=== PATIENT | male | born 1965 | race Caucasian/White ===

== ENCOUNTER 2018-01-28 10:38 | Outpatient (CLI) | payer MEDICAID, SELFPAY ==
--- NOTE | 2018-01-28 11:20 | DI.REPORT_ITS ---
SYMPTOMS/DIAGNOSIS: F/U FX LEFT ANKLE: Three views. Comparison 01/10/18. There has been no change in alignment of the nondisplaced fracture involving the lateral malleolus. There has developed callous formation about the fracture consistent with some interval healing. Callous formation has also developed about the fracture involving the medial malleolus. No new fractures or dislocations are seen.
== END 2018-01-28 10:39 ==
PROVIDERS: PCP Nurse Practitioner Family; Visit Provider Orthopaedic Surgery
DX: S82.831D Other fracture of upper and lower end of right fibula, subsequent encounter for closed fracture with routine healing (principal)
CPT/HCPCS: 73610

== ENCOUNTER 2018-09-02 09:54 | Emergency (ER) | payer MEDICAID, SELFPAY ==
[2018-09-02] VITALS (36 sets, daily range): BP systolic 117–131; BP diastolic 71–86; PULSE 68–116; RESP 9–26; TEMP 37.2; O2SAT 98–100
[2018-09-02 10:26] LABS: Carboxyhemoglobin 45.7 %; Lactate-non-spesis 4.7 mmol/l (0.6-1.4)
[2018-09-02 10:26] LABS: HCO3 21 mmol/L (22-28); pCO2 34 mmHg (34-47); pH 7.39 (7.35-7.45); pO2 383 mmHg (83-108)
[2018-09-02 10:28] LABS: INR 1.1 (0.9-1.1); PTT Activated 23.1 sec (21.0-31.4); Prothrombin Time 10.9 sec (9.3-11.0)
[2018-09-02 10:29] LABS: FIO2L 15 L; Site Right Radial
[2018-09-02] MEDS: Normal Saline 1,000 ML 1000 ML IV (10:31)
--- NOTE | 2018-09-02 10:34 | NUR.NOTE ---
pt brought in by EMS for CO poisoning. pt sleeps in his friends garage in his car and remembers starting his car because he was cold
--- NOTE | 2018-09-02 10:36 | W.ED.GENAD ---
Discharge Plan Disposition Patient Disposition: AGAINST MEDICAL ADVICE Condition: Poor Discharge Details Chief Complaint: ChemExpose Clinical Impression: Carbon monoxide poisoning Primary Care Provider: Ilene Moore ED Provider: Lorenzo Hoover Home Meds and New Rx's Prescriptions: No Action acetaminophen [Tylenol] 325 MG tablet 650 mg PO Q4H PRN PRNRF: 0 nicotine 21 MG/24 HR patch 24 hour 21 mg Transdermal DAILY RF: 0 thiamine mononitrate (vit B1) [Vitamin B-1 (mononitrate)] 100 MG tablet 100 mg PO DAILY RF: 0 prazosin 5 mg Capsule 5 mg PO QPM RF: 0 Discharge Instructions Instructions: Carbon Monoxide Poisoning (ED) Additional Instructions: If you have any desire to come back for hyperbaric oxygen, or any oxygen even for admission here at the hospital please return immediately. Please follow-up as soon as possible with a primary care provider any medical source. Referrals: Ilene Moore [Primary Care Provider] - Discharge Data Discharge Date/Time-TO BE ENTERED AT DEPARTURE: 09/02/18 13:55 Medical Decision Making This is a 53-year-old male with a past medical history of seizures, chronic alcoholism, who presents today for carbon monoxide overdose. The patient was found unresponsive in a garage with the doors closed in the vehicle line. He was dragged out of the vehicle brought outside and eventually regained consciousness after notable stimulation, he was a bit altered at first but by the time he arrived to the ER his mental status is normal. Patient states that he was tired, went to sleep in his car and turned the heat on and turn the car on to stay warm on the vehicle. He denies any homicidal or suicidal ideations. He has no other significant complaints at this time. Physical exam is relatively benign, neurologic exam demonstrates no focal neurologic deficits. Patient's mental status appears at baseline, no evidence of confusion or significant intoxication at this point. Patient has a history of alcoholism, however he clinically appears sober at this time. Patient denies any other complaints at this time. We will evaluate for his carboxyhemoglobin level, start him on BiPAP at 100%, monitor closely. I am concerned that his carboxyhemoglobin is elevated she will need to be transferred for hyperbaric oxygen. The patient is able to speak clearly. There is no demonstration of any slurring of speech. There is evidence of clear decision making capacity. Patient is able to ambulate well without any difficulty. There are no signs of ataxia or stumbling motions. 1:30 PM The patient's carboxyhemoglobin is notably elevated greater than 40. Laboratory workup demonstrates elevated lactate at 4.7, transaminitis consistent with his chronic alcoholism, negative troponin, benign EKG, normal head CT scan. Patient continues to demonstrate a normal neurologic exam, with no signs of confusion or altered mental status. With the patient's notably elevated carboxyhemoglobin level there is notable indication for hyperbaric oxygen therapy. We did contact [facility], [facility], and [facility]. Only [facility] accepted the patient for transfer under Dr. Velasco, with direct transfer to the ED. unfortunately soon as I discussed this with the patient he made it unequivocally clear that there was no way that he would be transferred to another facility. Although I deal I gave him the option of staying here in our hospital for prolonged BiPAP and high flow oxygen, and he continued to make it absolutely clear that he had no intent of staying, that he felt absolutely fine would like to go home. Myself and multiple other medical staff made multiple attempts to convince the patient to stay, including multiple prolonged discussions regarding the long-term sequelae and potential severe neurologic deficits associated with untreated carboxyhemoglobin exposure, in addition to potential other agents that he may have been exposed to. Patient made it very clear that he did not want any further workup, labs, or management. He stated that he wanted to call for right immediately leave. When asking why he felt this way he made it clear that those things that you tell me will not make my life worse, and I feel fine, and I am sure everything will work out fine. We did delay the patient's exit long as possible to maximize the amount of high flow oxygen that he received via BiPAP. Eventually the patient was discharged with his ride. He ambulated well and showed no clinical signs of intoxication, or mental status abnormality. Multiple attempts were remade immediately prior to discharge to keep him here overnight or transfer, the patient made it exquisitely clear what his wishes were. The patient left AGAINST MEDICAL ADVICE EKG 10: 14 Rate 97, MN 204, QTc 478, QRS 80, sinus rhythm, no significant ST elevations or depressions, no Q waves. CRANIAL CT: A noncontrast enhanced examination was carried out according to the usual protocol. There is no evidence of an intra or extra-axial hemorrhage, mass or fluid collection. The estes/white matter differentiation is maintained. There are some questionable small areas of diminished absorption in the frontoparietal white matter raising the possibility of small vessel disease. The ventricles are normal. The midline is intact. There is no evidence of a skull fracture. The paranasal sinuses are normal. The mastoid air cells are normal. SUMMARY: No acute abnormality is demonstrated. There has been no apparent interval change when compared with the prior study of 11/23/17. [id number]: Total DLP = 0.00 mGy-cm HPI General Date/Time Provider Initiated Documentation: 09/02/18 10:01. 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 Patient's was picked up by EMS after being found unresponsive in a vehicle in a garage with the door is closed, the vehicle on in the garage door closed. When fire initially arrived they open the garage door, got the patient out, 15 minutes after this there was still 90 ppm of carbon monoxide level in the garage. Initially the patient was unresponsive, and by eventual responsiveness but confusion. He was started on 15 L on a nonrebreather. At the time he arrived to the ER mental status had improved towards his baseline, he had no other complaints. He denies having any recent seizures. He denies any tongue biting or bowel or bladder incontinence. He does recall the event stating that he was tired because he was working all last night as stated in the car because he was cold, turning the car awning blasted the heat. He then fell asleep because he was closing and warm. He remembers then being woken up by EMS. Patient denies any significant headache, chest pain, shortness of breath, fever or chills. He denies any recent falls or trauma. He does also admit to recent detailing on his car which she felt had a notable amount of fumes. No other complaints at this time. Related Data Home Medications Medication Instructions Recorded Confirmed acetaminophen [Tylenol] 650 mg PO Q4H PRN PRN tab 01/17/18 09/02/18 nicotine 21 mg TRANSDERMAL DAILY patch 01/17/18 09/02/18 thiamine mononitrate (vit B1) 100 mg PO DAILY tab 01/17/18 09/02/18 [Vitamin B-1 (mononitrate)] prazosin 5 mg PO QPM 09/02/18 09/02/18 Previous Rx's Medication Instructions Recorded acetaminophen [Tylenol] 650 mg PO Q4H PRN PRN tab 01/17/18 nicotine 21 mg TRANSDERMAL DAILY patch 01/17/18 thiamine mononitrate (vit B1) 100 mg PO DAILY tab 01/17/18 [Vitamin B-1 (mononitrate)] Allergies Allergy/AdvReac Type Severity Reaction Status Date / Time No Known Allergies Allergy Unverified 09/02/18 10:43 General Stated Complaint: ChemExpose JINNY: 2 Review of Systems Review of Systems All systems reviewed & are unremarkable except as noted in HPI and below PFSH Social History Smoking/Tobacco Use Status: Current every day Tobacco Type: cigarettes Alcohol Intake: current Alcohol Intake frequency: 3 or more drinks per day Alcohol type: wine and hard liquor Drug use: Daily Substance use type: marijuana Do you feel safe at home: Yes Do you feel safe in your relationship?: Yes Exam Narrative Exam Narrative: 1.Const: Well-nourished, Well-developed, appearing stated age 2.Eyes: PERRL, no conjunctival injection, and symmetrical lids. unable to visualize macula 3.ENT: Atraumatic external nose and ears. Moist MM. Neck: Symmetric, trachea midline, No thyromegaly. 4.CVS: +S1/S2, No murmurs or gallops. Peripheral pulses 2+ and equal in all extremities. Brisk capillary refill in all extremities. 5.RESP: Unlabored respiratory effort. Clear to auscultation bilaterally. No wheezes rales or rhonchi 6.GI: Soft, Nontender/Nondistended, No hepatosplenomegaly. No guarding or rebound. 7.MSK: Normocephalic/Atraumatic, Extremities w/o deformity or ttp No cyanosis or clubbing, Normal movement of all extremities. Mild tremor of the upper extremities bilaterally. Notably red distal extremities, easily blanchable. No evidence of cellulitis. 8.Skin: Warm, Dry. No rashes or lesions. 9.Neuro: operations representative II-XII grossly intact. Sensation grossly intact, no focal neurologic deficits. All 6 cardinal planes of vision are fully intact. No evidence of rotatory or vertical nystagmus. The patient demonstrated a normal utdaxy-ciup-orgtwh, good dexterity. There was no evidence of dysdiadochokinesia. Sensation was intact bilaterally as well as muscle strength bilaterally for all extremities. Patient was able to verbalize butter cup with no slurring, or miss pronunciation. 10.Psych: (AAO) x3. Appropriate mood and affect Course Vital Signs Respiratory Rate 17 09/02/18 09:52 Pulse 95 H 09/02/18 10:10 Pulse 95 H 09/02/18 10:10 Respiratory Rate 20 09/02/18 10:10 Blood Pressure 117/83 09/02/18 10:10 Blood Pressure Mean 88 09/02/18 10:10 Pulse Oximetry 98 09/02/18 10:10 Lab/Test Results Lab/Test Results: Laboratory Tests Range/Units 09/02/18 09/02/18 09/02/18 10:01 10:05 10:05 PT (9.3-11.0) sec INR (0.9-1.1) APTT (21.0-31.4) sec Sample Site Right radial pCO2 (34-47) mmHg 34 pO2 (83-108) mmHg 383 H ABG pH (7.35-7.45) 7.39 ABG HCO3 (22-28) mmol/L 21 L ABG Base Excess (-3-3) mmol/L -4.0 L Carboxyhemoglobin % % 45.7 H* Oxygen Liter Flow L 15 Lactate (0.6-1.4) mmol/l 4.7 H Range/Units 09/02/18 09/02/18 10:05 10:05 PT (9.3-11.0) sec 10.9 INR (0.9-1.1) 1.1 APTT (21.0-31.4) sec 23.1 Sample Site pCO2 (34-47) mmHg pO2 (83-108) mmHg ABG pH (7.35-7.45) ABG HCO3 (22-28) mmol/L ABG Base Excess (-3-3) mmol/L Carboxyhemoglobin % % Cancelled Oxygen Liter Flow L Lactate (0.6-1.4) mmol/l
[2018-09-02 10:38] LABS: HGB 16.7 g/dL (13.5-17.5); Mean Corp. HGB Concentration 37.1 g/dL (32.0-36.0); Mean Corpuscular Hemoglobin 37.8 pg (27.0-33.0); Mean Corpuscular Volume 101.8 fL (80-95); Platelet Count 243 x1000/uL (130-400); RBC 4.42 m/cumm (4.50-6.00); RBC Distribution Width 12.1 % (11.8-14.1); White Blood Cell Count 6.71 k/cumm (4.4-10.8)
[2018-09-02 10:41] LABS: Ammonia 12 umol/L (11-32)
[2018-09-02 10:44] LABS: Creatine Kinase 101 U/L (39-308)
[2018-09-02 10:45] LABS: ALT 100 U/L (12-78); AST 158 U/L (15-37); Albumin 3.8 g/dL (3.4-5.0); Alkaline Phosphatase 129 U/L (46-116); Anion Gap 15.9 mmol/L (3-11); BUN 5 mg/dL (7-18); Bilirubin, Total 0.5 mg/dL (0.2-1.0); CO2 23.1 mmol/L (21.0-32.0); Chloride 100 mmol/L (98-107); ETHANOL BLOOD 115.2 mg/dL (<3); Glucose 99 mg/dL (70-100); Potassium 4.2 mmol/L (3.5-5.1); Sodium 139 mmol/L (136-145)
[2018-09-02 10:46] LABS: Absolute Eosinophil Count 0.07 k/cumm (0.0-0.7); Absolute Lymphocyte Count 1.54 k/cumm (1.2-3.4); Absolute Monocyte Count 0.74 k/cumm (0.11-0.7); Absolute Neutrophil Count 4.36 k/cumm (1.2-6.7); Atypical Lymphocytes % 8; Diff Comment Manual Differential; Macrocytosis 1+; Troponin I < 0.02 ng/mL (0.00-0.06)
[2018-09-02 10:48] LABS: Salicylate 6.6 mg/dL (2.8-20.0)
[2018-09-02 10:50] LABS: Acetaminophen < 2 ug/mL (10-30)
[2018-09-02 11:01] LABS: *AMPHETAMINES SCREEN URINE Negative (Negative); *BARBITURATES SCREEN URINE Negative (Negative); *BENZODIAZEPINES SCREEN URINE Negative (Negative); Cannabinoids THC POSITIVE (Negative); Cocaine Screen,Urine Negative (Negative); METHADONE URINE SCREEN Negative (Negative); OPIATES URINE SCREEN Negative (Negative); Tricyclic Antidepressants Negative (Negative)
--- NOTE | 2018-09-02 11:06 | DI.CT_ITS ---
SYMPTOMS/DIAGNOSIS: ALTERED, HX OF SEIZURES CRANIAL CT: A noncontrast enhanced examination was carried out according to the usual protocol. There is no evidence of an intra or extra-axial hemorrhage, mass or fluid collection. The estes/white matter differentiation is maintained. There are some questionable small areas of diminished absorption in the frontoparietal white matter raising the possibility of small vessel disease. The ventricles are normal. The midline is intact. There is no evidence of a skull fracture. The paranasal sinuses are normal. The mastoid air cells are normal. SUMMARY: No acute abnormality is demonstrated. There has been no apparent interval change when compared with the prior study of 11/23/17.
--- NOTE | 2018-09-02 13:41 | NUR.NOTE ---
pt is leaving against medical advice. risks of leaving have been discussed with pt. myself the MD and 2 other nurses attempted to talk the patient into staying. pt states you are all wrong theres nothing the hell wrong with me im leaving im leaving im leaving im leaving pt states i hear your damn risks you're talking about and i don't think there real and if they are i will role the dice im damn good at rolling dice pt was able to repeat the risks back to RN. although pt is aware of the risks that we have presented PT believes that the hospital staff are crazy as theres nothing the hell wrong with me
--- NOTE | 2018-09-03 10:35 | PDOC.ERCMPRO ---
Care Management Progress Note 09/03-Hector left AMA last evening from the emergency department. ED provider wanted Hector to be transferred for hyperbaric oxygen therapy. Patient has refused. Please see provider and nursing notes. This CM called the number on chart. Left a generic message with this CM's contact information requesting call back.
== END 2018-09-02 13:55 | disposition left against medical advice (07) ==
LOC: ER 11:29
PROVIDERS: Emergency Provider Student in an Organized Health Care Education/Training Program; PCP Nurse Practitioner Family
DX: T58.01XA Toxic effect of carbon monoxide from motor vehicle exhaust, accidental (unintentional), initial encounter (principal); Z53.29 Procedure and treatment not carried out because of patient's decision for other reasons
CPT/HCPCS: 36415; 80053; 80307; 82375; 82550; 82805; 96360; 96361; 99285; 70450; 80320; 80329; 82140; 83605; 84484; 85025; 85610; 85730

== ENCOUNTER 2019-03-14 16:34 | Emergency (ER) | payer SELFPAY ==
[2019-03-14 16:33] VITALS: PULSE 109; RESP 20; TEMP 37.2; O2SAT 92
[2019-03-14 16:43] VITALS: RESP 20
[2019-03-14 17:13] LABS: ETHANOL BLOOD 437.3 mg/dL (<3)
--- NOTE | 2019-03-14 23:02 | W.ED.GENAD ---
Discharge Plan Disposition Patient Disposition: [facility] Discharge Details Chief Complaint: AMS/LOC Clinical Impression: Alcohol intoxication, Encounter for medical clearance for patient hold Primary Care Provider: Ilene Moore ED Provider: Navin Rooney Home Meds and New Rx's Prescriptions: No Action acetaminophen [Tylenol] 325 MG tablet 650 mg PO Q4H PRN PRNRF: 0 nicotine 21 MG/24 HR patch 24 hour 21 mg Transdermal DAILY RF: 0 thiamine mononitrate (vit B1) [Vitamin B-1 (mononitrate)] 100 MG tablet 100 mg PO DAILY RF: 0 prazosin 5 mg Capsule 5 mg PO QPM RF: 0 Discharge Instructions Instructions: Alcohol Intoxication (ED) Additional Instructions: Patient has a chronic right and left knee pain which disrupts his gait at baseline. Discharge Data Discharge Date/Time-TO BE ENTERED AT DEPARTURE: 03/14/19 17:33 Medical Decision Making This is a nontoxic-appearing acutely intoxicated 53-year-old male who presents to the emergency department for medical clearance. He is able to carry full conversation. He is able to self ambulate. He does have chronic bilateral left greater than right knee pain. He has some difficulty with ambulation at baseline. His alcohol is 490 here in the emergency department discussed with case liner who states the holding tank. No outward signs of trauma. Patient is cleared medically at this time for intoxication observation. HPI General Date/Time Provider Initiated Documentation: 03/14/19 16:43. HPI Narrative: Patient found under [facility] unconscious approximate 30 minutes. Difficult to arouse by EMS and police. Patient notably intoxicated and refused to feel breathalyzer. He has no complaints at this time and wants to sleep. He is here for medical clearance. Related Data Home Medications Medication Instructions Recorded Confirmed acetaminophen [Tylenol] 650 mg PO Q4H PRN PRN tab 01/17/18 09/02/18 nicotine 21 mg TRANSDERMAL DAILY patch 01/17/18 09/02/18 thiamine mononitrate (vit B1) 100 mg PO DAILY tab 01/17/18 09/02/18 [Vitamin B-1 (mononitrate)] prazosin 5 mg PO QPM 09/02/18 09/02/18 Previous Rx's Medication Instructions Recorded acetaminophen [Tylenol] 650 mg PO Q4H PRN PRN tab 01/17/18 nicotine 21 mg TRANSDERMAL DAILY patch 01/17/18 thiamine mononitrate (vit B1) 100 mg PO DAILY tab 01/17/18 [Vitamin B-1 (mononitrate)] Allergies Allergy/AdvReac Type Severity Reaction Status Date / Time No Known Allergies Allergy Unverified 09/02/18 10:43 General Stated Complaint: AMS/LOC JINNY: 3 Review of Systems Constitutional Constitutional: Denies fever(s) and Denies headache(s) ENT Ears, Nose, Mouth, and Throat: Denies dizziness and Denies headache(s) Cardiovascular Cardiovascular: Denies chest pain, Denies chest pain at rest and Denies dyspnea Respiratory Respiratory: Denies dyspnea and Denies wheezing Gastrointestinal Gastrointestinal: Denies vomiting and Denies hematemesis Musculoskeletal Musculoskeletal: Reports arthralgias (b/l knees) Neurologic Neurologic: Denies dizziness, Denies headache(s) and Denies paresthesias Allergic/Immunologic Allergic/Immunologic: Denies wheezing [facility] Social History Smoking/Tobacco Use Status: Current every day Tobacco Type: cigarettes Alcohol Intake: current Alcohol Intake frequency: 3 or more drinks per day Alcohol type: beer Drug use: Daily Substance use type: marijuana Details: States he drinks almost a case of beer a day. Do you feel safe at home: Yes Do you feel safe in your relationship?: Yes Exam Const General: cooperative, comfortable, no acute distress, disheveled and intoxicated appearing Orientation: alert, awake and oriented x3 [facility] Head: normal to inspection, no palpable skull fracture, normocephalic and atraumatic General nose exam: external nose normal Face and sinus: normal facial exam Mouth: oral mucosae normal Eyes General: appearance normal, both eyes and all related structures Visual Sheets: normal visual sheets by confrontation Neck Neck: normal visual inspection and full ROM Chest Chest: normal inspection of the chest Resp Effort & Inspection: normal respiratory effort and able to speak in complete sentences Auscultation: clear to auscultation bilaterally Cardio Rate: regular rate Rhythm: regular rhythm Skin General skin exam: no rashes or lesions noted Trauma: no lacerations or abrasions Neuro General: alert, awake and oriented x3 Cranial Nerves: CN's II-XI intact bilaterally Cognition: normal cognition Gait: normal gait Course Vital Signs Vital signs: Vital Signs Temperature 37.2 C 03/14/19 16:33 Pulse 109 H 03/14/19 16:33 Respiratory Rate 20 03/14/19 16:33 Pulse Oximetry 92 L 03/14/19 16:33 Temperature 37.2 C 03/14/19 16:33 Temperature Source Skin 03/14/19 16:33 Pulse 109 H 03/14/19 16:33 Respiratory Rate 20 03/14/19 16:43 Respiratory Effort Non-Labored 03/14/19 16:43 Blood Pressure Position Sitting 03/14/19 16:33 Pulse Oximetry 92 L 03/14/19 16:33 Oxygen Delivery Method Room Air 03/14/19 16:33 Oxygen Flow Rate 0 03/14/19 16:33 Pain Level 0 03/14/19 17:34 Comment 03/14/19 16:33 Lab/Test Results Lab/Test Results: Laboratory Tests Range/Units 03/14/19 16:41 Ethyl Alcohol (<3) mg/dL 437.3
== END 2019-03-14 17:33 | disposition home or self-care (01) ==
PROVIDERS: Emergency Provider Physician Assistant; PCP Nurse Practitioner Family
DX: F10.120 Alcohol abuse with intoxication, uncomplicated (principal); G89.29 Other chronic pain; M25.561 Pain in right knee; M25.562 Pain in left knee
CPT/HCPCS: 36415; 99283; 80320

== ENCOUNTER 2020-07-16 08:00 | Emergency (ER) | payer SELFPAY ==
[2020-07-16] VITALS (45 sets, daily range): BP systolic 114–136; BP diastolic 59–85; PULSE 91–123; RESP 13–30; TEMP 37.8; O2SAT 87–96
--- NOTE | 2020-07-16 08:00 | RT.EKG_ITS ---
APPROVED REPORT Exam: Resting ECG Patient Location: E HR:108 bpm ECG Measurements Heart Rate 108 AXIS UT 178 P 87 QRSd 80 QRS 2 QT 343 T 66 QTc 460 Conclusion Sinus tachycardia...rate> 99 Low voltage, extremity leads...all extremity leads <0.5mV subtle st dep lateral v5-6
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
[2020-07-16] MEDS: Normal Saline Flush 10 ML SYR IVP ×3 (08:31→11:47)
[2020-07-16] MEDS: Lactated Ringers 1,000 ML 1000 ML IV (08:31)
[2020-07-16] MEDS: Acetaminophen 500 MG TAB 1000 MG PO (08:47)
[2020-07-16 08:50] LABS: Source Nasopharynx
[2020-07-16 08:52] LABS: Abs Immature Grans 0.04 10^3/uL (0.0-0.06); Absolute Basophil Count 0.06 10^3/uL (0.0-0.2); Absolute Eosinophil Count 0.04 10^3/uL (0.0-0.7); Absolute Lymphocyte Count 1.03 10^3/uL (1.2-3.4); Absolute Monocyte Count 1.22 10^3/uL (0.1-0.8); Absolute Neutrophil Count 10.54 10^3/uL (1.2-6.7); Basophils % 0.5; Eosinophils % 0.3; HGB 14.4 g/dL (13.5-17.5); Immature Grans % 0.3; MCHC 34.3 % (32.0-36.0); MCV 99.1 fL (80-95); MPV 9.7 fL (8.0-11.0); Monocytes % 9.4; Neutrophils % 81.5; Nucleated RBC 0 %; Platelet Count 283 10^3/uL (130-400); RBC 4.24 10^6/uL (4.36-5.78); RDW 12.9 % (11.8-14.1); RDW-SD 46.7 fL; WBC 12.93 10^3/uL (4.4-10.8)
[2020-07-16 09:31] LABS: COVID-19 PCR Negative (Negative); Influenza A PCR Negative (Negative); Influenza B PCR Negative (Negative); RSV PCR Negative (Negative)
[2020-07-16 09:33] LABS: D-Dimer 1513 ng/mlFEU (<500)
[2020-07-16 10:03] LABS: ALT 28 U/L (16-63); AST 55 U/L (15-37); Albumin 3.6 g/dL (3.4-5.0); Alkaline Phosphatase 119 U/L (46-116); Anion Gap 13.6 mmol/L (3-11); BUN 4 mg/dL (7-18); Bilirubin, Total 1.1 mg/dL (0.2-1.0); CO2 25.4 mmol/L (21.0-32.0); CREATININE 0.6 mg/dL (0.70-1.30); Calcium 8.6 mg/dL (8.5-10.1); Chloride 97 mmol/L (98-107); Glucose 108 mg/dL (74-106); Potassium 3.7 mmol/L (3.5-5.1); Sodium 136 mmol/L (136-145); Total Protein 8.6 g/dL (6.4-8.2)
--- NOTE | 2020-07-16 10:15 | RT.EKG_ITS ---
APPROVED REPORT Exam: Resting ECG Patient Location: E HR:97 bpm ECG Measurements Heart Rate 97 AXIS VA 214 P 35 QRSd 88 QRS 5 QT 399 T 24 QTc 507 Conclusion Sinus rhythm...normal P axis, V-rate 60- 99 Prolonged VA interval...VA >205, V-rate 91-120 Anterior infarct, old...Q >40mS, abnormal ST-T, V2-V5 Prolonged QT interval...QTc >500mS
[2020-07-16] MEDS: Omnipaque 350 MG/ML 100 ML BTL IJ (10:43)
[2020-07-16] MEDS: Normal Saline - Diluent 50 ML VIAL IV (10:45)
[2020-07-16 11:01] LABS: Bilirubin Negative (Negative); Blood Negative (Negative); Clarity Clear (Clear); Glucose Negative (Negative); Ketones Negative (Negative); Leukocyte Esterase Negative (Negative); Nitrite Negative (Negative); Urobilinogen 0.2 EU/dL (Up TO 0.2); pH 6.5 (5-8)
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
[2020-07-16 11:21] LABS: Anion Gap 10.1 mmol/L (3-11); BUN 3 mg/dL (7-18); CO2 26.9 mmol/L (21.0-32.0); CREATININE 0.6 mg/dL (0.70-1.30); Calcium 8.2 mg/dL (8.5-10.1); Chloride 98 mmol/L (98-107); Glucose 98 mg/dL (74-106); Potassium 3.8 mmol/L (3.5-5.1); Sodium 135 mmol/L (136-145)
[2020-07-16] MEDS: Ketorolac 15 MG/ML VIAL IVP (11:32)
--- NOTE | 2020-07-16 11:50 | RESPIRATORY ---
RT called to instruct patient on the used of Incentive Spirometry. Patient very hard of hearing, RT instructed patient by writing all the directions down for him. Patient was able to do 5 rep at 3000ml with a 2sec breathe hold. RT along with nursing instructed patient to split with pillow on the area in which the rib pain was. Patients was trialed on RA by nursing but with his shallow breathing, he was unable to maintain an Spo2 above 89%. Placed back on 2L and device left with patient for admission for observation in hospital.
--- NOTE | 2020-07-17 11:16 | NUR.NOTE ---
Nursing Note:Per access patient arrives at hospital due to unsigned prescription for lidocaine patches ordered for patient on 07/16/2020 at ED visit. Discussed with MD Taveras and patient notified patches are available over the counter. Patient's friend presented prescription to this nurse and was instructed to show pharmacist prescription for help to locate medication. This nurse also instructed that patient should come in and be reevaluated if needed. -
== END 2020-07-16 12:37 | disposition left against medical advice (07) ==
PROVIDERS: Emergency Provider Physician Assistant Medical; PCP Nurse Practitioner Family
DX: S22.41XA Multiple fractures of ribs, right side, initial encounter for closed fracture (principal); Y04.0XXA Assault by unarmed brawl or fight, initial encounter; R09.02 Hypoxemia; F10.20 Alcohol dependence, uncomplicated; R94.31 Abnormal electrocardiogram [ECG] [EKG]; Z20.822 Contact with and (suspected) exposure to COVID-19; Z53.29 Procedure and treatment not carried out because of patient's decision for other reasons; S22.49XA Multiple fractures of ribs, unspecified side, initial encounter for closed fracture
CPT/HCPCS: 71275; 74177; 80048; 80053; 87637; 93005; 96361; 96374; 99285; 81003; 85025; 85379; 93010; 99284; J1885; J3490

== ENCOUNTER 2020-10-07 19:12 | Emergency (ER) | payer SELFPAY ==
[2020-10-07 19:14] VITALS: BP 132/86; PULSE 99; RESP 17; TEMP 36.3
[2020-10-07 19:22] VITALS: RESP 18
[2020-10-07] MEDS: THIAMINE 100 MG in Normal Saline 100 ML 200 MG IVPB (19:47)
[2020-10-07 19:54] LABS: Abs Immature Grans 0.04 10^3/uL (0.0-0.06); Absolute Basophil Count 0.11 10^3/uL (0.0-0.2); Absolute Eosinophil Count 0.07 10^3/uL (0.0-0.7); Absolute Monocyte Count 0.87 10^3/uL (0.1-0.8); Basophils % 1.3; Eosinophils % 0.8; HCT 41.5 % (40.0-50.0); HGB 14.1 g/dL (13.5-17.5); Immature Grans % 0.5; Lymphocytes % 17.8; MCH 36.2 pg (27.0-33.0); MCV 106.7 fL (80-95); MPV 9.1 fL (8.0-11.0); Monocytes % 10.3; Nucleated RBC 0 %; Platelet Count 234 10^3/uL (130-400); RBC 3.89 10^6/uL (4.36-5.78); RDW 13.3 % (11.8-14.1); RDW-SD 52.5 fL; WBC 8.42 10^3/uL (4.4-10.8)
--- NOTE | 2020-10-07 20:01 | W.ED.GENAD ---
Discharge Plan Disposition Patient Disposition: HOME Condition: Stable Discharge Details Clinical Impression: Alcohol intoxication, Substance abuse Primary Care Provider: Ilene Moore ED Provider: Wilian Zeng Home Meds and New Rx's Prescriptions: No Action acetaminophen [Tylenol] 325 MG tablet 650 mg PO Q4H PRN PRNRF: 0 nicotine 21 MG/24 HR patch 24 hour 21 mg Transdermal DAILY RF: 0 thiamine mononitrate (vit B1) [Vitamin B-1 (mononitrate)] 100 MG tablet 100 mg PO DAILY RF: 0 prazosin 5 mg Capsule 5 mg PO QPM RF: 0 Discharge Instructions Instructions: Alcohol Intoxication (ED) Additional Instructions: Please do not use illicit substances or medications that you are not prescribed. Do not take methadone. Please stop abusing alcohol. Please contact your primary care physician to arrange follow-up. Return to the ER for any worsening or new concerning symptoms. Referrals: [facility] [Outside] Ilene Moore [Primary Care Provider] - Discharge Data Discharge Date/Time-TO BE ENTERED AT DEPARTURE: 10/07/20 21:45 Medical Decision Making 1997--55-year-old male with alcohol use disorder, here with altered mental status. Patient had slurred speech and smells of alcohol. Suspect acute alcohol intoxication. Per his friends he also took some methadone today for rib pain related to rib fracture. Patient is hemodynamically stable without complaint. Plan to observe patient for clinical sobriety. I will check labs including EtOH and urine drug screen. Will provide thiamine 100 mg IV and IV fluid. --labs reviewed and EtOH elevated, there is methadoneon uds. Patient is stable, conversant and cooperative. He has no complaints. Mentation has improved. 2137 --Patient has remained stable. Mentation improved, he has no complaints and is requesting discharge. He is able to abmbulate without disfunction. We have contacted a friend to transport patient home and ensure safety at home. Nursing reviewed discharge with patient and he departed with friend. HPI General Mode of arrival: wheelchair. Date/Time Provider Initiated Documentation: 10/07/20 19:13. Limitations to Documentation: altered mental status. Information obtained by: patient. HPI Narrative: 55-year-old male with history of alcohol use disorder, presents with altered mental status. Patient was dropped off by his friends who are concerned that he drank an excessive amount of alcohol and took some methadone. History and review of systems limited secondary to altered mental status. Patient has no complaints and is requesting discharge. Related Data Home Medications Medication Instructions Recorded Confirmed acetaminophen [Tylenol] 650 mg PO Q4H PRN PRN tab 01/17/18 07/16/20 nicotine 21 mg TRANSDERMAL DAILY patch 01/17/18 07/16/20 thiamine mononitrate (vit B1) 100 mg PO DAILY tab 01/17/18 07/16/20 [Vitamin B-1 (mononitrate)] prazosin 5 mg PO QPM 09/02/18 07/16/20 Previous Rx's Medication Instructions Recorded acetaminophen [Tylenol] 650 mg PO Q4H PRN PRN tab 01/17/18 nicotine 21 mg TRANSDERMAL DAILY patch 01/17/18 thiamine mononitrate (vit B1) 100 mg PO DAILY tab 01/17/18 [Vitamin B-1 (mononitrate)] Allergies Allergy/AdvReac Type Severity Reaction Status Date / Time No Known Allergies Allergy Unverified 10/07/20 19:21 General Stated Complaint: AMS/LOC JINNY: 3 Review of Systems Unobtainable due to mental status [facility] Medical History (Updated 10/07/20 @ 21:41 by Wilian Zeng MD) Alcohol use disorder Seizure disorder Social History Smoking/Tobacco Use Status: Current every day Tobacco Type: cigarettes Smoking risk assessment performed?: Yes Alcohol Intake: current Alcohol Intake frequency: 3 or more drinks per day Alcohol type: beer Drug use: Daily Substance use type: marijuana and painkillers Details: States he drinks almost a case of beer a day. Do you feel safe at home: Yes Do you feel safe in your relationship?: Yes Exam Const General: cooperative, comfortable and no acute distress Orientation: alert, awake and confused Limitations: altered mental status HENAL Head: normocephalic and atraumatic Mouth: moist mucous membranes Eyes Sclera: normal sclerae Neck Neck: trachea midline Resp Auscultation: clear to auscultation bilaterally, no rales, no rhonchi and no wheezes Cardio Rate: regular rate and not tachycardic Rhythm: regular rhythm GI Palpation: soft, not firm, no guarding, no masses, not rigid and nontender Skin General skin exam: no rashes or lesions noted Neuro General: patient alert, patient awake, oriented Patient Orientation: Person, Place and Confused and tone normal Cognition: abnormal cognition Speech: other (Slurred speech) Motor: muscle tone normal throughout Extrem General: no edema Psych Appearance: disheveled Mental Status: mental status grossly normal Speech and Movement: slurred speech Attitude: cooperative Course Vital Signs Vital signs: Vital Signs Temperature 36.3 C L 10/07/20 19:14 Pulse 99 H 10/07/20 19:14 Respiratory Rate 17 10/07/20 19:14 Blood Pressure 132/86 10/07/20 19:14 Temperature 36.3 C L 10/07/20 19:14 Temperature Source Temporal Artery Scan 10/07/20 19:14 Pulse 99 H 10/07/20 19:14 Respiratory Rate 18 10/07/20 19:22 Respiratory Effort Non-Labored 10/07/20 19:22 Respiratory Pattern Normal 10/07/20 19:22 Blood Pressure 132/86 10/07/20 19:14 Blood Pressure Position Supine 10/07/20 19:14 Oxygen Delivery Method Room Air 10/07/20 19:14 Oxygen Flow Rate 0 10/07/20 19:14 Pain Level 2 10/07/20 19:14
[2020-10-07 20:02] LABS: ALT 74 U/L (16-63); AST 102 U/L (15-37); Albumin 3.9 g/dL (3.4-5.0); Alkaline Phosphatase 143 U/L (46-116); Anion Gap 8.9 mmol/L (3-11); BUN 4 mg/dL (7-18); Bilirubin, Total 0.3 mg/dL (0.2-1.0); CO2 30.1 mmol/L (21.0-32.0); CREATININE 0.6 mg/dL (0.70-1.30); Calcium 8.5 mg/dL (8.5-10.1); Chloride 107 mmol/L (98-107); Glucose 86 mg/dL (74-106); Potassium 3.9 mmol/L (3.5-5.1); Sodium 146 mmol/L (136-145); Total Protein 8.6 g/dL (6.4-8.2)
[2020-10-07 20:04] LABS: Magnesium 2.1 mg/dL (1.8-2.4)
--- NOTE | 2020-10-07 20:10 | NUR.NOTE ---
referal sent to [facility] for4 help getting patient hearring vasyl 10/07/20Nursing Note:
[2020-10-07] MEDS: Lactated Ringers 1,000 ML 1000 ML IV (20:15)
[2020-10-07 20:16] LABS: Diff Comment Diff Reviewed; Macrocytosis 1+
[2020-10-07 20:18] LABS: Absolute Neutrophil Count 5.84 10^3/uL (1.2-6.7); Neutrophils % 69.3
[2020-10-07 20:19] LABS: *AMPHETAMINES SCREEN URINE Negative (Negative); *BARBITURATES SCREEN URINE Negative (Negative); *BENZODIAZEPINES SCREEN URINE Negative (Negative); Cannabinoids THC Positive (Negative); Cocaine Screen,Urine Negative (Negative); METHADONE URINE SCREEN Positive (Negative); OPIATES URINE SCREEN Negative (Negative)
[2020-10-07 20:20] LABS: Tricyclic Antidepressants Negative (Negative)
[2020-10-07 21:43] VITALS: BP 132/86; PULSE 99; RESP 18; TEMP 36.3; O2SAT 96
== END 2020-10-07 21:45 | disposition home or self-care (01) ==
PROVIDERS: Emergency Provider Student in an Organized Health Care Education/Training Program; PCP Nurse Practitioner Family
DX: F10.120 Alcohol abuse with intoxication, uncomplicated (principal); Y90.8 Blood alcohol level of 240 mg/100 ml or more; F11.10 Opioid abuse, uncomplicated; F12.10 Cannabis abuse, uncomplicated
CPT/HCPCS: 36415; 80053; 80307; 96361; 96365; 99284; 80320; 83735; 85025

== ENCOUNTER 2021-05-09 15:20 | Inpatient (IN) | payer MEDICAID, SELFPAY ==
[2021-05-09] VITALS (15 sets, daily range): BP systolic 102–130; BP diastolic 67–95; PULSE 83–103; RESP 16–22; TEMP 36.5–36.7; O2SAT 94–97
--- NOTE | 2021-05-09 15:45 | DI.RAD_ITS ---
Exam(s) XR FOOT RT COMPLETE EXAM: XR FOOT RT COMPLETE CLINICAL HISTORY: biateral foot pain. TECHNIQUE: 2D digital imaging was performed of the right foot. Three images were obtained. AP, obl ique and lateral views were obtained. COMPARISON: No previous for comparison. FINDINGS: BONES: No acute fracture is present. No bony destructive lesion is seen. JOINTS: No dislocation present. SOFT TISSUE: Normal. IMPRESSION: Unremarkable radiographs of the right foot. DATA REPOSITORY: RADIATION DOSE DELIVERED:
--- NOTE | 2021-05-09 15:45 | DI.RAD_ITS ---
Exam(s) XR FOOT LT COMPLETE EXAM: XR FOOT LT COMPLETE CLINICAL HISTORY: bilateral foot pain. TECHNIQUE: 2D digital imaging was performed of the left foot. Three images were obtained. AP, obli que and lateral views were obtained. COMPARISON: CR LEFT FOOT COMPLETE from 01/10/2018 FINDINGS: BONES: No acute fracture is present. No bony destructive lesion is seen. Sequelae of an old fracture of the proximal phalanx of the left great toe. JOINTS: No dislocation present. SOFT TISSUE: Normal. IMPRESSION: No acute fracture or dislocation. DATA REPOSITORY: RADIATION DOSE DELIVERED:
--- NOTE | 2021-05-09 15:50 | W.ED.GENAD ---
Discharge Plan Disposition Patient Disposition: [facility] INPATIENT Condition: Stable Discharge Details Clinical Impression: Alcohol abuse, Alcoholic peripheral neuropathy Primary Care Provider: Ilene Moore ED Provider: Ethan Taveras Home Meds and New Rx's Prescriptions: No Action acetaminophen [Tylenol] 325 MG tablet 650 mg PO Q4H PRN PRNRF: 0 nicotine 21 MG/24 HR patch 24 hour 21 mg Transdermal DAILY RF: 0 thiamine mononitrate (vit B1) [Vitamin B-1 (mononitrate)] 100 MG tablet 100 mg PO DAILY RF: 0 prazosin 5 mg Capsule 5 mg PO QPM RF: 0 Medical Decision Making This is a 55-year-old male homeless alcoholic who presents with progressive foot pain over months to years time. He states over the past 30 days he has been sleeping outside a friend's paint shop in his van, unable to change his clothes and has not removed his boots in that time. Due to ongoing pain, weakness, and ongoing alcohol use he was brought to the ER by this friend today. The patient arrives with normal vital signs. He appears to have a mild trench foot. Could consider alcoholic neuropathy causing nerve pain, he is also at risk for dehydration and electrolyte abnormalities and therefore IV access was established, patient was given fluids and a banana bag, referred for screening x-rays of his feet and laboratory analysis. Labs: Alcohol level was 299. CBC shows white count 6, hematocrit 38, platelets 171 with MCV of 104. Chemistries note sodium 138, potassium 4.1, chloride 102, bicarb 28, BUN 7, creatinine 0.5. AST 180, ALT 93, alk phos 224, total bili 0.4. XR: No acute fracture present left or right foot. Following fluids, banana bag and observation, the patient is minimally improved. He has ongoing lower extremity and generalized weakness, he is at risk for alcohol withdrawal, and he has no safe outpatient disposition at this time. Case discussed with Dr. Kelly. Will obtain screening head CT and patient to be admitted. HPI General Mode of arrival: wheelchair. Date/Time Provider Initiated Documentation: 05/09/21 15:21. Limitations to Documentation: no limitations. Information obtained by: patient. History of Present Illness 55 year old M presents to the emergency department with the chief complaint of Bilateral foot pain, progressive over years time. Ongoing alcoholism, described as moderate, Quality is described as dull and constant, and is localized to the left, right and lower extremity. Patient started experiencing this week(s) and it has been intermittent. No relieving factors improve symptom(s), No exacerbating factors reported . Patient notes denies fever/chills and rash. Patient did receive the following treatments prior to arrival, none Related Data Home Medications Medication Instructions Recorded Confirmed acetaminophen [Tylenol] 650 mg PO Q4H PRN PRN tab 01/17/18 07/16/20 nicotine 21 mg TRANSDERMAL DAILY patch 01/17/18 07/16/20 thiamine mononitrate (vit B1) 100 mg PO DAILY tab 01/17/18 07/16/20 [Vitamin B-1 (mononitrate)] prazosin 5 mg PO QPM 09/02/18 07/16/20 Previous Rx's Medication Instructions Recorded acetaminophen [Tylenol] 650 mg PO Q4H PRN PRN tab 01/17/18 nicotine 21 mg TRANSDERMAL DAILY patch 01/17/18 thiamine mononitrate (vit B1) 100 mg PO DAILY tab 01/17/18 [Vitamin B-1 (mononitrate)] Allergies Allergy/AdvReac Type Severity Reaction Status Date / Time No Known Allergies Allergy Unverified 10/07/20 19:21 General Stated Complaint: GenMedical JINNY: 3 Review of Systems Narrative: . Denies direct injury to the lower extremity. Reports weakness of the legs and recent falls. No fever. Ongoing daily alcohol use. States he is homeless. Sleeping in his van. 8 systems reviewed and otherwise negative [facility] Active Problem List Alcohol intoxication (Acute) Substance abuse (Acute) Seizure disorder (Acute) Multiple rib fractures (Acute) Rib fracture (Acute) Alcohol withdrawal (Acute) Alcoholic hepatitis (Acute) Alcoholic gastritis (Acute) Alcohol dependence (Acute) Tobacco dependence (Acute) Ankle fracture, left (Acute) Discharge planning issues (Acute) Hypokalemia (Acute) Medical History Alcohol use disorder Social History Smoking/Tobacco Use Status: Current every day Tobacco Type: cigarettes Smoking risk assessment performed?: Yes Alcohol Intake: current Alcohol Intake frequency: 3 or more drinks per day Alcohol type: beer and wine Drug use: Daily Substance use type: marijuana and painkillers Details: States he drinks almost a case of beer a day. Today pt reports he consumed both beer and wine. Do you feel safe at home: Yes Do you feel safe in your relationship?: Yes Additional Social history: Pt reports he has been sleeping in a van for the last month. Exam Narrative Exam Narrative: GEN: awake, alert, interactive. HEAD: Normocephalic, atraumatic ENT: Mucous membranes dry, oropharynx unremarkable, External ear exam unremarkable EYES: PERRL, EOMI NECK: Full ROM, no ALLEGRA, no menigismus CHEST/RESP: Nontender, clear to auscultation bilateral, no wheeze/rhonchi/rales CARDIOVASCULAR: RRR, no murmur, rub merari. 2+ Rad pulse bilateral ABDOMEN: Soft, nontender, no mass. +Bowel sounds EXT: Full ROM, mild edema of toes, no evidence of desquamation, or sensation intact, capillary refill less than 2 seconds. Able to move both legs against gravity but not against resistance. Neuro: Grossly normal neurologic exam, conversant, interactive. Psych: Speech fluent, thoughts congruent, affect normal Course Vital Signs Vital signs: Vital Signs Temperature 36.7 C 05/09/21 15:37 Pulse 87 05/09/21 15:37 Respiratory Rate 18 05/09/21 15:37 Blood Pressure 111/80 05/09/21 15:37 Pulse Oximetry 97 05/09/21 15:37 Temperature 36.7 C 05/09/21 15:37 Pulse 87 05/09/21 15:37 Respiratory Rate 18 05/09/21 15:37 Blood Pressure 111/80 05/09/21 15:37 Blood Pressure Position Sitting 05/09/21 15:37 Pulse Oximetry 97 05/09/21 15:37 Oxygen Delivery Method Room Air 05/09/21 15:37 Oxygen Flow Rate 0 05/09/21 15:37 Pain Level 10 05/09/21 15:37
--- NOTE | 2021-05-09 15:53 | NUR.NOTE ---
Nursing Note: ETIENNE: [phone]
[2021-05-09] MEDS: Ketorolac 15 MG/ML VIAL IVP (16:08)
[2021-05-09] MEDS: Normal Saline Flush 10 ML SYR IVP (16:08)
[2021-05-09] MEDS: Normal Saline 1,000 ML 150 ML IV (16:08)
[2021-05-09 16:10] LABS: Abs Immature Grans 0.02 10^3/uL (0.0-0.06); Absolute Basophil Count 0.09 10^3/uL (0.0-0.2); Absolute Eosinophil Count 0.13 10^3/uL (0.0-0.7); Absolute Lymphocyte Count 1.28 10^3/uL (1.2-3.4); Absolute Neutrophil Count 3.93 10^3/uL (1.2-6.7); Basophils % 1.5; Eosinophils % 2.1; HCT 38.6 % (40.0-50.0); HGB 12.9 g/dL (13.5-17.5); Immature Grans % 0.3; Lymphocytes % 20.8; MCH 35.1 pg (27.0-33.0); MCHC 33.4 % (32.0-36.0); MCV 104.9 fL (80-95); MPV 9.8 fL (8.0-11.0); Monocytes % 11.4; Neutrophils % 63.9; Nucleated RBC 0 %; Platelet Count 171 10^3/uL (130-400); RBC 3.68 10^6/uL (4.36-5.78); RDW-SD 50.8 fL; WBC 6.15 10^3/uL (4.4-10.8)
[2021-05-09 16:17] LABS: ALT 93 U/L (16-63); AST 180 U/L (15-37); Albumin 3.1 g/dL (3.4-5.0); Alkaline Phosphatase 254 U/L (46-116); Anion Gap 7.2 mmol/L (3-11); BUN 7 mg/dL (7-18); Bilirubin, Total 0.4 mg/dL (0.2-1.0); CO2 28.8 mmol/L (21.0-32.0); CREATININE 0.5 mg/dL (0.70-1.30); Calcium 8.5 mg/dL (8.5-10.1); Chloride 102 mmol/L (98-107); ETHANOL BLOOD 299.1 mg/dL (<10); Glucose 94 mg/dL (74-106); Magnesium 2.1 mg/dL (1.8-2.4); Potassium 4.1 mmol/L (3.5-5.1); Sodium 138 mmol/L (136-145); Total Protein 7.8 g/dL (6.4-8.2)
[2021-05-09] MEDS: MAGNESIUM SULFATE 8.12 MEQ, MULTIVITAMIN 10 ML, THIAMINE 100 MG, FOLIC ACID 1 MG in Nor... 168.867 MG IV (16:54)
--- NOTE | 2021-05-09 17:10 | DI.VRAD_ITS ---
PROCEDURE INFORMATION: Exam: XR Left Foot Exam date and time: 05/09/2021 3:50 PM Age: 55 years old Clinical indication: Other: Bilateral foot pain TECHNIQUE: Imaging protocol: XR Left foot. Views: 3 or more views. COMPARISON: CR LEFT FOOT COMPLETE 01/10/2018 7:34 PM FINDINGS: Bones/joints: No acute fracture or dislocation Soft tissues: Unremarkable IMPRESSION: No acute fracture or dislocation Dictated and Authenticated by: Ameya Fields MD. Ordering:LUCIA Long MD
--- NOTE | 2021-05-09 17:11 | DI.VRAD_ITS ---
PROCEDURE INFORMATION: Exam: XR Right Foot Exam date and time: 05/09/2021 3:50 PM Age: 55 years old Clinical indication: Other: Bilateral foot pain TECHNIQUE: Imaging protocol: XR Right foot. Views: 3 or more views. COMPARISON: CR RIGHT ANKLE COMPLETE 01/28/2018 10:49 AM FINDINGS: Bones/joints: No acute fracture or dislocation Soft tissues: Unremarkable IMPRESSION: No acute fracture or dislocation Dictated and Authenticated by: Ameya Fields MD. Ordering:LUCIA Long MD
[2021-05-09 17:29] LABS: Bilirubin Negative (Negative); Blood Negative (Negative); Clarity Clear (Clear); Glucose Negative (Negative); Ketones Negative (Negative); Leukocyte Esterase Negative (Negative); Nitrite Negative (Negative); Specific Gravity 1.015 (1.005-1.025); Urobilinogen 0.2 EU/dL (Up TO 0.2)
[2021-05-09 17:53] LABS: *AMPHETAMINES SCREEN URINE Negative (Negative); *BARBITURATES SCREEN URINE Negative (Negative); *BENZODIAZEPINES SCREEN URINE Negative (Negative); Cannabinoids THC Negative (Negative); Cocaine Screen,Urine Negative (Negative); METHADONE URINE SCREEN Negative (Negative); OPIATES URINE SCREEN Negative (Negative)
[2021-05-09 18:00] LABS: Tricyclic Antidepressants Negative (Negative)
--- NOTE | 2021-05-09 18:15 | DI.CT_ITS ---
Exam(s) CT HEAD WO EXAM: CT HEAD WO CLINICAL HISTORY: falls, etoh. TECHNIQUE: Imaging Protocol: Axial computed tomography images with coronal and sagittal reformatted images were created and reviewed COMPARISON: No exams were available for comparison FINDINGS: Ventricles and Extra axial spaces: Normal in size and morphology for the patient's age. Hemorrhage: None. Cerebral parenchyma: Normal. Midline shift: None. Brainstem/Cerebellum: Normal. Calvarium: There is a mildly depressed left nasal bone fracture. Visualized Paranasal sinuses/Mastoids: There are fluid level seen in the maxillary sinuses bilaterall y. The remaining visualized paranasal sinuses and mastoid air cells are clear. Soft Tissues: Unremarkable. IMPRESSION: 1. No acute intracranial process. 2. Acute mildly displaced left nasal bone fracture. 3. Fluid in the maxillary sinuses bilaterally. While this may be infectious, traumatic etiology jennifer ot be excluded. RADIATION DOSE DELIVERED: 963.6mGy.cm Total DLP DATA REPOSITORY: All CT scans at this facility are submitted to the National Radiology Data Registry (NRDR) Dose Index Registry (DIR) with the [employer] (A[employer]). RADIATION OPTIMIZATION: All CT scans at this facility use at least one of these dose optimization te chniques: automated exposure control; mA and/or kV adjustment per patient size (includes targeted exa ms where dose is matched to clinical indication); or iterative reconstruction.
[2021-05-09 18:56] LABS: Source Nasal/Nares
--- NOTE | 2021-05-09 19:38 | DI.VRAD_ITS ---
PROCEDURE INFORMATION: Exam: CT Head Without Contrast Exam date and time: 05/09/2021 6:16 PM Age: 55 years old Clinical indication: Falls, ETOH TECHNIQUE: Imaging protocol: Computed tomography of the head without contrast. Radiation optimization: All CT scans at this facility use at least one of these dose optimization techniques: automated exposure control; mA and/or kV adjustment per patient size (includes targeted exams where dose is matched to clinical indication); or iterative reconstruction. COMPARISON: CT HEAD WO 09/02/2018 10:58 AM FINDINGS: Brain: There is no acute intracranial hemorrhage, mass effect or midline shift. There is no large acute territorial cerebral infarct. Cerebral ventricles: No ventriculomegaly. Paranasal sinuses: There is fluid in the right greater than left maxillary sinuses. Mastoid air cells: Visualized mastoid air cells are well aerated. Bones/joints: There is a medially displaced fracture of the left nasal bone, which appears acute in nature. Soft tissues: Unremarkable. IMPRESSION: 1. No acute intracranial hemorrhage, mass effect or midline shift. 2. Medially displaced fracture of the left nasal bone, which may be acute in nature. Correlate with clinical presentation. 3. Fluid in the bilateral maxillary sinuses, which may be infectious or related to trauma. Dictated and Authenticated by: Faby Kirk MD. Ordering:LUCIA Long MD
--- NOTE | 2021-05-09 21:25 | HPE_ITS ---
Date of service: 05/09/21 Time of Service: 21:25 Assessment and Plan Assessment and plan (1) Alcohol intoxication: Status: Acute Assessment and plan: He has a history of acute and chronic alcoholism. H is alcohol level now is quite high. I will place him on an alcohol withdrawal scale and start him on phenobarbital as needed to control his symptoms. (2) Weakness: Status: Acute Assessment and plan: Etiology of his weakness is not clear at this time. I did not get him up to walk. Is very difficult to obtain a history from him. I will check further labs on him and it may be worth evaluating him with a neurologic consult. I will have physical therapy see him tomorrow. It may be douglas to have care management seeing him. I have asked the staff to discuss flu and rotavirus vaccines with him. I cannot get him to understand the question about whether he has had a Covid vaccination yet. History of Present Illness History of Present Illness Chief Complaint: pain of fingers and feet, weakness Narrative: This 55-year-old male is here because of paresthesias in his hands and feet and weakness. This gentleman has a long history of alcoholism. He states he does not really want to stop drinking. He wants some nicotine gum to help with tobacco craving. 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 He states his been living in his van for about a month and has not been taking care of himself very well except he has been drinking at least 12 beers per day and wine on a regular basis. I do not know if he has had coronavirus vaccine. He does smoke about a pack and cigarettes per day. He says he was kicked out from where he was living but I do not know why. He says he is going to be moving into another place but he could not tell me 1. He says that places not fixed up yet performed. He was evaluated emergency department and a physician there thought he might have alcoholic peripheral neuropathy. Emergency physician said that the patient had not had his shoes off for over a month. He says his feet feel like there are woodpeckers pounding at his toes. He says he has been to alcohol rehab 3 times in the past and is not really interested in that at this time. Review of Systems Unobtainable due to (severe hearing deficit) [facility] Active Problem List Alcohol intoxication (Acute) Substance abuse (Acute) Seizure disorder (Acute) Multiple rib fractures (Acute) Rib fracture (Acute) Alcohol withdrawal (Acute) Alcoholic hepatitis (Acute) Alcoholic gastritis (Acute) Alcohol dependence (Acute) Tobacco dependence (Acute) Ankle fracture, left (Acute) Discharge planning issues (Acute) Hypokalemia (Acute) Medical History Alcohol use disorder Social History Smoking/Tobacco Use Status: Current every day Tobacco Type: cigarettes Smoking risk assessment performed?: Yes Alcohol Intake: current Alcohol Intake frequency: 3 or more drinks per day Alcohol type: beer and wine Drug use: Daily Substance use type: marijuana and painkillers Details: States he drinks almost a case of beer a day. Today pt reports he consumed both beer and wine. Do you feel safe at home: Yes Do you feel safe in your relationship?: Yes Additional Social history: Pt reports he has been sleeping in a van for the last month. Meds Allergies and Home Medications Allergies Allergy/AdvReac Type Severity Reaction Status Date / Time No Known Allergies Allergy Unverified 10/07/20 19:21 Home Medications Medication Instructions Recorded Confirmed Type acetaminophen [Tylenol] 650 mg PO Q4H PRN PRN tab 01/17/18 07/16/20 Rx nicotine 21 mg TRANSDERMAL DAILY patch 01/17/18 07/16/20 Rx thiamine mononitrate (vit B1) 100 mg PO DAILY tab 01/17/18 07/16/20 Rx [Vitamin B-1 (mononitrate)] prazosin 5 mg PO QPM 09/02/18 07/16/20 History Exam Const General: cooperative, no acute distress, disheveled, intoxicated appearing and not lethargic Orientation: awake HENWI Head: normal to inspection Ears: hearing grossly impaired Mouth: oral mucosae normal Teeth and gingiva: poor dentition Eyes Eyelids: eyelids normal Conjunctivae: conjunctivae normal Neck Neck: normal visual inspection and no lymphadenopathy Thyroid: thyroid normal Resp Effort & Inspection: normal respiratory effort and able to speak in complete sentences Auscultation: clear to auscultation bilaterally Cardio Jugular venous pressure: no JVD Rate: regular rate Rhythm: regular rhythm Heart Sounds: S1 normal, S2 normal, no gallops and no murmurs GI Palpation: soft, no hepatosplenomegaly and nontender Neuro Other: He has normal superintendent car construction strength bilaterally as well as normal quadricep and hamstring strength and ankle dorsiflexion strength. He can lift both legs off the exam table to about 40 degrees. I see no fasciculations. Muscle stretch reflexes are +1 at the quadriceps and 0 at the Achilles. He does have some light touch sensation of his feet. Bit difficult to test accurately because of his hearing deficit. I had to yell quite loudly in his left ear to get him to understand anything. Rapid alternating movements of his hands and fingers is normal. [id number] testing of left and right sides is normal. He has normal superintendent car construction strength and finger interosseous strength bilaterally. Extrem General: normal to inspection, no pedal edema and no calf tenderness Results Labs Result diagrams: 05/09/21 15:57 05/09/21 15:57 Labs: Laboratory Results - last 24 hr 05/09/21 05/09/21 05/09/21 15:57 15:57 17:20 WBC 6.15 RBC 3.68 L Hgb 12.9 L Hct 38.6 L MCV 104.9 H MCH 35.1 H MCHC 33.4 RDW 13.0 Plt Count 171 MPV 9.8 Immature Gran % 0.3 Neutrophils % 63.9 Lymphocytes % 20.8 Monocytes % 11.4 Eosinophils % 2.1 Basophils % 1.5 Nucleated RBC % 0 Absolute Neutrophils 3.93 Absolute Lymphocytes 1.28 Absolute Monocytes 0.70 Absolute Eosinophils 0.13 Absolute Basophils 0.09 Sodium 138 Potassium 4.1 Chloride 102 Carbon Dioxide 28.8 Anion Gap 7.2 BUN 7 Creatinine 0.5 L Estimated GFR/1.73 m2 >= 60.00 Glucose 94 Calcium 8.5 Magnesium 2.1 Total Bilirubin 0.4 AST 180 H ALT 93 H Alkaline Phosphatase 254 H Total Protein 7.8 Albumin 3.1 L Urine Color Urine Clarity Urine pH Ur Specific [place] Urine Protein Urine Ketones Urine Blood Urine Nitrite Urine Bilirubin Urine Urobilinogen Ur Leukocyte Esterase Urine Glucose Urine Opiates Screen Negative Urine Methadone Screen Negative Ur Barbiturates Screen Negative Ur Tricyclics Screen Negative Ur Amphetamines Screen Negative U Benzodiazepines Scrn Negative Urine Cocaine Screen Negative Ur THC Screen Negative Ethyl Alcohol 299.1 H COVID-19 Source 05/09/21 05/09/21 17:20 18:25 WBC RBC Hgb Hct MCV MCH MCHC RDW Plt Count MPV Immature Gran % Neutrophils % Lymphocytes % Monocytes % Eosinophils % Basophils % Nucleated RBC % Absolute Neutrophils Absolute Lymphocytes Absolute Monocytes Absolute Eosinophils Absolute Basophils Sodium Potassium Chloride Carbon Dioxide Anion Gap BUN Creatinine Estimated GFR/1.73 m2 Glucose Calcium Magnesium Total Bilirubin AST ALT Alkaline Phosphatase Total Protein Albumin Urine Color Yellow Urine Clarity Clear Urine pH 6.0 Ur Specific [place] 1.015 Urine Protein Negative Urine Ketones Negative Urine Blood Negative Urine Nitrite Negative Urine Bilirubin Negative Urine Urobilinogen 0.2 Ur Leukocyte Esterase Negative Urine Glucose Negative Urine Opiates Screen Urine Methadone Screen Ur Barbiturates Screen Ur Tricyclics Screen Ur Amphetamines Screen U Benzodiazepines Scrn Urine Cocaine Screen Ur THC Screen Ethyl Alcohol COVID-19 Source Nasal/Nares Last Vital Signs Temp 36.5 C 05/09/21 20:21 Pulse 102 H 05/09/21 20:21 Resp 22 05/09/21 20:21 BP 120/69 05/09/21 20:21 Pulse Ox 94 05/09/21 20:21 PAWSS Have you Been Recently Intoxicated or Drunk Within the Last 30 days?: Yes Have you Ever Experienced Previous Episodes of Alcohol Withdrawal?: Yes Have you ever Experienced Withdrawal Seizures?: Yes Have you ever Experienced Delirium Tremens(DT)s?: Yes Have you ever undergone Alcohol Rehabilitation Treatment (i.e, inpt ot outpatient treatment programs)?: Yes Have you ever Combined Alcohol with any other Substance of Abuse during the last 90 days?: Yes Positive Blood Alcohol level on Presentation? [PCS.BAL]: Yes Evidence of Increased Autonomic Activity (i.e. HR>120, tremor, sweating, agitation, nausea)?: Yes Result: 9
[2021-05-09] MEDS: Acetaminophen 500 MG TAB PO (22:30)
[2021-05-09] MEDS: Nicotine 2 MG GUM CH (22:31)
[2021-05-09 23:42] LABS: COVID-19 PCR Negative (Negative)
[2021-05-10] VITALS (9 sets, daily range): BP systolic 122–151; BP diastolic 74–87; PULSE 73–93; RESP 16–19; TEMP 36.9–37.6; O2SAT 92–96
--- NOTE | 2021-05-10 | DI.RAD_ITS ---
Exam(s) XR PORTABLE CHEST AP EXAM: XR PORTABLE CHEST AP CLINICAL HISTORY: cough TECHNIQUE: 2D digital imaging was performed of the chest. One image was obtained. An AP view was ob tained. COMPARISON: No exams were available for comparison FINDINGS: MEDIASTINUM: Normal. HEART: Normal. PULMONARY VASCULATURE: Normal. LUNGS: Clear. PLEURAL SPACE: No pleural effusion or pneumothorax. BONE:Within normal limits for the patient's age. OTHER FINDINGS:Normal. IMPRESSION: No acute pulmonary findings. DATA REPOSITORY: RADIATION DOSE DELIVERED:
[2021-05-10] MEDS: Nicotine 2 MG GUM CH ×5 (00:05→14:54)
[2021-05-10] MEDS: Normal Saline 1,000 ML 150 ML IV ×4 (00:31→23:16)
[2021-05-10] MEDS: Acetaminophen 500 MG TAB PO (01:07)
--- NOTE | 2021-05-10 01:51 | NUR.NOTE ---
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 State he has not taken his shoes or socks off for the month since he has been living into his van.Patient has a very dirty looking knee brace secured to his left knee. 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 Knee braced was removed and place on patient's other very dirty laundry. This nurse offered to kael his clothing laundered and patient refused stating he just barely had them wash. Patient reported that his feet feels as if a woodpecker is picking them. They were numb and tender also tingly. Both legs are swollen and painful to touch. Prn analgesics administered. Pt will continue to be closely monitored.
[2021-05-10] MEDS: Ibuprofen 600 MG TAB PO (03:07)
[2021-05-10 07:31] LABS: HGB 11.9 g/dL (13.5-17.5); MCH 34.7 pg (27.0-33.0); MPV 10.4 fL (8.0-11.0); Platelet Count 150 10^3/uL (130-400); RBC 3.43 10^6/uL (4.36-5.78); RDW 12.7 % (11.8-14.1); RDW-SD 47.8 fL
[2021-05-10 07:43] LABS: C-Reactive Protein 0.18 mg/dL (0.0-0.3); Magnesium 2.1 mg/dL (1.8-2.4)
[2021-05-10 07:47] LABS: ESR 48 mm/hr (0-20)
[2021-05-10 08:02] LABS: ALT 71 U/L (16-63); AST 126 U/L (15-37); Albumin 2.8 g/dL (3.4-5.0); Alkaline Phosphatase 225 U/L (46-116); Anion Gap 8.1 mmol/L (3-11); BUN 7 mg/dL (7-18); Bilirubin, Direct 0.4 mg/dL (0.0-0.2); CO2 25.9 mmol/L (21.0-32.0); CREATININE 0.5 mg/dL (0.70-1.30); Calcium 8.2 mg/dL (8.5-10.1); Chloride 101 mmol/L (98-107); Glucose 88 mg/dL (74-106); PHOSPHORUS 3.5 mg/dL (2.6-4.7); Sodium 135 mmol/L (136-145); TSH (W/Ref FT4) 2.88 uIU/mL (0.36-3.74)
[2021-05-10] MEDS: Thiamine 100 MG TAB PO (08:02)
[2021-05-10] MEDS: Normal Saline Flush 10 ML SYR IVP (08:03)
[2021-05-10 08:19] LABS: Creatine Kinase 96 U/L (39-308)
[2021-05-10 08:57] LABS: Folate 10.1 ng/mL (8.6-20.0); Vitamin B12 722 pg/mL (193-986)
--- NOTE | 2021-05-10 10:00 | INITIAL_ITS ---
- If Service Date Differs Date of service: 05/10/21 Time of Service: 10:00 Care Management Initial Assess REASON FOR HOSPITALIZATION:: alcohol intoxication and weakness PAST MEDICAL HISTORY/PAST SURGICAL HISTORY:: Active Problem List . Alcohol intoxication (Acute). Substance abuse (Acute). Seizure disorder (Acute). Multiple rib fractures (Acute). Rib fracture (Acute). Alcohol withdrawal (Acute). Alcoholic hepatitis (Acute). Alcoholic gastritis (Acute). Alcohol dependence (Acute). Tobacco dependence (Acute). Ankle fracture, left (Acute). Discharge planning issues (Acute). Hypokalemia (Acute). Medical History . Alcohol use disorder PREVIOUS FUNCTIONAL STATUS/SOCIAL/FAMILY SUPPORTS:: Hector is currently homel ess and is living out of his car in [facility]. He lived in an apartment with a friend until 5 weeks ago. He plans to move into another apartment with a different friend soon. 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 He does not receive any services. CURRENT FUNCTIONAL STATUS:: Haroon was sitting up in a chair when CM met with him. He is very hard of hearing so communication ocuurred both verbally and in writing. Haroon shared that he hopes to be able to get back to work soon. 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 His CIWA scores have ranged from 1-4 during the day today. Overnight they were a bit higher. He is currently on the Phenobarbital protocol. ADVANCE DIRECTIVES:: none on file Has patient been provided with info about the portal/API?: Yes Did the patient sign up for the portal?: No CODE STATUS:: Full Code INSURANCE COVERAGE / FINANCIAL ISSUES:: self pay. referral made to [facility] who is working on getting his Medicaid re-instated. PRIMARY CARE PHYSICIAN:: Ilene Moore POTENTIAL DISCHARGE NEEDS:: Follow up with PCP and plan of care. Housing, insurance PATIENT/FAMILY EDUCATION NEEDS:: review of discharge instructions, limitations, activity, Medications, Ask Me Three TRANSPORTATION:: via private vehicle by self PLAN:: Hector will likley be discharged home with no new services. He will follow up with his community providers and plan of care and drive himeself. CM will continue to support Hector soares assess for additional discharge concerns.
--- NOTE | 2021-05-10 10:21 | PGE_ITS ---
Date of Service Date of service: 05/10/21 Time of Service: : Assessment and Plan Assessment and plan (1) Alcohol intoxication: Status: Acute Assessment and plan: He has a history of acute and chronic alcoholism. His alcohol level now is quite high. phenobarital protocol high dose thiamine (2) Weakness: Status: Acute Assessment and plan: Etiology of his weakness is not clear at this time. today up with PT, could benefit from walker /cane (3) Discharge planning issues: Status: Acute Assessment and plan: case management following homeless. no intention of stopping ETOH discussed with DR Odell Subjective Subjective Patient reports: no new complaints Exam Const General: cooperative, no acute distress, disheveled, intoxicated appearing and not lethargic Orientation: awake HENME Head: normal to inspection Ears: hearing grossly impaired Mouth: oral mucosae normal Teeth and gingiva: poor dentition Eyes Eyelids: eyelids normal Conjunctivae: conjunctivae normal Neck Neck: normal visual inspection and no lymphadenopathy Thyroid: thyroid normal Resp Effort & Inspection: normal respiratory effort and able to speak in complete sentences Auscultation: clear to auscultation bilaterally Cardio Jugular venous pressure: no JVD Rate: regular rate Rhythm: regular rhythm Heart Sounds: S1 normal, S2 normal and no murmurs GI Palpation: soft, no hepatosplenomegaly and nontender Extrem General: normal to inspection, no pedal edema and no calf tenderness Objective Last Vital Signs Temp 37.0 C 05/10/21 07:27 Pulse 73 05/10/21 07:27 Resp 19 05/10/21 07:27 BP 143/84 H 05/10/21 07:27 Pulse Ox 96 05/10/21 07:27 Laboratory Results - last 24 hr 05/09/21 05/09/21 05/09/21 15:57 15:57 17:20 WBC 6.15 RBC 3.68 L Hgb 12.9 L Hct 38.6 L MCV 104.9 H MCH 35.1 H MCHC 33.4 RDW 13.0 Plt Count 171 MPV 9.8 Immature Gran % 0.3 Neutrophils % 63.9 Lymphocytes % 20.8 Monocytes % 11.4 Eosinophils % 2.1 Basophils % 1.5 Nucleated RBC % 0 Absolute Neutrophils 3.93 Absolute Lymphocytes 1.28 Absolute Monocytes 0.70 Absolute Eosinophils 0.13 Absolute Basophils 0.09 ESR Sodium 138 Potassium 4.1 Chloride 102 Carbon Dioxide 28.8 Anion Gap 7.2 BUN 7 Creatinine 0.5 L Estimated GFR/1.73 m2 >= 60.00 Glucose 94 Calcium 8.5 Phosphorus Magnesium 2.1 Total Bilirubin 0.4 Conjugated Bilirubin AST 180 H ALT 93 H Alkaline Phosphatase 254 H Creatine Kinase C-Reactive Protein Total Protein 7.8 Albumin 3.1 L Vitamin B12 Folate TSH Urine Color Urine Clarity Urine pH Ur Specific [place] Urine Protein Urine Ketones Urine Blood Urine Nitrite Urine Bilirubin Urine Urobilinogen Ur Leukocyte Esterase Urine Glucose Urine Opiates Screen Negative Urine Methadone Screen Negative Ur Barbiturates Screen Negative Ur Tricyclics Screen Negative Ur Amphetamines Screen Negative U Benzodiazepines Scrn Negative Urine Cocaine Screen Negative Ur THC Screen Negative Ethyl Alcohol 299.1 H COVID-19 Source SARS-CoV-2 (PCR) 05/09/21 05/09/21 05/10/21 17:20 18:25 07:00 WBC RBC Hgb Hct MCV MCH MCHC RDW Plt Count MPV Immature Gran % Neutrophils % Lymphocytes % Monocytes % Eosinophils % Basophils % Nucleated RBC % Absolute Neutrophils Absolute Lymphocytes Absolute Monocytes Absolute Eosinophils Absolute Basophils ESR Sodium Potassium Chloride Carbon Dioxide Anion Gap BUN Creatinine Estimated GFR/1.73 m2 Glucose Calcium Phosphorus Magnesium Total Bilirubin Conjugated Bilirubin AST ALT Alkaline Phosphatase Creatine Kinase 96 C-Reactive Protein Total Protein Albumin Vitamin B12 722 Folate 10.1 TSH Urine Color Yellow Urine Clarity Clear Urine pH 6.0 Ur Specific [place] 1.015 Urine Protein Negative Urine Ketones Negative Urine Blood Negative Urine Nitrite Negative Urine Bilirubin Negative Urine Urobilinogen 0.2 Ur Leukocyte Esterase Negative Urine Glucose Negative Urine Opiates Screen Urine Methadone Screen Ur Barbiturates Screen Ur Tricyclics Screen Ur Amphetamines Screen U Benzodiazepines Scrn Urine Cocaine Screen Ur THC Screen Ethyl Alcohol COVID-19 Source Nasal/Nares SARS-CoV-2 (PCR) Negative 05/10/21 05/10/21 05/10/21 07:00 07:00 07:00 WBC 7.60 RBC 3.43 L Hgb 11.9 L Hct 35.0 L MCV 102.0 H MCH 34.7 H MCHC 34.0 RDW 12.7 Plt Count 150 MPV 10.4 Immature Gran % Neutrophils % Lymphocytes % Monocytes % Eosinophils % Basophils % Nucleated RBC % Absolute Neutrophils Absolute Lymphocytes Absolute Monocytes Absolute Eosinophils Absolute Basophils ESR 48 H Sodium Potassium Chloride Carbon Dioxide Anion Gap BUN Creatinine Estimated GFR/1.73 m2 Glucose Calcium Phosphorus Magnesium 2.1 Total Bilirubin Conjugated Bilirubin AST ALT Alkaline Phosphatase Creatine Kinase C-Reactive Protein 0.18 Total Protein Albumin Vitamin B12 Folate TSH Urine Color Urine Clarity Urine pH Ur Specific [place] Urine Protein Urine Ketones Urine Blood Urine Nitrite Urine Bilirubin Urine Urobilinogen Ur Leukocyte Esterase Urine Glucose Urine Opiates Screen Urine Methadone Screen Ur Barbiturates Screen Ur Tricyclics Screen Ur Amphetamines Screen U Benzodiazepines Scrn Urine Cocaine Screen Ur THC Screen Ethyl Alcohol COVID-19 Source SARS-CoV-2 (PCR) 05/10/21 07:00 WBC RBC Hgb Hct MCV MCH MCHC RDW Plt Count MPV Immature Gran % Neutrophils % Lymphocytes % Monocytes % Eosinophils % Basophils % Nucleated RBC % Absolute Neutrophils Absolute Lymphocytes Absolute Monocytes Absolute Eosinophils Absolute Basophils ESR Sodium 135 L Potassium 4.0 Chloride 101 Carbon Dioxide 25.9 Anion Gap 8.1 BUN 7 Creatinine 0.5 L Estimated GFR/1.73 m2 >= 60.00 Glucose 88 Calcium 8.2 L Phosphorus 3.5 Magnesium Total Bilirubin 1.0 Conjugated Bilirubin 0.4 H AST 126 H ALT 71 H Alkaline Phosphatase 225 H Creatine Kinase C-Reactive Protein Total Protein 7.0 Albumin 2.8 L Vitamin B12 Folate TSH 2.88 Urine Color Urine Clarity Urine pH Ur Specific [place] Urine Protein Urine Ketones Urine Blood Urine Nitrite Urine Bilirubin Urine Urobilinogen Ur Leukocyte Esterase Urine Glucose Urine Opiates Screen Urine Methadone Screen Ur Barbiturates Screen Ur Tricyclics Screen Ur Amphetamines Screen U Benzodiazepines Scrn Urine Cocaine Screen Ur THC Screen Ethyl Alcohol COVID-19 Source SARS-CoV-2 (PCR) PAWSS Have you Been Recently Intoxicated or Drunk Within the Last 30 days?: Yes Have you Ever Experienced Previous Episodes of Alcohol Withdrawal?: Yes Have you ever Experienced Withdrawal Seizures?: No Have you ever Experienced Delirium Tremens(DT)s?: No Have you ever undergone Alcohol Rehabilitation Treatment (i.e, inpt ot outpatient treatment programs)?: Yes Have you ever Experienced Blackouts?: No Have you ever Combined Alcohol with other Downers within the last 90 days?: No Have you ever Combined Alcohol with any other Substance of Abuse during the last 90 days?: Unable to Obtain Positive Blood Alcohol level on Presentation? [PCS.BAL]: Yes Evidence of Increased Autonomic Activity (i.e. HR>120, tremor, sweating, agitation, nausea)?: No Result: 4
--- NOTE | 2021-05-10 11:18 | PT.INIE ---
Date of service: 05/10/21 Time of Service: 11:18 PT Notes Visit Reasons: Alcohol Abuse,Neuropathy Physical Therapy Inpatient Initial Evaluation Date: 05/10/2021 Referring Doctor: Khalida Modi MD PT Orders: PT CONSULT: Fall safety assessment Precautions: Fall. Standard. WBAT on B LE. [place]'. Seizure/withrawal precautions on. Patient Profile/Admitting Diagnosis: Hector is a 55-year-old male who presented to the ED on 05/09/2021 due to alcohol intoxication, pain and tingling in his bilateral fingers/feet, and generalized weakness. PMHX: Active Problem List Alcohol intoxication (Acute) Substance abuse (Acute) Seizure disorder (Acute) Multiple rib fractures (Acute) Rib fracture (Acute) Alcohol withdrawal (Acute) Alcoholic hepatitis (Acute) Alcoholic gastritis (Acute) Alcohol dependence (Acute) Tobacco dependence (Acute) Ankle fracture, left (Acute) Discharge planning issues (Acute) Hypokalemia (Acute) Medical History Alcohol use disorder Social History/Home Situation: Has been homeless for about 5 weeks preceding this hospitalization. Issues with alcoholism has compounded his situation as well. 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 Equipment Owned/DME: None Subjective: Better able to communicate through writing and lip reading. Complains of tingling in B fingers and B feet. Reports pain in B feet with the R more affected than the L. Agreeable to be mobilized despite pain level. Nurse Chinyere aware of patient complaint. Objective: General Observation: Supine in bed. Foam pads on B head and leg rails. IV in R UE. Atrophic B LE muscles. No skin breakdown seen in B feet. Mental Status: Alert and oriented as to person, place, time, and purpose. Able to pay attention, focus, and respond appropriately. Pain: Moderaet pain in B feet with R>>L ROM: Right Upper Extremity: Shoulder Flexion WFL. Shoulder abduction WFL. Elbow flexion WFL. Wrist flexion WFL. Functional opening and closing of hand WFL. Left Upper Extremity: Shoulder Flexion WFL. Shoulder abduction WFL. Elbow flexion WFL. Wrist flexion WFL. Functional opening and closing of hand WFL. Right Lower Extremity: Hip flexion lacks the last 50% of available ROM. Hip abduction WFL. Knee flexion lacks the last 50% of available ROM. Knee extension -20 degrees. Ankle dorsiflexion to neutral only. Ankle plantarflexion 10 degrees. Left Lower Extremity: Hip flexion lacks the last 50% of available ROM. Hip abduction WFL. Knee flexion lacks the last 50% of available ROM. Knee extension -20 degrees. Ankle dorsiflexion to neutral only. Ankle plantarflexion 10 degrees. Strength: Right Upper Extremity: Shoulder flexors 4-/5. Shoulder abductors 4-/5. Elbow flexors 4-/5. Elbow extensors 4-/5. Lithographic Artist strong. Left Upper Extremity: Shoulder flexors 4-/5. Shoulder abductors 4-/5. Elbow flexors 4-/5. Elbow extensors 4-/5. Lithographic Artist strong. Right Lower Extremity: Hip flexors 3-/5. Hip abductors 4-/5. Knee flexors 3-/5. Knee extensors 3-/5. Ankle dorsiflexors 3-/5. Ankle plantarflexors 3-/5. Left Lower Extremity: Hip flexors 3-/5. Hip abductors 4-/5. Knee flexors 3-/5. Knee extensors 3-/5. Ankle dorsiflexors 3-/5. Ankle plantarflexors 3-/5. Bed Mobility/Transfers: Supine to sit independent with HOB at 30 degrees Sit to supine independent Sit to stand standby assist with FWW Stand to sit standby assist with FWW Bed to reclining chair standby assist with FWW Reclining chair to bed standby assist with FWW Gait: Instructed patient with level surface ambulation of 150 feet +120 feet requiring standby assist. Christi decreased. Step height decreased. Step length decreased. Desaturated to 81% after about 150 feet with desaturation back to 91% with standing rest on room air. Complained of pain in B feet with right hurting more. Patient tolerated short distance ambulation of 5 steps transferring from side of bed to the bedside chair without an assistive device bed full weightbearing requiring contact-guard assist with antalgic gait observed on the right LE and with decreased christi. Balance: Static Sitting: Normal Dynamic Sitting: Normal Static Standing: Good Dynamic Standing: Fair Special Tests: Mobility Limitations Standardized Measure [facility] AM-PAC 6 clicks Basic Mobility Inpatient Short Form: Raw Score: 22 CMS Score: 21% deficit 4-Stage Balance Test: Unable to perform all 4 positions at this time due to pain level and paresthesias. Informed Consent/Education: Patient was instructed in purpose of PT consult and plan of care. Agreeable to proceed with established PT POC to achieve personal goals. Assessment: Paresthesias, muscle atrophy, and pain leading to weakness in B UE and LE. 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 Will coordinate with nurse to premedicate for pain prior to mobility training. Muscle atrophy has caused weakness in B LE requiring use of FWW to reduce fall risk. Will assess if upgrading patient to use of SPC or no AD will be tolerated while on admission. Patient presents with clinical signs and symptoms consistent with current/admitting diagnoses that have resulted to mobility limitations, gait instability, generalized weakness, and overall ADL decline as demonstrated by the following impairment level findings: 1. Decreased strength to B UE/LE major muscle groups 2. Impaired standing balance 3. Impaired activity tolerance 4. Limitation of joint range of motion in B hips and knees 5. Parestesias and pain in B fingers and feet 6. Muscla atrophy to B LE muscles Impairments are contributing to the following functional limitations: 1. Decline in transfer skills 2. Difficulty with ambulation without assistive device and physical assistance 3. Increased completion time for mobility ADL performance 4. Increased risk for falls 5. Difficulty with managing steps alone safely Patient is assessed as a 47074 moderate complexity based on the following: History: 55-year-old male with past medical history as indicated above Examination: Demonstrable impairment in strength, balance, and mobility level with underlying impairments and functional limitations as exhibited above as well as deficit score of 21% utilizing the [facility] Mobility Inpatient Short Form Presentation: Evolving Decision Makin moderate complexity Goals: Goals X1 week 1. Supine-Sit independent 2. Sit-Supine independent 3. Sit-Stand independent 4. Stand-Sit independent with no AD 5. Bed-Chair independent with no AD 6. Chair-Bed independent with no AD 7. Independent gait on level surface with use of no AD for at least 300 feet without report of pain nor dyspnea 8. Independent stair negotiation while holding onto 1 rail for at least 5 steps without report of pain nor dyspnea 9. Independent with home exercise program 10. Good static and dynamic standing balance/tolerance Plan of Care/Treatment Plan: 1-2x/day, 7 days/week x 1 week. Plan of care has been reviewed with the FIELD CHECKER providing the service under Physical Therapy direction. Initiate Physical Therapy intervention for pain management as needed, strengthening, bed mobility, transfers, gait, stairs, balance training, and use of assistive device. DISCHARGE RECOMMENDATIONS: [] Home with no services [] [X] Home with services. Patient will benefit from home health PT services in order to progress mobility level using least restrictive assistive ambulatory device, assess home safety, identify additional equipment needs, and establish a functional maintenance program that will increase ability of patient to remain at home. [] Home with outpatient PT [] [] SNF for continued rehabilitation [] [] Snf Care [] [] SNF versus LTC based on ability to participate and progress [] TREATMENT CODE/TIME: 29924 x 20 minutes, 26137 x 11 minutes beginning at 11:18 AM. Thank you for the opportunity to participate in the care of this patient. Hina Hagan PT, DPT, CLT [facility] [place], [place]
--- NOTE | 2021-05-10 15:56 | PT.INTREAT ---
Date of service: 05/10/21 Time of Service: 15:56 PT Notes Visit Reasons: Alcohol Abuse,Neuropathy Physical Therapy Inpatient Treatment Note Date: 05/10/2021 Precautions: Fall. Standard. WBAT on B LE. [place]. Seizure/withrawal precautions on. Subjective: Agreeable to afternoon session. Continues to report pain in the right foot. Objective: General Observation: Supine in bed. Foam pads on B head and leg rails. IV in R UE. Atrophic B LE muscles. No skin breakdown seen in B feet. Mental Status: Alert and oriented as to person, place, time, and purpose. Able to pay attention, focus, and respond appropriately. Pain: Moderate pain in B feet with R>>L Bed Mobility/Transfers: Supine to sit independent with HOB at 30 degrees Sit to supine independent Sit to stand supervision with FWW Stand to sit supervision with FWW Bed to reclining chair supervision with FWW Gait: Tolerated level surface ambulation of 250 feet with a quick standing rest of less than 1 minute due to a 86% desaturation on room air. Required standby assist using front wheeled walker. Thera Ex: Initiated progressive thinning exercise using dumbbells for the upper extremities and red Thera-Band for lower extremities to facilitate mobility progression. Please refer to exercise sheet for details. Balance: Static Sitting: Normal Dynamic Sitting: Normal Static Standing: Good Dynamic Standing: Fair Assessment: Tolerated both walking and seated exercises this afternoon. Pain in B LE continues to be an issue but not a major limiting factor to mobilization. Will continue to require skilled services to address strength and mobility deficits. DISCHARGE RECOMMENDATIONS: [] Home with no services [] [X] Home with services. Patient will benefit from home health PT services in order to progress mobility level using least restrictive assistive ambulatory device, assess home safety, identify additional equipment needs, and establish a functional maintenance program that will increase ability of patient to remain at home. [] Home with outpatient PT [] [] SNF for continued rehabilitation [] [] Auto Fleet Manager Care [] [] SNF versus LTC based on ability to participate and progress [] TREATMENT CODE/TIME: 76964 x 30 minutes, 39266 x 11 minutes beginning at 15:56 PM.
[2021-05-10] MEDS: THIAMINE 500 MG in Normal Saline 100 ML 210 MG IVPB (18:27)
[2021-05-10] MEDS: Gabapentin 100 MG CAP PO (19:34)
[2021-05-11] VITALS (7 sets, daily range): BP systolic 111–136; BP diastolic 70–87; PULSE 74–102; RESP 16–18; TEMP 36.6–37.4; O2SAT 92–97
[2021-05-11] MEDS: THIAMINE 500 MG in Normal Saline 100 ML 210 MG IVPB ×3 (01:11→17:21)
[2021-05-11] MEDS: Normal Saline 1,000 ML 150 ML IV (06:11)
[2021-05-11] MEDS: Gabapentin 100 MG CAP PO ×2 (07:32→14:02)
[2021-05-11] MEDS: Nicotine 2 MG GUM CH ×4 (07:32→17:20)
[2021-05-11 07:53] LABS: Abs Immature Grans 0.04 10^3/uL (0.0-0.06); Absolute Basophil Count 0.05 10^3/uL (0.0-0.2); Absolute Eosinophil Count 0.09 10^3/uL (0.0-0.7); Absolute Lymphocyte Count 0.87 10^3/uL (1.2-3.4); Absolute Monocyte Count 0.78 10^3/uL (0.1-0.8); Absolute Neutrophil Count 5.48 10^3/uL (1.2-6.7); Basophils % 0.7; Eosinophils % 1.2; HCT 35.6 % (40.0-50.0); HGB 12.2 g/dL (13.5-17.5); Immature Grans % 0.5; Lymphocytes % 11.9; MCH 34.9 pg (27.0-33.0); MCHC 34.3 % (32.0-36.0); MCV 101.7 fL (80-95); Monocytes % 10.7; Nucleated RBC 0 %; RDW 12.2 % (11.8-14.1); RDW-SD 45.3 fL; WBC 7.31 10^3/uL (4.4-10.8)
[2021-05-11 08:27] LABS: ALT 61 U/L (16-63); AST 94 U/L (15-37); Albumin 2.8 g/dL (3.4-5.0); Alkaline Phosphatase 213 U/L (46-116); Anion Gap 9.1 mmol/L (3-11); BUN 6 mg/dL (7-18); Bilirubin, Direct 0.4 mg/dL (0.0-0.2); Bilirubin, Total 1.1 mg/dL (0.2-1.0); CO2 24.9 mmol/L (21.0-32.0); CREATININE 0.5 mg/dL (0.70-1.30); Calcium 8.6 mg/dL (8.5-10.1); Chloride 101 mmol/L (98-107); Glucose 85 mg/dL (74-106); Potassium 3.9 mmol/L (3.5-5.1); Sodium 135 mmol/L (136-145); Total Protein 7.2 g/dL (6.4-8.2)
[2021-05-11 09:00] LABS: Diff Comment Diff Reviewed; RBC Morphology Normal
[2021-05-11] MEDS: Multivitamin TAB 1 TAB PO (10:18)
--- NOTE | 2021-05-11 12:34 | PTTR_ITS ---
Date of service: 05/11/21 Time of Service: 10:53 PT Notes Visit Reasons: Alcohol Abuse,Neuropathy Inpatient Physical Therapy Treatment Note [facility] Date: 05/11/2021 PRECAUTIONS: Fall, [place], activity as tolerated SUBJECTIVE: Hector is pleasant and agreeable to participating in PT. He openly attributes the majority of his recent falls to alcohol intoxication. He does report that he has chronic knee issues and that his R knee gave out recently, causing him to fall at [facility]. OBJECTIVE: PAIN: Patient c/o pain on plantar surface of foot with weight bearing BED MOBILITY/TRANSFERS Sit-stand: I Stand-sit: I Bed-Chair: I Chair-bed: I GAIT Assistive Device: No AD Weight bearing: Full Assist: S Distance: 200' without shoes + 200' with shoes Deviation: Wide CARL, pain in R foot, pain in R knee ASSESSMENT: Patient tolerated session with c/o pain in plantar surface of B feet and in R knee. He demonstrates independence with ambulation without use of assistive device and with transfers at this time. PLAN: Patient to discharge to home later today, per provider. Recommend follow up with PT. TREATMENT CODE/TIME: 27 minutes; 70670 x2 (10:53)
--- NOTE | 2021-05-11 13:56 | DI.RAD_ITS ---
Exam(s) XR KNEE RT 3V AP,LAT,INGE EXAM: XR KNEE RT 3V AP,LAT,INGE CLINICAL HISTORY: knee pain and swelling.. TECHNIQUE: 2D digital imaging was performed. COMPARISON: No exams were available for comparison FINDINGS: Three views of right knee reveal no evidence of fracture or prominent joint effusion. Main finding h ere is significant narrowing of medial compartment marginal osteophytes. Lateral compartment exhibit s normal height. Mild degenerative changes in the patellofemoral compartment. Some calcification is noted in the popliteal artery. IMPRESSION: Degenerative changes in the medial compartment. DATA REPOSITORY: RADIATION DOSE DELIVERED:
--- NOTE | 2021-05-11 16:39 | DSE_ITS ---
Date of service: 05/11/21 Time of Service: 16:39 DS: Diagnosis Discharge Diagnosis (1) Alcohol intoxication: Status: Acute (2) Weakness: Status: Acute Discharge Plan Disposition Patient Disposition: HOME Condition: Improving Discharge Details Reason For Visit: Alcohol Abuse,Neuropathy Admit Date/Time: 05/10/21 09:15 Admit Provider: Rian Guaman Attending Provider: Rian Guaman Primary Care Provider: Ilene Moore Hospital Course Hospital Course: This 55-year-old male is here because of paresthesias in his hands and feet and weakness. He has a long history of alcoholism. He states he does not really want to stop drinking. He wants some nicotine gum to help with tobacco craving. 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 He states his been living in his van for about a month and has not been taking care of himself very well except he has been drinking at least 12 beers per day and wine on a regular basis. He does smoke about a pack and cigarettes per day. His work up in the was unremarkable but he was not safe for discharge d/t ambulatory dysfunction and intoxication. he was admitted to med/surg. he received IV fluids and high dose IV thiamine. He was started on phenobarbital protocol for alcohol withdrawal. again, he states he is not interested in sobriety. He was evaluated by PT the morning following admission and required assertive device for gait stability, he continued to remain stable with no significant alcohol withdrawal symptoms. He was seen again by physical therapy today and was ambulating independently with no devices. He will is requesting discharge to home. we did start him on gabapentin for numbness in tingling in his feet. it is unclear if this has provided some relief. will give a one month supply and defer further recommendations to outpaint provider. discharge with no services discussed with DR Odell [place] Meds and New Rx's Prescriptions: New gabapentin 100 mg Capsule 100 mg PO TID Qty: 90 RF: 0 Continued acetaminophen [Tylenol] 325 MG tablet 650 mg PO Q4H PRN PRNRF: 0 nicotine 21 MG/24 HR patch 24 hour 21 mg Transdermal DAILY RF: 0 thiamine mononitrate (vit B1) [Vitamin B-1 (mononitrate)] 100 MG tablet 100 mg PO DAILY RF: 0 prazosin 5 mg Capsule 5 mg PO HS RF: 0 polyethylene glycol 3350 [Miralax] 17 gram Powder In Packet 17 g PO DAILY PRNRF: 0 Discharge Instructions Instructions: Abuse of Alcohol (DC) Additional Instructions: do not drink alcohol take all your medications as directed Referrals: Ilene Moore [Primary Care Provider] - Activity:: Activity as Tolerated Equipment/Supplies:: No Equipment Needed Diet:: As Tolerated Discharge Orders Discharge Orders: Discharge Order (Routine); Ordered 05/11/21 Ordered By: Belem Brink DS: Summary Time Spent with Patient providing and/or coordinating discharge services: Less than 30 minutes Status at Discharge Functional status at discharge: independent ambulation Overall status at discharge: patient is back to baseline Mental Status: mental status grossly normal Speech and Movement: speech and movement normal Mood: congruent mood Affect: normal affect Exam Const General: cooperative and no acute distress Orientation: awake HENMT Head: normal to inspection Ears: hearing grossly impaired Mouth: oral mucosae normal Teeth and gingiva: poor dentition Eyes Eyelids: eyelids normal Conjunctivae: conjunctivae normal Neck Neck: normal visual inspection and no lymphadenopathy Thyroid: thyroid normal Resp Effort & Inspection: normal respiratory effort and able to speak in complete sentences Auscultation: clear to auscultation bilaterally Cardio Jugular venous pressure: no JVD Rate: regular rate Rhythm: regular rhythm Heart Sounds: S1 normal, S2 normal and no murmurs GI Palpation: soft, no hepatosplenomegaly and nontender Extrem General: normal to inspection, no pedal edema and no calf tenderness Psych Mental Status: mental status grossly normal Speech and Movement: speech and movement normal Mood: congruent mood Affect: normal affect DS: Data Vitals/I&O Vitals and I&O: Vital Signs Temperature 36.8 C 05/11/21 15:34 Temperature Source Tympanic 05/11/21 15:34 Pulse 86 05/11/21 15:34 Pulse Rhythm Regular 05/11/21 08:06 Pulse 100 H 05/09/21 18:10 Respiratory Rate 18 05/11/21 15:34 Respiratory Effort Non-Labored 05/11/21 08:06 Respiratory Depth Normal 05/11/21 08:06 Respiratory Pattern Normal 05/11/21 08:06 Blood Pressure 121/78 05/11/21 15:34 Blood Pressure Mean 81 05/09/21 18:30 Blood Pressure Position Sitting 05/09/21 15:37 Pulse Oximetry 96 05/11/21 15:34 Oxygen Delivery Method Room Air 05/11/21 15:34 Oxygen Flow Rate 0 05/11/21 15:34 Pain Level 7 05/11/21 12:02 Comment 05/11/21 09:04 Intake & Output 05/10/21 05/11/21 05/11/21 23:59 11:59 23:59 Intake Total 4086.8462 / 5566.8462 1475 / 1715 240 / 1715 Output Total 2850 / 5650 3400 / 3825 425 / 3825 Balance 1236.8462 / -83.1538 -1925 / -2110 -185 / -2110 Intake: IV 3156.8462 / 4156.8462 1105 / 1105 Oral 930 / 1410 370 / 610 240 / 610 Output: Urine 2850 / 5650 3400 / 3825 425 / 3825 Other: Urine Color Yellow Yellow Yellow Urine Appearance Clear Clear Clear Urine Odor Normal None Normal Voiding Methods Urinal Urinal Urinal Data Completed and Pending Labs on day of discharge: Labs from last 24 hours 05/11/21 05/11/21 07:40 07:40 WBC 7.31 RBC 3.50 L Hgb 12.2 L Hct 35.6 L MCV 101.7 H MCH 34.9 H MCHC 34.3 RDW 12.2 Plt Count MPV Immature Gran % 0.5 Neutrophils % 75.0 Lymphocytes % 11.9 Monocytes % 10.7 Eosinophils % 1.2 Basophils % 0.7 Nucleated RBC % 0 Absolute Neutrophils 5.48 Absolute Lymphocytes 0.87 L Absolute Monocytes 0.78 Absolute Eosinophils 0.09 Absolute Basophils 0.05 RBC Morphology Normal Sodium 135 L Potassium 3.9 Chloride 101 Carbon Dioxide 24.9 Anion Gap 9.1 BUN 6 L Creatinine 0.5 L Estimated GFR/1.73 m2 >= 60.00 Glucose 85 Calcium 8.6 Magnesium 2.0 Total Bilirubin 1.1 H Conjugated Bilirubin 0.4 H AST 94 H ALT 61 Alkaline Phosphatase 213 H Total Protein 7.2 Albumin 2.8 L PFSH All Active Problems (Updated 05/10/21 @ 17:13 by Belem Brink NP) Discharge planning issues (Acute) Weakness (Acute) Alcohol intoxication (Acute) Substance abuse (Acute) Alcohol abuse (Chronic) Alcoholic peripheral neuropathy (Acute) Seizure disorder (Acute) Multiple rib fractures (Acute) Rib fracture (Acute) Alcohol withdrawal (Acute) Alcoholic hepatitis (Acute) Alcoholic gastritis (Acute) Alcohol dependence (Acute) Tobacco dependence (Acute) Ankle fracture, left (Acute) Discharge planning issues (Acute) Hypokalemia (Acute) Active Problem List Alcohol intoxication (Acute) Substance abuse (Acute) Seizure disorder (Acute) Multiple rib fractures (Acute) Rib fracture (Acute) Alcohol withdrawal (Acute) Alcoholic hepatitis (Acute) Alcoholic gastritis (Acute) Alcohol dependence (Acute) Tobacco dependence (Acute) Ankle fracture, left (Acute) Discharge planning issues (Acute) Hypokalemia (Acute) Medical History Alcohol use disorder Social History Smoking/Tobacco Use Status: Current every day Tobacco Type: cigarettes Smoking risk assessment performed?: Yes Alcohol Intake: current Alcohol Intake frequency: 3 or more drinks per day Alcohol type: beer and wine Drug use: Daily Substance use type: marijuana and painkillers Details: States he drinks almost a case of beer a day. Today pt reports he consumed both beer and wine. Do you feel safe at home: Yes Do you feel safe in your relationship?: Yes Additional Social history: Pt reports he has been sleeping in a van for the last month.
[2021-05-11] MEDS: Normal Saline Flush 10 ML SYR IVP (17:20)
--- NOTE | 2021-05-11 17:29 | PDOC.CMDIS ---
- If Service Date Differs Date of service: 05/11/21 Time of Service: 17:29 LACE Index Scoring Tool - Questions: Length of Stay (in days): 1 Acuity (Admit via E.D.?): Yes Comorbidities: Liver or Renal Disease E.D. Visits: 3 - Answers: Total Score: 12 Risk of Readmission: High Risk Care Management Discharge Reason for Hospitalization: alcohol intoxication and weakness Discharge Plan: Haroon will be discharged with no new services. 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 He will follow up with his community providers and plan of care and drive himeself. Patient/Family Education Needs: review of discharge instructions, limitations, activity, Medications, Ask Me Three
--- NOTE | 2021-05-22 13:15 | PT.INDS ---
Date of service: 05/12/21 PT Notes Visit Reasons: Alcohol Abuse,Neuropathy Physical Therapy Inpatient Discharge Summary Date: 05/22/2021 Date of service: 05/10/2021 through 05/11/2021 This is a clinical summary of care provided for the duration of dates listed above. No charge was made in the completion of this documentation. Referring Doctor: Rian Brandon MD PT Orders: PT CONSULT: Fall safety assessment Precautions: Fall. Standard. WBAT on B LE. [place]. Seizure/withrawal precautions on. Patient Profile/Admitting Diagnosis: Hector is a 55-year-old male who presented to the ED on 05/09/2021 due to alcohol intoxication, pain and tingling in his bilateral fingers/feet, and generalized weakness. PMHX: Active Problem List Alcohol intoxication (Acute) Substance abuse (Acute) Seizure disorder (Acute) Multiple rib fractures (Acute) Rib fracture (Acute) Alcohol withdrawal (Acute) Alcoholic hepatitis (Acute) Alcoholic gastritis (Acute) Alcohol dependence (Acute) Tobacco dependence (Acute) Ankle fracture, left (Acute) Discharge planning issues (Acute) Hypokalemia (Acute) Medical History Alcohol use disorder Social History/Home Situation: Has been homeless for about 5 weeks preceding this hospitalization. Issues with alcoholism has compounded his situation as well. 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 Equipment Owned/DME: None Subjective: NT. See most recent CASINO ENFORCEMENT AGENT notes. Objective: General Observation: NT. See most recent CASINO ENFORCEMENT AGENT notes. Mental Status: NT. See most recent CASINO ENFORCEMENT AGENT notes. Pain: NT. See most recent CASINO ENFORCEMENT AGENT notes. ROM: Right Upper Extremity: Shoulder Flexion WFL. Shoulder abduction WFL. Elbow flexion WFL. Wrist flexion WFL. Functional opening and closing of hand WFL. Left Upper Extremity: Shoulder Flexion WFL. Shoulder abduction WFL. Elbow flexion WFL. Wrist flexion WFL. Functional opening and closing of hand WFL. Right Lower Extremity: Hip flexion lacks the last 50% of available ROM. Hip abduction WFL. Knee flexion lacks the last 50% of available ROM. Knee extension -20 degrees. Ankle dorsiflexion to neutral only. Ankle plantarflexion 10 degrees. Left Lower Extremity: Hip flexion lacks the last 50% of available ROM. Hip abduction WFL. Knee flexion lacks the last 50% of available ROM. Knee extension -20 degrees. Ankle dorsiflexion to neutral only. Ankle plantarflexion 10 degrees. Strength: Right Upper Extremity: Shoulder flexors 4-/5. Shoulder abductors 4-/5. Elbow flexors 4-/5. Elbow extensors 4-/5. Vascular Technologist strong. Left Upper Extremity: Shoulder flexors 4-/5. Shoulder abductors 4-/5. Elbow flexors 4-/5. Elbow extensors 4-/5. Vascular Technologist strong. Right Lower Extremity: Hip flexors 3-/5. Hip abductors 4-/5. Knee flexors 3-/5. Knee extensors 3-/5. Ankle dorsiflexors 3-/5. Ankle plantarflexors 3-/5. Left Lower Extremity: Hip flexors 3-/5. Hip abductors 4-/5. Knee flexors 3-/5. Knee extensors 3-/5. Ankle dorsiflexors 3-/5. Ankle plantarflexors 3-/5. Bed Mobility/Transfers: Supine to sit independent with HOB at 30 degrees Sit to supine independent Sit to stand independent with FWW Stand to sit independent with FWW Bed to reclining chair independent t with FWW Reclining chair to bed independent with FWW Gait: Instructed patient with level surface ambulation of 200 feet + 200 feet requiring standby assist. Christi decreased. Step height decreased. Step length decreased. Balance: Static Sitting: Normal Dynamic Sitting: Normal Static Standing: Good Dynamic Standing: Fair Assessment: Patient demonstrates significant functional mobility improvement during this episode of care requiring no assistive device and supervision only for up to 200 feet with footwear on. patient presents with clinical signs and symptoms consistent with current/admitting diagnoses that have resulted to mobility limitations, gait instability, generalized weakness, and overall ADL decline as demonstrated by the following impairment level findings: 1. Decreased strength to B UE/LE major muscle groups 2. Impaired standing balance 3. Impaired activity tolerance 4. Limitation of joint range of motion in B hips and knees 5. Parestesias and pain in B fingers and feet 6. Muscle atrophy to B LE muscles Impairments are contributing to the following functional limitations: 1. Decline in transfer skills 2. Difficulty with ambulation without assistive device and physical assistance 3. Increased completion time for mobility ADL performance 4. Increased risk for falls 5. Difficulty with managing steps alone safely Goals: Goals X1 week 1. Supine-Sit independent MET 2. Sit-Supine independent MET 3. Sit-Stand independent MET 4. Stand-Sit independent with no AD MET 5. Bed-Chair independent with no AD MET 6. Chair-Bed independent with no AD MET 7. Independent gait on level surface with use of no AD for at least 300 feet without report of pain nor dyspnea NOT MET 8. Independent stair negotiation while holding onto 1 rail for at least 5 steps without report of pain nor dyspnea NOT MET 9. Independent with home exercise program NOT MET 10. Good static and dynamic standing balance/tolerance NOT MET DISCHARGE RECOMMENDATIONS: [] Home with no services [] [X] Home with services. Patient will benefit from home health PT services in order to progress mobility level using least restrictive assistive ambulatory device, assess home safety, identify additional equipment needs, and establish a functional maintenance program that will increase ability of patient to remain at home. [] Home with outpatient PT [] [] SNF for continued rehabilitation [] [] Patient Manager Care [] [] SNF versus LTC based on ability to participate and progress [] TREATMENT CODE/TIME: MS Thank you for the opportunity to participate in the care of this patient. Hina Hagan PT, DPT, CLT [facility] [place], [place]
== END 2021-05-11 18:31 | disposition home or self-care (01) | DRG 897 ==
LOC: ER 20:02 → MS 20:04
PROVIDERS: Internal Medicine; Admitting Provider Family Medicine; Emergency Provider Emergency Medicine; PCP Nurse Practitioner Family; Visit Provider Family Medicine
DX: F10.288 Alcohol dependence with other alcohol-induced disorder (principal); G62.1 Alcoholic polyneuropathy; F10.229 Alcohol dependence with intoxication, unspecified; Y90.8 Blood alcohol level of 240 mg/100 ml or more; Z59.02 Unsheltered homelessness; G40.909 Epilepsy, unspecified, not intractable, without status epilepticus; K29.20 Alcoholic gastritis without bleeding; K70.10 Alcoholic hepatitis without ascites; F17.210 Nicotine dependence, cigarettes, uncomplicated; E87.6 Hypokalemia; Z20.822 Contact with and (suspected) exposure to COVID-19; R53.1 Weakness; H91.8X3 Other specified hearing loss, bilateral
CPT/HCPCS: 36415; 73562; 80048; 80053; 80076; 80307; 82550; 85027; 85652; 87635; 96361; 96365; 96366; 96375; 97110; 97162; 97530; 99285; 70450; 71045; 73630; 80184; 80320; 81003; 82607; 82746; 83519; 83735; 84100; 84443; 85025; 86140; 99219; 99238; G0378; J1885; J2560

== ENCOUNTER 2021-12-25 15:18 | Emergency (ER) | payer MEDICAID, SELFPAY ==
[2021-12-25] VITALS (18 sets, daily range): BP systolic 119–154; BP diastolic 80–101; PULSE 74–114; RESP 13–22; TEMP 36.4–37.1; O2SAT 96–99
--- NOTE | 2021-12-25 16:06 | DI.CT_ITS ---
Exam(s) CT HEAD CERVICAL SPINE WO EXAM: CT HEAD CERVICAL SPINE WO CLINICAL HISTORY: seizure, head lac. TECHNIQUE: Imaging Protocol: Axial computed tomography images with coronal and sagittal reformatted images were created and reviewed COMPARISON: CT CT HEAD WO from 05/09/2021 FINDINGS: CT Head: Ventricles and Extra axial spaces: Normal in size and morphology for the patient's age. Hemorrhage: None. Cerebral parenchyma: There is no acute territorial infarct. Midline shift: None. Brainstem/Cerebellum: Normal. Calvarium: Normal. Visualized Paranasal sinuses/Mastoids: Clear. Soft Tissues: There is a right posterior lateral parietal scalp hematoma. CT Cervical Spine: Bones: No acute fracture or subluxation. Moderate degenerative changes are seen in the cervical spine . There is 2 mm anterolisthesis of C3 on C4. Soft Tissues: Unremarkable. Lung Apices: Clear. IMPRESSION: 1. No acute intracranial process. 2. Scalp hematoma overlying the posterolateral right parietal bone. 3. No acute fracture or subluxation in the cervical spine. RADIATION DOSE DELIVERED: 1,635.27mGy.cm Total DLP DATA REPOSITORY: All CT scans at this facility are submitted to the National Radiology Data Registry (NRDR) Dose Index Registry (DIR) with the [employer] (ACR). RADIATION OPTIMIZATION: All CT scans at this facility use at least one of these dose optimization te chniques: automated exposure control; mA and/or kV adjustment per patient size (includes targeted exa ms where dose is matched to clinical indication); or iterative reconstruction.
--- NOTE | 2021-12-25 16:24 | ED.GENADUL_ITS ---
Discharge Plan Disposition Patient Disposition: HOME Condition: Improving Discharge Details Clinical Impression: Head injury, Laceration of scalp Primary Care Provider: Ilene Moore ED Provider: Luis A Hinson Home Meds and New Rx's Prescriptions: New levetiracetam [Keppra] 500 mg tablet 500 mg PO BID 30 Days Qty: 60 0RF Discharge Instructions Instructions: Head Injury (ED) Additional Instructions: Please return to have your makayla removed in 10 days. Keep wound clean and dry. Please return if you develop worsening bleeding or signs of infection. Please be seen by neurology this week or next week. Medical Decision Making 56-year-old male history of alcohol abuse possible epilepsy versus alcohol withdrawal seizures, last drink 1 day ago presents after blacking out potentially having a seizure hitting his head, sustaining hematoma and laceration to right occipital parietal scalp, venous oozing, currently under pressure dressing, patient is alert and oriented moving all extremities no focal deficits, does not have any tongue fasciculations or tremors to suggest alcohol withdrawal was slightly tachycardic on arrival. Will obtain CT head CT C- spine, will load with Keppra, will obtain basic labs provide light fluids, close reassessment of neurologic status. Disposition pending imaging and results. 20: 08 patient resting comfortably no further seizure activity hemodynamically stable ambulatory without assistance. Multiple simple interrupted scalp sutures observable, 2 surgical makayla and surgical glue, patient had profuse venous oozing on arrival now hemostatic. Home care instructions and return precautions given started on Keppra and will be given neurology follow-up HPI General Date/Time Provider Initiated Documentation: 12/25/21 15:41 . HPI Narrative: 56-year-old male history of alcohol abuse, possible epilepsy versus alcohol withdrawal seizures presents after fall thinks he may have had a seizure and blacked out, sustaining laceration to right occipital scalp, endorses that he was on Lamictal for some time however did not agree with him therefore is not on any antiepileptics, last drink 1 day ago. Related Data Home Medications Medication Instructions Recorded Confirmed levetiracetam 500 mg tablet 500 mg PO BID 30 days #60 tabs 12/25/21 (Keppra) Previous Rx's Medication Instructions Recorded levetiracetam 500 mg tablet 500 mg PO BID 30 days #60 tabs 12/25/21 (Keppra) Allergies Allergy/AdvReac Type Severity Reaction Status Date / Time No Known Allergies Allergy Unverified 12/25/21 15:36 General Stated Complaint: HeadInjury JINNY: 3 Review of Systems Narrative: Review of Systems Constitutional: negative Eyes: negative ENT: negative Cardiovascular: negative Respiratory: negative Gastrointestinal: negative : negative Musculoskeletal: negative Skin: Scalp laceration Neurologic: Possible seizure Psych: negative PFSH All Active Problems (Updated 12/25/21 @ 20:09 by Luis A Hinson MD) Head injury (Acute) Laceration of scalp (Acute) Discharge planning issues (Acute) Weakness (Acute) Alcohol intoxication (Acute) Substance abuse (Acute) Alcohol abuse (Chronic) Alcoholic peripheral neuropathy (Acute) Seizure disorder (Acute) Multiple rib fractures (Acute) Rib fracture (Acute) Alcohol withdrawal (Acute) Alcoholic hepatitis (Acute) Alcoholic gastritis (Acute) Alcohol dependence (Acute) Tobacco dependence (Acute) Ankle fracture, left (Acute) Discharge planning issues (Acute) Hypokalemia (Acute) Active Problem List Alcohol intoxication (Acute) Substance abuse (Acute) Seizure disorder (Acute) Multiple rib fractures (Acute) Rib fracture (Acute) Alcohol withdrawal (Acute) Alcoholic hepatitis (Acute) Alcoholic gastritis (Acute) Alcohol dependence (Acute) Tobacco dependence (Acute) Ankle fracture, left (Acute) Discharge planning issues (Acute) Hypokalemia (Acute) Medical History Alcohol use disorder Social History Smoking/Tobacco Use Status: Current every day Tobacco Type: cigarettes Smoking risk assessment performed?: Yes Alcohol Intake: current Alcohol Intake frequency: 3 or more drinks per day Alcohol type: beer and wine Drug use: Daily Substance use type: marijuana and painkillers Details: States he drinks almost a case of beer a day. Today pt reports he consumed both beer and wine. Do you feel safe at home: Yes Do you feel safe in your relationship?: Yes Additional Social history: Pt reports he has been sleeping in a van for the last month. Exam Narrative Exam Narrative: Physical Examination General: alert, awake, cooperative, resting comfortably, no acute distress HEENT: normocephalic, right occipital parietal hematoma with laceration venous oozing; PERRL, EOM intact, conjunctiva normal; no nasal discharge; moist mucous membranes, oral and pharyngeal mucosa normal, tolerating secretions Neck: supple, trachea midline; full ROM Chest: normal to inspection Respiratory: normal respiratory effort, speaking in full sentences, clear to aus cultation, no wheezing, rales or rhonchi Cardiac: regular rate, regular rhythm, S1S2 intact, no murmurs rubs or gallops GI: abdomen soft, non-tender, non-distended; no palpable mass or hepatosplenom egaly Skin: no lesions, rashes or trauma appreciated Neuro: AAOx3, normal speech, moving all extremities; cranial nerves II through XII intact, 5/5 strength upper and lower extremities, no ataxia, patient extremely hard of hearing this is chronic Extremities: No deformities Psych: Appropriate mood and affect Course Vital Signs Vital signs: Vital Signs Temperature 37.1 C 12/25/21 15:27 Pulse 96 H 12/25/21 15:27 Respiratory Rate 16 12/25/21 15:27 Blood Pressure 129/101 H 12/25/21 15:27 Pulse Oximetry 99 12/25/21 15:27 Temperature 37.1 C 12/25/21 15:27 Temperature Source Temporal Artery Scan 12/25/21 15:27 Pulse 96 H 12/25/21 15:27 Respiratory Rate 16 12/25/21 15:27 Respiratory Effort Non-Labored 12/25/21 15:48 Respiratory Depth Normal 12/25/21 15:48 Respiratory Pattern Normal 12/25/21 15:48 Blood Pressure 129/101 H 12/25/21 15:27 Blood Pressure Position Sitting 12/25/21 15:27 Pulse Oximetry 99 12/25/21 15:27 Oxygen Delivery Method Room Air 12/25/21 15:27 Oxygen Flow Rate 0 12/25/21 15:27 Pain Level 7 12/25/21 15:27 Procedures Laceration Laceration 1: Site: scalp Side (If applicable): right Size (cm): 4 Description: stellate Depth: involves muscle layer Local Anesthetic: Lidocaine 1% Amount of anesthesia used (mL): 3 Pre-repair: wound explored and irrigated extensively Skin layer closed with: vicryl Size (cm): 3-0 Number of sutures: 6 Technique: simple, interrupted Technique: other (2 surgical makayla were also applied and surgical glue for better hemostasis) PAWSS Have you Been Recently Intoxicated or Drunk Within the Last 30 days?: No Have you Ever Experienced Previous Episodes of Alcohol Withdrawal?: No Have you ever Experienced Withdrawal Seizures?: No Have you ever Experienced Delirium Tremens(DT)s?: No Have you ever undergone Alcohol Rehabilitation Treatment (i.e, inpt ot outpatient treatment programs)?: No Have you ever Experienced Blackouts?: No Have you ever Combined Alcohol with other Downers within the last 90 days?: No Have you ever Combined Alcohol with any other Substance of Abuse during the last 90 days?: No Result: 0
[2021-12-25] MEDS: levETIRAcetam 1,000 MG in Normal Saline 100 ML 400 MG IVPB (16:25)
[2021-12-25] MEDS: Normal Saline 1,000 ML 1000 ML IV (16:25)
[2021-12-25 16:38] LABS: Abs Immature Grans 0.05 10^3/uL (0.0-0.06); Absolute Basophil Count 0.05 10^3/uL (0.0-0.2); Absolute Lymphocyte Count 0.55 10^3/uL (1.2-3.4); Absolute Monocyte Count 0.74 10^3/uL (0.1-0.8); Absolute Neutrophil Count 5.81 10^3/uL (1.2-6.7); Basophils % 0.7; HCT 37.5 % (40.0-50.0); HGB 13.4 g/dL (13.5-17.5); Immature Grans % 0.7; Lymphocytes % 7.6; MCH 34.8 pg (27.0-33.0); MCHC 35.7 % (32.0-36.0); MCV 97 fL (80-95); MPV 10.8 fL (8.0-11.0); Monocytes % 10.3; Neutrophils % 80.7; Nucleated RBC 0.3 % (0.0-0.3); RBC 3.85 10^6/uL (4.36-5.78); RDW 14.3 % (11.8-14.1); RDW-SD 50.6 fL
[2021-12-25 16:50] LABS: INR 1.2 (0.9-1.1); Prothrombin Time 11.8 sec (9.3-11.0)
[2021-12-25 16:59] LABS: ALT 99 U/L (16-63); AST 159 U/L (15-37); Albumin 3.9 g/dL (3.4-5.0); Alkaline Phosphatase 192 U/L (46-116); Anion Gap 14.3 mmol/L (3-11); BUN 7 mg/dL (7-18); Bilirubin, Total 1.8 mg/dL (0.2-1.0); CO2 24.7 mmol/L (21.0-32.0); CREATININE 0.6 mg/dL (0.70-1.30); Calcium 9.3 mg/dL (8.5-10.1); Chloride 93 mmol/L (98-107); Glucose 91 mg/dL (74-106); Potassium 3.8 mmol/L (3.5-5.1); Sodium 132 mmol/L (136-145); Total Protein 8.4 g/dL (6.4-8.2)
[2021-12-25 17:03] LABS: ETHANOL BLOOD < 3.0 mg/dL (<10)
[2021-12-25 17:07] LABS: Platelet Count 88 10^3/uL (130-400)
[2021-12-25] MEDS: Lidocaine 1% Pres-Free 5 ML VIAL IJ (17:50)
--- NOTE | 2021-12-25 18:14 | DI.VRAD_ITS ---
PROCEDURE INFORMATION: Exam: CT Head Without Contrast Exam date and time: 12/25/2021 5:33 PM Age: 56 years old Clinical indication: Injury or trauma; Other: Seizure and fall; Laceration; Without residual foreign body; Head, generalized; Not specified TECHNIQUE: Imaging protocol: Computed tomography of the head without contrast. COMPARISON: CT HEAD WO 05/09/2021 6:48 PM FINDINGS: Brain: Prominence of cerebral sulci reflects cerebral atrophy. A few poorly marginated hypodensities seen throughout the deep and periventricular white matter of both cerebral hemispheres are consistent with microvascular ischemic changes of relatively mild degree. Brainstem and cerebellum are stable in appearance and there is no evidence of acute infarct or recent intracranial hemorrhage. Cerebral ventricles: Dilatation of the 3rd and lateral ventricles is commensurate with the degree of cerebral atrophy. Paranasal sinuses: Grossly clear throughout. Mastoid air cells: Grossly clear bilaterally. Bones/joints: Bony calvarium and skull base are intact and no acute fractures are detected. Chronic left nasal bone fracture again evident. Soft tissues: Posterolateral right parietal scalp hematoma identified with no subjacent fracture detected. Soft tissues: Unremarkable. IMPRESSION: 1. Cerebral atrophy and probable microvascular ischemic changes with no evidence of acute infarct, recent hemorrhage or hydrocephalus. No acute intracranial process is detected. 2. Right parietal scalp hematoma with no subjacent skull fracture detected. PROCEDURE INFORMATION: Exam: CT Cervical Spine Without Contrast Exam date and time: 12/25/2021 5:33 PM Age: 56 years old Clinical indication: Injury or trauma; Other: Seizure and fall; Laceration; Without residual foreign body; Head, generalized; Not specified TECHNIQUE: Imaging protocol: Computed tomography of the cervical spine without contrast. COMPARISON: CT HEAD WO 05/09/2021 6:48 PM FINDINGS: Bones/joints: There is arthrosis involving the anterior atlantodental interval with loss of joint space and marginal osteophyte formation and the odontoid process is grossly intact. There are mild anterolistheses of C2 upon C3 and C3 upon C4 and there is gross preservation of vertebral body height throughout cervical levels with no vertebral body fractures or other significant subluxations detected. Changes of facet arthropathy are most advanced at C2-C3 on the right and at C3-C4 on the left with no acute fractures detected involving the posterior elements of the cervical spine. Discs/Spinal canal/Neural foramina: Mild broad-based posterior disc bulging at C4-C5 and loss of disc space height with posterior osteocartilaginous ridging C5-C6 and C6-C7 results in canal narrowing and suspected mass-effect upon the ventral cord which could be better evaluated with MRI. Uncovertebral and facet changes produce bilateral foraminal distortions/narrowings at C5-C6 and C6-C7. Lungs: No pneumothorax or consolidation detected at the lung apices. Soft tissues: Unremarkable. IMPRESSION: Cervical spondylosis with central canal and foraminal narrowing as above. No acute cervical fractures are detected. Dictated and Authenticated by: Louie Mary MD. Ordering:REYNALDO Gunn MD
--- NOTE | 2021-12-25 20:23 | NUR.NOTE ---
Referral faxed to [facility] Neurology in a week for seizure.Nursing Note:
--- NOTE | 2022-01-03 08:57 | CMACTNOTE_ITS ---
- If Service Date Differs Date of service: 01/03/22 Time of Service: 08:57 Care Management Activity Note MANOLO receives a call from Chantal Espitia, home care consultant at [facility]. Chantal advises she has been trying to get in touch with Hector to schedule a follow up appointment for him but none of the phone numbers on file are his. Chantal asks that Hector be asked to call her at [phone], extension [phone], if he comes to [facility] to have his sutures removed on 01/08/22.
--- NOTE | 2022-01-03 08:57 | PDOC.ERCMACT ---
- If Service Date Differs Date of service: 01/03/22 Time of Service: 08:57 Care Management Activity Note MANOLO receives a call from Chantal Espitia, customer care team coach at [facility]. Chantal advises she has been trying to get in touch with Hector to schedule a follow up appointment for him but none of the phone numbers on file are his. Chantal asks that Hector be asked to call her at [phone], extension [phone], if he comes to [facility] to have his sutures removed on 01/08/22.
== END 2021-12-25 20:25 | disposition home or self-care (01) ==
PROVIDERS: Emergency Provider Emergency Medicine; PCP Nurse Practitioner Family
DX: S01.01XA Laceration without foreign body of scalp, initial encounter (principal); R00.0 Tachycardia, unspecified; G40.909 Epilepsy, unspecified, not intractable, without status epilepticus; F17.210 Nicotine dependence, cigarettes, uncomplicated; W19.XXXA Unspecified fall, initial encounter; W22.8XXA Striking against or struck by other objects, initial encounter
CPT/HCPCS: 12002; 36415; 80053; 96361; 96365; 99284; 70450; 72125; 80320; 85025; 85610; 85730; J1953

== ENCOUNTER 2022-07-11 16:53 | Emergency (ER) | payer MEDICAID, SELFPAY ==
--- NOTE | 2022-07-11 16:45 | DI.CT_ITS ---
Exam(s) CT HEAD WO EXAM: CT HEAD WO CLINICAL HISTORY: fall, L frontal injury, pain. TECHNIQUE: Imaging Protocol: Axial computed tomography images with coronal and sagittal reformatted images were created and reviewed COMPARISON: CT CT HEAD CERVICAL SPINE WO from 12/25/2021 FINDINGS: There are no skull fractures. There is prominent mucosal thickening in the right maxillary sinus. Sm all defect the medial wall of the right maxillary sinus may be related to prior surgical procedure at this level. Visualized left maxillary sinus is clear as are the other paranasal sinuses and mastoid air cells. There is no evidence of intracranial hemorrhage, mass effect, or shift of midline structures. There are no extra-axial fluid collections. The ventricles are not enlarged or shifted and there is no blo od within the ventricular system nor within the basal cisterns. IMPRESSION: No acute intracranial findings on this noninfused CT scan of the brain. Mucosal thickening right maxillary sinus now evident. This was not present on CT scan of December 2021. RADIATION DOSE DELIVERED: 905mGy.cm Total DLP DATA REPOSITORY: All CT scans at this facility are submitted to the National Radiology Data Registry (NRDR) Dose Index Registry (DIR) with the [employer] (ACR). RADIATION OPTIMIZATION: All CT scans at this facility use at least one of these dose optimization te chniques: automated exposure control; mA and/or kV adjustment per patient size (includes targeted exa ms where dose is matched to clinical indication); or iterative reconstruction.
[2022-07-11 16:53] VITALS: BP 158/118; PULSE 110; RESP 24; TEMP 37.1; O2SAT 97
[2022-07-11] MEDS: Normal Saline 1,000 ML 150 ML IV (17:05)
--- NOTE | 2022-07-11 17:11 | ED.GENADUL_ITS ---
Discharge Plan Disposition Patient Disposition: Home Condition: Improving Discharge Details Clinical Impression: Fall, Seizure disorder, Head injury Primary Care Provider: Ilene Moore ED Provider: Ethan Taveras Home Meds and New Rx's Prescriptions: New levetiracetam [Keppra] 500 mg tablet 500 mg PO BID 30 Days Qty: 60 0RF Discharge Instructions Instructions: Head Injury (ED), Recurrent Seizures in Adults (ED), Facial Laceration (ED) Additional Instructions: The laceration over your left eye was repaired with dissolvable sutures and skin glue. The tissue adhesive and sutures will slowly wear off over approximately 7 to 10 days time. You had a tetanus booster today. Continue your routine medications. I have represcribed the medication Keppra for you which you have most recently been on for seizures. Home to rest this evening. You may have mild headache or bruising/a black eye. Medical Decision Making 57-year-old male states after work he went to buy beer and then felt weak and sat down. He states he has a seizure disorder and has not been taking his Dilantin for 1 year. He had no tongue biting or incontinence. He was found to be wet from sitting in the snow. He denies a prolonged loss of consciousness and denies head/neck/chest/back pain. On exam he has a left lateral orbital laceration. His last tetanus status is unknown. Patient is pleasant, alert and in no acute distress. His laceration was anesthetized, liberally irrigated, examined in a bloodless field without evidence of foreign body and repaired with 5 interrupted 5-0 Vicryl sutures. Patient had screening laboratories obtained, was undressed and placed in a warming blanket, referred for CT scan of the head: Laboratories noted an AST of 130, ALT 73. Total bili was 2.9. Sodium 133, test 3.4, chloride 91, bicarb 24, BUN 5, creatinine 1.1. CBC showed a white count of 11, hematocrit 37, platelets 77. Magnesium was low at 1.3 and supplemented. Patient counseled to decrease alcohol use. We discussed that he should resume his Keppra. He does not demonstrate evidence of acute alcohol withdrawal/delirium tremens. We discussed that his liver functions have worsened. We will arrange for local follow-up [facility] as the patient does not have reliable transportation. HPI General Mode of arrival: EMS . Date/Time Provider Initiated Documentation: 07/11/22 16:54 . Limitations to Documentation: no limitations . Information obtained by: patient and EMS . History of Present Illness 57 year old M presents to the emergency department with the chief complaint of Fall, question seizure, left head laceration, described as mild, and is localized to the head, face and left. Patient reports no radiation. Patient started experiencing this minute(s) and it has been now resolved. No relieving factors improve symptom(s), No exacerbating factors reported . Patient notes no other symptoms.; denies confusion, chest pain, headaches, shortness of breath, syncope and weakness. Patient did receive the following treatments prior to arrival, none Related Data Home Medications Medication Instructions Recorded Confirmed levetiracetam 500 mg tablet 500 mg PO BID 30 days #60 tabs 07/11/22 (Keppra) Previous Rx's Medication Instructions Recorded levetiracetam 500 mg tablet 500 mg PO BID 30 days #60 tabs 07/11/22 (Keppra) Allergies Allergy/AdvReac Type Severity Reaction Status Date / Time No Known Allergies Allergy Unverified 07/11/22 17:28 General Stated Complaint: HeadInjury JINNY: 3 Review of Systems Narrative: Drinks beer daily, stopped taking his Dilantin approximately 1 year ago, states he does have a history of seizures. No recent illness. No neck pain, no weakness, numbness or tingling to the upper extremity. Positive hardness of hearing [facility] All Active Problems (Updated 07/11/22 @ 18:50 by Ethan Taveras MD) Fall (Acute) Head injury (Acute) Discharge planning issues (Acute) Weakness (Acute) Alcohol intoxication (Acute) Substance abuse (Acute) Alcohol abuse (Chronic) Alcoholic peripheral neuropathy (Acute) Seizure disorder (Acute) Multiple rib fractures (Acute) Rib fracture (Acute) Alcohol withdrawal (Acute) Alcoholic hepatitis (Acute) Alcoholic gastritis (Acute) Alcohol dependence (Acute) Tobacco dependence (Acute) Ankle fracture, left (Acute) Discharge planning issues (Acute) Hypokalemia (Acute) Medical History Alcohol use disorder Social History Smoking/Tobacco Use Status: Current every day Tobacco Type: cigarettes Smoking risk assessment performed?: Yes Alcohol Intake: current Alcohol Intake frequency: 3 or more drinks per day Alcohol type: beer and wine Drug use: Daily Substance use type: marijuana and painkillers Details: States he drinks almost a case of beer a day. Today pt reports he consumed both beer and wine. Do you feel safe at home: Yes Do you feel safe in your relationship?: Yes Additional Social history: Pt reports he has been sleeping in a van for the last month. Exam Narrative Exam Narrative: GEN: awake, alert, oriented 3. Pleasant, well groomed, interactive. HEAD: Normocephalic, left lateral orbital laceration approximately 2 cm, no midface instability, tenderness, anesthesia or bony deformity ENT: Mucous membranes moist, oropharynx unremarkable, External ear exam unremarkable EYES: PERRL, EOMI NECK: Full ROM, no ALLEGRA, no menigismus CHEST/RESP: Nontender, clear to auscultation bilateral, no wheeze/rhonchi/rales CARDIOVASCULAR: RRR, no murmur, rub merari. 2+ Rad pulse bilateral ABDOMEN: Soft, nontender, no mass. +Bowel sounds EXT: Full ROM, no edema, no rash Neuro: Grossly normal neurologic exam, conversant, interactive. Psych: Speech fluent, thoughts congruent, affect normal Course Vital Signs Vital signs: Vital Signs Temperature 37.1 C 07/11/22 16:53 Pulse 110 H 07/11/22 16:53 Respiratory Rate 24 07/11/22 16:53 Blood Pressure 158/118 H 07/11/22 16:53 Pulse Oximetry 97 07/11/22 16:53 Temperature 37.1 C 07/11/22 16:53 Temperature Source Temporal Artery Scan 07/11/22 16:53 Pulse 110 H 07/11/22 16:53 Respiratory Rate 24 07/11/22 16:53 Blood Pressure 158/118 H 07/11/22 16:53 Blood Pressure Position Sitting 07/11/22 16:53 Pulse Oximetry 97 07/11/22 16:53 Oxygen Delivery Method Room Air 07/11/22 16:53 Oxygen Flow Rate 0 07/11/22 16:53 Procedures Laceration Laceration 1: Site: face Side (If applicable): left Size (cm): 2 Description: irregular Depth: simple, single layer Local Anesthetic: Lidocaine 1% Amount of anesthesia used (mL): 3 Pre-repair: wound explored Skin layer closed with: vicryl Size (cm): 5-0 Number of sutures: 5 Technique: simple, interrupted
[2022-07-11] MEDS: LORazepam 2 MG/ML VIAL (17:15)
[2022-07-11 17:19] LABS: Abs Immature Grans 0.04 10^3/uL (0.0-0.06); Absolute Basophil Count 0.04 10^3/uL (0.0-0.2); Absolute Lymphocyte Count 0.65 10^3/uL (1.2-3.4); Absolute Monocyte Count 0.77 10^3/uL (0.1-0.8); Basophils % 0.4; HCT 37.6 % (40.0-50.0); HGB 13.1 g/dL (13.5-17.5); Immature Grans % 0.4; Lymphocytes % 5.9; MCH 34.5 pg (27.0-33.0); MCHC 34.8 % (32.0-36.0); MCV 99 fL (80-95); MPV 11.4 fL (8.0-11.0); Neutrophils % 86.3; Platelet Count 77 10^3/uL (130-400); RDW 14.6 % (11.8-14.1); RDW-SD 53.5 fL; WBC 11.06 10^3/uL (4.4-10.8)
[2022-07-11 17:20] LABS: Absolute Neutrophil Count 9.54 10^3/uL (1.2-6.7)
[2022-07-11] MEDS: Tetanus & Diphtheria Tox,ADULT 0.5 ML VIAL IM (17:20)
--- NOTE | 2022-07-11 17:25 | NUR.NOTE ---
kiran pabon being used pt provided with hot meal Nursing Note:
[2022-07-11 17:40] LABS: Magnesium 1.3 mg/dL (1.8-2.4)
[2022-07-11 17:42] LABS: ALT 73 U/L (16-63); AST 130 U/L (15-37); Alkaline Phosphatase 225 U/L (46-116); Anion Gap 17.9 mmol/L (3-11); BUN 5 mg/dL (7-18); Bilirubin, Total 2.9 mg/dL (0.2-1.0); CO2 24.1 mmol/L (21.0-32.0); CREATININE 1.1 mg/dL (0.70-1.30); Calcium 9.4 mg/dL (8.5-10.1); Chloride 91 mmol/L (98-107); Estimated GFR 79.28 (mL/min/1.73m2); Glucose 98 mg/dL (74-106); Potassium 3.4 mmol/L (3.5-5.1); Sodium 133 mmol/L (136-145); Total Protein 9.1 g/dL (6.4-8.2)
[2022-07-11 17:56] LABS: ETHANOL BLOOD < 3.0 mg/dL (<10)
[2022-07-11] MEDS: levETIRAcetam 500 MG TAB PO (18:25)
--- NOTE | 2022-07-11 18:25 | DI.VRAD_ITS ---
PROCEDURE INFORMATION: Exam: CT Head Without Contrast Exam date and time: 07/11/2022 5:37 PM Age: 57 years old Clinical indication: Other: Fall, frontal L injury pain TECHNIQUE: Imaging protocol: Computed tomography of the head without contrast. COMPARISON: CT HEAD CERVICAL SPINE WO 12/25/2021 5:33 PM FINDINGS: Brain: There is no acute intracranial hemorrhage, mass effect or midline shift. No large acute territorial infarct identified. There are patchy regions of hypodensity in the periventricular and subcortical white matter, likely on the basis of chronic microvascular ischemic disease. Cerebral ventricles: The ventricles and sulci are prominent in size, which is at least in part due to global cerebral volume loss. Paranasal sinuses: There is mucosal thickening in the right maxillary sinus. Mastoid air cells: The mastoid air cells are unremarkable. Bones/joints: No acute fracture. Soft tissues: Subcutaneous edema seen in the left frontal region. IMPRESSION: 1. No acute intracranial hemorrhage, mass effect or midline shift. 2. Subcutaneous edema in the left frontal region without underlying fracture. Dictated and Authenticated by: Faby Kirk MD. Ordering:LUCIA Long MD
[2022-07-11] MEDS: MAGNESIUM SULFATE 1 GM/100 ML BAG IVPB (18:26)
[2022-07-11 18:30] VITALS: TEMP 37.2
--- NOTE | 2022-07-11 18:31 | NUR.NOTE ---
Nursing Note: Referral faxed to PCP; sent to [facility]; [facility]; seizure and alcoholism in 1 to 2 weeks.
--- NOTE | 2022-07-11 20:10 | NUR.NOTE ---
@ 1900 entered room, pt had gotten up to bsc, pulled IV out. gauze and 4x4 applied. Notified Dr. Taveras who ordered not to restart IV to complete Magnesium infusion.
--- NOTE | 2022-07-16 10:24 | NUR.NOTE ---
Nursing Note: Accessed chart for [facility] billing purposes.
== END 2022-07-11 19:42 | disposition home or self-care (01) ==
LOC: ER 18:58
PROVIDERS: Emergency Provider Emergency Medicine; PCP Nurse Practitioner Family
DX: S05.42XA Penetrating wound of orbit with or without foreign body, left eye, initial encounter (principal); G40.909 Epilepsy, unspecified, not intractable, without status epilepticus; E83.42 Hypomagnesemia; Z23 Encounter for immunization; W19.XXXA Unspecified fall, initial encounter
CPT/HCPCS: 12011; 36415; 80053; 90471; 96361; 96365; 96372; 96375; 99284; 70450; 80320; 83735; 85025; J2060; J3475

== ENCOUNTER 2022-07-17 18:38 | Emergency (ER) | payer MEDICAID, SELFPAY ==
--- NOTE | 2022-07-17 18:43 | ED.GENADUL_ITS ---
Discharge Plan Discharge Details Chief Complaint: AMS/LOC Clinical Impression: Alcohol abuse with intoxication with complication, Hypomagnesemia Primary Care Provider: Ilene Moore ED Provider: Rian Strauss Home Meds and New Rx's Prescriptions: No Action levetiracetam [Keppra] 500 mg tablet 500 mg PO BID 30 Days Qty: 60 0RF Medical Decision Making This is a afebrile and not tachycardic 57-year-old alcoholic with inability to walk secondary to intoxication. Will observe the patient in the ED and assess his electrolytes to ensure that he is not markedly hypomagnesemic nor hypokalemic. He has no hemotympanum bilaterally nor septal hematoma nor any signs of any new trauma to his head to suggest benefit from repeat CT scan. He is not complaining of any shortness of breath he has no abnormal lung sounds to suggest pneumonia. Patient is not tremulous nor was was markedly hypertensive prehospital to suggest acute withdrawal. I suspect that his decreased GCS is secondary to his intoxication as he does not have any signs of autonomic instability delirium tremens. No reported tonic-clonic activity to suggest withdrawal seizure. We will monitor the patient in the ED and likely sign patie nt out to the oncoming overnight provider for ongoing observation. Given slightly decreased GCS will obtain ethanol level. The area of his recent suturing on his left face appears to be healing well. No signs of superinfection. 7:15 PM CBC showing mildly worsened microcytic anemia with improved thrombocytopenia. No leukocytosis. 7:35 PM Patient was found to be mildly hypomagnesemic for which I will provide him with oral repletion. He was markedly intoxicated with an ethanol level of 469 mg/dL. We will plan on observing the patient in the ED until he is clinically sober. He had no anion gap to suggest significant ketonemia. Patient also reportedly complained of chest pain so we will obtain a twelve-lead ECG. ECG was nonischemic with persistent first-degree AV block and low voltage. HPI General Date/Time Provider Initiated Documentation: 07/17/22 18:40 . HPI Narrative: This is a 57-year-old alcoholic arriving via EMS as he was unable to ambulate on the side of the road where he was found by bystanders. He reportedly had a normal fingerstick blood glucose. He was seen in the emergency department recently and had laceration that was closed through the left cheek. He had no new trauma this evening. This evening, patient would not get up at the scene, was transported via EMS. Patient denies any complaints at this point time. Related Data Home Medications Medication Instructions Recorded Confirmed levetiracetam 500 mg tablet 500 mg PO BID 30 days #60 tabs 07/11/22 (Keppra) Previous Rx's Medication Instructions Recorded levetiracetam 500 mg tablet 500 mg PO BID 30 days #60 tabs 07/11/22 (Keppra) Allergies Allergy/AdvReac Type Severity Reaction Status Date / Time No Known Allergies Allergy Unverified 07/11/22 17:28 General JINNY: 3 PFSH All Active Problems (Updated 07/17/22 @ 20:05 by Rian Strauss MD) Fall (Acute) Head injury (Acute) Alcohol abuse with intoxication with complication (Acute) Hypomagnesemia (Acute) Discharge planning issues (Acute) Weakness (Acute) Alcohol intoxication (Acute) Substance abuse (Acute) Alcohol abuse (Chronic) Alcoholic peripheral neuropathy (Acute) Seizure disorder (Acute) Multiple rib fractures (Acute) Rib fracture (Acute) Alcohol withdrawal (Acute) Alcoholic hepatitis (Acute) Alcoholic gastritis (Acute) Alcohol dependence (Acute) Tobacco dependence (Acute) Ankle fracture, left (Acute) Discharge planning issues (Acute) Hypokalemia (Acute) Medical History Alcohol use disorder Social History Smoking/Tobacco Use Status: Current every day Tobacco Type: cigarettes Smoking risk assessment performed?: Yes Alcohol Intake: current Alcohol Intake frequency: 3 or more drinks per day Alcohol type: beer and wine Drug use: Daily Substance use type: marijuana and painkillers Details: States he drinks almost a case of beer a day. Today pt reports he consumed both beer and wine. Do you feel safe at home: Yes Do you feel safe in your relationship?: Yes Additional Social history: Pt reports he has been sleeping in a van for the last month. Exam Narrative Exam Narrative: General: Well-appearing in no acute distress speaking in complete sentences. Head: Normocephalic, atraumatic Ear, nose, mouth, throat: On the left side of the patient's face there is marked soft tissue swelling and ecchymosis. No active bleeding. Patient does have left subconjunctival hemorrhage. No hemotympanum bilaterally. No septal hematoma. Neck: Trachea midline. Cardiovascular: Well-perfused distal extremities. Respiratory: Nonlabored respiration. Gastrointestinal: Nondistended abdomen. Musculoskeletal: No edema. Moving all 4 extremities spontaneously. Bilateral feet warm well perfused with no signs of ulcers or blisters. 2+ PT and DP pulses bilaterally. 5 out of 5 strength dorsi and plantarflexion of the feet. Skin: Normal for age and race, grossly normal temperature and turgor. No acute rash. Neurologic: Interactive alert moving all 4 extremities spontaneously. GCS 14: E4, V4, M6 Psychiatric: Mood and manner are appropriate. Grooming and personal hygiene are appropriate.
[2022-07-17 18:54] VITALS: BP 119/82; PULSE 83; RESP 20; TEMP 36.4; O2SAT 92
[2022-07-17 19:03] LABS: HGB 12.3 g/dL (13.5-17.5); MCH 33.9 pg (27.0-33.0); MCHC 34.2 % (32.0-36.0); MCV 99 fL (80-95); MPV 10.7 fL (8.0-11.0); Platelet Count 110 10^3/uL (130-400); RBC 3.63 10^6/uL (4.36-5.78); RDW 15.4 % (11.8-14.1); WBC 4.74 10^3/uL (4.4-10.8)
[2022-07-17 19:16] LABS: BUN 3 mg/dL (7-18); CREATININE 0.6 mg/dL (0.70-1.30); Calcium 8.6 mg/dL (8.5-10.1); Chloride 100 mmol/L (98-107); Glucose 111 mg/dL (74-106); Magnesium 1.7 mg/dL (1.8-2.4); Potassium 3.8 mmol/L (3.5-5.1); Sodium 138 mmol/L (136-145)
[2022-07-17 19:25] LABS: ETHANOL BLOOD 469.1 mg/dL (<10)
--- NOTE | 2022-07-17 19:30 | RT.EKG_ITS ---
APPROVED REPORT Exam: Resting ECG Reason for Exam: Chest Pain / Pressure Patient Location: E HR:86 bpm ECG Measurements Heart Rate 86 AXIS AR 204 P 63 QRSd 90 QRS 24 QT 365 T 58 QTc 436 Conclusion Sinus rhythm...normal P axis, V-rate 60- 99 Borderline prolonged AR interval...AR >202, V-rate 50- 90 Low voltage, extremity leads...all extremity leads <0.5mV Consider anteroseptal infarct...Q >30mS, dimin R, V1-V2 Narrow complex normal sinus rhythm at a rate of 86. Normal axis. First-degree AV block with a AR in terval of 204 ms. QTc within normal limits. T wave flattening in aVL. Slight improved compared to prior. Prior dated 2020. No acute injury pattern. First-degree AV block is persistent. Low voltag e is also persistent. I have reviewed and interpreted ECG and agree with software generated interpretation.
[2022-07-17 22:00] VITALS: RESP 16
[2022-07-17] MEDS: MAGNESIUM SULFATE 8.12 MEQ, MULTIVITAMIN 10 ML, THIAMINE 100 MG, FOLIC ACID 1 MG in Nor... 168.867 MG IV (22:47)
--- NOTE | 2022-07-18 01:15 | DI.RAD_ITS ---
Exam(s) XR CHEST 2V PA LATERAL EXAM: XR CHEST 2V PA LATERAL CLINICAL HISTORY: cough TECHNIQUE: 2D digital imaging was performed. COMPARISON: CR XR PORTABLE CHEST AP from 05/10/2021 FINDINGS: HEART: Normal size. Aorta: Not dilated. PULMONARY VASCULATURE: Normal. LUNGS: Increased densities are noted at the left lung base, better seen on the lateral view which cou ld indicate pneumonia versus atelectasis. The right lung appears clear. PLEURAL SPACE: No pleural effusion or pneumothorax. BONE:Old left rib fractures. IMPRESSION: Findings suspicious for left lower lobe pneumonia. DATA REPOSITORY: RADIATION DOSE DELIVERED:
--- NOTE | 2022-07-18 01:51 | NUR.NOTE ---
@0100- Pt awake sitting up in bed. Re-directed to stay in bed to reduce risk of fall. He is upset because the plan is for him to go home by RCT in am, but is cooperative. Pt has a productive cough and c/o chest pain with coughing. MD Darcy made aware EKG already completed. New ords received for CXR
--- NOTE | 2022-07-18 02:29 | DI.VRAD_ITS ---
PROCEDURE INFORMATION: Exam: XR Chest Exam date and time: 07/18/2022 1:54 AM Age: 57 years old Clinical indication: Cough TECHNIQUE: Imaging protocol: Radiologic exam of the chest. Views: 2 views. COMPARISON: CR XR PORTABLE CHEST AP 05/10/2021 9:23 AM FINDINGS: Lungs: Streaky left basilar opacity which partially obscures the left hemidiaphragm. Left upper lobe and right lung otherwise without focal consolidation. Pleural spaces: No visible pleural effusion. No pneumothorax. Heart/Mediastinum: Cardiomediastinal contours within normal limits. Bones/joints: Displaced fractures of the lateral left 6th and 7th ribs with evidence of healing bony callus. IMPRESSION: 1. Streaky left basilar opacity. Correlate clinically for atelectasis versus infection. 2. Displaced fractures of the lateral left 6th and 7th ribs with evidence of healing bony callus consistent with subacute versus chronic fractures. Correlate with trauma history. Dictated and Authenticated by: Jerome Delcid MD. Ordering:LUCIA Long MD
--- NOTE | 2022-07-18 03:10 | W.EDPROG ---
Date of service: 07/18/22 Time of Service: 03:10 Medical Decision Making 57-year-old male initially seen by Dr. Strauss. Please see his note regarding details of the initial presentation, exam and plan of care. Patient observed through the bulk of the overnight shift. Improved. He is now ambulatory. He appears to have metabolized his alcohol. He did undergo screening chest x-ray which was within normal limits. He is admonished to continue his antiepileptic medication and to decrease his alcohol use. He is stable and improving. Sign Out Sign Out Data: Sign Out Comment: As discussed patient will be observed in the emergency department in setting of ethanol abuse and complication Last updated by Rian Strauss MD at 07/17/22 20:07 Discharge Plan Disposition Patient Disposition: Home Condition: Improving Discharge Details Clinical Impression: Alcohol abuse with intoxication with complication, Hypomagnesemia Primary Care Provider: Ilene Moore ED Provider: Ethan Taveras Home Meds and New Rx's Prescriptions: Continued levetiracetam [Keppra] 500 mg tablet 500 mg PO BID 30 Days Qty: 60 0RF Discharge Instructions Instructions: Hypomagnesemia (ED), Abuse of Alcohol (ED) Additional Instructions: You need to continue taking your Keppra. Decrease alcohol use. See enclosed information.
[2022-07-18] MEDS: Magnesium Oxide 400 MG TAB (06:59)
[2022-07-18 07:00] VITALS: BP 123/83; PULSE 99; RESP 18; TEMP 36.9; O2SAT 94
== END 2022-07-18 07:04 | disposition home or self-care (01) ==
PROVIDERS: Emergency Medicine; Emergency Provider Emergency Medicine; PCP Nurse Practitioner Family
DX: F10.120 Alcohol abuse with intoxication, uncomplicated (principal); E83.42 Hypomagnesemia; Y90.8 Blood alcohol level of 240 mg/100 ml or more
CPT/HCPCS: 36415; 80048; 85027; 93005; 96365; 96366; 99285; 71046; 80320; 83735; 93010; 99284

== ENCOUNTER 2022-08-07 09:51 | Emergency (ER) | payer MEDICAID, SELFPAY ==
[2022-08-07 09:53] VITALS: BP 154/91; PULSE 106; RESP 20; TEMP 37.5; O2SAT 100
--- NOTE | 2022-08-07 10:00 | DI.RAD_ITS ---
Exam(s) XR KNEE LT 3V AP,LAT,INGE EXAM: XR KNEE LT 3V AP,LAT,INGE CLINICAL HISTORY: fall, knee pain. TECHNIQUE: 2D digital imaging was performed. COMPARISON: CR XR KNEE RT 3V AP,LAT,INGE from 05/11/2021 FINDINGS: 3 views No evidence of acute fracture nor prominent joint effusion. Some degenerative change noted in the me dial compartment. Tibial plateau unremarkable. IMPRESSION: No fracture evident. DATA REPOSITORY: RADIATION DOSE DELIVERED:
[2022-08-07] MEDS: chlordiazePOXIDE 25 MG CAP 50 MG PO (10:13)
--- NOTE | 2022-08-07 10:13 | W.ED.GENAD ---
Discharge Plan Disposition Patient Disposition: Home Condition: Improving Discharge Details Chief Complaint: GenMedical Clinical Impression: Contusion of knee Primary Care Provider: Ilene Moore ED Provider: Luis A Hinson Home Meds and New Rx's Prescriptions: No Action levetiracetam [Keppra] 500 mg tablet 500 mg PO BID 30 Days Qty: 60 0RF Discharge Instructions Instructions: Contusion in Adults (ED) Additional Instructions: Please follow-up with your primary care physician. Ice and elevate leg. Use ibuprofen and/or acetaminophen as needed for pain. 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 Likely knee contusion low suspicion for fracture or dislocation. Screening x-ray, analgesia anti-inflammatory, prophylactic Librium to prevent any further withdrawal during examination and evaluation. Disposition pending x-ray results and repeat assessment of symptoms 11: 09 no evidence of fracture or dislocation. Patient resting comfortably no acute distress. No evidence of active withdrawal. Patient be discharged home. HPI General Date/Time Provider Initiated Documentation: 08/07/22 10:00. HPI Narrative: 57-year-old male history of alcoholism, presents after mechanical fall yesterday down an embankment, left knee pain. Has been able to ambulate since then. Intermittent symptoms of alcohol withdrawal started to feel slightly shaky. Related Data Home Medications Medication Instructions Recorded Confirmed levetiracetam 500 mg tablet 500 mg PO BID 30 days #60 tabs 07/11/22 (Keppra) Previous Rx's Medication Instructions Recorded levetiracetam 500 mg tablet 500 mg PO BID 30 days #60 tabs 07/11/22 (Keppra) Allergies Allergy/AdvReac Type Severity Reaction Status Date / Time No Known Allergies Allergy Unverified 07/11/22 17:28 General Stated Complaint: GenMedical JINNY: 4 Review of Systems Narrative: Review of Systems Constitutional: negative Eyes: negative ENT: negative Cardiovascular: negative Respiratory: negative Gastrointestinal: negative : negative Musculoskeletal: Knee pain Skin: negative Neurologic: negative Psych: negative PFSH All Active Problems (Updated 08/07/22 @ 11:10 by Luis A Hinson MD) Fall (Acute) Head injury (Acute) Alcohol abuse with intoxication with complication (Acute) Hypomagnesemia (Acute) Contusion of knee (Acute) Discharge planning issues (Acute) Weakness (Acute) Alcohol intoxication (Acute) Substance abuse (Acute) Alcohol abuse (Chronic) Alcoholic peripheral neuropathy (Acute) Seizure disorder (Acute) Multiple rib fractures (Acute) Rib fracture (Acute) Alcohol withdrawal (Acute) Alcoholic hepatitis (Acute) Alcoholic gastritis (Acute) Alcohol dependence (Acute) Tobacco dependence (Acute) Ankle fracture, left (Acute) Discharge planning issues (Acute) Hypokalemia (Acute) Medical History Alcohol use disorder Social History Smoking/Tobacco Use Status: Current every day Tobacco Type: cigarettes Smoking risk assessment performed?: Yes Alcohol Intake: current Alcohol Intake frequency: 3 or more drinks per day Alcohol type: beer, wine and hard liquor Drug use: Daily Substance use type: marijuana and painkillers Details: States he drinks almost a case of beer a day. Today pt reports he consumed both beer and wine. Do you feel safe at home: Yes Do you feel safe in your relationship?: Yes Additional Social history: Pt reports he has been sleeping in a van for the last month. Exam Narrative Exam Narrative: Physical Examination General: alert, awake, cooperative, resting comfortably, no acute distress HEENT: normocephalic, atraumatic; PERRL, EOM intact, conjunctiva normal; no nasal discharge; moist mucous membranes, oral and pharyngeal mucosa normal, tolerating secretions Neck: supple, trachea midline; full ROM Chest: normal to inspection Respiratory: normal respiratory effort, speaking in full sentences, clear to auscultation, no wheezing, rales or rhonchi Cardiac: regular rate, regular rhythm, S1S2 intact, no murmurs rubs or gallops GI: abdomen soft, non-tender, non-distended; no palpable mass or hepatosplenomegaly Skin: no lesions, rashes or trauma appreciated Neuro: AAOx3, normal speech, moving all extremities; mild tremor to hands Extremities: Left knee in knee immobilizer, able to stand and ambulate Psych: Appropriate mood and affect Course Vital Signs Vital signs: Vital Signs Temperature 37.5 C 08/07/22 09:53 Pulse 106 H 08/07/22 09:53 Respiratory Rate 20 08/07/22 09:53 Blood Pressure 154/91 H 08/07/22 09:53 Pulse Oximetry 100 08/07/22 09:53 Temperature 37.5 C 08/07/22 09:53 Temperature Source Oral 08/07/22 09:53 Pulse 106 H 08/07/22 09:53 Respiratory Rate 20 08/07/22 09:53 Blood Pressure 154/91 H 08/07/22 09:53 Blood Pressure Position Sitting 08/07/22 09:53 Pulse Oximetry 100 08/07/22 09:53 Oxygen Delivery Method Room Air 08/07/22 09:53 Oxygen Flow Rate 0 08/07/22 09:53 Pain Level 10 08/07/22 09:53
[2022-08-07] MEDS: Ketorolac 15 MG/ML VIAL IM (10:14)
== END 2022-08-07 12:08 | disposition home or self-care (01) ==
LOC: ER 12:05
PROVIDERS: Emergency Provider Emergency Medicine; PCP Nurse Practitioner Family
DX: S80.02XA Contusion of left knee, initial encounter (principal); W19.XXXA Unspecified fall, initial encounter; R25.1 Tremor, unspecified
CPT/HCPCS: 73562; 96372; 99283; J1885

== ENCOUNTER 2022-09-11 20:08 | Emergency (ER) | payer MEDICAID, SELFPAY ==
[2022-09-11 20:13] VITALS: BP 121/85; PULSE 94; RESP 20; TEMP 36.9; O2SAT 91
--- NOTE | 2022-09-11 20:15 | DI.CT_ITS ---
Exam(s) CT HEAD CERVICAL SPINE WO EXAM: CT HEAD CERVICAL SPINE WO CLINICAL HISTORY: fall/trauma. TECHNIQUE: Imaging Protocol: Axial computed tomography images with coronal and sagittal reformatted images were created and reviewed COMPARISON: CT CT HEAD WO from 07/11/2022 FINDINGS: BRAIN: There are no skull fractures. There is circumferential mucosal thickening in the right maxillary sin us, not associated with a fluid level. The left maxillary sinus is clear. Sphenoid and frontal sinu ses are clear. Ethmoidal air cells clear. Mastoid air cells clear. There is no evidence of intracranial hemorrhage, mass effect, or shift of midline structures. There are no extra-axial fluid collections. The ventricles are not enlarged or shifted and there is no blo od within the ventricular system nor within the basal cisterns. CERVICAL SPINE: There is no evidence of fracture nor listhesis. No significant prevertebral soft tissue swelling. There is chronic advanced disc space narrowing at C5-6 level. Also at C6-7 level. Mild degenerative anterolisthesis C3 upon C4. Normal disc height at this level. There is multilevel facet arthropathy. There is no significant facet joint malalignment. No significant osseous lesions evident. IMPRESSION: No acute intracranial findings on this noninfused CT scan of the brain. No evidence of cervical spine fracture, malalignment, nor acute compromise of the cervical spinal can al. Multilevel degenerative changes in the cervical spine as described above. RADIATION DOSE DELIVERED: 1,327.72mGy.cm Total DLP DATA REPOSITORY: All CT scans at this facility are submitted to the National Radiology Data Registry (NRDR) Dose Index Registry (DIR) with the [employer] (ACR). RADIATION OPTIMIZATION: All CT scans at this facility use at least one of these dose optimization te chniques: automated exposure control; mA and/or kV adjustment per patient size (includes targeted exa ms where dose is matched to clinical indication); or iterative reconstruction.
--- NOTE | 2022-09-11 20:32 | W.ED.GENAD ---
Discharge Plan Disposition Patient Dis[facility] Discharge Details Clinical Impression: Alcohol intoxication Primary Care Provider: Ilene Moore ED Provider: Naveen Seymour Discharge Instructions Instructions: Alcohol Intoxication (ED) Additional Instructions: At today's visit it was noted that you were significantly intoxicated. This is led to multiple lab abnormalities, there is also contributing to the numbness and tingling of your feet, and your falls. It is recommended that you work with your primary care provider to establish a safe plan to decrease the amount of alcohol you are drinking. Your work-up today is otherwise unremarkable for any new problems and you have been medically clear to sober up with the correctional facility. You are being discharged to their care. Referrals: Ilene Moore [Primary Care Provider] - Medical Decision Making Patient presenting to the emergency department via EMS for chief complaint of intoxication. Patient reports that he had been drinking this evening and had mechanical fall. Due to this law enforcement was called and the ambulance brought him to the emergency department. Patient does state history of seizure disorder but denies any seizure-like activity today and states that this was just a mechanical fall. Patient denies any complaints at this time beyond chronic neuropathy of his feet that is unchanged. He states that is the reason he fell this evening. Physical exam shows a 57-year-old male patient that is intoxicated appearing but cooperative alert and awake with no obvious trauma noted. Patient has no focal neurological deficits but exam and review of systems is slightly difficult secondary to patient's significant hearing loss. This is unchanged for patient and has hearing loss at baseline. We will plan on checking labs along with CT imaging of the head given intoxication and fall. Otherwise will monitor patient. Reviewed patient's labs and he does have anemia but this is unchanged from baseline. Patient does have slight thrombocytopenia with platelet count of 82 but patient's baseline has been at 7788 and low 100s recently so I do not feel this is an emergent change and is secondary to patient's significant alcoholism. CMP reviewed and BUN is 3, AST is 119 alk phos is 310 total protein is 8.9 and albumin of 3.3 all which have been abnormal in the past again with contributing factors of significant alcoholism. Patient's alcohol level was 380.8. Review of head/neck CT imaging showed no acute findings. Will recontact law enforcement to see if there is a safe place that we can discharge patient to until he becomes fully sober. Patient is otherwise medically clear. Was able to contact [facility] and patient discharged to holding facility until he becomes sober enough to be released home. Imaging Data Radiologic Study: Imaging: CT Scan Radiologist's impression: Exam(s) PROCEDURE INFORMATION: Exam: CT Head Without Contrast Exam date and time: 09/11/2022 8:58 PM Age: 57 years old Clinical indication: Injury or trauma; Blunt trauma (contusions or hematomas); Consciousness not specified; Injury date: 09/11/22; Injury details: Fall, trauma TECHNIQUE: Imaging protocol: Computed tomography of the head without contrast. Radiation optimization: All CT scans at this facility use at least one of these dose optimization techniques: automated exposure control; mA and/or kV adjustment per patient size (includes targeted exams where dose is matched to clinical indication); or iterative reconstruction. COMPARISON: CT HEAD WO 07/11/2022 5:37 PM FINDINGS: Brain: There is moderate generalized cerebral atrophy. No intracranial mass, hemorrhage or evidence of acute infarcts. Cerebral ventricles: No ventriculomegaly. Paranasal sinuses: Moderate mucosal thickening noted in the right maxillary sinus. Paranasal sinuses are otherwise clear. Mastoid air cells: Visualized mastoid air cells are well aerated. Bones/joints: Unremarkable. No acute fracture. Soft tissues: Unremarkable. IMPRESSION: No acute intracranial abnormality PROCEDURE INFORMATION: Exam: CT Cervical Spine Without Contrast Exam date and time: 09/11/2022 8:58 PM Age: 57 years old Clinical indication: Injury or trauma; Blunt trauma (contusions or hematomas); Consciousness not specified; Injury date: 09/11/22; Injury details: Fall, trauma TECHNIQUE: Imaging protocol: Computed tomography of the cervical spine without contrast. Radiation optimization: All CT scans at this facility use at least one of these dose optimization techniques: automated exposure control; mA and/or kV adjustment per patient size (includes targeted exams where dose is matched to clinical indication); or iterative reconstruction. COMPARISON: CT HEAD CERVICAL SPINE WO 12/25/2021 5:33 PM FINDINGS: Bones/joints: Moderate degenerative changes noted in the atlantoaxial joint. Severe degenerative disc changes are present at the C5-C6 and C6-C7 disc levels. Disc bulge and uncovertebral spurring produce moderate to severe stenosis of the bilateral C6 and C7 neural exit foramina. There is multilevel bilateral facet arthropathy, most severe at C2-C3. There is grade 1 anterolisthesis of C3. No acute fracture. Lungs: Lung apices are normal. Soft tissues: Unremarkable. IMPRESSION: No acute fracture. Multilevel degenerative changes as described. Dictated and Authenticated by: Ezra Rivera MD. Lab Data Lab results reviewed: Yes I reviewed the patient's lab results. HPI General Mode of arrival: ambulatory. Date/Time Provider Initiated Documentation: 09/11/22 20:19. Limitations to Documentation: no limitations. Information obtained by: patient and RN notes reviewed. History of Present Illness 57 year old M presents to the emergency department with the chief complaint of fall-intoxicated, described as similar to prior episodes, Patient started experiencing this unknown Patient notes no other symptoms.. Patient did receive the following treatments prior to arrival, none Related Data Allergies Allergy/AdvReac Type Severity Reaction Status Date / Time No Known Allergies Allergy Unverified 07/11/22 17:28 General Stated Complaint: GenMedical JINNY: 3 Review of Systems Constitutional Constitutional: Denies headache(s) ENT Ears, Nose, Mouth, and Throat: Denies headache(s) Cardiovascular Cardiovascular: Denies chest pain and Denies dyspnea Respiratory Respiratory: Denies dyspnea Gastrointestinal Gastrointestinal: Denies abdominal pain and Denies vomiting Musculoskeletal Musculoskeletal: Reports other (Chronic leg pain) Integumentary/Breasts Skin/Breast: Denies erythema Neurologic Neurologic: Denies headache(s) PFSH All Active Problems (Updated 09/11/22 @ 21:33 by Naveen Seymour NP) Discharge planning issues (Acute) Weakness (Acute) Alcohol intoxication (Acute) Substance abuse (Acute) Alcohol abuse (Chronic) Alcoholic peripheral neuropathy (Acute) Seizure disorder (Acute) Multiple rib fractures (Acute) Rib fracture (Acute) Alcohol withdrawal (Acute) Alcoholic hepatitis (Acute) Alcoholic gastritis (Acute) Alcohol dependence (Acute) Tobacco dependence (Acute) Ankle fracture, left (Acute) Discharge planning issues (Acute) Hypokalemia (Acute) Medical History Alcohol use disorder Social History Smoking/Tobacco Use Status: Current every day Tobacco Type: cigarettes Smoking risk assessment performed?: Yes Alcohol Intake: current Alcohol Intake frequency: 3 or more drinks per day Alcohol type: beer, wine and hard liquor Drug use: Daily Substance use type: marijuana and painkillers Details: States he drinks almost a case of beer a day. Today pt reports he consumed both beer and wine. Do you feel safe at home: Yes Do you feel safe in your relationship?: Yes Additional Social history: Pt reports he has been sleeping in a van for the last month. Exam Const General: cooperative, no acute distress, not ill appearing and intoxicated appearing Orientation: alert and awake [facility] Head: normal to inspection, normocephalic and atraumatic General nose exam: external nose normal Face and sinus: normal facial exam Mouth: oral mucosae normal and moist mucous membranes Throat: posterior oropharynx normal Eyes General: appearance normal, both eyes and all related structures Neck Neck: full ROM and nontender Resp Effort & Inspection: normal respiratory effort, able to speak in complete sentences and no respiratory distress Auscultation: clear to auscultation bilaterally Cardio Rate: regular rate Rhythm: regular rhythm Heart Sounds: S1 normal and S2 normal Skin General skin exam: no rashes or lesions noted Neuro General: patient alert, patient awake, patient oriented x3, moves all extremities and no focal motor deficits Sensory Exam: no sensory deficits noted Extrem General: normal to inspection, full ROM, capillary refill normal and other (No tenderness or movement abnormalities noted to extremities) Course Vital Signs Vital signs: Vital Signs Temperature 36.9 C 09/11/22 20:13 Pulse 94 H 09/11/22 20:13 Respiratory Rate 09/11/22 20:13 Blood Pressure 121/85 09/11/22 20:13 Pulse Oximetry 91 L 09/11/22 20:13 Temperature 36.9 C 09/11/22 20:13 Temperature Source Tympanic 09/11/22 20:13 Pulse 94 H 09/11/22 20:13 Respiratory Rate 09/11/22 20:13 Blood Pressure 121/85 09/11/22 20:13 Blood Pressure Position Sitting 09/11/22 20:13 Pulse Oximetry 91 L 09/11/22 20:13 Oxygen Delivery Method Room Air 09/11/22 20:13 Oxygen Flow Rate 0 09/11/22 20:13 Pain Level 0 09/11/22 20:13
[2022-09-11 20:50] LABS: Abs Immature Grans 0.02 10^3/uL (0.0-0.06); Absolute Basophil Count 0.09 10^3/uL (0.0-0.2); Absolute Eosinophil Count 0.06 10^3/uL (0.0-0.7); Absolute Lymphocyte Count 1.21 10^3/uL (1.2-3.4); Absolute Monocyte Count 0.53 10^3/uL (0.1-0.8); Absolute Neutrophil Count 2.65 10^3/uL (1.2-6.7); Eosinophils % 1.3; HCT 37.4 % (40.0-50.0); HGB 13.1 g/dL (13.5-17.5); Immature Grans % 0.4; Lymphocytes % 26.5; MCH 34.7 pg (27.0-33.0); MCV 99 fL (80-95); MPV 10.3 fL (8.0-11.0); Monocytes % 11.6; Neutrophils % 58.2; Platelet Count 82 10^3/uL (130-400); RBC 3.78 10^6/uL (4.36-5.78); RDW 12.6 % (11.8-14.1); RDW-SD 45.5 fL; WBC 4.56 10^3/uL (4.4-10.8)
[2022-09-11 21:04] LABS: Ammonia 18 umol/L (11-32)
[2022-09-11 21:07] LABS: ALT 41 U/L (16-63); AST 119 U/L (15-37); Albumin 3.3 g/dL (3.4-5.0); Alkaline Phosphatase 310 U/L (46-116); Anion Gap 9.8 mmol/L (3-11); BUN 3 mg/dL (7-18); Bilirubin, Total 0.5 mg/dL (0.2-1.0); CO2 27.2 mmol/L (21.0-32.0); CREATININE 0.7 mg/dL (0.70-1.30); Calcium 8.5 mg/dL (8.5-10.1); Chloride 99 mmol/L (98-107); Estimated GFR 108.82 (mL/min/1.73m2); Glucose 97 mg/dL (74-106); Magnesium 1.8 mg/dL (1.8-2.4); Potassium 3.5 mmol/L (3.5-5.1); Sodium 136 mmol/L (136-145); Total Protein 8.9 g/dL (6.4-8.2)
[2022-09-11 21:08] VITALS: RESP 20
[2022-09-11 21:09] LABS: ETHANOL BLOOD 380.8 mg/dL (<10)
--- NOTE | 2022-09-11 21:14 | DI.VRAD_ITS ---
PROCEDURE INFORMATION: Exam: CT Head Without Contrast Exam date and time: 09/11/2022 8:58 PM Age: 57 years old Clinical indication: Injury or trauma; Blunt trauma (contusions or hematomas); Consciousness not specified; Injury date: 09/11/22; Injury details: Fall, trauma TECHNIQUE: Imaging protocol: Computed tomography of the head without contrast. Radiation optimization: All CT scans at this facility use at least one of these dose optimization techniques: automated exposure control; mA and/or kV adjustment per patient size (includes targeted exams where dose is matched to clinical indication); or iterative reconstruction. COMPARISON: CT HEAD WO 07/11/2022 5:37 PM FINDINGS: Brain: There is moderate generalized cerebral atrophy. No intracranial mass, hemorrhage or evidence of acute infarcts. Cerebral ventricles: No ventriculomegaly. Paranasal sinuses: Moderate mucosal thickening noted in the right maxillary sinus. Paranasal sinuses are otherwise clear. Mastoid air cells: Visualized mastoid air cells are well aerated. Bones/joints: Unremarkable. No acute fracture. Soft tissues: Unremarkable. IMPRESSION: No acute intracranial abnormality PROCEDURE INFORMATION: Exam: CT Cervical Spine Without Contrast Exam date and time: 09/11/2022 8:58 PM Age: 57 years old Clinical indication: Injury or trauma; Blunt trauma (contusions or hematomas); Consciousness not specified; Injury date: 09/11/22; Injury details: Fall, trauma TECHNIQUE: Imaging protocol: Computed tomography of the cervical spine without contrast. Radiation optimization: All CT scans at this facility use at least one of these dose optimization techniques: automated exposure control; mA and/or kV adjustment per patient size (includes targeted exams where dose is matched to clinical indication); or iterative reconstruction. COMPARISON: CT HEAD CERVICAL SPINE WO 12/25/2021 5:33 PM FINDINGS: Bones/joints: Moderate degenerative changes noted in the atlantoaxial joint. Severe degenerative disc changes are present at the C5-C6 and C6-C7 disc levels. Disc bulge and uncovertebral spurring produce moderate to severe stenosis of the bilateral C6 and C7 neural exit foramina. There is multilevel bilateral facet arthropathy, most severe at C2-C3. There is grade 1 anterolisthesis of C3. No acute fracture. Lungs: Lung apices are normal. Soft tissues: Unremarkable. IMPRESSION: No acute fracture. Multilevel degenerative changes as described. Dictated and Authenticated by: Ezra Rivera MD. Ordering:ANUM Hodge MD
[2022-09-11 22:10] VITALS: BP 100/70; PULSE 92; RESP 18; TEMP 37.1; O2SAT 92
--- NOTE | 2022-09-11 22:27 | NUR.NOTE ---
@[id number] here to transfer pt to [facility] report called to ERIK Castellanos @ correctional facility. Pt signed discharge papers and is aware of plan of care. Matt [employer] Machine Operator pulled out pt's PIV. Pt off unit via wheelchair with PD.
== END 2022-09-11 22:10 ==
PROVIDERS: Emergency Provider Nurse Practitioner Family; PCP Nurse Practitioner Family
DX: F10.129 Alcohol abuse with intoxication, unspecified (principal); D69.6 Thrombocytopenia, unspecified; D64.9 Anemia, unspecified; H91.93 Unspecified hearing loss, bilateral; G40.909 Epilepsy, unspecified, not intractable, without status epilepticus; Y90.8 Blood alcohol level of 240 mg/100 ml or more; W19.XXXA Unspecified fall, initial encounter
CPT/HCPCS: 36415; 80053; 99284; 70450; 72125; 80320; 81003; 82140; 83735; 85025; 99283

== ENCOUNTER 2022-10-27 20:56 | Emergency (ER) | payer MEDICAID, SELFPAY ==
[2022-10-27] VITALS (26 sets, daily range): BP systolic 75–100; BP diastolic 49–74; PULSE 84–102; RESP 16–26; TEMP 37.1; O2SAT 93–98
--- NOTE | 2022-10-27 21:00 | DI.CT_ITS ---
Exam(s) CT HEAD CERVICAL SPINE WO EXAM: CT HEAD CERVICAL SPINE WO CLINICAL HISTORY: fall, etoh. TECHNIQUE: Imaging Protocol: Axial computed tomography images with coronal and sagittal reformatted images were created and reviewed COMPARISON: CT CT HEAD CERVICAL SPINE WO from 09/11/2022 FINDINGS: BRAIN: There are no skull fractures nor fluid in the visualized paranasal sinuses. Mild mucosal thickening but no fluid levels noted in the right maxillary sinus. There is no evidence of intracranial hemorrhage, mass effect, or shift of midline structures. There are no extra-axial fluid collections. The ventricles are not enlarged or shifted and there is no blo od within the ventricular system nor within the basal cisterns. There is an element of symmetrical atrophy. CERVICAL SPINE: There is no evidence of fracture nor listhesis. No significant prevertebral soft tissue swelling. Chronic disc space narrowing C5-6 and C6-7 levels. Small Luschka joint osteophytes noted at these le vels. Some facet arthropathy is noted. There is no significant facet joint malalignment. No significant osseous lesions evident. IMPRESSION: No acute intracranial findings on this noninfused CT scan of the brain.Symmetrical atrophy noted. No evidence of cervical spine fracture, malalignment, nor acute compromise of the cervical spinal can al. Degenerative changes noted in the cervical spine. RADIATION DOSE DELIVERED: 1,662.42mGy.cm Total DLP DATA REPOSITORY: All CT scans at this facility are submitted to the National Radiology Data Registry (NRDR) Dose Index Registry (DIR) with the [employer] (ACR). RADIATION OPTIMIZATION: All CT scans at this facility use at least one of these dose optimization te chniques: automated exposure control; mA and/or kV adjustment per patient size (includes targeted exa ms where dose is matched to clinical indication); or iterative reconstruction.
--- NOTE | 2022-10-27 21:05 | DI.RAD_ITS ---
Exam(s) XR ANKLE LT COMPLETE EXAM: XR ANKLE LT COMPLETE CLINICAL HISTORY: left ankle pain. TECHNIQUE: 2D digital imaging was performed. COMPARISON: No exams were available for comparison FINDINGS: 3 views No evidence of acute fracture or widening of the ankle mortise. There is healed fracture site in the distal fibula. Calcific density subjacent to the medial malleolus are either related to prior injur ies or accessory ossicles. There is no overlying soft tissue swelling. Minimal degenerative changes in the ankle joint. No osseous tarsal coalition. IMPRESSION: As above but no acute fractures evident. DATA REPOSITORY: RADIATION DOSE DELIVERED:
--- NOTE | 2022-10-27 21:05 | DI.RAD_ITS ---
Exam(s) XR KNEE LT 3V AP,LAT,INGE EXAM: XR KNEE LT 3V AP,LAT,INGE CLINICAL HISTORY: fall, etoh, left knee pain. TECHNIQUE: 2D digital imaging was performed. COMPARISON: CR XR KNEE LT 3V AP,LAT,INGE from 08/07/2022 FINDINGS: 3 views No evidence of acute fracture or obvious joint effusion. Mild soft tissue swelling noted anteriorly. No patellar fracture evident. There is moderate-advanced narrowing of the medial compartment. Lateral compartment exhibits normal height. Bone density normal. No osseous lesions. IMPRESSION: Degenerative changes. No fracture evident. DATA REPOSITORY: RADIATION DOSE DELIVERED:
--- NOTE | 2022-10-27 21:15 | DI.CT_ITS ---
Exam(s) CT CHEST/ABD/PEL W EXAM: CT CHEST/ABD/PEL W CLINICAL HISTORY: fall, etoh. TECHNIQUE: Imaging Protocol: Axial computed tomography images with coronal and sagittal reformatted images were created and reviewed CONTRAST MATERIAL: Intravenous: Omnipaque 350 Contrast volume:100 ml Oral: None COMPARISON: CT CT CHEST PE ABD PELVIS W from 07/16/2020 FINDINGS: CHEST: LUNGS: Mild air trapping but no evidence of lung contusion or pleural effusion no pneumothorax. No s ignificant focal findings in trachea and mainstem bronchi.. MEDIASTINUM: No evidence of sternal fracture or mediastinal hematoma. No incidental hilar nor medias tinal adenopathy. Partially visualized thyroid unremarkable. CARDIAC: Heart size is normal. There is no pericardial effusion.Caliber of the thoracic aorta is wit hin normal limits. No evidence of aortic dissection. OSSEOUS: No acute rib fractures identified.Healed adjacent fractures of the left 6 and 7th ribs noted .. ABDOMEN: There is no ascites. LIVER: No laceration. No perihepatic ascites. GALLBLADDER/BILIARY: No calcified gallstones. However, there is some fluid around the gallbladder no sandeep. Common hepatic duct diameter and CBD unremarkable. CBD is not dilated. PANCREAS: No evidence of pancreatic mass nor dilatation of the pancreatic duct. SPLEEN: Spleen is not enlarged. No lacerations. There are no intrasplenic lesions. Splenic and por ramya veins are patent. ADRENALS: There are no significant adrenal masses. KIDNEYS: No renal lacerations nor subcapsular hematomas.. No cysts nor solid masses in the kidney se en. No calculi. No hydronephrosis. No hydroureter. ABDOMINAL AORTA: Calcified but not enlarged. No trauma sequelae. Aortoiliac segments also intact. LYMPH NODES: There is no retroperitoneal nor paraaortic adenopathy. ABDOMINAL WALL: No evidence of significant anterior abdominal wall nor inguinal hernia. GI: No evidence of mesenteric nor bowel wall hematoma. No bowel obstruction. No ascites. PELVIS: LYMPH NODES: There is no intrapelvic nor inguinal adenopathy. GI: No evidence of appendicitis.No evidence of sigmoid diverticulitis. URINARY BLADDER: No calculi nor masses evident. No extravasation. REPRODUCTIVE: Prostate not enlarged. Seminal vesicles unremarkable. OSSEOUS: No significant osseous lesions. No fractures evident. IMPRESSION: 1. No acute significant trauma sequelae in the chest, abdomen, and pelvis. 2. No acute fractures evident. Healed fractures of the left 6th and 7th ribs noted. 3. 4. RADIATION DOSE DELIVERED: 1,166.66mGy.cm Total DLP DATA REPOSITORY: All CT scans at this facility are submitted to the National Radiology Data Registry (NRDR) Dose Index Registry (DIR) with the [employer] (ACR). RADIATION OPTIMIZATION: All CT scans at this facility use at least one of these dose optimization te chniques: automated exposure control; mA and/or kV adjustment per patient size (includes targeted exa ms where dose is matched to clinical indication); or iterative reconstruction.
[2022-10-27 21:16] LABS: Abs Immature Grans 0.03 10^3/uL (0.0-0.06); Absolute Basophil Count 0.08 10^3/uL (0.0-0.2); Absolute Eosinophil Count 0.04 10^3/uL (0.0-0.7); Absolute Lymphocyte Count 1.42 10^3/uL (1.2-3.4); Absolute Monocyte Count 0.72 10^3/uL (0.1-0.8); Absolute Neutrophil Count 3.65 10^3/uL (1.2-6.7); Basophils % 1.3; Eosinophils % 0.7; HGB 11.9 g/dL (13.5-17.5); Immature Grans % 0.5; Lymphocytes % 23.9; MCH 33.5 pg (27.0-33.0); MCV 96 fL (80-95); MPV 10.6 fL (8.0-11.0); Monocytes % 12.1; Neutrophils % 61.5; Platelet Count 120 10^3/uL (130-400); RBC 3.55 10^6/uL (4.36-5.78); RDW 14.9 % (11.8-14.1); RDW-SD 52.8 fL; WBC 5.94 10^3/uL (4.4-10.8)
[2022-10-27] MEDS: Normal Saline 1,000 ML 1000 ML IV (21:16)
[2022-10-27 21:33] LABS: ALT 72 U/L (16-63); AST 227 U/L (15-37); Albumin 2.7 g/dL (3.4-5.0); Alkaline Phosphatase 412 U/L (46-116); Anion Gap 11.5 mmol/L (3-11); BUN 3 mg/dL (7-18); Bilirubin, Total 2.2 mg/dL (0.2-1.0); CO2 25.5 mmol/L (21.0-32.0); CREATININE 0.8 mg/dL (0.70-1.30); Calcium 8.3 mg/dL (8.5-10.1); Chloride 98 mmol/L (98-107); Estimated GFR 104.51 (mL/min/1.73m2); Glucose 100 mg/dL (74-106); Potassium 3.8 mmol/L (3.5-5.1); Sodium 135 mmol/L (136-145); Total Protein 8.1 g/dL (6.4-8.2)
[2022-10-27] MEDS: Normal Saline - Diluent 50 ML VIAL IJ (21:33)
[2022-10-27] MEDS: Omnipaque 350 MG/ML 100 ML BTL IJ (21:33)
[2022-10-27 21:34] LABS: ETHANOL BLOOD 355.7 mg/dL (<10)
[2022-10-27] MEDS: Normal Saline Flush 10 ML SYR IVP (21:34)
--- NOTE | 2022-10-27 22:08 | ED.GENADUL_ITS ---
Discharge Plan Disposition Patient Disposition: Home Condition: Good Discharge Details Chief Complaint: ETOHWithdr Clinical Impression: Alcohol abuse Primary Care Provider: Ilene Moore ED Provider: Lorenzo Hoover Home Meds and New Rx's Prescriptions: No Action No Known Home Meds Discharge Instructions Instructions: Abuse of Alcohol (ED) Additional Instructions: Please diminish your use of alcohol. Please use your outpatient resources. If you notice any worsening of your symptoms, or any new symptoms such as vomiting, diarrhea, fever, chills, shortness of breath, chest pain, numbness, weakness, or fainting , please return immediately to the emergency department for reevaluation. Please follow up with your primary care provider as soon as possible for reassessment and reevaluation. As always, it was a pleasure participating in your medical care today. Referrals: Ilene Moore [Primary Care Provider] - Medical Decision Making 57-year-old male with a past medical history of chronic alcohol abuse presents today via EMS for evaluation of intoxication. Patient was found on a park bench by bystanders, EMS was called and he was brought in for further assessment. Patient complains of pain in his left knee and left ankle. He states that he has been drinking regularly. He denies any falls. He has no other complaints focally at this time and does not add much else to history. He is undomiciled and does not have a home currently. No other complaints at this time. Physical exam demonstrates a notably unkempt disheveled male, personal hygiene for the toes quite alarming. No evidence of severe focal trauma. Minimal tenderness of the left knee and left ankle. Patient's blood pressure is slightly low in the 80s systolic. No fever, doubt infection. Concern for dehydration, but also potential bleed or injury. We will get CT scan of the head neck chest abdomen pelvis, rehydrate with normal saline lactated Ringer's and banana bag, clean the patient's feet, monitor closely and reassess. 1:20 PM I have personally with the nursing staff cleaned the patient's feet notably with chlorhexidine scrubs and washes. I have also cut his toenails to an appropriate size. We will wait on labs and continue rehydrating. 7:30 a.m. Laboratory work-up has returned stable. Electrolytes stable, he does have transaminitis which is chronic for him. Patient was rehydrated with 2 L of normal saline, lactated Ringer's, and a banana bag. He tolerated this well and is urinating. On reassessment patient is clinically sober. The patient is able to speak clearly. There is no demonstration of any slurring of speech. There is evidence of clear decision making capacity. Patient is able to ambulate. Patient is requesting discharge back to his apartment. We will call RCT. I have extensively reviewed the treatment plan and discharge instructions with the patient. I have addressed all patient concerns at this time. The patient was made aware of what symptoms to monitor for that would warrant a return to the emergency department. Discussed the plan with the patient, they demonstrate verbal understanding and agreement with our assessment and plan at this time. The documentation in this chart was dictated using [employer] dictation software. Please excuse any dictation errors. FINDINGS: Brain: Diffuse atrophy slightly greater than expected for patient's age. No intracranial hemorrhage. No mass. No large territory acute CVA. Cerebral ventricles: Ventriculomegaly concordant with atrophy. Paranasal sinuses: No sinus air-fluid levels. Left maxillary sinus with mild mucoperiosteal thickening. Mastoid air cells: Visualized mastoid air cells are well aerated. Bones/joints: No skull fracture. Soft tissues: Unremarkable. IMPRESSION: 1. Cerebral atrophy. 2. No intracranial hemorrhage. 3. No skull fracture. FINDINGS: Bones/joints: Multifocal degenerative cervical spine changes. Degenerative disc and joint disease. No acute fracture. No dislocation. Multifocal dental disease with dental caries and periapical bone resorption of the maxilla. Lungs: Lung apices with emphysematous change. Vasculature: Bilateral carotid artery atherosclerotic calcium. Soft tissues: Unremarkable. IMPRESSION: 1. Degenerative cervical spine. 2. No cervical spine fracture or dislocation. 3. Multifocal dental disease with dental caries, loss of dentition, and periapical bone change. Thank you for allowing us to participate in the care of your patient. Dictated and Authenticated by: Prasanna Burton MD 10/27/2022 10:17 PM Eastern Time ([place] & [place]) FINDINGS: Lungs: Moderate paraseptal and centrilobular emphysematous changes are seen predominantly in upper lobes would although within the lower lobes of the lungs bilaterally. There is heterogeneous attenuation of the pulmonary parenchyma, consistent with air trapping from underlying small airways disease. Bilateral lower lobe atelectatic changes present. Pleural spaces: There is no evidence of pneumothorax. There are no pleural effusions present. Heart: Unremarkable. No cardiomegaly. No pericardial effusion. Coronary arteries: There is moderate atherosclerotic calcification of the coronary arteries. Lymph nodes: Moderate peribronchial adenopathy present bilaterally. Vasculature: There is ectasia of the ascending thoracic aorta. Gas seen within the venous system consistent with iatrogenic introduction during contrast injection. No large central pulmonary emboli identified. Great vessels appear normal. Bones/joints: There are old healed left-sided lateral and posterior rib fractures present. No evidence of acute rib fractures. Soft tissues: Unremarkable. IMPRESSION: There is heterogeneous attenuation of the pulmonary parenchyma, consistent with air trapping from underlying small airways disease FINDINGS: Liver: The liver is enlarged. Low-attenuation lesion present at the dome of the liver measuring approximately 4.3 mm decrease in size compared to prior study. There is a diffuse decrease in hepatic parenchymal density, consistent with mild fatty infiltration. Mild irregularity of the hepatic contour may represent early cirrhosis. There is no evidence of intrahepatic or extrahepatic biliary ductal dilation. Gallbladder and bile ducts: There is small amount of pericholecystic fluid. No definitive cholelithiasis. Pancreas: The pancreas is normal. Spleen: The spleen is normal. Adrenal glands: The adrenal glands are normal. Kidneys and ureters: The kidneys are normal. The ureters are normal caliber and follow a normal caliber and course. Stomach and bowel: There are fluid-filled loops of small bowel with air-fluid levels. No significant bowel wall thickening or inflammatory changes. No evidence of obstruction. Consider early enteritis. Consider developing ileus. Appendix: There is no evidence of appendicitis. Intraperitoneal space: No evidence of free air within the abdomen. Vasculature: The aorta demonstrates moderate atherosclerotic calcification. The arterial peripheral vasculature demonstrates diffuse mild atherosclerotic calcification. Lymph nodes: There is no evidence of lymphadenopathy. Urinary bladder: The bladder is moderately distended. Reproductive: The prostate gland and seminal vesicles are normal. Bones/joints: The thoracolumbar spine demonstrates moderate degenerative changes at multiple levels. Soft tissues: There are nonobstructing bilateral inguinal hernias containing fat and possibly a small amount of mesentery IMPRESSION: 1. There are fluid-filled loops of small bowel with air-fluid levels. No significant bowel wall thickening or inflammatory changes. No evidence of obstruction. Consider early enteritis. Consider developing ileus. 2. No evidence definitive intra-abdominal injury Thank you for allowing us to participate in the care of your patient. Dictated and Authenticated by: Prasanna Stiles MD 10/27/2022 10:14 PM Eastern Time ([place] & [place] FINDINGS: Bones/joints: There is narrowing of the medial and lateral femoral tibial joint compartments. There is narrowing of the patellofemoral compartment. There are marginal osteophytes present. There are small suprapatellar and femorotibial joint effusions present. Evidence of acute fracture dislocation. Soft tissues: There is mild soft tissue swelling present. IMPRESSION: 1. 3 compartmental degenerative changes of the left knee with joint effusion and soft tissue swelling. 2. Evidence of acute fracture dislocation. FINDINGS: Bones/joints: Old healed fractures of the distal left fibula and distal left tibia/ankle. Bone mineralization is age-appropriate. There is no evidence of fracture. No evidence of dislocation. The joint spaces are adequately preserved; no significant degenerative narrowing and no bony erosion seen. Soft tissues: No radiopaque foreign body present. There is soft tissue swelling present. IMPRESSION: 1. No acute osseous abnormality. 2. Soft tissue swelling only. 3. Old healed fractures of the distal left fibula and distal left tibia/ankle. Thank you for allowing us to participate in the care of your patient. Dictated and Authenticated by: Prasanna Stiles MD 10/27/2022 10:15 PM Eastern Time ([place] & [place]) HPI General Date/Time Provider Initiated Documentation: 10/27/22 21:03 . HPI Narrative: 57-year-old male with a past medical history of chronic alcohol abuse presents today via EMS for evaluation of intoxication. Patient was found on a park bench by bystanders, EMS was called and he was brought in for further assessment. Patient complains of pain in his left knee and left ankle. He states that he has been drinking regularly. He denies any falls. He has no other complaints focally at this time and does not add much else to history. He is undomiciled and does not have a home currently. No other complaints at this time. Related Data Home Medications Medication Instructions Recorded Confirmed Unknown [No Known Home Meds] 10/27/22 10/27/22 Allergies Allergy/AdvReac Type Severity Reaction Status Date / Time No Known Allergies Allergy Unverified 10/27/22 22:08 General Stated Complaint: ETOHWithdr JINNY: 2 Review of Systems All systems reviewed & are unremarkable except as noted in HPI and below PFSH All Active Problems Discharge planning issues (Acute) Weakness (Acute) Alcohol intoxication (Acute) Substance abuse (Acute) Alcohol abuse (Chronic) Alcoholic peripheral neuropathy (Acute) Seizure disorder (Acute) Multiple rib fractures (Acute) Rib fracture (Acute) Alcohol withdrawal (Acute) Alcoholic hepatitis (Acute) Alcoholic gastritis (Acute) Alcohol dependence (Acute) Tobacco dependence (Acute) Ankle fracture, left (Acute) Discharge planning issues (Acute) Hypokalemia (Acute) Medical History Alcohol use disorder Social History Smoking/Tobacco Use Status: Current every day Tobacco Type: cigarettes Smoking risk assessment performed?: Yes Alcohol Intake: current Alcohol Intake frequency: 3 or more drinks per day Alcohol type: beer, wine and hard liquor Drug use: Never Substance use type: marijuana and painkillers Details: States he drinks almost a case of beer a day. Today pt reports he consumed both beer and wine. Do you feel safe at home: Yes Do you feel safe in your relationship?: Yes Additional Social history: Pt reports he has been sleeping in a van for the last month. Exam Narrative Exam Narrative: 1.Const: Well-nourished, Well-developed, appearing stated age 2.Eyes: PERRL, no conjunctival injection, and symmetrical lids. 3.ENT: Atraumatic external nose and ears. Moist MM. Neck: Symmetric, trachea midline, No thyromegaly. There is no evidence of raccoon eyes, aden sign, CSF rhinorrhea, mastoid tenderness, cranial crepitus, hemotympanum, exophthalmos, or hyphema. Patient demonstrates intact dentition with no signs of tooth avulsion or fracture, no signs of jaw deformity, no evidence of a LeFort's fracture, with an intact palate, nose and orbital region. There is no evidence of a nasal septal hematoma. No proptosis. Jaw closes symmetrically. Airway is clear. 4.CVS: +S1/S2, No murmurs or gallops. Peripheral pulses 2+ and equal in all extr emities. Brisk capillary refill in all extremities. Regular rate and rhythm, Normal s1 and s2. No murmurs, carotid bruits, rubs, or gallops. Radial pulses 2+ bilaterally and symmetric. Dorsalis pedis pulses 2+ bilaterally and symmetric. 2+ capillary refill. No evidence of distant heart sounds. No extremity edema. No evidence of gross hemorrhage. 5.RESP: Unlabored respiratory effort. Clear to auscultation bilaterally. No wheezes rales or rhonchi airway clear, no obstructions. No abrasions or ecchymosis. Chest movement symmetric with respirations. No chest wall tenderness. Trachea midline. No crepitus. No step offs. No paradoxical movements. Lungs are clear to auscultation bilaterally. No rales, rhonchi, wheezing or stridor. Breath sound symmetric. No Sucking chest wounds. No clinical evidence of significant chest trauma. 6.GI: Soft, Nontender/Nondistended, No hepatosplenomegaly. No guarding or rebound. No evidence of abdominal trauma 7.MSK: No gross deformities or discolorations or lesions. Tolerates full range of motion of extremities without tenderness. All compartments of upper and lower extremities are soft with no tenderness. However he does have mild tenderness over the left knee generally, in the left ankle generally. Vascular exam demonstrates brisk capillary refill and intact pulses in all extremities. Pelvic exam demonstrates a stable pelvis, nontender to lateral compression and palpation of symphysis pubis.. No clinical evidence of significant musculoskeletal trauma. 8.Skin: Warm, Dry. 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 Sensation grossly intact, no focal neurologic deficits. 10.Psych: (AAO) x3. Appropriate mood and affect Course Vital Signs Vital signs: Vital Signs Temperature 37.1 C 10/27/22 20:56 Pulse 100 H 10/27/22 20:56 Respiratory Rate 20 10/27/22 20:56 Blood Pressure 84/59 L 10/27/22 20:56 Pulse Oximetry 93 10/27/22 20:56 Temperature 37.1 C 10/27/22 20:56 Temperature Source Oral 10/27/22 20:56 Pulse 89 10/27/22 21:53 Pulse 91 H 10/27/22 21:53 Respiratory Rate 20 10/27/22 21:53 Respiratory Pattern Normal 10/27/22 21:22 Blood Pressure 82/59 L 10/27/22 21:53 Blood Pressure Mean 64 10/27/22 21:53 Blood Pressure Position Supine 10/27/22 20:56 Pulse Oximetry 97 10/27/22 21:53 Oxygen Delivery Method Room Air 10/27/22 20:56 Oxygen Flow Rate 0 10/27/22 20:56 Lab/Test Results Lab/Test Results: Laboratory Tests Range/Units 10/27/22 10/27/22 21:10 21:10 WBC (4.4-10.8) 10^3/uL 5.94 RBC (4.36-5.78) 10^6/uL 3.55 L Hgb (13.5-17.5) g/dL 11.9 L Hct (40.0-50.0) % 34.0 L MCV (80-95) fL 96 H MCH (27.0-33.0) pg 33.5 H MCHC (32.0-36.0) % 35.0 RDW (11.8-14.1) % 14.9 H Plt Count (130-400) 10^3/uL 120 L MPV (8.0-11.0) fL 10.6 Immature Gran % 0.5 Neutrophils % 61.5 Lymphocytes % 23.9 Monocytes % 12.1 Eosinophils % 0.7 Basophils % 1.3 Nucleated RBC % (0.0-0.3) % 0.0 Absolute Neutrophils (1.2-6.7) 10^3/uL 3.65 Absolute Lymphocytes (1.2-3.4) 10^3/uL 1.42 Absolute Monocytes (0.1-0.8) 10^3/uL 0.72 Absolute Eosinophils (0.0-0.7) 10^3/uL 0.04 Absolute Basophils (0.0-0.2) 10^3/uL 0.08 Sodium (136-145) mmol/L 135 L Potassium (3.5-5.1) mmol/L 3.8 Chloride (98-107) mmol/L 98 Carbon Dioxide (21.0-32.0) mmol/L 25.5 Anion Gap (3-11) mmol/L 11.5 H BUN (7-18) mg/dL 3 L Creatinine (0.70-1.30) mg/dL 0.8 Est GFR (CKD-EPI 2020) (mL/min/1.73m2) 104.51 Glucose (74-106) mg/dL 100 Calcium (8.5-10.1) mg/dL 8.3 L Total Bilirubin (0.2-1.0) mg/dL 2.2 H AST (15-37) U/L 227 H ALT (16-63) U/L 72 H Alkaline Phosphatase (46-116) U/L 412 H Total Protein (6.4-8.2) g/dL 8.1 Albumin (3.4-5.0) g/dL 2.7 L Ethyl Alcohol (<10) mg/dL 355.7 H
--- NOTE | 2022-10-27 22:14 | DI.VRAD_ITS ---
PROCEDURE INFORMATION: Exam: CT Chest With Contrast; Diagnostic Exam date and time: 10/27/2022 9:34 PM Age: 57 years old Clinical indication: Other: Fall, ETOH TECHNIQUE: Imaging protocol: Diagnostic computed tomography of the chest with contrast. Contrast material: 350; Contrast volume: 100 ml; Contrast route: INTRAVENOUS (IV); COMPARISON: CT CHEST PE ABD PELVIS W 07/16/2020 10:21 AM FINDINGS: Lungs: Moderate paraseptal and centrilobular emphysematous changes are seen predominantly in upper lobes would although within the lower lobes of the lungs bilaterally. There is heterogeneous attenuation of the pulmonary parenchyma, consistent with air trapping from underlying small airways disease. Bilateral lower lobe atelectatic changes present. Pleural spaces: There is no evidence of pneumothorax. There are no pleural effusions present. Heart: Unremarkable. No cardiomegaly. No pericardial effusion. Coronary arteries: There is moderate atherosclerotic calcification of the coronary arteries. Lymph nodes: Moderate peribronchial adenopathy present bilaterally. Vasculature: There is ectasia of the ascending thoracic aorta. Gas seen within the venous system consistent with iatrogenic introduction during contrast injection. No large central pulmonary emboli identified. Great vessels appear normal. Bones/joints: There are old healed left-sided lateral and posterior rib fractures present. No evidence of acute rib fractures. Soft tissues: Unremarkable. IMPRESSION: There is heterogeneous attenuation of the pulmonary parenchyma, consistent with air trapping from underlying small airways disease. PROCEDURE INFORMATION: Exam: CT Abdomen And Pelvis With Contrast Exam date and time: 10/27/2022 9:34 PM Age: 57 years old Clinical indication: Other: Fall, ETOH TECHNIQUE: Imaging protocol: Computed tomography of the abdomen and pelvis with contrast. Contrast material: 350; Contrast volume: 100 ml; Contrast route: INTRAVENOUS (IV); COMPARISON: CT CHEST PE ABD PELVIS W 07/16/2020 10:21 AM FINDINGS: Liver: The liver is enlarged. Low-attenuation lesion present at the dome of the liver measuring approximately 4.3 mm decrease in size compared to prior study. There is a diffuse decrease in hepatic parenchymal density, consistent with mild fatty infiltration. Mild irregularity of the hepatic contour may represent early cirrhosis. There is no evidence of intrahepatic or extrahepatic biliary ductal dilation. Gallbladder and bile ducts: There is small amount of pericholecystic fluid. No definitive cholelithiasis. Pancreas: The pancreas is normal. Spleen: The spleen is normal. Adrenal glands: The adrenal glands are normal. Kidneys and ureters: The kidneys are normal. The ureters are normal caliber and follow a normal caliber and course. Stomach and bowel: There are fluid-filled loops of small bowel with air-fluid levels. No significant bowel wall thickening or inflammatory changes. No evidence of obstruction. Consider early enteritis. Consider developing ileus. Appendix: There is no evidence of appendicitis. Intraperitoneal space: No evidence of free air within the abdomen. Vasculature: The aorta demonstrates moderate atherosclerotic calcification. The arterial peripheral vasculature demonstrates diffuse mild atherosclerotic calcification. Lymph nodes: There is no evidence of lymphadenopathy. Urinary bladder: The bladder is moderately distended. Reproductive: The prostate gland and seminal vesicles are normal. Bones/joints: The thoracolumbar spine demonstrates moderate degenerative changes at multiple levels. Soft tissues: There are nonobstructing bilateral inguinal hernias containing fat and possibly a small amount of mesentery. IMPRESSION: 1. There are fluid-filled loops of small bowel with air-fluid levels. No significant bowel wall thickening or inflammatory changes. No evidence of obstruction. Consider early enteritis. Consider developing ileus. 2. No evidence definitive intra-abdominal injury Dictated and Authenticated by: Prasanna Stiles MD. Ordering:DENISE Ventura MD
--- NOTE | 2022-10-27 22:16 | DI.VRAD_ITS ---
PROCEDURE INFORMATION: Exam: XR Left Ankle Exam date and time: 10/27/2022 9:46 PM Age: 57 years old Clinical indication: Other: Left ankle pain TECHNIQUE: Imaging protocol: Radiologic exam of the left ankle. Views: 3 or more views. COMPARISON: CR LEFT ANKLE COMPLETE 01/10/2018 7:34 PM FINDINGS: Bones/joints: Old healed fractures of the distal left fibula and distal left tibia/ankle. Bone mineralization is age-appropriate. There is no evidence of fracture. No evidence of dislocation. The joint spaces are adequately preserved; no significant degenerative narrowing and no bony erosion seen. Soft tissues: No radiopaque foreign body present. There is soft tissue swelling present. IMPRESSION: 1. No acute osseous abnormality. 2. Soft tissue swelling only. 3. Old healed fractures of the distal left fibula and distal left tibia/ankle. Dictated and Authenticated by: Prasanna Stiles MD. Ordering:DENISE Ventura MD
--- NOTE | 2022-10-27 22:17 | DI.VRAD_ITS ---
PROCEDURE INFORMATION: Exam: CT Head Without Contrast Exam date and time: 10/27/2022 9:31 PM Age: 57 years old Clinical indication: Other: Fall , ETOH; Other: Fall, ETOH TECHNIQUE: Imaging protocol: Computed tomography of the head without contrast. Radiation optimization: All CT scans at this facility use at least one of these dose optimization techniques: automated exposure control; mA and/or kV adjustment per patient size (includes targeted exams where dose is matched to clinical indication); or iterative reconstruction. COMPARISON: CT HEAD CERVICAL SPINE WO 09/11/2022 8:58 PM FINDINGS: Brain: Diffuse atrophy slightly greater than expected for patient's age. No intracranial hemorrhage. No mass. No large territory acute CVA. Cerebral ventricles: Ventriculomegaly concordant with atrophy. Paranasal sinuses: No sinus air-fluid levels. Left maxillary sinus with mild mucoperiosteal thickening. Mastoid air cells: Visualized mastoid air cells are well aerated. Bones/joints: No skull fracture. Soft tissues: Unremarkable. IMPRESSION: 1. Cerebral atrophy. 2. No intracranial hemorrhage. 3. No skull fracture. PROCEDURE INFORMATION: Exam: CT Cervical Spine Without Contrast Exam date and time: 10/27/2022 9:31 PM Age: 57 years old Clinical indication: Other: Fall , ETOH; Other: Fall, ETOH TECHNIQUE: Imaging protocol: Computed tomography of the cervical spine without contrast. Radiation optimization: All CT scans at this facility use at least one of these dose optimization techniques: automated exposure control; mA and/or kV adjustment per patient size (includes targeted exams where dose is matched to clinical indication); or iterative reconstruction. COMPARISON: CT HEAD CERVICAL SPINE WO 09/11/2022 8:58 PM FINDINGS: Bones/joints: Multifocal degenerative cervical spine changes. Degenerative disc and joint disease. No acute fracture. No dislocation. Multifocal dental disease with dental caries and periapical bone resorption of the maxilla. Lungs: Lung apices with emphysematous change. Vasculature: Bilateral carotid artery atherosclerotic calcium. Soft tissues: Unremarkable. IMPRESSION: 1. Degenerative cervical spine. 2. No cervical spine fracture or dislocation. 3. Multifocal dental disease with dental caries, loss of dentition, and periapical bone change. Dictated and Authenticated by: Prasanna Burton MD. Ordering:DENISE Ventura MD
--- NOTE | 2022-10-27 22:17 | DI.VRAD_ITS ---
Addendum created by Prasanna Stiles MD on 10/27/2022 10:18:47 PM EDT: The body of the report and the impression should read: NO evidence of acute fracture dislocation. THIS REPORT CONTAINS FINDINGS THAT MAY BE CRITICAL TO PATIENT CARE. The findings were verbally communicated via telephone conference with LEIGH ANN SWARTZ at 10:18 PM EDT on 10/27/2022. The findings were acknowledged and understood. Initial report created on 10/27/2022 10:17:15 PM EDT: PROCEDURE INFORMATION: Exam: XR Left Knee Exam date and time: 10/27/2022 9:41 PM Age: 57 years old Clinical indication: Other: Fall, left knee pain TECHNIQUE: Imaging protocol: Radiologic exam of the left knee. Views: 3 views. COMPARISON: CR XR KNEE LT 3V AP,LAT,INGE 08/07/2022 10:33 AM FINDINGS: Bones/joints: There is narrowing of the medial and lateral femoral tibial joint compartments. There is narrowing of the patellofemoral compartment. There are marginal osteophytes present. There are small suprapatellar and femorotibial joint effusions present. Evidence of acute fracture dislocation. Soft tissues: There is mild soft tissue swelling present. IMPRESSION: 1. 3 compartmental degenerative changes of the left knee with joint effusion and soft tissue swelling. 2. Evidence of acute fracture dislocation. Dictated and Authenticated by: Praasnna Stiles MD. Ordering:DENISE Ventura MD
[2022-10-27] MEDS: Calcium Gluconate 4.65 MEQ/10 ML VIAL 4.65 MG IVP (22:43)
[2022-10-27] MEDS: Lactated Ringers 1,000 ML 1000 ML IV (22:56)
[2022-10-28] VITALS (72 sets, daily range): BP systolic 72–115; BP diastolic 46–78; PULSE 69–111; RESP 13–30; TEMP 36.8; O2SAT 74–100
[2022-10-28] MEDS: MAGNESIUM SULFATE 8.12 MEQ, MULTIVITAMIN 10 ML, THIAMINE 100 MG, FOLIC ACID 1 MG in Nor... 168.867 MG IV (00:32)
[2022-10-28] MEDS: Normal Saline 1,000 ML 1000 ML IV (01:38)
== END 2022-10-28 08:41 | disposition home or self-care (01) ==
PROVIDERS: Emergency Provider Student in an Organized Health Care Education/Training Program; PCP Nurse Practitioner Family
DX: F10.129 Alcohol abuse with intoxication, unspecified (principal); Y90.8 Blood alcohol level of 240 mg/100 ml or more; M25.562 Pain in left knee; M25.572 Pain in left ankle and joints of left foot; F17.210 Nicotine dependence, cigarettes, uncomplicated
CPT/HCPCS: 36415; 73562; 74177; 80053; 96365; 96366; 99285; 70450; 71260; 72125; 73610; 80320; 85025; J0612; J3490

== ENCOUNTER 2022-10-31 20:25 | Emergency (ER) | payer MEDICAID, SELFPAY ==
[2022-10-31 20:28] VITALS: BP 100/63; PULSE 94; RESP 18; TEMP 36.6; O2SAT 89
--- NOTE | 2022-10-31 21:45 | DI.RAD_ITS ---
Exam(s) XR WRIST LT COMPLETE EXAM: XR WRIST LT COMPLETE CLINICAL HISTORY: fall wrist pain. TECHNIQUE: 2D digital imaging was performed. COMPARISON: No exams were available for comparison FINDINGS: 3 views No evidence of fracture or dislocation nor significant ulnar variance. Scaphoid and scaphoid lunate distance normal. Bone density normal. No osseous lesions. IMPRESSION: No significant osseous findings in the wrist. DATA REPOSITORY: RADIATION DOSE DELIVERED:
[2022-10-31 22:12] LABS: Abs Immature Grans 0.02 10^3/uL (0.0-0.06); Absolute Basophil Count 0.08 10^3/uL (0.0-0.2); Absolute Eosinophil Count 0.06 10^3/uL (0.0-0.7); Absolute Lymphocyte Count 1.01 10^3/uL (1.2-3.4); Absolute Monocyte Count 0.51 10^3/uL (0.1-0.8); Basophils % 1.2; Eosinophils % 0.9; HGB 11.6 g/dL (13.5-17.5); Immature Grans % 0.3; Lymphocytes % 15.1; MCH 34.2 pg (27.0-33.0); MCHC 35.2 % (32.0-36.0); MCV 97 fL (80-95); MPV 10.6 fL (8.0-11.0); Monocytes % 7.6; Neutrophils % 74.9; Platelet Count 109 10^3/uL (130-400); RBC 3.39 10^6/uL (4.36-5.78); RDW 15.9 % (11.8-14.1); RDW-SD 55.9 fL; WBC 6.68 10^3/uL (4.4-10.8)
[2022-10-31 22:27] LABS: ALT 63 U/L (16-63); AST 220 U/L (15-37); Albumin 2.4 g/dL (3.4-5.0); Alkaline Phosphatase 402 U/L (46-116); Anion Gap 10.1 mmol/L (3-11); BUN 2 mg/dL (7-18); Bilirubin, Total 2.4 mg/dL (0.2-1.0); CO2 25.9 mmol/L (21.0-32.0); CREATININE 0.7 mg/dL (0.70-1.30); Calcium 7.9 mg/dL (8.5-10.1); Chloride 104 mmol/L (98-107); ETHANOL BLOOD 295.9 mg/dL (<10); Estimated GFR 108.82 (mL/min/1.73m2); Glucose 82 mg/dL (74-106); Potassium 3.4 mmol/L (3.5-5.1); Sodium 140 mmol/L (136-145); Total Protein 7.7 g/dL (6.4-8.2)
--- NOTE | 2022-10-31 22:32 | DI.VRAD_ITS ---
PROCEDURE INFORMATION: Exam: XR Left Wrist Exam date and time: 10/31/2022 10:16 PM Age: 57 years old Clinical indication: Injury or trauma; Sprain or strain; Left; Injury details: Fall, wrist pain TECHNIQUE: Imaging protocol: Radiologic exam of the left wrist. Views: 3 or more views. COMPARISON: No relevant prior studies available. FINDINGS: Bones/joints: Bone mineralization is age-appropriate. There is no evidence of fracture. No evidence of dislocation. The joint spaces are adequately preserved; no significant degenerative narrowing and no bony erosion seen. Soft tissues: No radiopaque foreign body present. There is soft tissue swelling present. IMPRESSION: 1. No acute osseous abnormality. 2. There is soft tissue swelling present. Dictated and Authenticated by: Prasanna Stiles MD. Ordering:ANUM Hodge MD
--- NOTE | 2022-10-31 22:43 | W.ED.GENAD ---
Discharge Plan Disposition Patient Disposition: [facility] Discharge Details Clinical Impression: Alcohol intoxication, Alcoholic peripheral neuropathy, Alcohol dependence Primary Care Provider: Ilene Moore ED Provider: Naveen Seymour Home Meds and New Rx's Prescriptions: No Action No Known Home Meds Discharge Instructions Instructions: Alcohol Intoxication (ED) Additional Instructions: This time we have found no emergent findings for your complaints. Your wrist shows no signs of acute fracture. Your difficulty walking and pain in your feet is secondary to neuropathy which your alcohol use is definitely a contributing factor. Please use the provided cane to help with your walking and stability. It is recommended that you decrease your usage of alcohol but please do this safely and at the direction of your primary care provider. Feel free to return the emergency department for any new or significant worsening of symptoms Referrals: Ilene Moore [Primary Care Provider] - Discharge Data Discharge Date/Time-TO BE ENTERED AT DEPARTURE: 10/31/22 23:58 Medical Decision Making Patient brought in by ambulance due to difficulty walking and reported fall. Patient had significant alcohol intoxication by police on scene and is not cleared to go to holding facility until medically clear. Patient states mild left wrist pain. Patient denies any head injury or trauma, denies syncope, reports full memory of the event. Does state he was drinking. Patient states that per him he always has a hard time walking due to significant neuropathy which is what caused his falls tonight. Patient denies any seizures chest pain shortness of breath difficulty breathing. Physical exam shows mild tenderness to left wrist otherwise no focal findings noted beyond evidence of intoxication. We will check patient's labs and x-ray imaging of left wrist. Review of labs show CBC at baseline, slightly decreased potassium at 3.4, calcium of 7.9 which we will give oral repletion, patient does have elevated bilirubin AST and alk phos which are all at or near patient's baseline. Alcohol level is 295 which is not uncommon. Patient was slightly unstable with gait but given patient's chronic neuropathy I do not feel that he is off of his baseline. Did give patient a cane which did help him ambulate a little bit easier and we also replaced his hinged knee brace due to the gait instability. With both of these interventions patient did ambulate better and stated he felt more stable. Given that patient is still intoxicated will send patient to holding facility until he is appropriately sober as I do not feel that he is safe to be discharged home on his own. Did attempt to send patient home with a sober consenting adult but patient stated that at the time of the evening of discharge that he had nowhere else to go nobody to contact. Due to this dispatch was contacted and patient went to holding facility until he can be safely sent home. After discussion of diagnosis and plan of care patient has no further needs, questions, or concerns and states clear understanding to return to the emergency department for any worsening symptoms. This documentation was generated using blogfosteration system, please disregard any oddities of phrase or misspellings. Lab Data Lab results reviewed: Yes I reviewed the patient's lab results. HPI General Mode of arrival: EMS. Date/Time Provider Initiated Documentation: 10/31/22 20:26. Limitations to Documentation: no limitations. Information obtained by: patient, EMS and RN notes reviewed. History of Present Illness 57 year old M presents to the emergency department with the chief complaint of Fall with difficulty ambulating, alcohol intoxication, described as similar to prior episodes, Patient started experiencing this year(s) Patient notes no other symptoms.. Patient did receive the following treatments prior to arrival, none Related Data Home Medications Medication Instructions Recorded Confirmed Unknown [No Known Home Meds] 10/27/22 10/27/22 Allergies Allergy/AdvReac Type Severity Reaction Status Date / Time No Known Allergies Allergy Unverified 10/27/22 22:08 General Stated Complaint: ETOHWithdr JINNY: 3 Review of Systems Constitutional Constitutional: Reports frequent falls Cardiovascular Cardiovascular: Denies chest pain, Denies syncope and Denies lightheadedness Gastrointestinal Gastrointestinal: Denies abdominal pain Musculoskeletal Musculoskeletal: Reports as per HPI, Reports numbness and Reports tingling Neurologic Neurologic: Denies syncope, Reports frequent falls, Reports numbness and Reports tingling Psychiatric Psychiatric: Reports as per HPI PFSH All Active Problems Discharge planning issues (Acute) Weakness (Acute) Alcohol intoxication (Acute) Substance abuse (Acute) Alcohol abuse (Chronic) Alcoholic peripheral neuropathy (Acute) Seizure disorder (Acute) Multiple rib fractures (Acute) Rib fracture (Acute) Alcohol withdrawal (Acute) Alcoholic hepatitis (Acute) Alcoholic gastritis (Acute) Alcohol dependence (Acute) Tobacco dependence (Acute) Ankle fracture, left (Acute) Discharge planning issues (Acute) Hypokalemia (Acute) Medical History Alcohol use disorder Social History Smoking/Tobacco Use Status: Current every day Tobacco Type: cigarettes Smoking risk assessment performed?: Yes Alcohol Intake: current Alcohol Intake frequency: 3 or more drinks per day Alcohol type: beer, wine and hard liquor Drug use: Never Substance use type: marijuana and painkillers Details: States he drinks almost a case of beer a day. Today pt reports he consumed both beer and wine. Do you feel safe at home: Yes Do you feel safe in your relationship?: Yes Additional Social history: Pt reports he has been sleeping in a van for the last month. Exam Const General: cooperative, no acute distress, not ill appearing and intoxicated appearing Orientation: alert and awake [facility] Head: normal to inspection, normocephalic, atraumatic, no abrasions, no Lucero's sign and no raccoon eyes Ears: external ears normal and hearing grossly impaired General nose exam: external nose normal Face and sinus: normal facial exam Mouth: moist mucous membranes Neck Neck: full ROM and nontender Resp Effort & Inspection: normal respiratory effort, able to speak in complete sentences and no respiratory distress Cardio Rate: regular rate Rhythm: regular rhythm Heart Sounds: S1 normal and S2 normal Skin General skin exam: no rashes or lesions noted Neuro General: patient alert, patient awake, patient oriented x3, moves all extremities and no focal motor deficits Extrem Left upper extremity: wrist Details: tenderness Location: of the dorsal wrist, normal ROM and radial pulse present and hand Details: normal to inspection, normal capillary refill, neuromotor exam normal, neurosensory exam normal, tendon exam normal and normal ROM of fingers; no ecchymosis Psych Appearance: disheveled Mental Status: mental status grossly normal Speech and Movement: speech and movement normal Course Vital Signs Vital signs: Vital Signs Temperature 36.6 C 10/31/22 20:28 Pulse 94 H 10/31/22 20:28 Respiratory Rate 18 10/31/22 20:28 Blood Pressure 100/63 10/31/22 20:28 Pulse Oximetry 89 L 10/31/22 20:28 Temperature 36.6 C 10/31/22 20:28 Temperature Source Oral 10/31/22 20:28 Pulse 94 H 10/31/22 20:28 Respiratory Rate 18 10/31/22 20:28 Respiratory Effort Normal 10/31/22 21:28 Respiratory Pattern Normal 10/31/22 21:28 Blood Pressure 100/63 10/31/22 20:28 Blood Pressure Position Sitting 10/31/22 20:28 Pulse Oximetry 89 L 10/31/22 20:28 Oxygen Delivery Method Room Air 10/31/22 20:28 Oxygen Flow Rate 0 10/31/22 20:28 Lab/Test Results Lab/Test Results: Laboratory Tests Range/Units 10/31/22 10/31/22 22:03 22:03 WBC (4.4-10.8) 10^3/uL 6.68 RBC (4.36-5.78) 10^6/uL 3.39 L Hgb (13.5-17.5) g/dL 11.6 L Hct (40.0-50.0) % 33.0 L MCV (80-95) fL 97 H MCH (27.0-33.0) pg 34.2 H MCHC (32.0-36.0) % 35.2 RDW (11.8-14.1) % 15.9 H Plt Count (130-400) 10^3/uL 109 L MPV (8.0-11.0) fL 10.6 Immature Gran % 0.3 Neutrophils % 74.9 Lymphocytes % 15.1 Monocytes % 7.6 Eosinophils % 0.9 Basophils % 1.2 Nucleated RBC % (0.0-0.3) % 0.0 Absolute Neutrophils (1.2-6.7) 10^3/uL 5.00 Absolute Lymphocytes (1.2-3.4) 10^3/uL 1.01 L Absolute Monocytes (0.1-0.8) 10^3/uL 0.51 Absolute Eosinophils (0.0-0.7) 10^3/uL 0.06 Absolute Basophils (0.0-0.2) 10^3/uL 0.08 Sodium (136-145) mmol/L 140 Potassium (3.5-5.1) mmol/L 3.4 L Chloride (98-107) mmol/L 104 Carbon Dioxide (21.0-32.0) mmol/L 25.9 Anion Gap (3-11) mmol/L 10.1 BUN (7-18) mg/dL 2 L Creatinine (0.70-1.30) mg/dL 0.7 Est GFR (CKD-EPI 2020) (mL/min/1.73m2) 108.82 Glucose (74-106) mg/dL 82 Calcium (8.5-10.1) mg/dL 7.9 L Total Bilirubin (0.2-1.0) mg/dL 2.4 H AST (15-37) U/L 220 H ALT (16-63) U/L 63 Alkaline Phosphatase (46-116) U/L 402 H Total Protein (6.4-8.2) g/dL 7.7 Albumin (3.4-5.0) g/dL 2.4 L Ethyl Alcohol (<10) mg/dL 295.9 H
[2022-10-31] MEDS: Potassium Chloride 10 MEQ TABCR PO (23:02)
[2022-10-31] MEDS: Calcium Carbonate *TUMS* 500 MG CHEW 1000 MG PO (23:02)
== END 2022-10-31 23:58 ==
PROVIDERS: Emergency Provider Nurse Practitioner Family; PCP Nurse Practitioner Family
DX: F10.288 Alcohol dependence with other alcohol-induced disorder (principal); F10.229 Alcohol dependence with intoxication, unspecified; G62.1 Alcoholic polyneuropathy; E83.51 Hypocalcemia; E87.6 Hypokalemia
CPT/HCPCS: 29505; 80053; 99285; 73110; 80320; 85025; 99283

== ENCOUNTER 2022-12-30 19:30 | Emergency (ER) | payer MEDICAID, SELFPAY ==
[2022-12-30 19:32] VITALS: BP 116/79; PULSE 76; RESP 18; TEMP 36.4; O2SAT 95
--- NOTE | 2022-12-30 19:49 | NUR.NOTE ---
Nursing Note: Pt set in lobby via wheelchair per Isatu cardona RN.
--- NOTE | 2022-12-30 20:15 | DI.RAD_ITS ---
Exam(s) XR ELBOW LT COMPLETE EXAM: XR ELBOW LT COMPLETE CLINICAL HISTORY: left elbow pain after fall. TECHNIQUE: 2D digital imaging was performed. COMPARISON: No exams were available for comparison FINDINGS: 3 views No evidence of acute fracture nor elbow joint effusion. There is mild swelling over the olecranon on bursa region. Small calcific densities are seen just dorsal to the olecranon fossa. No air in the soft tissues. IMPRESSION: Dorsal soft tissue findings as above. No obvious fracture. DATA REPOSITORY: RADIATION DOSE DELIVERED:
--- NOTE | 2022-12-30 20:19 | ED.GENADUL_ITS ---
Discharge Plan Disposition Patient Disposition: Home Discharge Details Clinical Impression: Contusion of elbow, left, Alcohol abuse Primary Care Provider: Ilene Moore ED Provider: Lorenzo Hoover Home Meds and New Rx's Prescriptions: No Action No Known Home Meds Discharge Instructions Instructions: Contusion in Adults (ED) Additional Instructions: At this time your x-ray shows no evidence of fracture. Your elbow is bruised. Please take Tylenol and Motrin as needed for pain. Regards to your skin, it is not deep enough to suture. Please change the bandaging every day and keep it clean. Apply triple antibiotic ointment every day. If you notice any worsening of your symptoms, or any new symptoms such as vomiting, diarrhea, fever, chills, shortness of breath, chest pain, numbness, weakness, or fainting , please return immediately to the emergency department for reevaluation. Please follow up with your primary care provider as soon as possible for reassessment and reevaluation. As always, it was a pleasure participating in your medical care today. Referrals: Ilene Moore [Primary Care Provider] - Discharge Data Discharge Date/Time-TO BE ENTERED AT DEPARTURE: 12/31/22 08:24 Medical Decision Making 57-year-old male with a past medical history of notable alcohol abuse, severe hearing loss, presents today for evaluation of intoxication. Patient was found on a bench in the local neighborhood. Is notably intoxicated at the time. He was brought in for further assessment. He admits to mild pain in his left elbow and an abrasion on his right forearm. Tetanus was updated in the spring of this year. He has no complaints otherwise. No other modifying factors. Physical exam demonstrates mild bruising in his left elbow, superficial abrasion/excoriation in his right forearm. No other signs of trauma. We will rehydrate the patient, monitor him while he yessenia up, get an x-ray to rule out trauma. Patient's x-ray is negative for any evidence of fracture. Patient's wound was cleaned and bandaged. No other signs of significant abnormality. Patient will be discharged home once he attains sobriety. 7 AM The patient is able to speak clearly. There is no demonstration of any slurring of speech. There is evidence of clear decision making capacity. Patient is able to ambulate well without any difficulty. There are no signs of ataxia or stumbling motions. I have extensively reviewed the treatment plan and discharge instructions with the patient. I have addressed all patient concerns at this time. The patient was made aware of what symptoms to monitor for that would warrant a return to the emergency department. Discussed the plan with the patient, they demonstrate verbal understanding and agreement with our assessment and plan at this time. The documentation in this chart was dictated using [employer] dictation software. Please excuse any dictation errors. FINDINGS: Bones/joints: No fracture. No dislocation. No joint effusion. Soft tissues: Mild soft tissue swelling overlying the olecranon which may represent an area of contusion. No foreign body. No soft tissue gas. IMPRESSION: 1. Soft tissue swelling consistent with contusion overlying the olecranon. 2. No fracture or dislocation. Thank you for allowing us to participate in the care of your patient. Dictated and Authenticated by: Prasanna Burton MD 12/30/2022 9:23 PM Eastern Time ([place] & [place]) HPI General Date/Time Provider Initiated Documentation: 12/30/22 20:12 . HPI Narrative: 57-year-old male with a past medical history of notable alcohol abuse, severe hearing loss, presents today for evaluation of intoxication. Patient was found on a bench in the local neighborhood. Is notably intoxicated at the time. He was brought in for further assessment. He admits to mild pain in his left elbow and an abrasion on his right forearm. Tetanus was updated in the spring of this year. He has no complaints otherwise. No other modifying factors. Related Data Home Medications Medication Instructions Recorded Confirmed Unknown [No Known Home Meds] 10/27/22 10/27/22 Allergies Allergy/AdvReac Type Severity Reaction Status Date / Time No Known Allergies Allergy Unverified 10/27/22 22:08 General Stated Complaint: AMS/LOC JINNY: 3 Review of Systems All systems reviewed & are unremarkable except as noted in HPI and below PFSH All Active Problems (Updated 12/30/22 @ 22:34 by Lorenzo Hoover DO) Contusion of elbow, left (Acute) Discharge planning issues (Acute) Weakness (Acute) Alcohol intoxication (Acute) Substance abuse (Acute) Alcohol abuse (Chronic) Alcoholic peripheral neuropathy (Acute) Seizure disorder (Acute) Multiple rib fractures (Acute) Rib fracture (Acute) Alcohol withdrawal (Acute) Alcoholic hepatitis (Acute) Alcoholic gastritis (Acute) Alcohol dependence (Acute) Tobacco dependence (Acute) Ankle fracture, left (Acute) Discharge planning issues (Acute) Hypokalemia (Acute) Medical History Alcohol use disorder Social History Smoking/Tobacco Use Status: Current every day Tobacco Type: cigarettes Smoking risk assessment performed?: Yes Alcohol Intake: current Alcohol Intake frequency: 3 or more drinks per day Alcohol type: beer, wine and hard liquor Drug use: Never Substance use type: marijuana and painkillers Details: States he drinks almost a case of beer a day. Today pt reports he consumed both beer and wine. Do you feel safe at home: Yes Do you feel safe in your relationship?: Yes Additional Social history: Pt reports he has been sleeping in a van for the last month. Exam Narrative Exam Narrative: 1.Const: Well-nourished, Well-developed, appearing stated age 2.Eyes: PERRL, no conjunctival injection, and symmetrical lids. 3.ENT: Atraumatic external nose and ears. Moist MM. Neck: Symmetric, trachea midline, No thyromegaly. There is no evidence of raccoon eyes, aden sign, CSF rhinorrhea, mastoid tenderness, cranial crepitus, hemotympanum, exophthalmos, or hyphema. Patient demonstrates intact dentition with no signs of tooth avulsion or fracture, no signs of jaw deformity, no evidence of a LeFort's fracture, with an intact palate, nose and orbital region. There is no evidence of a nasal septal hematoma. No proptosis. Jaw closes symmetrically. Airway is clear. 4.CVS: +S1/S2, No murmurs or gallops. Peripheral pulses 2+ and equal in all extremities. Brisk capillary refill in all extremities. 5.RESP: Unlabored respiratory effort. Clear to auscultation bilaterally. No wheezes rales or rhonchi 6.GI: Soft, Nontender/Nondistended, No hepatosplenomegaly. No guarding or rebound. 7.MSK: Mild bruise over the left elbow, minimal pain with palpation. No pain with movement. Mild superficial skin tear on the right forearm. No deep laceration. No tenderness throughout the extremities otherwise. 8.Skin: Please see musculoskeletal 9.Neuro: dock grader II-XII grossly intact. Sensation grossly intact, no focal neurologic deficits. 10.Psych: (AAO) x3. mildly intoxicated appearing Course Vital Signs Vital signs: Vital Signs Temperature 36.4 C L 12/30/22 19:32 Pulse 76 12/30/22 19:32 Respiratory Rate 18 12/30/22 19:32 Blood Pressure 116/79 12/30/22 19:32 Pulse Oximetry 95 12/30/22 19:32 Temperature 36.4 C L 12/30/22 19:32 Temperature Source Skin 12/30/22 19:32 Pulse 76 12/30/22 19:32 Respiratory Rate 18 12/30/22 19:32 Blood Pressure 116/79 12/30/22 19:32 Blood Pressure Position Sitting 12/30/22 19:32 Pulse Oximetry 95 12/30/22 19:32 Oxygen Delivery Method Room Air 12/30/22 19:32 Oxygen Flow Rate 0 12/30/22 19:32 Pain Level 10 12/30/22 19:32
[2022-12-30 20:35] LABS: Abs Immature Grans 0.01 10^3/uL (0.0-0.06); Absolute Eosinophil Count 0.05 10^3/uL (0.0-0.7); Absolute Monocyte Count 0.64 10^3/uL (0.1-0.8); Absolute Neutrophil Count 4.03 10^3/uL (1.2-6.7); Basophils % 1.4; Eosinophils % 0.7; HCT 40.1 % (40.0-50.0); HGB 13.4 g/dL (13.5-17.5); Immature Grans % 0.1; Lymphocytes % 32.3; MCH 33.1 pg (27.0-33.0); MCHC 33.4 % (32.0-36.0); MCV 99 fL (80-95); MPV 8.5 fL (8.0-11.0); Neutrophils % 56.5; Platelet Count 257 10^3/uL (130-400); RBC 4.05 10^6/uL (4.36-5.78); RDW 12.4 % (11.8-14.1); RDW-SD 45.7 fL; WBC 7.13 10^3/uL (4.4-10.8)
[2022-12-30] MEDS: Normal Saline 1,000 ML 1000 ML IV (20:35)
[2022-12-30 20:50] LABS: ALT 30 U/L (16-63); AST 65 U/L (15-37); Albumin 3.1 g/dL (3.4-5.0); Alkaline Phosphatase 148 U/L (46-116); Anion Gap 12.7 mmol/L (3-11); BUN 6 mg/dL (7-18); Bilirubin, Total 0.5 mg/dL (0.2-1.0); CO2 24.3 mmol/L (21.0-32.0); CREATININE 0.6 mg/dL (0.70-1.30); Chloride 100 mmol/L (98-107); Glucose 94 mg/dL (74-106); Sodium 137 mmol/L (136-145); Total Protein 9.7 g/dL (6.4-8.2)
[2022-12-30 20:53] LABS: ETHANOL BLOOD 352.1 mg/dL (<10)
[2022-12-30 21:01] VITALS: RESP 15
--- NOTE | 2022-12-30 21:24 | DI.VRAD_ITS ---
PROCEDURE INFORMATION: Exam: XR Left Elbow Exam date and time: 12/30/2022 8:56 PM Age: 57 years old Clinical indication: Patient HX: Left elbow pain after fall TECHNIQUE: Imaging protocol: Radiologic exam of the left elbow. Views: 3 or more views. COMPARISON: CR XR WRIST LT COMPLETE 10/31/2022 10:16 PM FINDINGS: Bones/joints: No fracture. No dislocation. No joint effusion. Soft tissues: Mild soft tissue swelling overlying the olecranon which may represent an area of contusion. No foreign body. No soft tissue gas. IMPRESSION: 1. Soft tissue swelling consistent with contusion overlying the olecranon. 2. No fracture or dislocation. Dictated and Authenticated by: Prasanna Burton MD. Ordering:DENISE Ventura MD
== END 2022-12-31 08:24 | disposition home or self-care (01) ==
PROVIDERS: Emergency Provider Student in an Organized Health Care Education/Training Program; PCP Nurse Practitioner Family
DX: S50.02XA Contusion of left elbow, initial encounter (principal); F17.210 Nicotine dependence, cigarettes, uncomplicated; F10.120 Alcohol abuse with intoxication, uncomplicated; Y90.8 Blood alcohol level of 240 mg/100 ml or more
CPT/HCPCS: 36415; 80053; 82962; 99283; 73080; 80320; 85025

== ENCOUNTER 2023-02-13 12:25 | Emergency (ER) | payer MEDICAID, SELFPAY ==
[2023-02-13 12:30] VITALS: BP 129/80; PULSE 100; RESP 20; TEMP 37; O2SAT 99
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
[2023-02-13] MEDS: Cephalexin 500 MG CAP PO (13:47)
== END 2023-02-13 14:09 | disposition home or self-care (01) ==
PROVIDERS: Emergency Provider Student in an Organized Health Care Education/Training Program; PCP Nurse Practitioner Family
DX: S61.512A Laceration without foreign body of left wrist, initial encounter (principal); L98.8 Other specified disorders of the skin and subcutaneous tissue; X99.1XXA Assault by knife, initial encounter; F17.210 Nicotine dependence, cigarettes, uncomplicated
CPT/HCPCS: 99283

== ENCOUNTER 2023-06-26 19:26 | Emergency (ER) | payer MEDICAID, SELFPAY ==
--- NOTE | 2023-06-26 19:28 | W.ED.GENAD ---
HPI General Mode of arrival: EMS. Date/Time Provider Initiated Documentation: 06/26/23 19:28. Information obtained by: patient. HPI Narrative: Patient brought into ED by EMS after a fall. Patient is intoxicated with history of alcohol dependence. Events unclear but patient apparently fell striking his head and has a laceration to the right side of his forehead. He is mostly cooperative. Denies pain anywhere else. Per our records he is up-to-date on tetanus. Related Data Allergies Allergy/AdvReac Type Severity Reaction Status Date / Time No Known Allergies Allergy Unverified 06/26/23 19:30 General JINNY: 4 Review of Systems Unobtainable due to mental status Exam Narrative Exam Narrative: Const: WDWN male in NAD. HEENT: NC. 3cm laceration to right forehead. Neck: Supple. Trachea midline. No midline tenderness. Lungs: Normal respiratory effort. No chest wall tenderness. Cor: RRR. Good radial pulses. GI: Soft. NT/ND. Neuro: A+O x 3. Cranial nerves II - XII grossly intact. No gross motor or sensory deficit. Ext: No deformity or tenderness. Procedures Laceration Laceration 1: Site: face Side (If applicable): right Size (cm): 3 Description: linear and clean Depth: simple, single layer Pre-repair: wound explored, irrigated extensively and deep structures intact Skin layer closed with: other (skin adhesive) Medical Decision Making Patient presenting with forehead laceration status post fall. He is intoxicated. He is nonfocal neurologically. Tetanus is up-to-date according to our records. Wound is irrigated and cleaned. It is closed with skin adhesive with good approximation of edges. Will plan CT head and cervical spine given his level of intoxication. CT head and cervical spine are negative per preliminary radiology read. Patient remains awake and alert with normal speech and mentation at this point. Will attempt to find a place for him to stay tonight as he is reportedly homeless. Medical Records Medical records reviewed: Yes I reviewed the patient's medical records. Quality:[facility] Health Related Social Needs: No Data to Display [facility] All Active Problems (Updated 06/26/23 @ 21:03 by Nick Morrow MD) Fall (Acute) Laceration of forehead (Acute) Discharge planning issues (Acute) Weakness (Acute) Alcohol intoxication (Acute) Substance abuse (Acute) Alcohol abuse (Chronic) Alcoholic peripheral neuropathy (Acute) Seizure disorder (Acute) Multiple rib fractures (Acute) Rib fracture (Acute) Alcohol withdrawal (Acute) Alcoholic hepatitis (Acute) Alcoholic gastritis (Acute) Alcohol dependence (Acute) Tobacco dependence (Acute) Ankle fracture, left (Acute) Discharge planning issues (Acute) Hypokalemia (Acute) Medical History Alcohol use disorder Social History Smoking/Tobacco Use Status: Current every day Tobacco Type: cigarettes Smoking risk assessment performed?: Yes Alcohol Intake: current Alcohol Intake frequency: 3 or more drinks per day Alcohol type: beer, wine and hard liquor Drug use: Never Substance use type: marijuana and painkillers Details: States he drinks almost a case of beer a day. Today pt reports he consumed both beer and wine. Housing: homeless Do you feel safe at home: Yes Do you feel safe in your relationship?: Yes Additional Social history: Pt reports he has been sleeping in a van for the last month. Discharge Plan Disposition Patient Disposition: Home Condition: Good Discharge Details Clinical Impression: Alcohol intoxication, Laceration of forehead, Fall Primary Care Provider: Ilene Moore ED Provider: Nick Morrow Discharge Instructions Instructions: Alcohol Intoxication (ED), Facial Laceration (ED) Additional Instructions: You were seen after a fall with associated forehead laceration. Your laceration was repaired using skin adhesive and should heal without problems. CT scans were negative for any acute traumatic injury. Consider cutting back on the amount of alcohol you drink on a daily basis and consider detox/rehab. Return to ED for any signs of wound infection, neurologic change, worsening headache, persistent vomiting, other concerns.
[2023-06-26 19:30] VITALS: BP 123/94; PULSE 95; RESP 22; TEMP 37; O2SAT 94
--- NOTE | 2023-06-26 19:30 | DI.CT_ITS ---
Exam(s) CT HEAD CERVICAL SPINE WO EXAM: CT HEAD CERVICAL SPINE WO CLINICAL HISTORY: intoxicated, fall, head injury. TECHNIQUE: Imaging Protocol: Axial computed tomography images with coronal and sagittal reformatted images were created and reviewed COMPARISON: CT CT HEAD CERVICAL SPINE WO from 12/25/[address] HEAD CERVICAL SPINE WO from 10/27/2022 FINDINGS: CT Head: Ventricles and Extra axial spaces: Normal in size and morphology for the patient's age. Hemorrhage: None. Cerebral parenchyma: Normal. No mass effect is identified. Midline shift: None. Brainstem/Cerebellum: Normal. Calvarium: Normal. Visualized Paranasal sinuses/Mastoids: Moderate mucosal thickening is seen in the right maxillary sin us. Findings are suggestive of right maxillary sinusitis. The remaining visualized paranasal sinuse s and mastoid air cells are clear. Soft Tissues: Unremarkable. CT Cervical Spine: Bones: No acute fracture or subluxation. There are age-appropriate degenerative changes seen in the c ervical spine. There is mild reversal of the normal cervical lordosis centered at C4-5. Soft Tissues: Unremarkable. Lung Apices: Clear. IMPRESSION: 1. No acute intracranial process. 2. No acute fracture or subluxation in the cervical spine. RADIATION DOSE DELIVERED: 1,637.37mGy.cm Total DLP DATA REPOSITORY: All CT scans at this facility are submitted to the National Radiology Data Registry (NRDR) Dose Index Registry (DIR) with the [employer] (ACR). RADIATION OPTIMIZATION: All CT scans at this facility use at least one of these dose optimization te chniques: automated exposure control; mA and/or kV adjustment per patient size (includes targeted exa ms where dose is matched to clinical indication); or iterative reconstruction.
--- NOTE | 2023-06-26 20:35 | DI.VRAD_ITS ---
PROCEDURE INFORMATION: Exam: CT Head Without Contrast Exam date and time: 06/26/2023 8:03 PM Age: 58 years old Clinical indication: Other: Intoxicated, fall, head injury TECHNIQUE: Imaging protocol: Computed tomography of the head without contrast. COMPARISON: CT HEAD CERVICAL SPINE WO 10/27/2022 9:31 PM FINDINGS: Brain:Moderate volume loss No hemorrhage.Mild white matter disease. No mass effect. Cerebral ventricles: No ventriculomegaly. Paranasal sinuses: Fluid level and mucosal thickening in the right maxillary sinus. Mastoid air cells: Visualized mastoid air cells are well aerated. Bones/joints: Unremarkable. No acute fracture. Soft tissues: Unremarkable. IMPRESSION: No acute intracranial hemorrhage Question right maxillary sinusitis PROCEDURE INFORMATION: Exam: CT Cervical Spine Without Contrast Exam date and time: 06/26/2023 8:03 PM Age: 58 years old Clinical indication: Other: Intoxicated, fall, head injury TECHNIQUE: Imaging protocol: Computed tomography of the cervical spine without contrast. COMPARISON: CT HEAD CERVICAL SPINE WO 10/27/2022 9:31 PM FINDINGS: Bones/joints: No acute fracture. Loss of cervical lordosis is presumably on a degenerative basis. Multilevel central canal and foraminal stenosis most pronounced at C5-C6 Lungs: Emphysema noted. Soft tissues: Unremarkable. IMPRESSION: No acute findings. Degenerative changes as noted Dictated and Authenticated by: Rigoberto Chung MD. Ordering:JOAQUIN Romero MD
[2023-06-27 06:57] VITALS: RESP 18
== END 2023-06-27 06:57 | disposition home or self-care (01) ==
PROVIDERS: Emergency Provider Emergency Medicine; PCP Nurse Practitioner Family
DX: F10.120 Alcohol abuse with intoxication, uncomplicated (principal); S01.81XA Laceration without foreign body of other part of head, initial encounter; F17.210 Nicotine dependence, cigarettes, uncomplicated; Z59.00 Homelessness unspecified; W18.39XA Other fall on same level, initial encounter
CPT/HCPCS: 12013; 99284; 70450; 72125

== ENCOUNTER 2023-08-31 19:16 | Emergency (ER) | payer MEDICAID, SELFPAY ==
[2023-08-31] VITALS (51 sets, daily range): BP systolic 103–124; BP diastolic 67–93; PULSE 78–89; RESP 11–28; TEMP 37.1; O2SAT 90–97
--- NOTE | 2023-08-31 19:15 | RT.EKG_ITS ---
APPROVED REPORT Exam: Resting ECG Reason for Exam: seizure Patient Location: E HR:77 bpm ECG Measurements Heart Rate 77 AXIS WY 216 P 113 QRSd 82 QRS 186 QT 402 T 138 QTc 454 Conclusion sinus 77 no stemi
--- NOTE | 2023-08-31 19:15 | DI.CT_ITS ---
Exam(s) CT HEAD CERV SPINE FACIAL WO EXAM: CT HEAD CERV SPINE FACIAL WO CLINICAL HISTORY: trauma. TECHNIQUE: Imaging Protocol: Axial computed tomography images with coronal and sagittal reformatted images were created and reviewed COMPARISON: CT CT HEAD WO from 07/11/[address] HEAD CERVICAL SPINE WO from 09/11/[address] HEAD CERVICAL SPINE WO from 10/27/[address] HEAD CERVICAL SPINE WO from 06/26/2023 FINDINGS: CT Head: Ventricles and Extra axial spaces: Normal in size and morphology for the patient's age. Hemorrhage: None. Cerebral parenchyma: No mass effect. No findings to suggest an acute territorial infarct. Midline shift: None. Brainstem/Cerebellum: Normal. Calvarium: Normal. Visualized Paranasal sinuses/Mastoids: Near complete opacification of the right maxillary sinus is se en. There is thickening of the wall of the right maxillary sinus. The findings are consistent with chronic sinusitis. Soft Tissues: Soft tissue swelling is seen over the left parietal bone. CT Face: Facial Bones: No definite fracture is noted in facial bones. Sinuses and Mastoids: Findings of chronic sinusitis involving the right maxillary sinus. The remain ing visualized paranasal sinuses and mastoid air cells are clear. Globes, extraocular muscles, optic nerves and retrobulbar fat: Normal. Upper aerodigestive tract: Normal. Mandible and bilateral temporomandibular joints: Normal. Soft tissues: Normal. CT Cervical Spine: Bones: No acute fracture or subluxation. Age-appropriate degenerative changes are seen in the cervica l spine. There is again seen mild reversal of the normal cervical lordosis. Soft Tissues: Unremarkable. Lung Apices: Mild paraseptal emphysematous changes are present. IMPRESSION: 1. Small left parietal scalp hematoma. 2. No acute intracranial process. 3. No acute fracture or subluxation in the cervical spine. 4. No acute facial fracture. RADIATION DOSE DELIVERED: Total DLP DATA REPOSITORY: All CT scans at this facility are submitted to the National Radiology Data Registry (NRDR) Dose Index Registry (DIR) with the [employer] (ACR). RADIATION OPTIMIZATION: All CT scans at this facility use at least one of these dose optimization te chniques: automated exposure control; mA and/or kV adjustment per patient size (includes targeted exa ms where dose is matched to clinical indication); or iterative reconstruction.
[2023-08-31 19:53] LABS: Abs Immature Grans 0.01 10^3/uL (0.0-0.06); Absolute Basophil Count 0.07 10^3/uL (0.0-0.2); Absolute Lymphocyte Count 1.47 10^3/uL (1.2-3.4); Absolute Monocyte Count 0.36 10^3/uL (0.1-0.8); Absolute Neutrophil Count 1.87 10^3/uL (1.2-6.7); Basophils % 1.8; Eosinophils % 2.6; HCT 38.3 % (40.0-50.0); Immature Grans % 0.3; Lymphocytes % 37.9; MCH 31.9 pg (27.0-33.0); MCHC 33.9 % (32.0-36.0); MCV 94 fL (80-95); MPV 9.8 fL (8.0-11.0); Monocytes % 9.3; Neutrophils % 48.1; Platelet Count 197 10^3/uL (130-400); RBC 4.07 10^6/uL (4.36-5.78); RDW 13.7 % (11.8-14.1); RDW-SD 47.4 fL; WBC 3.88 10^3/uL (4.4-10.8)
[2023-08-31 20:08] LABS: ALT 36 U/L (16-63); AST 68 U/L (15-37); Albumin 3.5 g/dL (3.4-5.0); Alkaline Phosphatase 129 U/L (46-116); Anion Gap 10.4 mmol/L (3-11); BUN 3 mg/dL (7-18); Bilirubin, Total 0.5 mg/dL (0.2-1.0); CO2 26.6 mmol/L (21.0-32.0); CREATININE 0.6 mg/dL (0.70-1.30); Calcium 8.7 mg/dL (8.5-10.1); Chloride 98 mmol/L (98-107); Estimated GFR 113.29 (mL/min/1.73m2); Glucose 100 mg/dL (74-106); Lipase 36 U/L (16-77); Potassium 4.2 mmol/L (3.5-5.1); Sodium 135 mmol/L (136-145); Total Protein 9.4 g/dL (6.4-8.2)
[2023-08-31] MEDS: Bacitracin 1 PACKET TP (20:16)
[2023-08-31] MEDS: Normal Saline 1,000 ML 1000 ML IV (20:16)
[2023-08-31] MEDS: MAGNESIUM SULFATE 8.12 MEQ, MULTIVITAMIN 10 ML, THIAMINE 100 MG, FOLIC ACID 1 MG in Nor... 168.867 MG IV (20:17)
[2023-08-31] MEDS: Thiamine 200 MG/2 ML VIAL 100 MG IM (20:17)
[2023-08-31 20:38] LABS: Bilirubin Negative (Negative); Blood Trace-intact (Negative); Clarity Clear (Clear); Glucose Negative (Negative); Ketones Negative (Negative); Leukocyte Esterase Negative (Negative); Nitrite Negative (Negative); Urobilinogen 0.2 mg/dL (Up to 0.2)
[2023-08-31 20:42] LABS: Bacteria Negative HPF (Negative); C & S Indicated? No; Casts Negative LPF (Negative); Crystals Negative HPF (Negative); Epithelial Cells Rare HPF (Negative); Mucus Negative (Negative); RBC 0-2 HPF (0-2); WBC 0-2 HPF (0-5)
[2023-08-31 20:45] LABS: *AMPHETAMINES SCREEN URINE Negative (Negative); *BARBITURATES SCREEN URINE Negative (Negative); *BENZODIAZEPINES SCREEN URINE Negative (Negative); Cannabinoids THC Negative (Negative); Cocaine Screen,Urine Negative (Negative); METHADONE URINE SCREEN Negative (Negative); OPIATES URINE SCREEN Negative (Negative)
[2023-08-31 20:46] LABS: Tricyclic Antidepressants Negative (Negative)
--- NOTE | 2023-08-31 22:24 | DI.VRAD_ITS ---
PROCEDURE INFORMATION: Exam: CT Head Without Contrast Exam date and time: 08/31/2023 9:04 PM Age: 58 years old Clinical indication: Injury or trauma TECHNIQUE: Imaging protocol: Computed tomography of the head without contrast. COMPARISON: CT HEAD CERVICAL SPINE WO 06/26/2023 8:03 PM FINDINGS: Brain: No acute intracranial hemorrhage, mass-effect, midline shift, or extra-axial collection is seen. The estes white matter differentiation appears preserved. There is symmetric parenchymal volume loss. Cerebral ventricles: The ventricular system and basilar cisterns appear prominent but appropriate in size and configuration given the degree of parenchymal volume loss. Paranasal sinuses: CT imaging through the facial bones was obtained concurrently and has been dictated separately below. Mastoid air cells: The mastoid air cells appear well-aerated. Auditory system: The middle ear cavities appear clear. Bones/joints: The bony calvarium appears intact. No depressed skull fracture is seen. Soft tissues: There is a left frontotemporal scalp contusion. There appears to be a small right frontal scalp contusion as well. IMPRESSION: No acute intracranial hemorrhage or depressed skull fracture. PROCEDURE INFORMATION: Exam: CT Maxillofacial Without Contrast Exam date and time: 08/31/2023 9:04 PM Age: 58 years old Clinical indication: Injury or trauma TECHNIQUE: Imaging protocol: Computed tomography of the face without contrast. COMPARISON: CT HEAD CERVICAL SPINE WO 06/26/2023 8:03 PM FINDINGS: Orbital cavities: The globes and intraorbital structures appear grossly intact. Bones/joints: There is gross deformity of the left nasal bone and of the frontal process of the left maxilla with an appearance suggesting old fractures. There is no associated soft tissue swelling. No acute facial fracture is seen. Paranasal sinuses: There is thick mucoperiosteal thickening and fluid in the right maxillary sinus with sclerotic thickening of the right maxillary ramsay suggesting chronic right maxillary sinusitis, likely of dental origin. Soft tissues: No gross asymmetric soft tissue swelling is seen in the face. Dental: The teeth are partially obscured by streak artifact from metallic dental work. There are scattered dental cavities. There are large periapical lucencies in the maxilla bilaterally with an appearance suspicious for chronic apical periodontitis and/or periapical abscesses. IMPRESSION: 1. No acute facial fracture seen. 2. Chronic right maxillary sinusitis, probably of dental origin. 3. Scattered dental cavities. Large periapical lucencies in the maxilla bilaterally with an appearance suggesting chronic apical periodontitis and/or periapical abscesses. Follow-up with a dentist is recommended. PROCEDURE INFORMATION: Exam: CT Cervical Spine Without Contrast Exam date and time: 08/31/2023 9:04 PM Age: 58 years old Clinical indication: Injury or trauma TECHNIQUE: Imaging protocol: Computed tomography of the cervical spine without contrast. COMPARISON: CT HEAD CERVICAL SPINE WO 06/26/2023 8:03 PM FINDINGS: Bones/joints: No acute cervical fracture or gross vertebral offset is seen. C2-C3: Disc height preserved. Moderate facet arthrosis on the right. Mild central canal narrowing. Mild-moderate bilateral foraminal narrowing. C3-C4: Disc height preserved. Mild bilateral uncovertebral hypertrophy. Moderate-severe left-sided facet arthrosis. Mild central canal narrowing. Mild right-sided foraminal narrowing. Moderate-severe left-sided foraminal narrowing. C4-C5: Disc height preserved. Anterior osteophytes. Mild central canal narrowing. Moderate bilateral foraminal narrowing. C5-C6: Loss of disc height with anterior osteophyte formation, posterior osteophytic ridging, and bilateral uncovertebral hypertrophy. Mild central canal narrowing. Moderate-severe bilateral foraminal narrowing. C6-C7: Mild loss of disc height. Anterior osteophytes. Posterior osteophytic ridging with bilateral uncovertebral hypertrophy. No significant cervical stenosis. Moderate-severe bilateral foraminal narrowing. C7-T1: Disc height preserved. No significant cervical stenosis or significant foraminal narrowing. Thyroid: The thyroid gland is normal in size. Lungs: There are minimal emphysematous changes at the lung apices. Vasculature: There is atherosclerotic calcification at the carotid bifurcations bilaterally. Soft tissues: Within the limits of the exam, no gross soft tissue fluid collection is seen in the neck. IMPRESSION: 1. No acute cervical fracture or gross vertebral offset is seen. 2. Cervical degenerative changes, as detailed level by level above. Dictated and Authenticated by: Filipe Muhammad MD. Ordering:DELMY Dickerson MD
--- NOTE | 2023-08-31 22:39 | W.ED.GENAD ---
Discharge Plan Disposition Patient Disposition: Home Condition: Stable Discharge Details Clinical Impression: Alcohol abuse, Alcohol intoxication, Contusion of face, Fall Primary Care Provider: Ilene Moore ED Provider: Yuni Guzman Discharge Instructions Additional Instructions: please don't drink alcohol to excess HPI General Date/Time Provider Initiated Documentation: 08/31/23 19:18. Limitations to Documentation: altered mental status and physical limitation (Very hard of hearing). Information obtained by: patient. HPI Narrative: 58-year-old gentleman with past medical history of chronic alcohol abuse presents for evaluation after a fall. Patient reports that he was attempting to find himself more booze when he fell. He reports that he falls often. He states that he fell off a curb and hit his head. There is unknown loss of consciousness. EMS reports some questionable seizure activity. Patient reports a history of seizures when he does not drink enough. He denies any headache, blurry vision, vomiting or any other concerns right now. Related Data Allergies Allergy/AdvReac Type Severity Reaction Status Date / Time No Known Allergies Allergy Unverified 06/26/23 19:30 General Stated Complaint: HeadInjury JINNY: 3 Exam Narrative Exam Narrative: Review of Systems: All systems reviewed & are unremarkable except as noted in HPI and below Well-developed, no acute distress Abrasion across forehead, no large laceration, no instability Multiple dental caries without evidence of mal acute occlusion or facial instability PERRL, normal conjunctiva RRR Unlabored respiratory effort Nondistended abdomen Extremities w/o deformity, no cyanosis, no edema No rashes or lesions. no focal neurologic deficits Appropriate mood and affect Course Vital Signs Vital signs: Vital Signs Temperature 37.1 C 08/31/23 19:22 Pulse 89 08/31/23 19:22 Respiratory Rate 20 08/31/23 19:22 Blood Pressure 124/93 H 08/31/23 19:22 Pulse Oximetry 95 08/31/23 19:22 Temperature 37.1 C 08/31/23 19:22 Temperature Source Tympanic 08/31/23 19:22 Pulse 78 08/31/23 20:46 Respiratory Rate 17 08/31/23 20:57 Respiratory Effort Normal 08/31/23 20:18 Respiratory Depth Normal 08/31/23 20:18 Respiratory Pattern Normal 08/31/23 20:24 Blood Pressure 103/67 08/31/23 20:46 Blood Pressure Position Sitting 08/31/23 19:22 Pulse Oximetry 96 08/31/23 20:57 Oxygen Delivery Method Room Air 08/31/23 19:22 Oxygen Flow Rate 0 08/31/23 19:22 Pain Level 0 08/31/23 19:22 Lab/Test Results Lab/Test Results: Laboratory Tests Range/Units 08/31/23 08/31/23 19:49 20:25 WBC (4.4-10.8) 10^3/uL 3.88 L RBC (4.36-5.78) 10^6/uL 4.07 L Hgb (13.5-17.5) g/dL 13.0 L Hct (40.0-50.0) % 38.3 L MCV (80-95) fL 94 MCH (27.0-33.0) pg 31.9 MCHC (32.0-36.0) % 33.9 RDW (11.8-14.1) % 13.7 Plt Count (130-400) 10^3/uL 197 MPV (8.0-11.0) fL 9.8 Immature Gran % 0.3 Neutrophils % 48.1 Lymphocytes % 37.9 Monocytes % 9.3 Eosinophils % 2.6 Basophils % 1.8 Nucleated RBC % (0.0-0.3) % 0.0 Absolute Neutrophils (1.2-6.7) 10^3/uL 1.87 Absolute Lymphocytes (1.2-3.4) 10^3/uL 1.47 Absolute Monocytes (0.1-0.8) 10^3/uL 0.36 Absolute Eosinophils (0.0-0.7) 10^3/uL 0.10 Absolute Basophils (0.0-0.2) 10^3/uL 0.07 Sodium (136-145) mmol/L 135 L Potassium (3.5-5.1) mmol/L 4.2 Chloride (98-107) mmol/L 98 Carbon Dioxide (21.0-32.0) mmol/L 26.6 Anion Gap (3-11) mmol/L 10.4 BUN (7-18) mg/dL 3 L Creatinine (0.70-1.30) mg/dL 0.6 L Est GFR (CKD-EPI 2020) (mL/min/1.73m2) 113.29 Glucose (74-106) mg/dL 100 Calcium (8.5-10.1) mg/dL 8.7 Total Bilirubin (0.2-1.0) mg/dL 0.5 AST (15-37) U/L 68 H ALT (16-63) U/L 36 Alkaline Phosphatase (46-116) U/L 129 H Total Protein (6.4-8.2) g/dL 9.4 H Albumin (3.4-5.0) g/dL 3.5 Lipase (16-77) U/L 36 Urine Color (Yellow) Yellow Urine Clarity (Clear) Clear Urine pH (5-8) 6.0 Ur Specific [place] (1.005-1.025) 1.010 Urine Protein (Neg-Trace) mg/dL Negative Urine Ketones (Negative) mg/dL Negative Urine Blood (Negative) Trace-intact H Urine Nitrite (Negative) Negative Urine Bilirubin (Negative) Negative Urine Urobilinogen (Up to 0.2) mg/dL 0.2 Ur Leukocyte Esterase (Negative) Negative Urine RBC (0-2) HPF 0-2 Urine WBC (0-5) HPF 0-2 Ur Epithelial Cells (Negative) HPF Rare Urine Crystals (Negative) HPF Negative Urine Bacteria (Negative) HPF Negative Urine Casts (Negative) LPF Negative Urine Mucus (Negative) Negative Ur Culture Indicated? No Urine Glucose (Negative) mg/dL Negative Urine Opiates Screen (Negative) Negative Urine Methadone Screen (Negative) Negative Ur Barbiturates Screen (Negative) Negative Ur Tricyclics Screen (Negative) Negative Ur Amphetamines Screen (Negative) Negative U Benzodiazepines Scrn (Negative) Negative Urine Cocaine Screen (Negative) Negative Ur THC Screen (Negative) Negative Ethyl Alcohol (<10) mg/dL 329.0 H Medical Decision Making Emergent evaluation of alcohol intoxication complication. Patient had a unwitnessed fall off the curb, striking his head. Bystanders called 911. Patient was ambulatory on scene, refusing c-collar. He reports that he does see sometimes if he has not had enough to drink. He has no signs of postictal state or concerns of ongoing seizure activity. He has no evidence of severe alcohol withdrawal at this time. His speech is slightly difficult to understand which could be intoxication but also could be his teeth issues. He is also very hard of hearing so communicating with him is very difficult. Lab work reviewed. Leukopenia noted. Mild anemia noted. No significant electrolyte derangement. Urinalysis without signs of infection. Toxicology negative. Alcohol significantly elevated at 329. Imaging of head face and C-spine were ordered given his evidence of trauma. These were unremarkable for any acute process. Patient was alert oriented and interactive during his hospital stay. He was given food to eat and ambulated around the emergency department without any difficulty. At this time there is no indication for further emergent care. I doubt severe alcohol withdrawal or other seizure complication. From a traumatic standpoint he is discharged in good condition. Medical Records Medical records reviewed: Yes I reviewed the patient's medical records. Lab Data Lab results reviewed: Yes I reviewed the patient's lab results. Quality:SDOH Health Related Social Needs: No Data to Display [facility] All Active Problems Fall (Acute) Contusion of face (Acute) Discharge planning issues (Acute) Weakness (Acute) Alcohol intoxication (Acute) Substance abuse (Acute) Alcohol abuse (Chronic) Alcoholic peripheral neuropathy (Acute) Seizure disorder (Acute) Multiple rib fractures (Acute) Rib fracture (Acute) Alcohol withdrawal (Acute) Alcoholic hepatitis (Acute) Alcoholic gastritis (Acute) Alcohol dependence (Acute) Tobacco dependence (Acute) Ankle fracture, left (Acute) Discharge planning issues (Acute) Hypokalemia (Acute) Medical History Alcohol use disorder Social History Smoking/Tobacco Use Status: Current every day Tobacco Type: cigarettes Smoking risk assessment performed?: Yes Alcohol Intake: current Alcohol Intake frequency: 3 or more drinks per day Alcohol type: beer, wine and hard liquor Drug use: Occasionally Substance use type: marijuana and painkillers Details: States he drinks almost a case of beer a day. Today pt reports he consumed both beer and wine. Housing: homeless Do you feel safe at home: Yes Do you feel safe in your relationship?: Yes Additional Social history: Pt reports he has been sleeping in a van for the last month. PAWSS Have you Been Recently Intoxicated or Drunk Within the Last 30 days?: Yes Have you Ever Experienced Previous Episodes of Alcohol Withdrawal?: Yes Have you ever Experienced Withdrawal Seizures?: Yes Have you ever Experienced Delirium Tremens(DT)s?: Yes Have you ever undergone Alcohol Rehabilitation Treatment (i.e, inpt ot outpatient treatment programs)?: Yes Have you ever Experienced Blackouts?: Yes Have you ever Combined Alcohol with other Downers within the last 90 days?: No Have you ever Combined Alcohol with any other Substance of Abuse during the last 90 days?: No Positive Blood Alcohol level on Presentation? [PCS.BAL]: Yes Result: 7
== END 2023-08-31 22:42 | disposition home or self-care (01) ==
PROVIDERS: Emergency Provider Emergency Medicine; PCP Nurse Practitioner Family
DX: S00.83XA Contusion of other part of head, initial encounter (principal); F10.929 Alcohol use, unspecified with intoxication, unspecified; F10.10 Alcohol abuse, uncomplicated; Z91.81 History of falling; W19.XXXA Unspecified fall, initial encounter
CPT/HCPCS: 80053; 80307; 83690; 93005; 96361; 96365; 96375; 99284; 70450; 70486; 72125; 80320; 81003; 81015; 85025; 93010; 99283; J3411; J3475

== ENCOUNTER 2023-10-25 19:55 | Emergency (ER) | payer MEDICAID, SELFPAY ==
[2023-10-25] VITALS (27 sets, daily range): BP systolic 84–137; BP diastolic 54–110; PULSE 66–97; RESP 18–22; TEMP 36.6; O2SAT 96–98
--- NOTE | 2023-10-25 20:00 | DI.CT_ITS ---
Exam(s) CT HEAD CERVICAL SPINE WO EXAM: CT HEAD CERVICAL SPINE WO CLINICAL HISTORY: intoxicated, found on ground. TECHNIQUE: Imaging Protocol: Axial computed tomography images with coronal and sagittal reformatted images were created and reviewed COMPARISON: CT CT HEAD CERV SPINE FACIAL WO from 08/31/2023 FINDINGS: Head CT Exam mildly limited by motion. Ventricles and Extra axial spaces: Normal in size and morphology for the patient's age. Hemorrhage: None. Cerebral parenchyma: No evidence of mass or acute infarct. Mild atrophy. Midline shift: None. Brainstem/Cerebellum: Normal. Calvarium: Normal. Visualized Paranasal sinuses/Mastoids: Near complete opacification of the right maxillary sinus, jamaal lar to prior. Old nasal fractures. No acute facial fractures identified. Probable old right zygoma tic arch fracture. Soft tissues: Unremarkable. Cervical Spine CT BONES: Vertebral body heights are maintained. Stable appearance of reversal of the normal CS cervical lordosis, likely on a degenerative basis. There is no evidence of acute fracture. Degenerative disc changes and facet degenerative changes are seen, greatest at C5-6.. SOFT TISSUES: No paraspinal hematoma. The airway appears intact. No pneumothorax is seen at the lung apices. Emphysematous changes. IMPRESSION: Head CT: No acute abnormality. C-spine CT: Degenerative changes, no acute abnormality. RADIATION DOSE DELIVERED: Total DLP DATA REPOSITORY: All CT scans at this facility are submitted to the National Radiology Data Registry (NRDR) Dose Index Registry (DIR) with the [employer] (ACR). RADIATION OPTIMIZATION: All CT scans at this facility use at least one of these dose optimization te chniques: automated exposure control; mA and/or kV adjustment per patient size (includes targeted exa ms where dose is matched to clinical indication); or iterative reconstruction.
--- NOTE | 2023-10-25 20:04 | ED.GENADUL_ITS ---
Discharge Plan Discharge Details Chief Complaint: Fall/Non TraumaCriteria Primary Care Provider: Ilene Moore ED Provider: Supriya Jacobo Home Meds and New Rx's Prescriptions: No Action No Known Home Meds HPI <Belem Brink NP - Last Filed: 10/25/23 22:33> General Mode of arrival: EMS . Date/Time Provider Initiated Documentation: 10/25/23 20:00 . Limitations to Documentation: other (Appears intoxicated and not cooperating with history and review of systems) . Information obtained by: patient, EMS and old records reviewed . HPI Narrative: This is a 58-year-old with alcohol use disorder who presents to the emergency de partment by EMS after friends found him down on the ground unable to get up. EMS arrived patient complaining of right rib pain. He was unable to be safely ambulated unable to bear weight. He did not want to come to the emergency department but secondary to apparent intoxication was not able to sign himself off. He was transported by ground EMS for ED evaluation. Hemodynamically he is stable and he is awake and alert. Related Data Home Medications Medication Instructions Recorded Confirmed Unknown [No Known Home Meds] 10/25/23 10/25/23 Allergies Allergy/AdvReac Type Severity Reaction Status Date / Time No Known Allergies Allergy Unverified 10/25/23 20:03 General Stated Complaint: Fall/Non TraumaCriteria JINNY: 3 Review of Systems <REX Pereira Last Filed: 10/25/23 22:33> All systems reviewed & are unremarkable except as noted in HPI and below and Unobtainable due to mental status (Intoxicated and uncooperative) Exam <REX Pereira Last Filed: 10/25/23 22:33> Narrative Exam Narrative: Chronically ill-appearing disheveled much older than stated age unkempt presents on stretcher. Head is atraumatic eyes injected EOMs intact. Skin is weathered and dry. Neck with full range of motion no JVD his respirations are even and unlabored he is oxygenating in the high 90s on room air cardiovascular regular rate and rhythm pulse in the 90s abdomen is flat moves all extremities. Neurologic he is awake alert oriented to person place psychiatric blunted affect Course <REX Pereira Last Filed: 10/25/23 22:33> Vital Signs Vital signs: Vital Signs Temperature 36.6 C 10/25/23 19:56 Pulse 95 H 10/25/23 19:56 Respiratory Rate 18 10/25/23 19:56 Blood Pressure 127/103 H 10/25/23 19:56 Pulse Oximetry 96 10/25/23 19:56 Temperature 36.6 C 10/25/23 19:56 Temperature Source Skin 10/25/23 19:56 Pulse 95 H 10/25/23 19:56 Respiratory Rate 18 10/25/23 19:56 Respiratory Effort Normal 10/25/23 20:02 Blood Pressure 127/103 H 10/25/23 19:56 Blood Pressure Position Sitting 10/25/23 19:56 Pulse Oximetry 96 10/25/23 19:56 Oxygen Delivery Method Room Air 10/25/23 19:56 Oxygen Flow Rate 0 10/25/23 19:56 Medical Decision Making <Belem Brink NP - Last Filed: 10/25/23 22:33> This is a 58-year-old male history of alcoholism seizure disorder who presents by EMS after friends called they were unable to get him up. He does not want to come in he is complaining of chronic pain right ribs and bilateral lower extremities. We are unable to get any meaningful history from him so we will CT scan head and neck. Hemodynamically he is stable and physical exam is reassuring I think it is reasonable to start with plain films of the chest and ribs to evaluate and x-ray of the pelvis. Will check routine lab including CBC CMP CPK and magnesium alcohol and drug screen, will give him 1 L of normal saline. Evaluation is pending at time of shift change report and care of patient is handed over to Quality:[facility] Health Related Social Needs: No Data to Display PFS <Belem Brink NP - Last Filed: 10/25/23 22:33> All Active Problems (Updated 10/01/23 @ 00:08 by LUPILLO MAZARIEGOS) Discharge planning issues (Acute) Weakness (Acute) Alcohol intoxication (Acute) Substance abuse (Acute) Alcohol abuse (Chronic) Alcoholic peripheral neuropathy (Acute) Seizure disorder (Acute) Multiple rib fractures (Acute) Rib fracture (Acute) Alcohol withdrawal (Acute) Alcoholic hepatitis (Acute) Alcoholic gastritis (Acute) Alcohol dependence (Acute) Tobacco dependence (Acute) Ankle fracture, left (Acute) Discharge planning issues (Acute) Hypokalemia (Acute) Medical History Alcohol use disorder Social History Smoking/Tobacco Use Status: Current every day Tobacco Type: cigarettes Smoking risk assessment performed?: Yes Alcohol Intake: current Alcohol Intake frequency: 3 or more drinks per day Alcohol type: beer, wine and hard liquor Drug use: Occasionally Substance use type: marijuana and painkillers Details: States he drinks almost a case of beer a day. Today pt reports he consumed both beer and wine. Housing: homeless Do you feel safe at home: Yes Do you feel safe in your relationship?: Yes Additional Social history: Pt reports he has been sleeping in a van for the last month. Sign Out <Belem Brink NP - Last Filed: 10/25/23 22:33> Sign Out Data: Sign Out Comment: Patient presented by EMS intoxicated and unable to safely ambulate, he was intoxicated with alcohol level of 460. Other labs unremarkable. Imaging still pending at time of signout is complaining of right rib pain Last updated by Belem Brink NP at 10/25/23 22:24 PAWSS <Belem Brink NP - Last Filed: 10/25/23 22:33> Have you Been Recently Intoxicated or Drunk Within the Last 30 days?: Yes Have you Ever Experienced Previous Episodes of Alcohol Withdrawal?: Yes Have you ever Experienced Withdrawal Seizures?: Yes Have you ever Experienced Delirium Tremens(DT)s?: Unable to Obtain Have you ever undergone Alcohol Rehabilitation Treatment (i.e, inpt ot outpatient treatment programs)?: Unable to Obtain Have you ever Experienced Blackouts?: Unable to Obtain Have you ever Combined Alcohol with other Downers within the last 90 days?: Unable to Obtain Have you ever Combined Alcohol with any other Substance of Abuse during the last 90 days?: Unable to Obtain Positive Blood Alcohol level on Presentation? [PCS.BAL]: Unable to Obtain Evidence of Increased Autonomic Activity (i.e. HR>120, tremor, sweating, agitation, nausea)?: Unable to Obtain Result: 3 <Supriya Jacobo MD - Last Filed: 10/25/23 22:26> Result: 3
[2023-10-25] MEDS: Normal Saline 1,000 ML 1000 ML IV (20:17)
[2023-10-25 20:21] LABS: Abs Immature Grans 0.01 10^3/uL (0.0-0.06); Absolute Basophil Count 0.08 10^3/uL (0.0-0.2); Absolute Eosinophil Count 0.06 10^3/uL (0.0-0.7); Absolute Lymphocyte Count 2.08 10^3/uL (1.2-3.4); Absolute Monocyte Count 0.65 10^3/uL (0.1-0.8); Absolute Neutrophil Count 4.33 10^3/uL (1.2-6.7); Basophils % 1.1 %; Eosinophils % 0.8 %; HCT 39.7 % (40.0-50.0); HGB 13.6 g/dL (13.5-17.5); Immature Grans % 0.1 %; Lymphocytes % 28.8 %; MCHC 34.3 % (32.0-36.0); MCV 93 fL (80-95); MPV 10.3 fL (8.0-11.0); Neutrophils % 60.2 %; Platelet Count 102 10^3/uL (130-400); RBC 4.25 10^6/uL (4.36-5.78); RDW 16.6 % (11.8-14.1); RDW-SD 57.1 fL; WBC 7.21 10^3/uL (4.4-10.8)
[2023-10-25 20:23] LABS: Bilirubin Negative (Negative); Blood Negative (Negative); Clarity Clear (Clear); Glucose Negative (Negative); Ketones Negative (Negative); Leukocyte Esterase Negative (Negative); Nitrite Negative (Negative); Specific Gravity <= 1.005 (1.005-1.025); Urobilinogen 0.2 mg/dL (Up to 0.2)
--- NOTE | 2023-10-25 20:30 | DI.CT_ITS ---
Exam(s) CT CHEST WO EXAM: CT CHEST WO CLINICAL HISTORY: trauam TECHNIQUE: Imaging Protocol: Axial computed tomography images with coronal and sagittal reformatted images were created and reviewed CONTRAST MATERIAL: Noncontrast COMPARISON: CT CT CHEST/ABD/PEL W from 10/27/[address] PELVIC WO from 10/25/2023 FINDINGS: Exam limited by patient arm positioning at is sides question causes streak artifact from, particular ly at the level of the upper abdomen. Also limited by respiratory motion and poor pulmonary inflatio n.. Pulmonary parenchyma: Mild emphysematous changes, greater at the apices. Dependent changes posterior ly, left greater than right. Pneumonitis not entirely excluded. Clinical correlation recommended. No consolidation. No dominant measurable mass. Tracheobronchial tree: No bronchiectasis or mucous plugging. Mediastinum and Faye: No dominant adenopathy or fluid collection. Pleura: No effusion. No pneumothorax. Heart: The heart is mildly dilated. Mild to moderate coronary artery calcifications are seen. Aorta: Thoracic aorta non-dilated. Mild atherosclerotic changes. Upper abdomen: Enlarged, cirrhotic appearing liver. Spleen not enlarged. Bones: Degenerative changes in the spine. Old left rib fractures. No acute fracture identified. Soft tissues: Asymmetric gynecomastia, left greater than right. IMPRESSION: Limited evaluation of the lungs due to motion and expiratory changes. Question of mild left lower lo be infiltrate. RADIATION DOSE DELIVERED: Total DLP DATA REPOSITORY: All CT scans at this facility are submitted to the National Radiology Data Registry (NRDR) Dose Index Registry (DIR) with the [employer] (ACR). RADIATION OPTIMIZATION: All CT scans at this facility use at least one of these dose optimization te chniques: automated exposure control; mA and/or kV adjustment per patient size (includes targeted exa ms where dose is matched to clinical indication); or iterative reconstruction.
--- NOTE | 2023-10-25 20:30 | DI.CT_ITS ---
Exam(s) CT PELVIC WO EXAM: CT PELVIC WO CLINICAL HISTORY: trauma. TECHNIQUE: Imaging Protocol: Axial computed tomography images with coronal and sagittal reformatted images were created and reviewed. CONTRAST MATERIAL: None COMPARISON: CT CT CHEST/ABD/PEL W from 10/27/[address] CHEST WO from 10/25/2023 FINDINGS: Bladder: [place] distended. No gross wall thickening. No stone or mass visible. Bowel: No obstruction or bowel wall thickening. Appendix normal. Peritoneal cavity: No ascites, collection or mesenteric inflammatory response. Reproductive: Unremarkable. Vasculature: Aorta and prox iliac arteries calcified. Bones: No fracture. Soft tissues: Small bilateral fat containing inguinal hernias. IMPRESSION: No acute abnormality. RADIATION DOSE DELIVERED: Total DLP DATA REPOSITORY: All CT scans at this facility are submitted to the National Radiology Data Registry (NRDR) Dose Index Registry (DIR) with the [employer] (ACR). RADIATION OPTIMIZATION: All CT scans at this facility use at least one of these dose optimization te chniques: automated exposure control; mA and/or kV adjustment per patient size (includes targeted exa ms where dose is matched to clinical indication); or iterative reconstruction.
[2023-10-25 20:41] LABS: ALT 42 U/L (16-63); AST 89 U/L (15-37); Albumin 3.5 g/dL (3.4-5.0); Alkaline Phosphatase 174 U/L (46-116); Anion Gap 14.7 mmol/L (3-11); BUN 2 mg/dL (7-18); CO2 25.3 mmol/L (21.0-32.0); CREATININE 0.8 mg/dL (0.70-1.30); Calcium 8.5 mg/dL (8.5-10.1); Chloride 94 mmol/L (98-107); Estimated GFR 103.87 (mL/min/1.73m2); Glucose 97 mg/dL (74-106); Magnesium 1.8 mg/dL (1.8-2.4); Potassium 3.8 mmol/L (3.5-5.1); Sodium 134 mmol/L (136-145); Total Protein 9.4 g/dL (6.4-8.2)
[2023-10-25 20:42] LABS: *AMPHETAMINES SCREEN URINE Negative (Negative); *BARBITURATES SCREEN URINE Negative (Negative); *BENZODIAZEPINES SCREEN URINE Negative (Negative); Cannabinoids THC Negative (Negative); Cocaine Screen,Urine Negative (Negative); METHADONE URINE SCREEN Negative (Negative); OPIATES URINE SCREEN Negative (Negative)
[2023-10-25 20:43] LABS: Creatine Kinase 53 U/L (39-308)
[2023-10-25 20:45] LABS: Tricyclic Antidepressants Negative (Negative)
[2023-10-25 20:52] LABS: ETHANOL BLOOD 461.4 mg/dL (<10)
--- NOTE | 2023-10-25 21:24 | NUR.NOTE ---
Nursing Note: pt slurred speech, strong smell of alcohol, pt states that he has broken ribs to his right side and injured right leg, the pt had a Velcro splint. pt stated i think I had a seizure the pt is non-compliant and is extremely FALSE PASS and attempted to get OOB to use the urinal, the pt is unable to ambulate, needing assistance with the urinal and staff assisted the pt back to laying on the bed. IV X1 liter NS infused, awaiting CT results
--- NOTE | 2023-10-25 21:56 | DI.VRAD_ITS ---
PROCEDURE INFORMATION: Exam: CT Head Without Contrast Exam date and time: 10/25/2023 8:48 PM Age: 58 years old Clinical indication: Other: Intoxicated, found on ground TECHNIQUE: Imaging protocol: Computed tomography of the head without contrast. COMPARISON: CT HEAD CERV SPINE FACIAL WO 08/31/2023 9:04 PM FINDINGS: Brain: There is moderate diffuse heterogeneity of the white matter attenuation, consistent with chronic white matter microangiopathic ischemic changes. There is moderate diffuse cerebral atrophy present. There is no evidence of intracranial hemorrhage. There is no evidence of acute intracranial injury or other pathologic process. There is no evidence of an acute ischemic event. Cerebral ventricles: The ventricular system demonstrates mild to moderate diffuse compensatory enlargement. Paranasal sinuses: Mucoperiosteal thickening consistent with chronic sinusitis. No air-fluid levels to suggest evidence of acute sinusitis. Mastoid air cells: The mastoid aircells are normal. Orbital cavities: The orbits are normal without evidence of fracture. There is no evidence of retro-bulbar hemorrhage. There is no evidence of globe or lens injury. Bones: Old remote fractures of the facial bones and nasal bones. The bony cranium shows no evidence of injury or other acute pathologic processes. Soft tissues: The extracranial soft tissues show probable mild soft tissue swelling at the right frontal region. Vasculature: Vascular calcifications seen consistent with chronic atherosclerotic cerebrovascular disease. Other findings: Motion artifact does moderately limit the sensitivity of this examination. IMPRESSION: 1. No evidence of an acute intracranial abnormality. 2. There is moderate age-related atrophy and chronic white matter ischemic changes, with compensatory ventricular dilation. 3. The extracranial soft tissues show probable mild soft tissue swelling at the right frontal region. PROCEDURE INFORMATION: Exam: CT Cervical Spine Without Contrast Exam date and time: 10/25/2023 8:48 PM Age: 58 years old Clinical indication: Other: Intoxicated, found on ground TECHNIQUE: Imaging protocol: Computed tomography of the cervical spine without contrast. COMPARISON: CT HEAD CERV SPINE FACIAL WO 08/31/2023 9:04 PM FINDINGS: Bones: There is no evidence of acute vertebral body element or posterior vertebral element fracture. There is a nonspecific reversal of the normal cervical lordosis. This may represent paravertebral muscle spasm versus positioning. Clinical correlation recommended. The anterior posterior borders of the vertebral bodies are in good alignment. No evidence of acute subluxation. No evidence of acute compression fractures. There are moderate to severe degenerative disc changes of the cervical spine at C5-C6 and C6-C7. There are associated sclerotic changes and anterior osteophytes with small posterior osteophytes. [id number] neurforaminal narrowing secondary to degenerative changes present. Mild narrowing of the central spinal canal secondary to degenerative changes. There is no evidence of acute disc injury. The spinal canal and cord are otherwise normal. The visualized portions of the skull base and brain are unremarkable. Lungs: Moderate centrilobular emphysematous changes are present. There is an accessory azygous fissure present. There are moderate paraseptal emphysematous changes at the apices of the lungs bilaterally. Lymph nodes: There is no evidence of lymphadenopathy. Soft tissues: The prevertebal, paravertebral, pharyngeal, hypopharyngeal, and laryngeal soft tissue structures are unremarkable. IMPRESSION: 1. There is no evidence of acute vertebral body element or posterior vertebral element fracture. 2. There is a nonspecific reversal of the normal cervical lordosis. This may represent paravertebral muscle spasm versus positioning. Clinical correlation recommended. 3. The anterior posterior borders of the vertebral bodies are in good alignment. No evidence of acute subluxation. 4. There are moderate to severe degenerative disc changes of the cervical spine at C5-C6 and C6-C7. There are associated sclerotic changes and anterior osteophytes with small posterior osteophytes. 5. There is no evidence of acute disc injury. Dictated and Authenticated by: Prasanna Stiles MD. Ordering:MEL Patricia MD
--- NOTE | 2023-10-25 22:13 | DI.VRAD_ITS ---
PROCEDURE INFORMATION: Exam: CT Pelvis Without Contrast; Skeletal Exam date and time: 10/25/2023 9:03 PM Age: 58 years old Clinical indication: Injury or trauma; Fall; Other: Intoxicated, found on ground TECHNIQUE: Imaging protocol: Computed tomography of the pelvis without contrast. Exam focused on the skeleton. COMPARISON: CT CHEST/ABD/PEL W 10/27/2022 9:34 PM FINDINGS: Intestine: There is no evidence of intestinal obstruction. There is no evidence of diverticulosis. There is mild increased colonic fecal content. The colon is nondilated. These findings suggest a mild degree of constipation. Clinical correlation recommended. Appendix: A normal appendix is identified. There is no evidence of distention or periappendiceal inflammation to suggest appendicitis. Intraperitoneal space: There is no free intraperitoneal air. There is no evidence of free intraperitoneal or pelvic fluid. There are no soft tissue masses or fluid collections. Vasculature: Mild moderate atherosclerosis of the abdominal aorta. Moderate atherosclerosis of the peripheral vasculature in the iliac arteries. The portal venous system visualized is unremarkable. The venous system visualized is unremarkable. Reproductive: The prostate is unremarkable. Urinary bladder: The bladder is normal. Bones/joints: The skeletal structures and soft tissues show no evidence of fracture or other acute processes. Nlgj-ah-auahnigf degenerative changes of the lumbar spine. Moderate to severe degenerative changes of the sacroiliac joints with ankylosis of the superior anterior aspects of the sacroiliac joints bilaterally. No evidence of fracture or dislocation. The proximal femora appear intact. There are mild degenerative changes of the hips bilaterally. There is mild to moderate degenerative changes of the lumbosacral spine. Soft tissues: Probable sebaceous cyst of the left buttock. Probable sebaceous cyst within the left inguinal region. There are nonobstructing bilateral inguinal hernias containing fat and possibly a small amount of mesentery. Lymph nodes: There is no evidence of lymphadenopathy. IMPRESSION: 1. There is mild increased colonic fecal content. The colon is nondilated. These findings suggest a mild degree of constipation. Clinical correlation recommended. 2. Degenerative changes of the pelvis no evidence of acute pelvic injury. Dictated and Authenticated by: Prasanna Stiles MD. Ordering:MEL Patricia MD
--- NOTE | 2023-10-25 22:25 | DI.VRAD_ITS ---
PROCEDURE INFORMATION: Exam: CT Chest Without Contrast; Diagnostic Exam date and time: 10/25/2023 9:03 PM Age: 58 years old Clinical indication: Other: Intoxicated, found on ground TECHNIQUE: Imaging protocol: Diagnostic computed tomography of the chest without contrast. COMPARISON: CT CHEST/ABD/PEL W 10/27/2022 9:34 PM FINDINGS: Lungs: Atelectatic changes present in the lung bases bilaterally. Scattered patchy ground-glass opacities within the lower lungs, right middle lobe and left upper lobe of the lungs. These findings are nonspecific and may represent hypoventilatory change,edema, hemorrhage, or an infectious/inflammatory process. Consider pulmonary contusion. There is heterogeneous attenuation of the pulmonary parenchyma, consistent with air trapping from underlying small airways disease. Pleural spaces: There is no evidence of pneumothorax. There are no pleural effusions present. Heart: Unremarkable. No cardiomegaly. No pericardial effusion. Coronary arteries: There is moderate atherosclerotic calcification of the coronary arteries. Lymph nodes: Unremarkable. No enlarged lymph nodes. Vasculature: Prominent portal vein 15 mm consistent with early portal hypertension. Liver: There is a finely nodular contour to the liver and hypertrophy of the caudate lobe, consistent with end-stage cirrhosis. Bones/joints: The thoracic spine demonstrates mild degenerative changes at multiple levels. The skeletal structures and soft tissues show no evidence of fracture or other acute processes. There are probable healed rib fractures of the 6th lateral and 7th lateral ribs. No definitive acute rib fractures are identified. Soft tissues: There is nonspecific gynecomastia. The soft tissues of the extrathoracic region are unremarkable. The upper abdominal viscera unremarkable. IMPRESSION: 1. Scattered patchy ground-glass opacities within the lower lungs, right middle lobe and left upper lobe of the lungs. These findings are nonspecific and may represent hypoventilatory change,edema, hemorrhage, or an infectious/inflammatory process. Consider pulmonary contusion. 2. Atelectatic changes present in the lung bases bilaterally. 3. There is heterogeneous attenuation of the pulmonary parenchyma, consistent with air trapping from underlying small airways disease. Probable cirrhosis and early portal hypertension. Dictated and Authenticated by: Prasanna Stiles MD. Ordering:MEL Patricia MD
--- NOTE | 2023-10-25 22:27 | W.EDPROG ---
Date of service: 10/25/23 Time of Service: 22:27 Medical Decision Making This patient was signed out to me. Please see previous notes for H&P and initial eval. In brief, 58yo M presenting clinically intoxicated. Medical screening labs overally reassuring. Pending CT reads; if negative likely discharge when clinically sober. CT reads as below, no significant acute or traumatic findings. Overnight appeared to be sleeping comfortably, vital signs reassuring. Awoke patient at 0530 for assessment; he reports right rib pain (given ibuprofen), otherwise denies complaints. Ambulates somewhat unsteadily- he reports this is normal for him (admits that he does fall frequently). No slurred speech. Did ambulate to the bathroom and back independently. Declines physical therapy; requests discharge home. He does appear to be clinically sober at this time and I have no indication to hold him against his will. Will arrange for RCT. Discharged home; discharge instructions and return precautions were reviewed with patient who verbalized understanding. All questions were answered and he is in full agreement with the plan. Imaging Data Radiologic Study: Imaging: CT Scan Radiologist's impression: IMPRESSION: 1. No evidence of an acute intracranial abnormality. 2. There is moderate age-related atrophy and chronic white matter ischemic changes, with compensatory ventricular dilation. 3. The extracranial soft tissues show probable mild soft tissue swelling at the right frontal region. IMPRESSION: 1. There is no evidence of acute vertebral body element or posterior vertebral element fracture. 2. There is a nonspecific reversal of the normal cervical lordosis. This may represent paravertebral muscle spasm versus positioning. Clinical correlation recommended. 3. The anterior posterior borders of the vertebral bodies are in good alignment. No evidence of acute subluxation. 4. There are moderate to severe degenerative disc changes of the cervical spine at C5-C6 and C6- C7. There are associated sclerotic changes and anterior osteophytes with small posterior osteophytes. 5. There is no evidence of acute disc injury. IMPRESSION: 1. Scattered patchy ground-glass opacities within the lower lungs, right middle lobe and left upper lobe of the lungs. These findings are nonspecific and may represent hypoventilatory change,edema, hemorrhage, or an infectious/inflammatory process. Consider pulmonary contusion. 2. Atelectatic changes present in the lung bases bilaterally. 3. There is heterogeneous attenuation of the pulmonary parenchyma, consistent with air trapping from underlying small airways disease. Probable cirrhosis and early portal hypertension. IMPRESSION: 1. There is mild increased colonic fecal content. The colon is nondilated. These findings suggest a mild degree of constipation. Clinical correlation recommended. 2. Degenerative changes of the pelvis no evidence of acute pelvic injury. Quality:SDOH Health Related Social Needs: No Data to Display Sign Out Sign Out Data: Sign Out Comment: Patient presented by EMS intoxicated and unable to safely ambulate, he was intoxicated with alcohol level of 460. Other labs unremarkable. Imaging still pending at time of signout is complaining of right rib pain Last updated by Belem Brink NP at 10/25/23 22:24 Discharge Plan Disposition Patient Disposition: Home Condition: Good Discharge Details Clinical Impression: Alcohol intoxication Primary Care Provider: Ilene Moore ED Provider: Supriya Jacobo Home Meds and New Rx's Prescriptions: No Action No Known Home Meds Discharge Instructions Instructions: Alcohol Intoxication (ED) Additional Instructions: Call your primary care doctor today to schedule an appointment within one week to followup on your visit here. Return to the emergency department for new or worsening symptoms. Referrals: Ilene Moore [Primary Care Provider] -
[2023-10-26] VITALS (61 sets, daily range): BP systolic 83–106; BP diastolic 51–72; PULSE 60–90; RESP 11–25; O2SAT 91–99
[2023-10-26] MEDS: Ibuprofen 800 MG TAB PO (06:03)
== END 2023-10-26 09:19 | disposition home or self-care (01) ==
PROVIDERS: Nurse Practitioner Acute Care; Emergency Provider Student in an Organized Health Care Education/Training Program; PCP Nurse Practitioner Family
DX: F10.220 Alcohol dependence with intoxication, uncomplicated (principal); G40.909 Epilepsy, unspecified, not intractable, without status epilepticus; F17.210 Nicotine dependence, cigarettes, uncomplicated; Z59.00 Homelessness unspecified; Y90.8 Blood alcohol level of 240 mg/100 ml or more
CPT/HCPCS: 00123; 71250; 80053; 80307; 82550; 96360; 99284; 70450; 72125; 72192; 80320; 81003; 83735; 85025

== ENCOUNTER 2023-11-02 19:15 | Emergency (ER) | payer MEDICAID, SELFPAY ==
[2023-11-02 19:08] VITALS: BP 91/66; PULSE 94; RESP 20; TEMP 37; O2SAT 94
[2023-11-02 19:12] VITALS: BP 91/66; PULSE 94; RESP 15; RESP 20; TEMP 37; O2SAT 94
--- NOTE | 2023-11-02 19:16 | ED.GENADUL_ITS ---
Discharge Plan Disposition Patient Disposition: Eloped Condition: Fair Discharge Details Chief Complaint: GenMedical Clinical Impression: Alcohol abuse Primary Care Provider: Ilene Moore ED Provider: Supriya Jacobo Home Meds and New Rx's Prescriptions: No Action No Known Home Meds HPI General Date/Time Provider Initiated Documentation: 11/02/23 19:16 . Limitations to Documentation: no limitations . Information obtained by: patient and police . HPI Narrative: 58yo M with hx of ETOH abuse, peripheral neuropathy, presenting via PD for alcohol intoxication. Patient denies complaints on arrival and states he wants to leave. Related Data Home Medications Medication Instructions Recorded Confirmed Unknown [No Known Home Meds] 10/25/23 11/02/23 Allergies Allergy/AdvReac Type Severity Reaction Status Date / Time No Known Allergies Allergy Unverified 10/25/23 20:03 General Stated Complaint: GenMedical JINNY: 4 Review of Systems Narrative: see HPI Exam Narrative Exam Narrative: General: Alert, in no acute distress. Hard of hearing. Head: Normocephalic, atraumatic Neck: Trachea midline, ?Neck supple. Cardiac: ?No cyanosis. Resp: No respiratory distress. Speaking in full sentences. . Abd: ?Non-distended Extremities: ?No deformities.? No peripheral edema. Neurologic: GCS 15. ? Moves all extremities freely against gravity. A&O. Able to ambulate independently. Course Vital Signs Vital signs: Vital Signs Temperature 37.0 C 11/02/23 19:08 Pulse 94 H 11/02/23 19:08 Respiratory Rate 20 11/02/23 19:08 Blood Pressure 91/66 L 11/02/23 19:08 Pulse Oximetry 94 11/02/23 19:08 Temperature 37.0 C 11/02/23 19:12 Temperature Source Oral 11/02/23 19:12 Pulse 94 H 11/02/23 19:12 Respiratory Rate 15 11/02/23 19:12 Respiratory Effort Normal 11/02/23 19:12 Respiratory Depth Normal 11/02/23 19:12 Respiratory Pattern Normal 11/02/23 19:12 Blood Pressure 91/66 L 11/02/23 19:12 Blood Pressure Position Sitting 11/02/23 19:12 Pulse Oximetry 94 11/02/23 19:12 Oxygen Delivery Method Room Air 11/02/23 19:12 Oxygen Flow Rate 0 11/02/23 19:08 Medical Decision Making 58yo M with hx of ETOH abuse, peripheral neuropathy, presenting via PD for alcohol intoxication. Patient denies complaints on arrival and states he wants to leave. Vital signs and physical exam reassuring on arrival. He denies any complaints and states he wants to leave. Poor ambulation at baseline 2/t nikkie ropathy. His ambulation does appear to be at his baseline level of steadiness and is no different than when I last saw him on 10/24 after he had been observed in the ED overnight. I offered to observe him again in the ED; he again state that he wanted to leave but was willing to stay long enough for find a ride. Refused blood draw. I have no indication to hold him against his well as he demonstrates capacity and is able to ambulate independently at his baseline. Subsequently eloped from the department. Quality:SDOH Health Related Social Needs: No Data to Display PFSH All Active Problems (Updated 10/26/23 @ 03:07 by Supriya Jacobo MD) Alcohol abuse (Chronic) Discharge planning issues (Acute) Weakness (Acute) Alcohol intoxication (Acute) Substance abuse (Acute) Alcohol abuse (Chronic) Alcoholic peripheral neuropathy (Acute) Seizure disorder (Acute) Multiple rib fractures (Acute) Rib fracture (Acute) Alcohol withdrawal (Acute) Alcoholic hepatitis (Acute) Alcoholic gastritis (Acute) Alcohol dependence (Acute) Tobacco dependence (Acute) Ankle fracture, left (Acute) Discharge planning issues (Acute) Hypokalemia (Acute) Medical History Alcohol use disorder Social History Smoking/Tobacco Use Status: Current every day Tobacco Type: cigarettes Smoking risk assessment performed?: Yes Alcohol Intake: current Alcohol Intake frequency: 3 or more drinks per day Alcohol type: beer, wine and hard liquor Drug use: Occasionally Substance use type: marijuana and painkillers Details: States he drinks almost a case of beer a day. Today pt reports he consumed both beer and wine. Housing: homeless Do you feel safe at home: Yes Do you feel safe in your relationship?: Yes Additional Social history: Pt reports he has been sleeping in a van for the last month. PAWSS Have you Been Recently Intoxicated or Drunk Within the Last 30 days?: Yes Have you Ever Experienced Previous Episodes of Alcohol Withdrawal?: Yes Have you ever Experienced Withdrawal Seizures?: No Have you ever Experienced Delirium Tremens(DT)s?: Yes Have you ever undergone Alcohol Rehabilitation Treatment (i.e, inpt ot outpatient treatment programs)?: Yes Have you ever Experienced Blackouts?: Yes Have you ever Combined Alcohol with other Downers within the last 90 days?: No Have you ever Combined Alcohol with any other Substance of Abuse during the last 90 days?: No Result: 5
[2023-11-02 20:31] VITALS: BP 91/66; PULSE 94; RESP 15; TEMP 37; O2SAT 94
--- NOTE | 2023-11-02 20:38 | NUR.NOTE ---
Patient was medically cleared by provider. Patient eloped because he did not want to be here.
== END 2023-11-02 20:32 | disposition left against medical advice (07) ==
PROVIDERS: Emergency Provider Student in an Organized Health Care Education/Training Program; PCP Nurse Practitioner Family
DX: F10.120 Alcohol abuse with intoxication, uncomplicated (principal); Z53.29 Procedure and treatment not carried out because of patient's decision for other reasons
CPT/HCPCS: 99282

== ENCOUNTER 2024-02-17 21:35 | Emergency (ER) | payer MEDICAID, SELFPAY ==
[2024-02-17] VITALS (11 sets, daily range): BP systolic 81–96; BP diastolic 46–59; PULSE 66–79; RESP 13–19; TEMP 35.4; O2SAT 94–96
[2024-02-17] MEDS: diazePAM 5 MG TAB PO (21:55)
[2024-02-17 22:08] LABS: Bilirubin Negative (Negative); Blood Negative (Negative); Clarity Clear (Clear); Glucose Negative (Negative); Ketones Negative (Negative); Leukocyte Esterase Negative (Negative); Nitrite Negative (Negative); Specific Gravity <= 1.005 (1.005-1.025); Urobilinogen 0.2 mg/dL (Up to 0.2); pH 5.5 (5-8)
[2024-02-17 22:13] LABS: Abs Immature Grans 0.02 10^3/uL (0.0-0.06); Absolute Eosinophil Count 0.08 10^3/uL (0.0-0.7); Absolute Lymphocyte Count 1.54 10^3/uL (1.2-3.4); Absolute Monocyte Count 0.46 10^3/uL (0.1-0.8); Absolute Neutrophil Count 2.34 10^3/uL (1.2-6.7); Basophils % 2.2 %; Eosinophils % 1.8 %; HCT 36.6 % (40.0-50.0); HGB 12.3 g/dL (13.5-17.5); Immature Grans % 0.4 %; Lymphocytes % 33.9 %; MCHC 33.6 % (32.0-36.0); MCV 104 fL (80-95); MPV 9.1 fL (8.0-11.0); Monocytes % 10.1 %; Neutrophils % 51.6 %; Platelet Count 183 10^3/uL (130-400); RBC 3.51 10^6/uL (4.36-5.78); RDW 13.8 % (11.8-14.1); RDW-SD 53.2 fL; WBC 4.54 10^3/uL (4.4-10.8)
[2024-02-17] MEDS: ACETAMINOPHEN 1,000 MG/100 ML BTL 400 MG IVPB (22:14)
[2024-02-17] MEDS: Normal Saline 1,000 ML 1000 ML IV (22:16)
--- NOTE | 2024-02-17 22:21 | W.ED.GENAD ---
Discharge Plan Discharge Details Chief Complaint: Seizure Primary Care Provider: Ilene Nolan ED Provider: Yuni Guzman Home Meds and New Rx's Prescriptions: No Action No Known Home Meds HPI General Date/Time Provider Initiated Documentation: 02/17/24 21:41. Limitations to Documentation: altered mental status and physical limitation. Information obtained by: EMS. HPI Narrative: 58-year-old gentleman with history including seizure disorder, chronic alcohol abuse, unhoused presents for evaluation after being found unresponsive by bystander. On police arrival, the patient was alert and ambulatory. There were signs of trauma, so EMS was contacted. EMS brought the patient to the hospital for further evaluation. Patient reports that he fell down because his legs stopped working which happens to him because of his neuropathy. He does have a seizure disorder and is well-known to ED and his seizures have been observed multiple times previously. Unknown if he had a seizure today. He is unable to provide any additional information. Related Data Home Medications ?Medication ?Instructions ?Recorded ?Confirmed Unknown [No Known Home Meds] 10/25/23 11/02/23 Allergies Allergy/AdvReac Type Severity Reaction Status Date / Time No Known Allergies Allergy Unverified 10/25/23 20:03 General Stated Complaint: Seizure JINNY: 3 Exam Narrative Exam Narrative: Review of Systems: All systems reviewed & are unremarkable except as noted in HPI and below Cachectic, chronically ill-appearing, disheveled and dirty Abrasion at the crown of the scalp, 1cm laceration well approximated no active bleeding. RRR Unlabored respiratory effort Nondistended abdomen Right upper extremity with some scabbed abrasions over the forearm no focal neurologic deficits, moving all extremities equally, alert and oriented Course Vital Signs Vital signs: Vital Signs Temperature 35.4 C L 02/17/24 21:33 Pulse 77 02/17/24 21:33 Respiratory Rate 16 02/17/24 21:33 Blood Pressure 96/59 L 02/17/24 21:33 Pulse Oximetry 95 02/17/24 21:33 Temperature 35.4 C L 02/17/24 21:33 Temperature Source Oral 02/17/24 21:33 Pulse 77 02/17/24 21:33 Respiratory Rate 16 02/17/24 21:33 Respiratory Effort Normal 02/17/24 21:56 Respiratory Depth Normal 02/17/24 21:56 Respiratory Pattern Normal 02/17/24 21:56 Blood Pressure 96/59 L 02/17/24 21:33 Blood Pressure Position Supine 02/17/24 21:33 Pulse Oximetry 95 02/17/24 21:33 Oxygen Delivery Method Room Air 02/17/24 21:33 Oxygen Flow Rate 0 02/17/24 21:33 Lab/Test Results Lab/Test Results: Laboratory Tests Range/Units 02/17/24 02/17/24 21:38 22:07 WBC (4.4-10.8) 10^3/uL 4.54 RBC (4.36-5.78) 10^6/uL 3.51 L Hgb (13.5-17.5) g/dL 12.3 L Hct (40.0-50.0) % 36.6 L MCV (80-95) fL 104 H MCH (27.0-33.0) pg 35.0 H MCHC (32.0-36.0) % 33.6 RDW (11.8-14.1) % 13.8 Plt Count (130-400) 10^3/uL 183 MPV (8.0-11.0) fL 9.1 Immature Gran % % 0.4 Neutrophils % % 51.6 Lymphocytes % % 33.9 Monocytes % % 10.1 Eosinophils % % 1.8 Basophils % % 2.2 Nucleated RBC % (0.0-0.3) % 0.0 Absolute Neutrophils (1.2-6.7) 10^3/uL 2.34 Absolute Lymphocytes (1.2-3.4) 10^3/uL 1.54 Absolute Monocytes (0.1-0.8) 10^3/uL 0.46 Absolute Eosinophils (0.0-0.7) 10^3/uL 0.08 Absolute Basophils (0.0-0.2) 10^3/uL 0.10 Urine Color (Yellow) Yellow Urine Clarity (Clear) Clear Urine pH (5-8) 5.5 Ur Specific Landing (1.005-1.025) <= 1.005 Urine Protein (Neg-Trace) mg/dL Negative Urine Ketones (Negative) mg/dL Negative Urine Blood (Negative) Negative Urine Nitrite (Negative) Negative Urine Bilirubin (Negative) Negative Urine Urobilinogen (Up to 0.2) mg/dL 0.2 Ur Leukocyte Esterase (Negative) Negative Urine Glucose (Negative) mg/dL Negative Medical Decision Making Emergent evaluation of altered mental status. Initial differential includes alcohol intoxication, substance abuse, would also consider seizure or other trauma given his wound on his head. Plan for close monitoring, CT imaging and lab work to evaluate. 2230 Notified by nurse, that the patient had one of his seizures which was generalized tonic clonic and last for about 10 seconds. He did get oral valium, will load with keppra. 2310 Lab work reviewed. No leukocytosis or significant anemia. No electrolyte derangement. Glucose is only 93, so we will start D5 NS maintenance fluids for this patient. Urinalysis is unremarkable for any signs of infection or blood. Alcohol level is 347. Given this alcohol level, seizures are unlikely to be from withdrawal, but will monitor closely. Drug screen was sent to evaluate for coingestions. I did review the head CT, and I do not appreciate any acute traumatic abnormality final read pending. 2330 Alcohol level significantly elevated. Drug screen clear. Final disposition pending clinical sobriety and a safe discharge plan. Turned over to oncoming provider. Quality:SDOH Health Related Social Needs: No Data to Display [facility] All Active Problems Discharge planning issues (Acute) Weakness (Acute) Alcohol intoxication (Acute) Substance abuse (Acute) Alcohol abuse (Chronic) Alcoholic peripheral neuropathy (Acute) Seizure disorder (Acute) Multiple rib fractures (Acute) Rib fracture (Acute) Alcohol withdrawal (Acute) Alcoholic hepatitis (Acute) Alcoholic gastritis (Acute) Alcohol dependence (Acute) Tobacco dependence (Acute) Ankle fracture, left (Acute) Discharge planning issues (Acute) Hypokalemia (Acute) Medical History Alcohol use disorder Family History Mother Cancer Social History Smoking/Tobacco Use Status: Current every day Tobacco Type: cigarettes Years smoked: 38 Tobacco: How many years used: 38 Quit status: not considering quitting Smoking risk assessment performed?: Yes Alcohol Intake: current Alcohol Intake frequency: a few times a week Alcohol type: beer, wine and hard liquor Substance use type: does not use Details: States he drinks almost a case of beer a day. Today pt reports he consumed both beer and wine. Adopted: No Caregiver/Support person: No Foster care: No Household members: friend(s) and other Details: Whoever wants to stay there Housing: homeless Number of Children: 0 number of grandchildren: 0 Communication Needs: Hard of Hearing Education Level: high school Do you need help understanding health information?: Always Pets and animals: No Sexually active: No Do you think of yourself as: straight/heterosexual Current gender identity: male What is your relationship status?: never How often do you talk on the phone with friends or family?: never How often do you get together with friends or relatives?: three or more times per week Do you belong to any clubs or organized social groups?: no Panel score (0-1 are the most socially isolated patients): 1 What type of physical activity do you participate in: none Laura/Adventism: None Special laura needs: No Seatbelt use: always Drive intox or ride w/intox haul driver: No Do you feel safe at home: Yes Do you feel safe in your relationship?: Yes Additional Social history: Pt reports he has been sleeping in a van for the last month. Sign Out Sign Out Data: Sign Out Comment: BIBA Found down, AMS +Alcohol intoxication minor head trauma ?questionable seizure activity in ED. Does have history of seizures. loaded with keppra Plan for: monitoring for sobriety and DC when clinically sober and safe. Last updated by Yuni Guzman MD at 02/17/24 23:18 PAWSS Have you Been Recently Intoxicated or Drunk Within the Last 30 days?: Yes Have you Ever Experienced Previous Episodes of Alcohol Withdrawal?: Yes Have you ever Experienced Withdrawal Seizures?: Yes Have you ever Experienced Delirium Tremens(DT)s?: Yes Have you ever undergone Alcohol Rehabilitation Treatment (i.e, inpt ot outpatient treatment programs)?: Unable to Obtain Have you ever Experienced Blackouts?: Yes Have you ever Combined Alcohol with other Downers within the last 90 days?: No Have you ever Combined Alcohol with any other Substance of Abuse during the last 90 days?: No Positive Blood Alcohol level on Presentation? [PCS.BAL]: Yes Evidence of Increased Autonomic Activity (i.e. HR>120, tremor, sweating, agitation, nausea)?: Yes Result: 7
[2024-02-17 22:27] LABS: ALT 44 U/L (16-63); AST 110 U/L (15-37); Alkaline Phosphatase 186 U/L (46-116); Anion Gap 12.3 mmol/L (3-11); BUN 4 mg/dL (7-18); Bilirubin, Total 0.64 mg/dL (0.2-1.0); CO2 24.7 mmol/L (21.0-32.0); CREATININE 0.6 mg/dL (0.70-1.30); Calcium 8.7 mg/dL (8.5-10.1); Chloride 102 mmol/L (98-107); Estimated GFR 113.29 (mL/min/1.73m2); Glucose 93 mg/dL (74-106); Sodium 139 mmol/L (136-145); Total Protein 9.2 g/dL (6.4-8.2)
--- NOTE | 2024-02-17 22:41 | DI.CT_ITS ---
Exam(s) CT HEAD CERVICAL SPINE WO EXAM: CT HEAD CERVICAL SPINE WO CLINICAL HISTORY: fall head injury. TECHNIQUE: Imaging Protocol: Axial computed tomography images with coronal and sagittal reformatted images were created and reviewed COMPARISON: CT CT HEAD CERVICAL SPINE WO from 10/25/2023 FINDINGS: BRAIN: There are no skull fractures. Fluid in both maxillary sinuses consistent with sinusitis. No sinus w all fractures nor nasal bone fracture evident. Other paranasal sinuses and mastoid air cells are rubi ar. There is no evidence of intracranial hemorrhage, mass effect, or shift of midline structures. There are no extra-axial fluid collections. The ventricles are not enlarged or shifted and there is no blo od within the ventricular system nor within the basal cisterns. Amount of atrophy is similar to prior study of October 2023. CERVICAL SPINE: There is no evidence of fracture nor listhesis. No significant prevertebral soft tissue swelling. Multilevel chronic degenerative disc disease at C5-6 and C6-7 levels with disc space narrowing at the se levels. No listhesis. There is facet arthropathy which is most evident at C2-3 and C3-4 levels. There is no significant facet joint malalignment. No significant osseous lesions evident. IMPRESSION: No acute intracranial findings on this noninfused CT scan of the brain. No evidence of acute cervical spine fracture, malalignment, nor acute compromise of the cervical spin al canal. Multilevel degenerative disc disease and facet arthropathy. Multilevel canal stenosis RADIATION DOSE DELIVERED: 1,304.89mGy.cm Total DLP DATA REPOSITORY: All CT scans at this facility are submitted to the National Radiology Data Registry (NRDR) Dose Index Registry (DIR) with the [employer] (ACR). RADIATION OPTIMIZATION: All CT scans at this facility use at least one of these dose optimization te chniques: automated exposure control; mA and/or kV adjustment per patient size (includes targeted exa ms where dose is matched to clinical indication); or iterative reconstruction.
[2024-02-17 23:03] LABS: ETHANOL BLOOD 347.7 mg/dL (<10)
[2024-02-17] MEDS: DEXTROSE 5%-0.9% SALINE 1,000 ML 100 ML IV (23:06)
[2024-02-17 23:12] LABS: *AMPHETAMINES SCREEN URINE Negative (Negative); *BARBITURATES SCREEN URINE Negative (Negative); *BENZODIAZEPINES SCREEN URINE Negative (Negative); Cannabinoids THC Negative (Negative); Cocaine Screen,Urine Negative (Negative); METHADONE URINE SCREEN Negative (Negative); OPIATES URINE SCREEN Negative (Negative)
[2024-02-17 23:13] LABS: Tricyclic Antidepressants Negative (Negative)
--- NOTE | 2024-02-17 23:34 | DI.VRAD_ITS ---
PROCEDURE INFORMATION: Exam: CT Head Without Contrast Exam date and time: 02/17/2024 10:34 PM Age: 58 years old Clinical indication: Injury or trauma; Blunt trauma (contusions or hematomas); Consciousness not specified; Injury date: 02/17/24; Patient HX: Fall, head injury TECHNIQUE: Imaging protocol: Computed tomography of the head without contrast. Radiation optimization: All CT scans at this facility use at least one of these dose optimization techniques: automated exposure control; mA and/or kV adjustment per patient size (includes targeted exams where dose is matched to clinical indication); or iterative reconstruction. COMPARISON: CT HEAD CERVICAL SPINE WO 10/25/2023 8:48 PM FINDINGS: Brain: Normal. No hemorrhage. Unremarkable white matter. No mass effect. Cerebral ventricles: No ventriculomegaly. Paranasal sinuses: Mucosal thickening fluid in the maxillary sinuses. Mastoid air cells: Visualized mastoid air cells are well aerated. Bones: Unremarkable. No acute fracture. Soft tissues: Unremarkable. IMPRESSION: No acute intracranial finding. PROCEDURE INFORMATION: Exam: CT Cervical Spine Without Contrast Exam date and time: 02/17/2024 10:34 PM Age: 58 years old Clinical indication: Injury or trauma; Blunt trauma (contusions or hematomas); Consciousness not specified; Injury date: 02/17/24; Patient HX: Fall, head injury TECHNIQUE: Imaging protocol: Computed tomography of the cervical spine without contrast. Radiation optimization: All CT scans at this facility use at least one of these dose optimization techniques: automated exposure control; mA and/or kV adjustment per patient size (includes targeted exams where dose is matched to clinical indication); or iterative reconstruction. COMPARISON: CT HEAD CERVICAL SPINE WO 10/25/2023 8:48 PM FINDINGS: Bones/joints: No acute fracture. Normal alignment. Multilevel degenerative disk disease and facet arthropathy with neuroforaminal and canal stenosis.. Lungs: Lung apices are normal. Soft tissues: Unremarkable. IMPRESSION: No acute findings. Dictated and Authenticated by: Blayne Nixon MD. Ordering:[facility] Megan Dickerson MD
[2024-02-18] VITALS (27 sets, daily range): BP systolic 70–94; BP diastolic 45–63; PULSE 69–88; RESP 12–24; O2SAT 74–100
--- NOTE | 2024-02-18 06:53 | W.EDPROG ---
Date of service: 02/18/24 Time of Service: 06:53 Medical Decision Making Patient was signed out to me pending observation. Patient slept well throughout the night. No interventions needed. He woke up this morning well, with no signs of neurologic deficit acutely or other abnormality. CT scan negative for acute process. Patient was offered antiepileptic prescriptions, for Dilantin or for Keppra, but he has declined stating that he does not like how any of the antiepileptics make him feel. Workup demonstrated an elevated alcohol initially, which she has metabolized well. Drug screen was otherwise negative. I did remind the patient about alcohol is negative components and enhancement for likelihood for seizures. He understands this. Patient otherwise demonstrates no acute neurologic deficit, or other abnormality. He does not want any additional medications for home. Patient is stable for discharge. Discussed red flags for which to return. I have extensively reviewed the treatment plan and discharge instructions with the patient. I have addressed all patient concerns at this time. The patient was made aware of what symptoms to monitor for that would warrant a return to the emergency department. Discussed the plan with the patient, they demonstrate verbal understanding and agreement with our assessment and plan at this time. The documentation in this chart was dictated using [employer] dictation software. Please excuse any dictation errors. FINDINGS: Brain: Normal. No hemorrhage. Unremarkable white matter. No mass effect. Cerebral ventricles: No ventriculomegaly. Paranasal sinuses: Mucosal thickening fluid in the maxillary sinuses. Mastoid air cells: Visualized mastoid air cells are well aerated. Bones: Unremarkable. No acute fracture. Soft tissues: Unremarkable. IMPRESSION: No acute intracranial finding. FINDINGS: Bones/joints: No acute fracture. Normal alignment. Multilevel degenerative disk disease and facet arthropathy with neuroforaminal and canal stenosis.. Lungs: Lung apices are normal. Soft tissues: Unremarkable. IMPRESSION: No acute findings. Thank you for allowing us to participate in the care of your patient. Dictated and Authenticated by: Blayne Nixon MD 02/17/2024 11:34 PM Eastern Time ([place] & [place]) Quality:SDOH Health Related Social Needs: No Data to Display Sign Out Sign Out Data: Sign Out Comment: BIBA Found down, AMS +Alcohol intoxication minor head trauma ?questionable seizure activity in ED. Does have history of seizures. loaded with kebenjaminra Plan for: monitoring for sobriety and DC when clinically sober and safe. Last updated by Yuni Guzman MD at 02/17/24 23:18 Discharge Plan Discharge Details Chief Complaint: Seizure Primary Care Provider: Ilene Nolan ED Provider: Lorenzo Hoover Home Meds and New Rx's Prescriptions: No Action No Known Home Meds
== END 2024-02-18 07:26 | disposition home or self-care (01) ==
LOC: ER 02-18 07:16
PROVIDERS: Emergency Medicine; Emergency Provider Student in an Organized Health Care Education/Training Program; PCP Nurse Practitioner Family
DX: S40.811A Abrasion of right upper arm, initial encounter (principal); S00.91XA Abrasion of unspecified part of head, initial encounter; G40.909 Epilepsy, unspecified, not intractable, without status epilepticus; F10.120 Alcohol abuse with intoxication, uncomplicated; Z79.899 Other long term (current) drug therapy; Y90.8 Blood alcohol level of 240 mg/100 ml or more; W18.30XA Fall on same level, unspecified, initial encounter
CPT/HCPCS: 00123; 80053; 80307; 82962; 96365; 96367; 99284; 70450; 72125; 80320; 81003; 85025; J0131; J1953; J7042

== ENCOUNTER 2024-11-02 21:07 | Emergency (ER) | payer MEDICAID, SELFPAY ==
[2024-11-02 21:14] VITALS: BP 111/73; PULSE 80; RESP 18; TEMP 36.9; O2SAT 94
[2024-11-02 21:20] VITALS: BP 111/73; PULSE 80; RESP 18; TEMP 36.9; O2SAT 94
--- NOTE | 2024-11-02 21:42 | W.ED.GENAD ---
Discharge Plan Disposition Patient Disposition: [facility] Condition: Stable Discharge Details Clinical Impression: Alcohol abuse Primary Care Provider: Unknown,Unknown ED Provider: Blayne Yates Home Meds and New Rx's Prescriptions: No Action No Known Home Meds Discharge Instructions Additional Instructions: Follow-up with your primary care provider within 1 to 2 weeks. Try to limit your alcohol to 1-2 beverages a day. If you feel you are suffering from emergent medical process return to the emergency department for reevaluation HPI General Mode of arrival: EMS. Date/Time Provider Initiated Documentation: 11/02/24 21:13. Information obtained by: patient. History of Present Illness 59 year old M presents to the emergency department with the chief complaint of alcohol intoxication, described as moderate, Patient started experiencing this day(s) (1) and it has been constant. No relieving factors improve symptom(s), No exacerbating factors reported . Patient did receive the following treatments prior to arrival, none Related Data Home Medications ?Medication ?Instructions ?Recorded ?Confirmed Unknown [No Known Home Meds] 10/25/23 02/18/24 Allergies Allergy/AdvReac Type Severity Reaction Status Date / Time No Known Allergies Allergy Unverified 10/25/23 20:03 General Stated Complaint: GenMedical JINNY: 3 Review of Systems All systems reviewed & are unremarkable except as noted in HPI and below Constitutional Constitutional: Denies chills and Denies fever(s) Cardiovascular Cardiovascular: Denies chest pain and Denies dyspnea Respiratory Respiratory: Denies cough and Denies dyspnea Gastrointestinal Gastrointestinal: Denies abdominal pain, Denies nausea and Denies vomiting Psychiatric Psychiatric: Denies depression Exam Const General: no acute distress Orientation: alert [facility] Head: normal to inspection Ears: external ears normal General nose exam: external nose normal Mouth: moist mucous membranes Eyes General: appearance normal, both eyes and all related structures Neck Neck: normal visual inspection Resp Effort & Inspection: normal respiratory effort and able to speak in complete sentences Cardio Rate: regular rate GI Palpation: soft and nontender Neuro General: patient alert and patient oriented x3 Extrem General: normal to inspection Psych Mental Status: mental status grossly normal Course Vital Signs Vital signs: Vital Signs Temperature 36.9 C 11/02/24 21:14 Pulse 80 11/02/24 21:14 Respiratory Rate 18 11/02/24 21:14 Blood Pressure 111/73 11/02/24 21:14 Pulse Oximetry 94 11/02/24 21:14 Temperature 36.9 C 11/02/24 21:20 Temperature Source Tympanic 11/02/24 21:20 Pulse 80 11/02/24 21:20 Respiratory Rate 18 11/02/24 21:20 Respiratory Effort Normal 11/02/24 21:19 Blood Pressure 111/73 11/02/24 21:20 Blood Pressure Position Supine 11/02/24 21:20 Pulse Oximetry 94 11/02/24 21:20 Oxygen Delivery Method Room Air 11/02/24 21:20 Oxygen Flow Rate 0 11/02/24 21:20 Pain Level 0 11/02/24 21:20 Medical Decision Making 59-year-old male with a history of alcohol abuse and peripheral neuropathy from chronic alcohol use comes in with EMS with alcohol intoxication. He is currently homeless and tried to sleep on a porch and was found intoxicated so was brought here. The patient has no new acute complaints. He says he has chronic issues with weakness in his legs and neuropathy but this is unchanged. He denies any drug use. He is alert and oriented and answering questions appropriately though does have a strong smell of alcohol on his breath. He is moving all his extremities well. He has no new acute complaints. Stable vital signs. Do not feel any lab testing is indicated. He does not have anyone that can pick him up or anywhere to go so we will plan for him to go to holding still until he is sober. He is medically cleared to go to the correctional facility Quality:SDOH Health Related Social Needs: No Data to Display [facility] All Active Problems (Updated 03/20/24 @ 00:04 by LUPILLO MAZARIEGOS) Discharge planning issues (Acute) Weakness (Acute) Alcohol intoxication (Acute) Substance abuse (Acute) Alcohol abuse (Chronic) Alcoholic peripheral neuropathy (Acute) Seizure disorder (Acute) Multiple rib fractures (Acute) Rib fracture (Acute) Alcohol withdrawal (Acute) Alcoholic hepatitis (Acute) Alcoholic gastritis (Acute) Alcohol dependence (Acute) Tobacco dependence (Acute) Ankle fracture, left (Acute) Discharge planning issues (Acute) Hypokalemia (Acute) Medical History Alcohol use disorder Family History Mother Cancer Social History Smoking/Tobacco Use Status: Current every day Tobacco Type: cigarettes Years smoked: 38 Tobacco: How many years used: 38 Quit status: not considering quitting Smoking risk assessment performed?: Yes Alcohol Intake: current Alcohol Intake frequency: a few times a week Alcohol type: beer, wine and hard liquor Substance use type: does not use Details: States he drinks almost a case of beer a day. Today pt reports he consumed both beer and wine. Adopted: No Caregiver/Support person: No Foster care: No Household members: friend(s) and other Details: Whoever wants to stay there Housing: homeless Number of Children: 0 number of grandchildren: 0 Communication Needs: Hard of Hearing Education Level: high school Do you need help understanding health information?: Always Pets and animals: No Sexually active: No Do you think of yourself as: straight/heterosexual Current gender identity: male What is your relationship status?: never How often do you talk on the phone with friends or family?: never How often do you get together with friends or relatives?: three or more times per week Do you belong to any clubs or organized social groups?: no Panel score (0-1 are the most socially isolated patients): 1 What type of physical activity do you participate in: none Laura/Pentecostalism: None Special laura needs: No Seatbelt use: always Drive intox or ride w/intox front end loader driver: No Do you feel safe at home: Yes Do you feel safe in your relationship?: Yes Additional Social history: Pt reports he has been sleeping in a van for the last month. PAWSS Have you Been Recently Intoxicated or Drunk Within the Last 30 days?: Yes Have you Ever Experienced Previous Episodes of Alcohol Withdrawal?: No Have you ever Experienced Withdrawal Seizures?: No Have you ever Experienced Delirium Tremens(DT)s?: No Have you ever undergone Alcohol Rehabilitation Treatment (i.e, inpt ot outpatient treatment programs)?: No Have you ever Experienced Blackouts?: Yes Have you ever Combined Alcohol with other Downers within the last 90 days?: Yes Have you ever Combined Alcohol with any other Substance of Abuse during the last 90 days?: No Positive Blood Alcohol level on Presentation? [PCS.BAL]: Yes Evidence of Increased Autonomic Activity (i.e. HR>120, tremor, sweating, agitation, nausea)?: No Result: 3
== END 2024-11-02 22:38 ==
PROVIDERS: Emergency Provider Emergency Medicine
DX: F10.929 Alcohol use, unspecified with intoxication, unspecified (principal)
CPT/HCPCS: 99283; 99285

== ENCOUNTER 2024-12-11 12:08 | Inpatient (IN) | payer MEDICAID, SELFPAY ==
[2024-12-11] VITALS (50 sets, daily range): BP systolic 85–112; BP diastolic 43–75; PULSE 69–105; RESP 12–25; TEMP 36.6–37; O2SAT 90–98
--- NOTE | 2024-12-11 13:44 | W.ED.GENAD ---
Discharge Plan Discharge Details Chief Complaint: Cellulitis Clinical Impression: Ulcer of right heel, Bilateral cellulitis of lower leg, Decubitus ulcer of sacral area, Normocytic anemia, Acute hypokalemia Primary Care Provider: Unknown,Unknown ED Provider: Rian Strauss Home Meds and New Rx's Prescriptions: No Action No Known Home Meds HPI General Date/Time Provider Initiated Documentation: 12/11/24 13:33. HPI Narrative: MDM This is an acute on chronic right lower extremity infection with heel ulcer concerns possibility of osteomyelitis in this 59-year-old normothermic and not tachycardic alcoholic with concern for sepsis for which patient will undergo MRI blood cultures and broad-spectrum empiric antibiotics. I covered empirically with MRSA coverage using vancomycin for his bilateral lower extremity cellulitis. No pain out of proportion to suggest necrotizing soft tissue infection. Will send wound culture. I am also concerned about the possibility of right calf abscess and chronic osteomyelitis. Given the patient's alcohol abuse history we will monitor on CIWA score. Patient had anemia but no thrombocytopenia. No leukocytosis. He had no AYANNA. He had mild elevation of his ESR. He is hypoalbuminemic. He is intoxicated. He has a soft nontender abdomen so not suspicious for intra-abdominal infection. No chest pain to suggest ACS I did not obtain ECG. No bullae to suggest Mead-Anjel syndrome. No vesicles to suggest zoster. Feet are warm well-perfused am not concerned for critical limb ischemia so I do not feel that patient requires a CT angiogram with runoffs. There are no satellite lesions to suggest tinea. Furthermore he has no sign of id reaction. He has no documented history of eczema to suggest severe refractory atopic dermatitis. No black or bloody stools to suggest GI bleed. No dysuria or frequency to suggest UTI. Anticipate the patient will require hospitalization. If leg has signs of osteomyelitis in the right heel we will attempt transfer given complexity of care and possibility that patient may require consideration of amputation. Furthermore I do not have orthopedics on the moment. 5 PM Patient had no signs of withdrawal thus far in the emergency department. He did have a lactic acidosis. He had worsened normocytic anemia. He had no AYANNA. He had mild hypokalemia for which he received IV & oral repletion. He had elevated ethanol level. I signed patient out to Dr. Hoover. If his MRI does not show osteomyelitis we will likely benefit from a CT scan with contrast of his right lower extremity below the knee to assess for abscess. HPI The patient presents for evaluation of worsening right heel and lower extremity pain. He sustained a frostbite approximately 4.5 years ago, which has resulted in severe pain and limited mobility. The most intense pain is localized to his right heel, making it difficult for him to walk or stand. He also reports significant discomfort in his calf. He was previously informed that there is no cure for his condition. The severity of his symptoms has led to job loss and housing instability. He does not consume alcohol daily. He uses a cane for support due to the pain. Exam General: Chronically ill-appearing in no acute distress speaking in complete sentences. Quite hard of hearing. Head: Normocephalic, atraumatic. Eye: Extraocular eye movements intact. No conjunctival injection. No scleral icterus. Ear, nose, mouth, throat: Grossly normal inspection. Normal voice, handling secretions normally. Neck: Trachea midline. Cardiovascular: Well-perfused distal extremities. Regular rate and rhythm Respiratory: Nonlabored respiration. Clear lungs bilaterally Gastrointestinal: Nondistended abdomen. Soft nontender. Back: Stage I sacral decubitus ulcer with 1 small area stage II ulcer. Musculoskeletal: Bilateral lower extremities beefy red firm right greater than left. There is 1+ nonpitting edema. On the right leg there is a circumferential well-demarcated line at the proximal and of the right calf with erythema. On the right heel there is an open ulcerated approximately 2 x 2 cm area. Patient has intact PT and DP pulses. Cap refill less than 2 seconds in bilateral feet which are warm well-perfused. He has a sensation in his feet. He has limitations in his range of motion as a result of pain. Skin: Normal for age and race, grossly normal temperature and turgor. No acute rash. Neurologic: Alert and appropriate, no apparent acute deficits. Related Data Home Medications ?Medication ?Instructions ?Recorded ?Confirmed Unknown [No Known Home Meds] 10/25/23 02/18/24 Allergies Allergy/AdvReac Type Severity Reaction Status Date / Time No Known Allergies Allergy Unverified 12/11/24 12:32 General Stated Complaint: Cellulitis JINNY: 2 Course Vital Signs Vital signs: Vital Signs Temperature 36.6 C 12/11/24 12:10 Pulse 88 12/11/24 12:10 Respiratory Rate 20 12/11/24 12:10 Blood Pressure 112/70 12/11/24 12:10 Pulse Oximetry 90 L 12/11/24 12:10 Temperature 36.6 C 12/11/24 12:10 Temperature Source Oral 12/11/24 12:10 Pulse 88 12/11/24 12:10 Respiratory Rate 20 12/11/24 12:10 Blood Pressure 112/70 12/11/24 12:10 Pulse Oximetry 90 L 12/11/24 12:10 Oxygen Delivery Method Nasal Cannula 12/11/24 12:10 Oxygen Flow Rate 2 12/11/24 12:10 Pain Level 10 12/11/24 12:10 Lab/Test Results Lab/Test Results: 12/11/24 13:33 Blood Blood Culture - Pending 12/11/24 13:33 Blood Blood Culture - Pending Medical Decision Making Quality:SDOH Health Related Social Needs: Health related social needs inadequate housing risk of homeless food insecurity transpo insecurity material hardship house/econ circumstance lonely/isolated education Health related social needs details Pt is homeless. PFSH All Active Problems (Updated 12/11/24 @ 17:06 by Rian Strauss MD) Acute hypokalemia (Acute) Normocytic anemia (Acute) Decubitus ulcer of sacral area (Acute) Bilateral cellulitis of lower leg (Acute) Ulcer of right heel (Acute) Discharge planning issues (Acute) Weakness (Acute) Alcohol intoxication (Acute) Substance abuse (Acute) Alcohol abuse (Chronic) Alcoholic peripheral neuropathy (Acute) Seizure disorder (Acute) Multiple rib fractures (Acute) Rib fracture (Acute) Alcohol withdrawal (Acute) Alcoholic hepatitis (Acute) Alcoholic gastritis (Acute) Alcohol dependence (Acute) Tobacco dependence (Acute) Ankle fracture, left (Acute) Discharge planning issues (Acute) Hypokalemia (Acute) Medical History Alcohol use disorder Family History Mother Cancer Social History Smoking/Tobacco Use Status: Current every day Tobacco Type: cigarettes Years smoked: 38 Tobacco: How many years used: 38 Quit status: not considering quitting Smoking risk assessment performed?: Yes Alcohol Intake: current Alcohol Intake frequency: a few times a week Alcohol type: beer, wine and hard liquor Drug use: Occasionally Substance use type: does not use Details: States he drinks almost a case of beer a day. Today pt reports he consumed both beer and wine. Adopted: No Caregiver/Support person: No Foster care: No Household members: friend(s) and other Details: Whoever wants to stay there Housing: homeless Number of Children: 0 number of grandchildren: 0 Communication Needs: Hard of Hearing Education Level: high school Do you need help understanding health information?: Always Pets and animals: No Sexually active: No Do you think of yourself as: straight/heterosexual Current gender identity: male What is your relationship status?: never How often do you talk on the phone with friends or family?: never How often do you get together with friends or relatives?: three or more times per week Do you belong to any clubs or organized social groups?: no Panel score (0-1 are the most socially isolated patients): 1 What type of physical activity do you participate in: none Laura/Episcopalian: None Special laura needs: No Seatbelt use: always Drive intox or ride w/intox miniature train driver: No Do you feel safe at home: Yes Do you feel safe in your relationship?: Yes Additional Social history: Pt reports he has been sleeping in a van for the last month.
--- NOTE | 2024-12-11 14:03 | DI.MRI_ITS ---
Exam(s) MR LOWER JOINT RT WO/W EXAM: MR LOWER JOINT RT WO/W CLINICAL HISTORY: right heel ulcer. TECHNIQUE: Multiplanar multisequence MRI Examination was performed. CONTRAST MATERIAL: IV Contrast: 19 mL of Dotarem contrast administered. COMPARISON: None. Exam is interpreted without benefit of comparison plain films. FINDINGS: The exam is somewhat limited by motion. BONES/JOINTS: No evidence of fracture. No evidence of bone erosions. No joint effusion identified. MUSCULOTENDINOUS STRUCTURES: No tendon abnormalities are identified. Visualized portion of the planar fascia is unremarkable. SOFT TISSUES: There is a small defect at the skin of the plantar aspect of the heel. There is no focal drainable collection or abscess. There is diffuse edema in the subcutaneous fat, consistent with cellulitis. IMPRESSION: No evidence of osteomyelitis. No drainable abscess or fluid collection. Cellulitis is present. DATA REPOSITORY:
[2024-12-11] MEDS: PIPERACILLIN/TAZO 3.375 GM in Normal Saline 50 ML IVPB ×2 (14:24→23:51)
[2024-12-11] MEDS: VANCOMYCIN/WATER (PEG) 1.75 GM/350 ML BAG IVPB (14:25)
[2024-12-11 14:26] LABS: Abs Immature Grans 0.02 10^3/uL (0.0-0.06); HCT 30.8 % (40.0-50.0); HGB 10.4 g/dL (13.5-17.5); Immature Grans % 0.3 %; MCH 29.7 pg (27.0-33.0); MCHC 33.8 % (32.0-36.0); MCV 88 fL (80-95); MPV 9.2 fL (8.0-11.0); Platelet Count 153 10^3/uL (130-400); RBC 3.50 10^6/uL (4.36-5.78); RDW 19.5 % (11.8-14.1); RDW-SD 62.3 fL; WBC 6.18 10^3/uL (4.4-10.8)
[2024-12-11] MEDS: Normal Saline 500 ML IV (14:26)
[2024-12-11 14:31] LABS: ALT 25 U/L (16-63); AST 56 U/L (15-37); Albumin 2.9 g/dL (3.4-5.0); Alkaline Phosphatase 138 U/L (46-116); Anion Gap 11.5 mmol/L (3-11); BUN 5 mg/dL (7-18); Bilirubin, Total 0.8 mg/dL (0.2-1.0); CO2 26.5 mmol/L (21.0-32.0); Calcium 8.7 mg/dL (8.5-10.1); Chloride 101 mmol/L (98-107); Estimated GFR 118.97 (mL/min/1.73m2); Glucose 76 mg/dL (74-106); Magnesium 2.1 mg/dL (1.8-2.4); Potassium 3.0 mmol/L (3.5-5.1); Sodium 139 mmol/L (136-145); Total Protein 8.9 g/dL (6.4-8.2)
[2024-12-11 14:32] LABS: C-Reactive Protein < 0.50 mg/dL (<or=0.5)
[2024-12-11 14:33] LABS: ESR 65 mm/hr (0-20)
[2024-12-11] MEDS: Gadoterate meglumine 20 ML SYRINGE IVP (17:01)
[2024-12-11] MEDS: Potassium Chloride 20 MEQ TABCR 40 MEQ PO (17:49)
[2024-12-11] MEDS: POTASSIUM CHLORIDE 10 MEQ/100 ML BAG 100 MEQ IV_INF (17:50)
--- NOTE | 2024-12-11 19:05 | W.EDPROG ---
Date of service: 12/11/24 Time of Service: 19:05 Medical Decision Making Patient was signed out to me pending MRI results. MRI results returned showing no evidence of osteomyelitis, no drainable abscess or fluid collection, cellulitis is present. Patient remains hemodynamically stable. No evidence of tachycardia or fever at this time, suspect cellulitis, broad-spectrum antibiotics have already been administered, concern for potential DTs and withdrawal. Because of the patient's risk factors, homelessness, and clinical disposition, I do feel that admission is indicated at this time. We did contact the hospitalist Dr. Parra, he agrees with the assessment and plan. Patient will be admitted for further management. I have extensively reviewed the treatment plan with the patient. I have addressed all patient concerns at this time. I have also discussed the plan with the admitting physician and they agree with the current assessment and plan and have agreed to assume responsibility for the patient. All parties demonstrate verbal understanding and agreement with our assessment and plan at this time. The documentation in this chart was dictated using [employer] dictation software. Please excuse any dictation errors. FINDINGS: The exam is somewhat limited by motion. BONES/JOINTS: No evidence of fracture. No evidence of bone erosions. No joint effusion identified. MUSCULOTENDINOUS STRUCTURES: No tendon abnormalities are identified. Visualized portion of the planar fascia is unremarkable. SOFT TISSUES: There is a small defect at the skin of the plantar aspect of the heel. There is no focal drainable collection or abscess. There is diffuse edema in the subcutaneous fat, consistent with cellulitis. IMPRESSION: No evidence of osteomyelitis. No drainable abscess or fluid collection. Cellulitis is present. Quality:SDOH Health Related Social Needs: Health related social needs inadequate housing risk of homeless food insecurity transpo insecurity material hardship house/econ circumstance lonely/isolated education Health related social needs details Pt is homeless. Discharge Plan Disposition Patient Disposition: Admit to [facility] Condition: Improving Discharge Details Clinical Impression: Ulcer of right heel, Bilateral cellulitis of lower leg, Decubitus ulcer of sacral area, Normocytic anemia, Acute hypokalemia, Sepsis Primary Care Provider: Unknown,Unknown ED Provider: Lorenzo Hoover Home Meds and New Rx's Prescriptions: No Action No Known Home Meds
--- NOTE | 2024-12-11 19:17 | HPE_ITS ---
Date of service: 12/11/24 Time of Service: 19:17 Assessment and Plan Assessment and plan (1) Ulcer of right heel: Start date: 12/11/24 Status: Acute Assessment and plan: This is a 59-year-old gentleman who is an alcoholic who lives on the street recently having absolutely no housing. He does have chronic housing instability and food instability with increasing pain in his lower extremities having to use a cane for ambulation. This all occurred after an episode of frostbite more than 4 years ago while sleeping in his car during the winter. At that time he was employed but has lost employment since that incident. He was told that his frostbite is incurable. He does have a chronic ulcer over his heel but this is worsened recently and his pain is worsened prompting ED evaluation. He has to walk everywhere, depending on the bus system which he does not navigate well with his slow walking with a cane and he is food challenged with a recent place that he received food having minimal offerings. He also had to walk extensively to reach his food assistance just prior to admission. He is shoeless at this time but did have rubber boots which were rubbing causing a chronic ulcer on his right heel which has worsened along with his leg pain which as stated, prompted the ED evaluation. MRI did not reveal any osteomyelitis or abscess and wound culture and blood cultures were obtained. Patient was initiated on Zosyn with vancomycin which will be continued until culture pathology is available. Patient will need wound care and care management assistance with his housing and food challenges. He is a full code. (2) Acute hypokalemia: Start date: 12/11/24 Status: Acute Assessment and plan: IV repletion and follow-up lab. This most likely is nutritional. (3) Alcohol intoxication: Start date: 12/11/24 Status: Acute Assessment and plan: Patient does have alcohol level over 300 upon admission and is on CIWA protocol but no withdrawal protocol initiated at this time. He does not appear inebriated upon admission. (4) Bilateral cellulitis of lower leg: Status: Chronic Assessment and plan: This is a chronic problem with poor circulation after his frostbite which was bilateral. He has chronic edema and skin breakdown. He may do well with health it specialist in the near future and for now leg elevation and wound care with compression stockings. He does have chronic inflammation but cellulitis appears more evident over the right foot with ulcer. Long-term he may do well with venous compression stockings and proper fitting shoes. Once he is stable and more strong OT and PT may be helpful. He has minimal resources for self-care as an outpatient. (5) Decubitus ulcer of sacral area: Status: Chronic Assessment and plan: This was reported by the nurses and should be inspected by nursing on MedSurg with wound care as needed. He is weak and has less ambulation recently using a cane for walking which is becoming difficult. (6) Substance use disorder: Status: Chronic Assessment and plan: Urine drug screen was negative with patient having no recent illicit drug use by history. VPMS was negative for any prescribed controlled substances. Expanded urine drug screen was sent out as a precaution to aid in outpatient therapy. The patient is at risk for misuse with homelessness, chronic pain and chronic alcohol use. (7) Alcoholic hepatitis: Status: Chronic Assessment and plan: This is chronic and appears stable with normal bilirubin. PT/INR will be checked.. (8) Tobacco dependence: Status: Chronic Assessment and plan: NicoDerm topically as needed. History of Present Illness History of Present Illness Chief Complaint: Swollen feet with ulcer on right heel Narrative: This is a 59-year-old male patient who is homeless living on the street for the last several weeks having lost his housing with chronic alcohol use when he can afford it history of substance use disorder with no reported recent use and negative drug screen in the ED and presently has an alcohol level of 315 presenting with swelling of his feet and ulcer of his his right heel. He states that he had a walk more recently trying to go [facility] the [facility] [facility] and has been wearing malfitting boots but now is barefoot. He does have a history of frostbite years ago and his feet have never healed correctly and he has chronic swelling and venous stasis changes over his legs. He often has dark scabbed sores and ulcers. He also has ulcers over his sacrum reported by the ED nurses and is poorly kempt. He has no fever or increased white count and CRP is negative though sed rate was elevated. He was cultured with blood cultures and urine culture and initiated on Zosyn with vancomycin for infection. The patient is very hard of hearing and states that he was working prior to his frostbite incident and this occurred when he was sleeping in his car during the winter. He appears to have had homelessness for a long time. He is food deprived at this time and appears very thin. He will be admitted for treatment of this infection until pathogen is apparent and for wound care as well as potassium repletion which should probably nutritional deficit with patient on no medications. As stated, he is chronically homeless and care management needs to possibly assist him in obtaining housing and better diet. He is a full code. Review of Systems Narrative: 13 point review of systems otherwise unrevealing or stable. Patient is very hard of hearing and communication is poor. [facility] All Active Problems (Updated 12/12/24 @ 07:03 by Kwame Delcid) Substance use disorder (Chronic) Sepsis (Acute) Acute hypokalemia (Acute) Normocytic anemia (Acute) Decubitus ulcer of sacral area (Chronic) Bilateral cellulitis of lower leg (Chronic) Ulcer of right heel (Acute) Discharge planning issues (Acute) Weakness (Acute) Alcohol intoxication (Acute) Substance abuse (Acute) Alcohol abuse (Chronic) Alcoholic peripheral neuropathy (Acute) Seizure disorder (Acute) Multiple rib fractures (Acute) Rib fracture (Acute) Alcohol withdrawal (Acute) Alcoholic hepatitis (Chronic) Alcoholic gastritis (Acute) Alcohol dependence (Acute) Tobacco dependence (Chronic) Ankle fracture, left (Acute) Discharge planning issues (Acute) Hypokalemia (Acute) Medical History Alcohol use disorder Family History Mother Cancer Social History Smoking/Tobacco Use Status: Current every day Tobacco Type: cigarettes Years smoked: 38 Tobacco: How many years used: 38 Quit status: not considering quitting Smoking risk assessment performed?: Yes Alcohol Intake: current Alcohol Intake frequency: a few times a week Alcohol type: beer, wine and hard liquor Drug use: Occasionally Substance use type: does not use Details: States he drinks almost a case of beer a day. Today pt reports he consumed both beer and wine. Adopted: No Caregiver/Support person: No Foster care: No Household members: friend(s) and other Details: Whoever wants to stay there Housing: homeless Number of Children: 0 number of grandchildren: 0 Communication Needs: Hard of Hearing Education Level: high school Do you need help understanding health information?: Always Pets and animals: No Sexually active: No Do you think of yourself as: straight/heterosexual Current gender identity: male What is your relationship status?: never How often do you talk on the phone with friends or family?: never How often do you get together with friends or relatives?: three or more times per week Do you belong to any clubs or organized social groups?: no Panel score (0-1 are the most socially isolated patients): 1 What type of physical activity do you participate in: none Laura/Rastafarian: None Special laura needs: No Seatbelt use: always Drive intox or ride w/intox emergency detail driver: No Do you feel safe at home: Yes Do you feel safe in your relationship?: Yes Additional Social history: Pt reports he has been sleeping in a van for the last month. Meds Allergies and Home Medications Allergies Allergy/AdvReac Type Severity Reaction Status Date / Time No Known Allergies Allergy Unverified 12/11/24 12:32 Home Medications ?Medication ?Instructions ?Recorded ?Confirmed ?Type Unknown [No Known Home Meds] 10/25/23 0 02/18/24 History Exam Narrative Exam Narrative: General: Patient appears much older than stated age, cachectic muscle wasting and patient darkly tanned over his body from sleeping in the open. He does have an odor and has been changed being found with bedbugs upon presentation. He is very hard of hearing which limits communication. When he can read lips or here he appears to be alert and oriented to person and place at least. HEENT: Normocephalic, eyes with pupils equal and react to light symmetrically, extraocular movement intact and sclera anicteric. Oropharynx with dry mucosa and very poor dentition with missing teeth and carious teeth. Neck: Supple without JVD. Back: Kyphotic without CVA tenderness. Lungs: Bronchovesicular breath sounds diffusely with fair aeration and no focalizing rales or rhonchi. No increased expiratory phase or expiratory wheeze. Heart: Regular rate and rhythm with no murmurs or gallops appreciated. Abdomen: Scaphoid contour, soft and nontender to palpation with no palpable hepatosplenomegaly. Bowel sounds positive in all quadrants. Genitalia/rectal: Exam deferred. Extremities: Without clubbing, cyanosis or pitting edema. Muscle wasting diffusely. 3 cm dry ulcer over right heel and reported sacral ulcer which was not examined with patient too weak to turn over or set up without assistance. Chronic venous stasis changes over legs with 2+ moderate edema and hyperpigmentation. Black scabs over the tips of his toes without drainage. Skin: Darkly tanned diffusely with rough texture and decreased turgor. Warm to touch and dry. Skin changes over legs with description of ulcers under extremities. Neuro: Cranial nerves II through XII intact as upper hearing acuity which is markedly reduced, no focalized motor deficits the patient is generally weak and has to walk with a cane. No tremor. Psych: Anxious with pressured speech, flattened affect with depressed mood. No abnormal thought processes. Remote and recent memory appear to be grossly intact with poor communication secondary to severe hearing deficit. Results Imaging Imaging Studies: EXAM: MR LOWER JOINT RT WO/W Date of exam: 12/11/2024 CLINICAL HISTORY: right heel ulcer. TECHNIQUE: Multiplanar multisequence MRI Examination was performed. CONTRAST MATERIAL: IV Contrast: 19 mL of Dotarem contrast administered. COMPARISON: None. Exam is interpreted without benefit of comparison plain films. FINDINGS: The exam is somewhat limited by motion. BONES/JOINTS: No evidence of fracture. No evidence of bone erosions. No joint effusion identified. MUSCULOTENDINOUS STRUCTURES: No tendon abnormalities are identified. Visualized portion of the planar fascia is unremarkable. SOFT TISSUES: There is a small defect at the skin of the plantar aspect of the heel. There is no focal drainable collection or abscess. There is diffuse edema in the subcutaneous fat, consistent with cellulitis. IMPRESSION: No evidence of osteomyelitis. No drainable abscess or fluid collection. Cellulitis is present. Labs 12/11/24 14:19 12/11/24 13:54 Labs: Laboratory Results - last 24 hr 12/11/24 12/11/24 13:54 14:19 WBC 6.18 RBC 3.50 L Hgb 10.4 L Hct 30.8 L MCV 88 MCH 29.7 MCHC 33.8 RDW 19.5 H Plt Count 153 MPV 9.2 Immature Gran % 0.3 Neutrophils % 61.5 Lymphocytes % 24.1 Monocytes % 11.0 Eosinophils % 1.5 Basophils % 1.6 Nucleated RBC % 0.0 Absolute Neutrophils 3.80 Absolute Lymphocytes 1.49 Absolute Monocytes 0.68 Absolute Eosinophils 0.09 Absolute Basophils 0.10 ESR 65 H VBG Lactate 2.9 H* Sodium 139 Potassium 3.0 L Chloride 101 Carbon Dioxide 26.5 Anion Gap 11.5 H BUN 5 L Creatinine 0.5 L Est GFR (CKD-EPI 2020) 118.97 Glucose 76 Calcium 8.7 Magnesium 2.1 Total Bilirubin 0.8 AST 56 H ALT 25 Alkaline Phosphatase 138 H C-Reactive Protein < 0.50 Total Protein 8.9 H Albumin 2.9 L Ethyl Alcohol 315.4 H Last Vital Signs Temp 36.6 C 12/11/24 12:10 Pulse 75 12/11/24 18:31 Resp 13 12/11/24 18:40 BP 97/64 L 12/11/24 18:31 Pulse Ox 94 12/11/24 16:01 PAWSS Have you Been Recently Intoxicated or Drunk Within the Last 30 days?: Yes Have you Ever Experienced Previous Episodes of Alcohol Withdrawal?: Yes Have you ever Experienced Withdrawal Seizures?: Yes Have you ever Experienced Delirium Tremens(DT)s?: Yes Have you ever undergone Alcohol Rehabilitation Treatment (i.e, inpt ot outpatient treatment programs)?: Yes Have you ever Experienced Blackouts?: Yes Have you ever Combined Alcohol with other Downers within the last 90 days?: Yes Have you ever Combined Alcohol with any other Substance of Abuse during the last 90 days?: Yes Positive Blood Alcohol level on Presentation? [PCS.BAL]: Yes Evidence of Increased Autonomic Activity (i.e. HR>120, tremor, sweating, agitation, nausea)?: Yes Result: 10 Time Spent Time spent with Patient: >75 minutes Time was spent: preparing to see the patient(eg.review tests), obtaining and/or reviewing separately otained hiistory, ordering medications,tests, procedures, indepentently interpreting results, counseling the patient and care coordination
[2024-12-11 20:18] LABS: Cannabinoids THC Negative (Negative); METHADONE URINE SCREEN Negative (Negative)
[2024-12-11 20:23] LABS: COVID-19 PCR Negative (Negative); RSV PCR Negative (Negative)
--- NOTE | 2024-12-11 21:14 | W.PC.ACHO ---
Registration Status: REG ER Primary Language: Preferred Language: Turkish ED Information & Data Chief Complaint Cellulitis 12/11/24 15:45 Triage Note Pt arrives via EMS d/t bilat 12/11/24 12:10 LE swelling + pain. Necrotic wound noted to RT foot. Pt also under the influence of ETOH. Placed on 2L of O2 via NC in triage. Medical / Surgical History (Last Reviewed 12/11/24 @ 19:20 by Kwame Delcid) Alcohol use disorder Most Recent Vital Signs Temperature 36.6 C 12/11/24 12:10 Temperature Source Oral 12/11/24 12:10 Pulse 77 12/11/24 20:45 Pulse 83 12/11/24 20:50 Respiratory Rate 16 12/11/24 20:50 Respiratory Pattern Normal 12/11/24 19:16 Blood Pressure 85/43 L 12/11/24 20:45 Blood Pressure Mean 56 12/11/24 20:45 Pulse Oximetry 96 12/11/24 20:31 Oxygen Delivery Method Nasal Cannula 12/11/24 12:10 Oxygen Flow Rate 2 12/11/24 12:10 Pain Level 8 12/11/24 14:44 Allergies No Known Allergies Allergy (Unverified 12/11/24 12:32) Active Medications Generic Name Dose Route Start Last Admin Trade Name Freq PRN Reason Stop Dose Admin Gadoterate Meglumine 20 ml 12/11/24 17:15 12/11/24 17:01 Gadoterate Meglumine 20 Ml Syringe IVP 01/10/25 23:59 19 ml DIRECTED AKHIL Administration IV IV Catheter Type [Right Peripheral IV Forearm] IV Catheter Type [Right 18 Antecubital] IV Catheter Gauge [Right 18 Forearm] Diagnostics 12/11/24 12/11/24 12/11/24 Range/Units Unknown 19:43 19:41 WBC (4.4-10.8) 10^3/uL RBC (4.36-5.78) 10^6/uL Hgb (13.5-17.5) g/dL Hct (40.0-50.0) % MCV (80-95) fL MCH (27.0-33.0) pg MCHC (32.0-36.0) % RDW (11.8-14.1) % Plt Count (130-400) 10^3/uL MPV (8.0-11.0) fL Immature Gran % % Neutrophils % % Lymphocytes % % Monocytes % % Eosinophils % % Basophils % % Nucleated RBC % (0.0-0.3) % Absolute Neutrophils (1.2-6.7) 10^3/uL Absolute Lymphocytes (1.2-3.4) 10^3/uL Absolute Monocytes (0.1-0.8) 10^3/uL Absolute Eosinophils (0.0-0.7) 10^3/uL Absolute Basophils (0.0-0.2) 10^3/uL ESR (0-20) mm/hr VBG Lactate (<or=2.0) mmol/L Sodium (136-145) mmol/L Potassium (3.5-5.1) mmol/L Chloride (98-107) mmol/L Carbon Dioxide (21.0-32.0) mmol/L Anion Gap (3-11) mmol/L BUN (7-18) mg/dL Creatinine (0.70-1.30) mg/dL Est GFR (CKD-EPI 2020) (mL/min/1.73m2) Glucose (74-106) mg/dL Calcium (8.5-10.1) mg/dL Magnesium (1.8-2.4) mg/dL Total Bilirubin (0.2-1.0) mg/dL AST (15-37) U/L ALT (16-63) U/L Alkaline Phosphatase (46-116) U/L C-Reactive Protein (<or=0.5) mg/dL Total Protein (6.4-8.2) g/dL Albumin (3.4-5.0) g/dL Urine Opiates Screen Negative (Negative) Ur Buprenorphine Ur Norbuprenorphine Urine Methadone Screen Negative (Negative) Urine Fentanyl Screen Pending Ur Barbiturates Screen Negative (Negative) Ur Tricyclics Screen Negative (Negative) Ur Amphetamines Screen Negative (Negative) U Benzodiazepines Scrn Negative (Negative) Urine Cocaine Screen Negative (Negative) Ur THC Screen Negative (Negative) Ethyl Alcohol (<10) mg/dL Urine Xylazine Pending COVID-19 Source Nasopharynx SARS-CoV-2 (PCR) Negative (Negative) Influenza Type A (PCR) Negative (Negative) Influenza Type B (PCR) Negative (Negative) RSV (PCR) Negative (Negative) 12/11/24 12/11/24 12/11/24 Range/Units 19:37 14:19 13:54 WBC 6.18 (4.4-10.8) 10^3/uL RBC 3.50 L (4.36-5.78) 10^6/uL Hgb 10.4 L (13.5-17.5) g/dL Hct 30.8 L (40.0-50.0) % MCV 88 (80-95) fL MCH 29.7 (27.0-33.0) pg MCHC 33.8 (32.0-36.0) % RDW 19.5 H (11.8-14.1) % Plt Count 153 (130-400) 10^3/uL MPV 9.2 (8.0-11.0) fL Immature Gran % 0.3 % Neutrophils % 61.5 % Lymphocytes % 24.1 % Monocytes % 11.0 % Eosinophils % 1.5 % Basophils % 1.6 % Nucleated RBC % 0.0 (0.0-0.3) % Absolute Neutrophils 3.80 (1.2-6.7) 10^3/uL Absolute Lymphocytes 1.49 (1.2-3.4) 10^3/uL Absolute Monocytes 0.68 (0.1-0.8) 10^3/uL Absolute Eosinophils 0.09 (0.0-0.7) 10^3/uL Absolute Basophils 0.10 (0.0-0.2) 10^3/uL ESR 65 H (0-20) mm/hr VBG Lactate 2.9 H* (<or=2.0) mmol/L Sodium 139 (136-145) mmol/L Potassium 3.0 L (3.5-5.1) mmol/L Chloride 101 (98-107) mmol/L Carbon Dioxide 26.5 (21.0-32.0) mmol/L Anion Gap 11.5 H (3-11) mmol/L BUN 5 L (7-18) mg/dL Creatinine 0.5 L (0.70-1.30) mg/dL Est GFR (CKD-EPI 2020) 118.97 (mL/min/1.73m2) Glucose 76 (74-106) mg/dL Calcium 8.7 (8.5-10.1) mg/dL Magnesium 2.1 (1.8-2.4) mg/dL Total Bilirubin 0.8 (0.2-1.0) mg/dL AST 56 H (15-37) U/L ALT 25 (16-63) U/L Alkaline Phosphatase 138 H (46-116) U/L C-Reactive Protein < 0.50 (<or=0.5) mg/dL Total Protein 8.9 H (6.4-8.2) g/dL Albumin 2.9 L (3.4-5.0) g/dL Urine Opiates Screen (Negative) Ur Buprenorphine Pending Ur Norbuprenorphine Pending Urine Methadone Screen (Negative) Urine Fentanyl Screen Ur Barbiturates Screen (Negative) Ur Tricyclics Screen (Negative) Ur Amphetamines Screen (Negative) U Benzodiazepines Scrn (Negative) Urine Cocaine Screen (Negative) Ur THC Screen (Negative) Ethyl Alcohol 315.4 H (<10) mg/dL Urine Xylazine COVID-19 Source SARS-CoV-2 (PCR) (Negative) Influenza Type A (PCR) (Negative) Influenza Type B (PCR) (Negative) RSV (PCR) (Negative) 12/11/24 15:33 Wound Culture - Pending Foot - Right Gram Stain - Final 12/11/24 13:54 Blood Culture - Pending Blood 12/11/24 13:50 Blood Culture - Pending Blood Intake and Output - 24 Hour Total 12/11/24 12:02 thru 12/11/24 19:51 Intake Total 1000 Output Total 1000 Balance 0 Weight 90.718 kg Intake: IV 1000 Output: Urine 1000 Falls Risk Assessment History of Falls Previous History 12/11/24 14:45 Contributing Factors Unstable,Impairments, 12/11/24 14:45 Incontinence,Medications Ambulatory Aids Uses ambulatory device + 12/11/24 14:45 Tubes/Lines With any additional score 12/11/24 14:45 Gait Evaluation W/any additional score 12/11/24 14:45 Cognition No cognitive impairment 12/11/24 14:45 Fall Total Score 97 12/11/24 14:45 Level of Risk Maximum Risk 12/11/24 14:45 Problems (Last Reviewed 12/11/24 @ 19:20 by Kwame Delcid) Substance use disorder (Acute) Acute hypokalemia (Acute) Normocytic anemia (Acute) Decubitus ulcer of sacral area (Chronic) Bilateral cellulitis of lower leg (Chronic) Ulcer of right heel (Acute) Alcohol intoxication (Acute) Alcoholic hepatitis (Acute) Tobacco dependence (Chronic) v v v v v v v v v Sending and/or Receiving Nurses: Please use comment section below to note any information pertinent to the patient hand-off not included above. Information / Comments: No futher question Report received from:ofelia VALENCIA
[2024-12-11] MEDS: Lactated Ringers 1,000 ML 150 ML IV (22:00)
[2024-12-11 22:48] LABS: TSH (W/Ref FT4) 3.79 uIU/mL (0.36-3.74)
[2024-12-11] MEDS: Acetaminophen 325 MG TAB 650 MG PO (23:47)
[2024-12-11] MEDS: Normal Saline Flush 10 ML SYR IVP (23:50)
[2024-12-11] MEDS: POTASSIUM CHLORIDE 20 MEQ/100 ML BAG 50 MEQ IV_INF (23:52)
[2024-12-12] MEDS: VANCOMYCIN 1,250 MG in Normal Saline 250 ML 167 MG IVPB (03:09)
[2024-12-12] MEDS: Water,Injection,Sterile 10 ML VIAL (03:13)
[2024-12-12 03:14] VITALS: BP 104/70; PULSE 83; RESP 15; TEMP 37.7; O2SAT 94
[2024-12-12] MEDS: PIPERACILLIN/TAZO 3.375 GM in Normal Saline 50 ML IVPB ×4 (05:02→22:07)
[2024-12-12] MEDS: Lactated Ringers 1,000 ML 150 ML IV ×3 (06:29→22:08)
[2024-12-12 06:50] LABS: HCT 36.0 % (40.0-50.0); HGB 11.8 g/dL (13.5-17.5); MCH 29.8 pg (27.0-33.0); MCHC 32.8 % (32.0-36.0); MCV 91 fL (80-95); MPV 9.2 fL (8.0-11.0); Platelet Count 150 10^3/uL (130-400); RBC 3.96 10^6/uL (4.36-5.78); RDW 19.8 % (11.8-14.1); RDW-SD 65.3 fL; WBC 4.75 10^3/uL (4.4-10.8)
[2024-12-12 07:39] VITALS: BP 127/80; PULSE 84; RESP 18; TEMP 36.7; O2SAT 96
[2024-12-12] MEDS: Enoxaparin 40 MG/0.4 ML SYR SC (07:55)
[2024-12-12] MEDS: Acetaminophen 325 MG TAB 650 MG PO (07:55)
[2024-12-12 08:00] LABS: Glucose Negative (Negative)
[2024-12-12 08:23] LABS: ALT 24 U/L (16-63); AST 76 U/L (15-37); Albumin 2.5 g/dL (3.4-5.0); Alkaline Phosphatase 132 U/L (46-116); Anion Gap 10.3 mmol/L (3-11); BUN 4 mg/dL (7-18); Bilirubin, Total 1.0 mg/dL (0.2-1.0); CO2 24.7 mmol/L (21.0-32.0); Calcium 8.5 mg/dL (8.5-10.1); Chloride 102 mmol/L (98-107); Estimated GFR 112.59 (mL/min/1.73m2); Glucose 119 mg/dL (74-106); Magnesium 1.6 mg/dL (1.8-2.4); Potassium 3.6 mmol/L (3.5-5.1); Sodium 137 mmol/L (136-145); Total Protein 8.1 g/dL (6.4-8.2)
--- NOTE | 2024-12-12 09:20 | INITIAL_ITS ---
Date of service: 12/12/24 Time of Service: 09:20 Care Management Initial Assmt Initial Assessment Reason for Hospitalization: ulcer of right heel Functional Status/Living Situation Patient Presentation: Haroon presented to the ED yesterday afternoon with c/o increasing pain in his lower extremities. Hector is homeless. He has a chronic ulcer on his right heel, but it has become worse lately. He also has chronic bilateral cellulitis of the lower legs. He has not had a doctor in several years. Haroon was sitting up in bed when CM met with him today. He is quite disheveled, but was pleasant and polite. He is very hard of hearing, and CM had to write down all questions. Haroon has a good friend, JULIA, who helps him out a lot. He has 10 1/2 siblings, and 1 full sibling, but he is not in touch with any of them. 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 He has been homeless on and off for many years. Haroon is fully aware of the community resources that are available. However, it is difficult for him to get anywhere as his feet are always in terrible pain. He is working with [employer] for housing, and utilizes the food shelf and local free lunches. Haroon is happy to know that he will be referred to a PCP on discharge. Luckily for Haroon, t-doc was Matt Doherty at [facility]. This is local to him and available by [facility]. He would like to start the process to collect disability. Town of Residence: Homeless in [facility] Significant Other/Family: Local (Good friend, JULIA) Natural Supports: JULIA Employment Status: Unemployed Instrumental Activities of Daily Living (ADLs): Independent Advance Directives Advance Directives: Do you have an Advance Directive: N , 19:49 AD On File at [facility]: N 09/09/16, 19:11 Date Asked 12/11/24 12/11/24, 21:08 AD Date Reviewed COLST On File at [facility] No 05/09/21, 20:02 COLST Date Scanned Code Status Resuscitation Status Full Code Insurance Coverage/Financial Issues Insurance: Medicaid of [place] Care Team Visit Care Team Role Provider Type Colton Aleman MD MD [facility] STAFF PHYSICIAN Unknown Unknown Primary Care Provider STAFF PHYSICIAN Lorenzo Hoover, DO Emergency Provider [facility] STAFF PHYSICIAN Kwame Delcid Admit Provider NON-[place] STAFF PHYSICIAN Attending Provider Discharge Potential Discharge Needs: Consult (podiatry?) and PCP F/U Appt (needs T- doc appt with Matt [facility]herty at [facility]) Anticipated Barriers to Discharge: None Identified Patient/Family Education Needs: Review discharge instructions, discuss Ask Me Three Transportation: Private vehicle ([facility] will pick him up) Plan: Haroon will discharge to the community once medically cleared. He will f/u with his T-doc appointment and continue per his plan of care. CM will continue to follow. Social Determinants of Health Screening Social Determinants of health last assessed in clinic: 12/12/24 Will the Patient Participate in the Screening?: Yes Do you worry about having a steady place to live?: yes What is your living situation today?: I do not have steady housing Problems where you live: pests such as bugs, ants or mice In the past 12 months, have you had to go without electric, gas, oil or water in your home?: choose not to answer 1. Within the past 12 months, we worried whether our food would run out before we got money to buy more.: Often true 2. Within the past 12 months, the food we bought just didn't last and we didn't have money to get more.: Often true Has lack of transportation kept you from medical appointments or from doing things needed for daily living?: yes Has anyone in your life made you feel unsafe or unsupported?: yes How often does anyone, including family and friends, physically hurt you?: Never How often does anyone, including family and friends, insult or talk down to you?: Never How often does anyone, including family and friends, threaten you with harm?: Never How often does anyone, including family and friends, scream or curse at you?: Never HRSN Safety total score: 4 How hard is it for you to pay for the very basics like food, housing, medical care, and heating? Would you say it is:: Very hard Do you want help finding or keeping work or a job?: Yes, help keeping work If for any reason you need help with day-to-day activities such as bathing, preparing meals, shopping, managing finances, etc., do you get the help you need?: I could use a little more help How often do you feel lonely or isolated from those around you?: Always Do you speak a language other than Cymraes at home?: Yes Does the patient want assistance with any of the above?: Yes Health Related Social Needs Health related social needs: inadequate housing (Z59.1), housing instability, housed, with risk of homelessness (Z59.811), food insecurity (Z59.41), transportation insecurity (Z59.82), material hardship(utilities) (Z59.12), problems related to housing/economic circumstances (Z59.89), problems finding work (Z56.9), problems with daily activities (Z73.9), feeling lonely/isolated (Z60.8) and education (Z55.6) Health related social needs details: pt needs housing PFSH All Active Problems (Updated 12/12/24 @ 07:03 by Kwame Delcid) Substance use disorder (Chronic) Sepsis (Acute) Acute hypokalemia (Acute) Normocytic anemia (Acute) Decubitus ulcer of sacral area (Chronic) Bilateral cellulitis of lower leg (Chronic) Ulcer of right heel (Acute) Discharge planning issues (Acute) Weakness (Acute) Alcohol intoxication (Acute) Substance abuse (Acute) Alcohol abuse (Chronic) Alcoholic peripheral neuropathy (Acute) Seizure disorder (Acute) Multiple rib fractures (Acute) Rib fracture (Acute) Alcohol withdrawal (Acute) Alcoholic hepatitis (Chronic) Alcoholic gastritis (Acute) Alcohol dependence (Acute) Tobacco dependence (Chronic) Ankle fracture, left (Acute) Discharge planning issues (Acute) Hypokalemia (Acute) Medical History Alcohol use disorder Family History Mother Cancer Social History Smoking/Tobacco Use Status: Current every day Tobacco Type: cigarettes Years smoked: 38 Tobacco: How many years used: 38 Quit status: not considering quitting Smoking risk assessment performed?: Yes Alcohol Intake: current Alcohol Intake frequency: a few times a week Alcohol type: beer, wine and hard liquor Drug use: Occasionally Substance use type: does not use Details: States he drinks almost a case of beer a day. Today pt reports he consumed both beer and wine. Adopted: No Caregiver/Support person: No Foster care: No Household members: friend(s) and other Details: Whoever wants to stay there Housing: homeless Number of Children: 0 number of grandchildren: 0 Communication Needs: Hard of Hearing Education Level: high school Do you need help understanding health information?: Always Pets and animals: No Sexually active: No Do you think of yourself as: straight/heterosexual Current gender identity: male What is your relationship status?: never How often do you talk on the phone with friends or family?: never How often do you get together with friends or relatives?: three or more times per week Do you belong to any clubs or organized social groups?: no Panel score (0-1 are the most socially isolated patients): 1 What type of physical activity do you participate in: none Laura/Congregation: None Special laura needs: No Seatbelt use: always Drive intox or ride w/intox commercial driver: No Do you feel safe at home: Yes Do you feel safe in your relationship?: Yes Additional Social history: Pt reports he has been sleeping in a van for the last month.
[2024-12-12] MEDS: Normal Saline Flush 10 ML SYR IVP ×2 (11:07→20:00)
[2024-12-12] MEDS: oxyCODONE 5 MG TAB PO ×2 (11:35→16:46)
--- NOTE | 2024-12-12 14:19 | W.PM.PROGNOT ---
Date of Service Date of service: 12/12/24 Time of Service: 08:00 Assessment and Plan Assessment and plan (1) Ulcer of right heel: Start date: 12/11/24 Status: Acute Assessment and plan: Patient has no transportation, relies on walking. Intermittently has shoes. Unable to walk with this ulcer. Imaging negative for abscess, osteomyelitis Will treat as SSTI with vanc and zosyn pending blood cultures Wound care (2) Acute hypokalemia: Start date: 12/11/24 Status: Resolved Assessment and plan: Resolved with repletion (3) Alcohol intoxication: Start date: 12/11/24 Status: Acute Assessment and plan: BAL 315.4 on arrival On [facility], no evidence of withdrawal at this time (4) Bilateral cellulitis of lower leg: Status: Chronic Assessment and plan: History of BLE frostbite with now chronic edema and venous stasis Wound care PT/OT (5) Decubitus ulcer of sacral area: Status: Chronic Assessment and plan: Evaluation by wound care pending, not yet staged (6) Substance use disorder: Status: Chronic Assessment and plan: UDS negative with additional tests pending. Very delicate social situation with housing, isolation, financial distress, addiction (7) Alcoholic hepatitis: Status: Chronic Assessment and plan: Chronic. Labs pending for classification of liver disease. (8) Tobacco dependence: Status: Chronic Assessment and plan: NicoDerm topically as needed. Subjective Subjective Interval history since last seen: Patient is resting comfortably, reporting pain in his legs. Hungry Exam Narrative Exam Narrative: General: This is a cachectic man, unkempt, chronically ill-appearing HEENT: Normocephalic, atraumatic, poor dentition CV: RRR Resp: CTAB Abd: NTND, +NBS MSK: voluntary motion x4, muscle wasting Skin: Stigmata of venous stasis on BLE, hyperpigmented, with right heel ulcer. Sacral ulcer. Eschar on distal toes from prior frostbite. Objective Last Vital Signs Temp 36.7 C 12/12/24 07:39 Pulse 84 12/12/24 07:39 Resp 18 12/12/24 07:39 BP 127/80 12/12/24 07:39 Pulse Ox 96 12/12/24 07:39 Laboratory Results - last 24 hr 12/11/24 12/11/2412/11/25 13:54 14:19 19:41 WBC 6.18 RBC 3.50 L Hgb 10.4 L Hct 30.8 L MCV 88 MCH 29.7 MCHC 33.8 RDW 19.5 H Plt Count 153 MPV 9.2 Immature Gran % 0.3 Neutrophils % 61.5 Lymphocytes % 24.1 Monocytes % 11.0 Eosinophils % 1.5 Basophils % 1.6 Nucleated RBC % 0.0 Absolute Neutrophils 3.80 Absolute Lymphocytes 1.49 Absolute Monocytes 0.68 Absolute Eosinophils 0.09 Absolute Basophils 0.10 ESR 65 H Sodium 139 Potassium 3.0 L Chloride 101 Carbon Dioxide 26.5 Anion Gap 11.5 H BUN 5 L Creatinine 0.5 L Est GFR (CKD-EPI 2020) 118.97 Glucose 76 Calcium 8.7 Magnesium 2.1 Total Bilirubin 0.8 AST 56 H ALT 25 Alkaline Phosphatase 138 H C-Reactive Protein < 0.50 Total Protein 8.9 H Albumin 2.9 L TSH 3.79 H Free T4 0.84 Urine Color Urine Clarity Urine pH Ur Specific [place] Urine Protein Urine Ketones Urine Blood Urine Nitrite Urine Bilirubin Urine Urobilinogen Ur Leukocyte Esterase Urine Glucose Urine Opiates Screen Negative Urine Methadone Screen Negative Ur Barbiturates Screen Negative Ur Tricyclics Screen Negative Ur Amphetamines Screen Negative U Benzodiazepines Scrn Negative Urine Cocaine Screen Negative Ur THC Screen Negative Ethyl Alcohol 315.4 H COVID-19 Source Nasopharynx SARS-CoV-2 (PCR) Negative Influenza Type A (PCR) Negative Influenza Type B (PCR) Negative RSV (PCR) Negative 12/12/24 12/12/24 05:00 06:30 WBC 4.75 RBC 3.96 L Hgb 11.8 L Hct 36.0 L MCV 91 MCH 29.8 MCHC 32.8 RDW 19.8 H Plt Count 150 MPV 9.2 Immature Gran % Neutrophils % Lymphocytes % Monocytes % Eosinophils % Basophils % Nucleated RBC % Absolute Neutrophils Absolute Lymphocytes Absolute Monocytes Absolute Eosinophils Absolute Basophils ESR Sodium 137 Potassium 3.6 Chloride 102 Carbon Dioxide 24.7 Anion Gap 10.3 BUN 4 L Creatinine 0.6 L Est GFR (CKD-EPI 2020) 112.59 Glucose 119 H Calcium 8.5 Magnesium 1.6 L Total Bilirubin 1.0 AST 76 H ALT 24 Alkaline Phosphatase 132 H C-Reactive Protein Total Protein 8.1 Albumin 2.5 L TSH Free T4 Urine Color Yellow Urine Clarity Clear Urine pH 7.0 Ur Specific [place] 1.015 Urine Protein Negative Urine Ketones Negative Urine Blood Negative Urine Nitrite Negative Urine Bilirubin Negative Urine Urobilinogen 2.0 H Ur Leukocyte Esterase Negative Urine Glucose Negative Urine Opiates Screen Urine Methadone Screen Ur Barbiturates Screen Ur Tricyclics Screen Ur Amphetamines Screen U Benzodiazepines Scrn Urine Cocaine Screen Ur THC Screen Ethyl Alcohol COVID-19 Source SARS-CoV-2 (PCR) Influenza Type A (PCR) Influenza Type B (PCR) RSV (PCR) PAWSS Have you Been Recently Intoxicated or Drunk Within the Last 30 days?: Yes Have you Ever Experienced Previous Episodes of Alcohol Withdrawal?: No Have you ever Experienced Withdrawal Seizures?: No Have you ever Experienced Delirium Tremens(DT)s?: Yes Have you ever undergone Alcohol Rehabilitation Treatment (i.e, inpt ot outpatient treatment programs)?: No Have you ever Experienced Blackouts?: No Have you ever Combined Alcohol with other Downers within the last 90 days?: Unable to Obtain Have you ever Combined Alcohol with any other Substance of Abuse during the last 90 days?: Unable to Obtain Positive Blood Alcohol level on Presentation? [PCS.BAL]: Yes Evidence of Increased Autonomic Activity (i.e. HR>120, tremor, sweating, agitation, nausea)?: No Result: 3 Time Spent with Patient Time Spent with Patient: 25-34 minutes Time was spent: preparing to see the patient(eg.review tests), obtaining and/or reviewing separately otained hiistory, ordering medications,tests, procedures, referring, communicating with other health care manager, indepentently interpreting results, counseling the patient and care coordination
[2024-12-12] MEDS: VANCOMYCIN/WATER (PEG) 1.25 GM/250 ML BAG IV (14:28)
[2024-12-12] MEDS: MAGNESIUM SULFATE 1 GM/100 ML BAG IV_INF (15:41)
[2024-12-12 22:18] VITALS: BP 114/74; PULSE 82; TEMP 36.5; O2SAT 97
[2024-12-13] MEDS: VANCOMYCIN/WATER (PEG) 1.25 GM/250 ML BAG IV ×2 (01:56→14:34)
[2024-12-13 01:58] VITALS: BP 105/63; TEMP 36.1; O2SAT 93
[2024-12-13] MEDS: PIPERACILLIN/TAZO 3.375 GM in Normal Saline 50 ML IVPB ×4 (04:24→22:26)
[2024-12-13] MEDS: Lactated Ringers 1,000 ML 150 ML IV ×3 (06:34→23:45)
[2024-12-13 06:37] VITALS: BP 112/75; PULSE 87; RESP 18
[2024-12-13] MEDS: Enoxaparin 40 MG/0.4 ML SYR SC (08:58)
[2024-12-13] MEDS: Normal Saline Flush 10 ML SYR IVP ×2 (09:00→20:03)
[2024-12-13 10:25] LABS: HCT 35.0 % (40.0-50.0); HGB 11.6 g/dL (13.5-17.5); MCH 29.3 pg (27.0-33.0); MCHC 33.1 % (32.0-36.0); MCV 88 fL (80-95); MPV 11.3 fL (8.0-11.0); Platelet Count 168 10^3/uL (130-400); RBC 3.96 10^6/uL (4.36-5.78); RDW 19.2 % (11.8-14.1); RDW-SD 62.2 fL; WBC 6.51 10^3/uL (4.4-10.8)
[2024-12-13 10:29] LABS: INR 1.5 (0.9-1.1); Prothrombin Time 15.0 sec (9.1-11.1)
[2024-12-13 10:44] LABS: Vancomycin, Trough 14.0 ug/mL (10.0-20.0)
[2024-12-13 10:45] LABS: ALT 32 U/L (16-63); AST 56 U/L (15-37); Albumin 2.6 g/dL (3.4-5.0); Alkaline Phosphatase 134 U/L (46-116); Anion Gap 9.4 mmol/L (3-11); BUN 4 mg/dL (7-18); Bilirubin, Total 1.3 mg/dL (0.2-1.0); CO2 27.6 mmol/L (21.0-32.0); Calcium 8.9 mg/dL (8.5-10.1); Chloride 98 mmol/L (98-107); Estimated GFR 112.59 (mL/min/1.73m2); Glucose 133 mg/dL (74-106); Magnesium 1.6 mg/dL (1.8-2.4); Potassium 3.4 mmol/L (3.5-5.1); Sodium 135 mmol/L (136-145); Total Protein 8.2 g/dL (6.4-8.2)
[2024-12-13] MEDS: oxyCODONE 5 MG TAB PO (14:45)
--- NOTE | 2024-12-13 15:54 | W.PM.PROGNOT ---
Date of Service Date of service: 12/13/24 Time of Service: 09:00 Assessment and Plan Assessment and plan (1) Ulcer of right heel: Start date: 12/11/24 Status: Acute Assessment and plan: Patient has no transportation, relies on walking. Intermittently has shoes. Unable to walk with this ulcer. Imaging negative for abscess, osteomyelitis Will treat as SSTI with vanc and zosyn pending blood cultures, currently growing only normal yayo Does not appear to need operative debridement Wound care Discussed with nursing staff need for shower assistance due to heel pain. (2) Acute hypokalemia: Start date: 12/11/24 Status: Acute Assessment and plan: Repleting orally (3) Hypomagnesemia: Status: Acute Assessment and plan: Repleting orally (4) Alcohol intoxication: Start date: 12/11/24 Status: Acute Assessment and plan: BAL 315.4 on arrival On [facility], no evidence of withdrawal at this time (5) Bilateral cellulitis of lower leg: Status: Chronic Assessment and plan: History of BLE frostbite with now chronic edema and venous stasis Wound care PT/OT (6) Decubitus ulcer of sacral area: Status: Chronic Assessment and plan: Evaluation by wound care pending, not yet staged (7) Substance use disorder: Status: Chronic Assessment and plan: UDS negative with additional tests pending. Very delicate social situation with housing, isolation, financial distress, addiction (8) Alcoholic hepatitis: Status: Chronic Assessment and plan: Chronic. Labs pending for classification of liver disease. (9) Tobacco dependence: Status: Chronic Assessment and plan: NicoDerm topically as needed. Subjective Subjective Interval history since last seen: Patient is resting comfortably, reporting pain in his legs. Hungry. He was not wiling to participate in exam of sacral area, he reports no pain there. Exam Narrative Exam Narrative: General: This is a cachectic man, unkempt, chronically ill-appearing HEENT: Normocephalic, atraumatic, poor dentition CV: Declined exam, extremities are well perfused Resp: Declined exam, speaking in full sentences Abd: Declined exam MSK: voluntary motion x4, muscle wasting Skin: Stigmata of venous stasis on BLE, hyperpigmented, with right heel ulcer. Eschar on distal toes from prior frostbite. Declined exam of sacrum. Objective Last Vital Signs Temp 36.1 C L 12/13/24 01:58 Pulse 87 12/13/24 06:37 Resp 18 12/13/24 06:37 BP 112/75 12/13/24 06:37 Pulse Ox 93 12/13/24 01:58 Laboratory Results - last 24 hr 12/13/24 10:03 WBC 6.51 RBC 3.96 L Hgb 11.6 L Hct 35.0 L MCV 88 MCH 29.3 MCHC 33.1 RDW 19.2 H Plt Count 168 MPV 11.3 H PT 15.0 H INR 1.5 H VBG Lactate 1.4 Sodium 135 L Potassium 3.4 L Chloride 98 Carbon Dioxide 27.6 Anion Gap 9.4 BUN 4 L Creatinine 0.6 L Est GFR (CKD-EPI 2020) 112.59 Glucose 133 H Calcium 8.9 Magnesium 1.6 L Total Bilirubin 1.3 H AST 56 H ALT 32 Alkaline Phosphatase 134 H Total Protein 8.2 Albumin 2.6 L Vancomycin Trough 14.0 PAWSS Have you Been Recently Intoxicated or Drunk Within the Last 30 days?: Yes Have you Ever Experienced Previous Episodes of Alcohol Withdrawal?: No Have you ever Experienced Withdrawal Seizures?: No Have you ever Experienced Delirium Tremens(DT)s?: Yes Have you ever undergone Alcohol Rehabilitation Treatment (i.e, inpt ot outpatient treatment programs)?: No Have you ever Experienced Blackouts?: No Have you ever Combined Alcohol with other Downers within the last 90 days?: Unable to Obtain Have you ever Combined Alcohol with any other Substance of Abuse during the last 90 days?: Unable to Obtain Positive Blood Alcohol level on Presentation? [PCS.BAL]: Yes Evidence of Increased Autonomic Activity (i.e. HR>120, tremor, sweating, agitation, nausea)?: No Result: 3 Time Spent with Patient Time Spent with Patient: 25-34 minutes Time was spent: preparing to see the patient(eg.review tests), obtaining and/or reviewing separately otained hiistory, ordering medications,tests, procedures, referring, communicating with other health children's zoo caretaker, indepentently interpreting results, counseling the patient and care coordination
[2024-12-13] MEDS: Acetaminophen 325 MG TAB 650 MG PO (17:13)
[2024-12-13 19:23] VITALS: BP 114/74; PULSE 84; RESP 20; TEMP 36.7; O2SAT 95
[2024-12-13] MEDS: Potassium Chloride 20 MEQ TABCR PO (20:02)
[2024-12-13] MEDS: Magnesium Oxide 400 MG TAB PO (20:02)
[2024-12-14 00:27] VITALS: BP 112/71; PULSE 71; RESP 20; TEMP 36.3; O2SAT 95
[2024-12-14] MEDS: VANCOMYCIN/WATER (PEG) 1.25 GM/250 ML BAG IV (02:04)
[2024-12-14] MEDS: PIPERACILLIN/TAZO 3.375 GM in Normal Saline 50 ML IVPB ×2 (04:20→09:57)
[2024-12-14 06:26] LABS: HCT 30.8 % (40.0-50.0); HGB 10.5 g/dL (13.5-17.5); MCH 30.2 pg (27.0-33.0); MCHC 34.1 % (32.0-36.0); MCV 89 fL (80-95); MPV 10.2 fL (8.0-11.0); Platelet Count 160 10^3/uL (130-400); RBC 3.48 10^6/uL (4.36-5.78); RDW 19.0 % (11.8-14.1); RDW-SD 60.6 fL; WBC 5.77 10^3/uL (4.4-10.8)
[2024-12-14 06:47] LABS: ALT 31 U/L (16-63); AST 50 U/L (15-37); Albumin 2.3 g/dL (3.4-5.0); Alkaline Phosphatase 121 U/L (46-116); Anion Gap 7.7 mmol/L (3-11); BUN 6 mg/dL (7-18); Bilirubin, Total 0.9 mg/dL (0.2-1.0); CO2 26.3 mmol/L (21.0-32.0); Calcium 8.8 mg/dL (8.5-10.1); Chloride 101 mmol/L (98-107); Estimated GFR 118.97 (mL/min/1.73m2); Glucose 95 mg/dL (74-106); Magnesium 1.5 mg/dL (1.8-2.4); Potassium 3.6 mmol/L (3.5-5.1); Sodium 135 mmol/L (136-145); Total Protein 7.4 g/dL (6.4-8.2)
[2024-12-14 07:17] VITALS: BP 111/77; PULSE 77; RESP 16; TEMP 36.4; O2SAT 94
--- NOTE | 2024-12-14 09:16 | PDOC.CMIN ---
Date of service: 12/14/24 Time of Service: 09:16 Care Management Initial Assmt Functional Status/Living Situation Instrumental Activities of Daily Living (ADLs): Independent Medications Medication Management: No Issues/Barriers identified Advance Directives Advance Directives: Do you have an Advance Directive: N 09/09/16, 19:49 AD On File at [facility]: N 09/09/16, 19:11 Date Asked 12/11/24 12/11/24, 21:08 AD Date Reviewed COLST On File at [facility] No 05/09/21, 20:02 COLST Date Scanned Code Status Resuscitation Status Full Code Insurance Coverage/Financial Issues Insurance: Medicaid of [place] - [id number] Care Team Visit Care Team Role Provider Type Nick Mccarthy MD MD [facility] STAFF PHYSICIAN Unknown Unknown Primary Care Provider STAFF PHYSICIAN Lorenzo Hoover DO Emergency Provider [facility] STAFF PHYSICIAN Kwame Delicd Admit Provider NON-[facility] STAFF PHYSICIAN Attending Provider Discharge Potential Discharge Needs: PCP F/U Appt (needs T- doc appt with Matt Doherty at [facility]) and Other (Podiatry) Anticipated Barriers to Discharge: None Identified Patient/Family Education Needs: Review discharge instructions, discuss Ask Me Three Transportation: Private vehicle ([facility] will pick him up) Plan: Bill will discharge to the community once medically cleared. He will f/u with his T-doc appointment and continue per his plan of care. CM will continue to follow. Social Determinants of Health Screening Social Determinants of health last assessed in clinic: 12/12/24 Will the Patient Participate in the Screening?: Yes Do you worry about having a steady place to live?: yes What is your living situation today?: I do not have steady housing Problems where you live: pests such as bugs, ants or mice In the past 12 months, have you had to go without electric, gas, oil or water in your home?: choose not to answer Has lack of transportation kept you from medical appointments or from doing things needed for daily living?: yes Has anyone in your life made you feel unsafe or unsupported?: yes How often does anyone, including family and friends, physically hurt you?: Never How often does anyone, including family and friends, insult or talk down to you?: Never How often does anyone, including family and friends, threaten you with harm?: Never How often does anyone, including family and friends, scream or curse at you?: Never HRSN Safety total score: 4 How hard is it for you to pay for the very basics like food, housing, medical care, and heating? Would you say it is:: Very hard Do you want help finding or keeping work or a job?: Yes, help keeping work If for any reason you need help with day-to-day activities such as bathing, preparing meals, shopping, managing finances, etc., do you get the help you need?: I could use a little more help How often do you feel lonely or isolated from those around you?: Always Do you speak a language other than Jamaican at home?: Yes Does the patient want assistance with any of the above?: Yes Health Related Social Needs Health related social needs: inadequate housing (Z59.1), housing instability, housed, with risk of homelessness (Z59.811), transportation insecurity (Z59.82), material hardship(utilities) (Z59.12), problems related to housing/economic circumstances (Z59.89), problems finding work (Z56.9), problems with daily activities (Z73.9), feeling lonely/isolated (Z60.8) and education (Z55.6) Health related social needs details: pt needs housing PFSH All Active Problems (Updated 12/13/24 @ 17:16 by Colton Aleman MD) Hypomagnesemia (Acute) Substance use disorder (Chronic) Sepsis (Acute) Acute hypokalemia (Acute) Normocytic anemia (Acute) Decubitus ulcer of sacral area (Chronic) Bilateral cellulitis of lower leg (Chronic) Ulcer of right heel (Acute) Discharge planning issues (Acute) Weakness (Acute) Alcohol intoxication (Acute) Substance abuse (Acute) Alcohol abuse (Chronic) Alcoholic peripheral neuropathy (Acute) Seizure disorder (Acute) Multiple rib fractures (Acute) Rib fracture (Acute) Alcohol withdrawal (Acute) Alcoholic hepatitis (Chronic) Alcoholic gastritis (Acute) Alcohol dependence (Acute) Tobacco dependence (Chronic) Ankle fracture, left (Acute) Discharge planning issues (Acute) Hypokalemia (Acute) Medical History Alcohol use disorder Family History Mother Cancer Social History Smoking/Tobacco Use Status: Current every day Tobacco Type: cigarettes Years smoked: 38 Tobacco: How many years used: 38 Quit status: not considering quitting Smoking risk assessment performed?: Yes Alcohol Intake: current Alcohol Intake frequency: a few times a week Alcohol type: beer, wine and hard liquor Drug use: Occasionally Substance use type: does not use Details: States he drinks almost a case of beer a day. Today pt reports he consumed both beer and wine. Adopted: No Caregiver/Support person: No Foster care: No Household members: friend(s) and other Details: Whoever wants to stay there Housing: homeless Number of Children: 0 number of grandchildren: 0 Communication Needs: Hard of Hearing Education Level: high school Do you need help understanding health information?: Always Pets and animals: No Sexually active: No Do you think of yourself as: straight/heterosexual Current gender identity: male What is your relationship status?: never How often do you talk on the phone with friends or family?: never How often do you get together with friends or relatives?: three or more times per week Do you belong to any clubs or organized social groups?: no Panel score (0-1 are the most socially isolated patients): 1 What type of physical activity do you participate in: none Laura/Restorationism: None Special laura needs: No Seatbelt use: always Drive intox or ride w/intox driver wheelchair: No Do you feel safe at home: Yes Do you feel safe in your relationship?: Yes Additional Social history: Pt reports he has been sleeping in a van for the last month.
--- NOTE | 2024-12-14 09:18 | CMPROGNOTE_ITS ---
Date of service: 12/14/24 Time of Service: 09:18 Care Management Progress Note Progress Note Text Progress Note Text: Haroon was awake and lying in bed when CM met with him. He is hard of hearing and able to communicate via pen and paper (CM updated the white board in his room to reflect his communication style.) Haroon is pleasant and forth coming with information and shares that he's been homeless for 1.5 months and reports that he 'squats' any place he hasn't been kicked out of. He does not own a tent and states that he could get in, but not out of it even if he did. He also does not have access to a phone or transportation (his ability to use a phone would be limited due to his hearing.) He does not have money for food and states that his benefits ended because he didn't fill out the paperwork in time. His goal is to get on state assistance or disability; although he hasn't seen a PCP in several years ( T-doc follow up will be offered.) In addition, his hearing aids are non- working but he thinks they could be fixed if the tubing was replaced. Haroon was agreeable to a [facility] referral and a CHW was able to come to the hospital to meet with Haroon this afternoon. Haroon also has a history of ETOH use and is connected with [facility] but hasn't been able to make it there lately due to lack of transportation. CM called the recovery center and a value stream coach was able to meet with Haroon this afternoon. JULIA Smart is one of Haroons good friends and tries to help him whenever he can. JULIA shared his concerns surrounding Haroon's living situation and financial needs and is certain that Haroon will bounce back to the hospital if he is discharged tomorrow without any place to go. JULIA also mentioned that he's been trying to get Haroon into the [facility] and is planning to stop by this evening so they can call the hotel together. He thinks a hotel room can be secured for 3 days, but he asks for a letter to support an extension for 30 days because he is medically complex. CM will review need with the hospitalist, PT consult is pending. PT consult is pending, CM will follow. Discharge Potential Discharge Needs: Consult (? Podiatry) and PCP F/U Appt (needs T- doc appt with Matt Doherty at [facility]) Anticipated Barriers to Discharge: None Identified Patient/Family Education Needs: Review discharge instructions, discuss Ask Me Three Transportation: Private vehicle ([facility] will pick him up) Plan: Haroon will discharge to the community once medically cleared. PT consult is p ending. He will f/u with his T-doc appointment and continue per his plan of care. CM will continue to follow. Social Determinants of Health Screening Social Determinants of health last assessed in clinic: 12/14/24 Will the Patient Participate in the Screening?: Yes Do you worry about having a steady place to live?: yes What is your living situation today?: I do not have steady housing Problems where you live: pests such as bugs, ants or mice In the past 12 months, have you had to go without electric, gas, oil or water in your home?: choose not to answer 1. Within the past 12 months, we worried whether our food would run out before we got money to buy more.: Never true 2. Within the past 12 months, the food we bought just didn't last and we didn't have money to get more.: Never true Has lack of transportation kept you from medical appointments or from doing things needed for daily living?: yes Has anyone in your life made you feel unsafe or unsupported?: yes How often does anyone, including family and friends, physically hurt you?: Never How often does anyone, including family and friends, insult or talk down to you?: Never How often does anyone, including family and friends, threaten you with harm?: Never How often does anyone, including family and friends, scream or curse at you?: Never HRSN Safety total score: 4 How hard is it for you to pay for the very basics like food, housing, medical care, and heating? Would you say it is:: Very hard Do you want help finding or keeping work or a job?: Yes, help keeping work If for any reason you need help with day-to-day activities such as bathing, preparing meals, shopping, managing finances, etc., do you get the help you need?: I could use a little more help How often do you feel lonely or isolated from those around you?: Always Do you speak a language other than Mongolian at home?: Yes Does the patient want assistance with any of the above?: Yes Health Related Social Needs Health related social needs: inadequate housing (Z59.1), housing instability, housed, with risk of homelessness (Z59.811), transportation insecurity (Z59.82), material hardship(utilities) (Z59.12), problems related to housing/economic circumstances (Z59.89), problems finding work (Z56.9), problems with daily activities (Z73.9), feeling lonely/isolated (Z60.8) and education (Z55.6) Health related social needs details: pt needs housing
[2024-12-14] MEDS: oxyCODONE 5 MG TAB PO ×3 (09:57→20:02)
[2024-12-14] MEDS: Normal Saline Flush 10 ML SYR IVP ×2 (09:57→20:03)
[2024-12-14] MEDS: Potassium Chloride 20 MEQ TABCR PO ×2 (09:57→20:02)
[2024-12-14] MEDS: Enoxaparin 40 MG/0.4 ML SYR SC (09:58)
[2024-12-14] MEDS: Magnesium Oxide 400 MG TAB PO ×2 (10:07→20:03)
[2024-12-14 12:01] VITALS: BP 116/83; PULSE 78; RESP 16; TEMP 36.6; O2SAT 92
[2024-12-14 15:25] VITALS: BP 110/70; PULSE 79; RESP 16; TEMP 36.4; O2SAT 95
--- NOTE | 2024-12-14 16:23 | W.PM.PROGNOT ---
Date of Service Date of service: 12/14/24 Time of Service: 16:23 Assessment and Plan Assessment and plan (1) Ulcer of right heel: Start date: 12/11/24 Status: Acute Assessment and plan: Patient has no transportation, relies on walking. Intermittently has shoes. Unable to walk with this ulcer. Imaging negative for abscess, osteomyelitis Will treat as SSTI with vanc and zosyn pending blood cultures, currently growing only normal yayo Does not appear to need operative debridement Wound care Discussed with nursing staff need for shower assistance due to heel pain. 12/14/24 Consult placed to podiatry. No interventions reccommended at this time (2) Acute hypokalemia: Start date: 12/11/24 Status: Acute Assessment and plan: Repleting orally. (3) Hypomagnesemia: Status: Acute Assessment and plan: Repleting orally (4) Alcohol intoxication: Start date: 12/11/24 Status: Acute Assessment and plan: BAL 315.4 on arrival [facility], no evidence of withdrawal at this time (5) Bilateral cellulitis of lower leg: Status: Chronic Assessment and plan: History of BLE frostbite with now chronic edema and venous stasis Wound care PT/OT (6) Decubitus ulcer of sacral area: Status: Chronic Assessment and plan: Evaluation by wound care pending, not yet staged (7) Substance use disorder: Status: Chronic Assessment and plan: UDS negative with additional tests pending. Very delicate social situation with housing, isolation, financial distress, addiction (8) Alcoholic hepatitis: Status: Chronic Assessment and plan: Chronic. Labs pending for classification of liver disease. (9) Tobacco dependence: Status: Chronic Assessment and plan: NicoDerm topically as needed. 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 Very low suspicion. Subjective Subjective Interval history since last seen: no new complaints, still with pain in the foot. Exam Narrative Exam Narrative: General: This is a cachectic man, unkempt, chronically ill-appearing HEENT: Normocephalic, atraumatic, poor dentition CV: Declined exam, extremities are well perfused Resp: Declined exam, speaking in full sentences Abd: Declined exam MSK: voluntary motion x4, muscle wasting Skin: right heel in heel guard. bronzed skin Objective Last Vital Signs Temp 36.4 C L 12/14/24 15:25 Pulse 79 12/14/24 15:25 Resp 16 12/14/24 15:25 BP 110/70 12/14/24 15:25 Pulse Ox 95 12/14/24 15:25 Laboratory Results - last 24 hr 12/14/24 06:05 WBC 5.77 RBC 3.48 L Hgb 10.5 L Hct 30.8 L MCV 89 MCH 30.2 MCHC 34.1 RDW 19.0 H Plt Count 160 MPV 10.2 Sodium 135 L Potassium 3.6 Chloride 101 Carbon Dioxide 26.3 Anion Gap 7.7 BUN 6 L Creatinine 0.5 L Est GFR (CKD-EPI 2020) 118.97 Glucose 95 Calcium 8.8 Magnesium 1.5 L Total Bilirubin 0.9 AST 50 H ALT 31 Alkaline Phosphatase 121 H Total Protein 7.4 Albumin 2.3 L PAWSS Have you Been Recently Intoxicated or Drunk Within the Last 30 days?: Yes Have you Ever Experienced Previous Episodes of Alcohol Withdrawal?: No Have you ever Experienced Withdrawal Seizures?: No Have you ever Experienced Delirium Tremens(DT)s?: Yes Have you ever undergone Alcohol Rehabilitation Treatment (i.e, inpt ot outpatient treatment programs)?: No Have you ever Experienced Blackouts?: No Have you ever Combined Alcohol with other Downers within the last 90 days?: Unable to Obtain Have you ever Combined Alcohol with any other Substance of Abuse during the last 90 days?: Unable to Obtain Positive Blood Alcohol level on Presentation? [PCS.BAL]: Yes Evidence of Increased Autonomic Activity (i.e. HR>120, tremor, sweating, agitation, nausea)?: No Result: 3 Time Spent with Patient Time Spent with Patient: <25 minutes Time was spent: preparing to see the patient(eg.review tests), obtaining and/or reviewing separately otained hiistory, ordering medications,tests, procedures, referring, communicating with other health dialysis patient care technician, indepentently interpreting results, counseling the patient and care coordination
[2024-12-14] MEDS: Sulfameth/Trimeth DS TAB 1 TAB PO (20:02)
[2024-12-14] MEDS: Acetaminophen 325 MG TAB 650 MG PO (20:02)
[2024-12-14 23:22] VITALS: BP 111/77; PULSE 82; RESP 20; TEMP 36.2; O2SAT 96
[2024-12-15 06:41] LABS: Abs Immature Grans 0.03 10^3/uL (0.0-0.06); HCT 30.3 % (40.0-50.0); HGB 10.4 g/dL (13.5-17.5); Immature Grans % 0.5 %; MCH 30.4 pg (27.0-33.0); MCHC 34.3 % (32.0-36.0); MCV 89 fL (80-95); MPV 9.7 fL (8.0-11.0); Platelet Count 189 10^3/uL (130-400); RBC 3.42 10^6/uL (4.36-5.78); RDW 19.8 % (11.8-14.1); RDW-SD 63.7 fL; WBC 6.02 10^3/uL (4.4-10.8)
[2024-12-15 06:58] LABS: Iron 19 ug/dL (65-175); Total Iron Binding Capacity 329 ug/dL (250-450); Transferrin Sat 6 % (20-55)
[2024-12-15 07:03] LABS: ALT 28 U/L (16-63); AST 47 U/L (15-37); Albumin 2.4 g/dL (3.4-5.0); Alkaline Phosphatase 129 U/L (46-116); Anion Gap 7.4 mmol/L (3-11); BUN 8 mg/dL (7-18); Bilirubin, Total 0.5 mg/dL (0.2-1.0); CO2 25.6 mmol/L (21.0-32.0); Calcium 9.0 mg/dL (8.5-10.1); Chloride 102 mmol/L (98-107); Estimated GFR 118.97 (mL/min/1.73m2); Glucose 93 mg/dL (74-106); Potassium 4.4 mmol/L (3.5-5.1); Sodium 135 mmol/L (136-145); Total Protein 7.8 g/dL (6.4-8.2)
--- NOTE | 2024-12-15 08:04 | POCOE_ITS ---
Date of service: 12/14/24 Time of Service: 10:15 Assessment and Plan Assessment and plan (1) Ulcer of right heel: Status: Acute (2) Bilateral cellulitis of lower leg: Status: Chronic (3) Alcohol dependence: Status: Acute (4) Tobacco dependence: Status: Chronic Assessment and plan: Patient seen bedside. There is a large full-thickness ulcer to the right heel. The base is necrotic. I recommend enzymatic debridement with Santyl. Nursing to change dressings as follows: Cleanse the wound with wound cleanse. Pat dry. Moisten the wound bed with sterile saline. Apply Santyl, foam border dressing. Patient is to remain nonweightbearing to the right foot wound May use cam boot with the peg assist insert. He is to use a Prevalon boot for offloading while at rest. He remains very high risk for ulceration due to history of frostbite as well as social factors which are listed in his chart. MRI findings were reviewed. I recommend calcaneal x-rays to establish baseline. No evidence for osteomyelitis at this time. No surgical interventions are planned or indicated at this time. Patient is okay to be discharged from a podiatric standpoint. I do recommend home health to do dressing changes and daily as discussed above. History of Present Illness Narrative: Patient consulted for right heel ulcer. States ulcer has been present for several months. Does report history of frostbite. States that the ulcer has worsened recently. Date he is currently unhoused. Does have history of heavy alcohol consumption. Reports difficulty with ambulation. Review of Systems Cardiovascular Comments: Pulses are palpable bilaterally Integumentary/Breasts Comments: Ulcer right heel Neurologic Comments: Neuropathic pain bilateral lower extremity PFSH All Active Problems Bronze diabetes (Acute) Substance use disorder (Chronic) Sepsis (Acute) Acute hypokalemia (Acute) Normocytic anemia (Acute) Decubitus ulcer of sacral area (Chronic) Bilateral cellulitis of lower leg (Chronic) Ulcer of right heel (Acute) Hypomagnesemia (Acute) Discharge planning issues (Acute) Weakness (Acute) Alcoholic peripheral neuropathy (Acute) Alcohol abuse (Chronic) Substance abuse (Acute) Alcohol intoxication (Acute) Multiple rib fractures (Acute) Rib fracture (Acute) Hypokalemia (Acute) Discharge planning issues (Acute) Ankle fracture, left (Acute) Tobacco dependence (Chronic) Alcohol dependence (Acute) Alcoholic gastritis (Acute) Alcoholic hepatitis (Chronic) Seizure disorder (Acute) Alcohol withdrawal (Acute) Medical History Alcohol use disorder Family History Mother Cancer Social History Smoking/Tobacco Use Status: Current every day Tobacco Type: cigarettes Years smoked: 38 Tobacco: How many years used: 38 Quit status: not considering quitting Smoking risk assessment performed?: Yes Alcohol Intake: current Alcohol Intake frequency: a few times a week Alcohol type: beer, wine and hard liquor Drug use: Occasionally Substance use type: does not use Details: States he drinks almost a case of beer a day. Today pt reports he consumed both beer and wine. Adopted: No Caregiver/Support person: No Foster care: No Household members: friend(s) and other Details: Whoever wants to stay there Housing: homeless Number of Children: 0 number of grandchildren: 0 Communication Needs: Hard of Hearing Education Level: high school Do you need help understanding health information?: Always Pets and animals: No Sexually active: No Do you think of yourself as: straight/heterosexual Current gender identity: male What is your relationship status?: never How often do you talk on the phone with friends or family?: never How often do you get together with friends or relatives?: three or more times per week Do you belong to any clubs or organized social groups?: no Panel score (0-1 are the most socially isolated patients): 1 What type of physical activity do you participate in: none Laura/Pentecostal: None Special laura needs: No Seatbelt use: always Drive intox or ride w/intox truck driver instructor: No Do you feel safe at home: Yes Do you feel safe in your relationship?: Yes Additional Social history: Pt reports he has been sleeping in a van for the last month. Exam Extrem Other: Bilateral lower extremity physical exam: Derm: Full-thickness ulceration measuring approximately 3 cm x 3 cm x 0.3 cm with 100% fibrotic/necrotic base, the borders are very well-defined without any undermining or tunneling, there is no periwound erythema, no edema, no drainage or malodor no probe to bone or capsule noted there is tenderness to palpation to the wound. Otherwise, skin is warm, dry and taut. Hair growth is absent. Vascular: DP, PT pulses are palpable however diminished. Hair growth is absent. Skin is thin, dry and intact. MSK: Flexion contractures noted bilaterally which are reducible. Severe tenderness to palpation noted to the right heel. Neuro: Neuropathic pain reported Results Last Vital Signs Temp 97.2 F L 12/14/24 23:22 Pulse 82 12/14/24 23:22 Resp 20 12/14/24 23:22 BP 111/77 12/14/24 23:22 Pulse Ox 96 12/14/24 23:22 Labs 12/15/24 06:16 12/15/24 06:16 Labs: Laboratory Results - last 24 hr 12/15/24 06:16 WBC 6.02 RBC 3.42 L Hgb 10.4 L Hct 30.3 L MCV 89 MCH 30.4 MCHC 34.3 RDW 19.8 H Plt Count 189 MPV 9.7 Immature Gran % 0.5 Neutrophils % 60.3 Lymphocytes % 22.8 Monocytes % 12.6 Eosinophils % 3.0 Basophils % 0.8 Nucleated RBC % 0.0 Absolute Neutrophils 3.63 Absolute Lymphocytes 1.37 Absolute Monocytes 0.76 Absolute Eosinophils 0.18 Absolute Basophils 0.05 Sodium 135 L Potassium 4.4 Chloride 102 Carbon Dioxide 25.6 Anion Gap 7.4 BUN 8 Creatinine 0.5 L Est GFR (CKD-EPI 2020) 118.97 Glucose 93 Calcium 9.0 Iron 19 L TIBC 329 Transferrin % Sat 6 L Total Bilirubin 0.5 AST 47 H ALT 28 Alkaline Phosphatase 129 H Total Protein 7.8 Albumin 2.4 L
[2024-12-15] MEDS: Potassium Chloride 20 MEQ TABCR PO (08:08)
[2024-12-15] MEDS: Sulfameth/Trimeth DS TAB 1 TAB PO (08:09)
[2024-12-15] MEDS: Enoxaparin 40 MG/0.4 ML SYR SC (08:09)
[2024-12-15] MEDS: Magnesium Oxide 400 MG TAB PO (08:09)
[2024-12-15] MEDS: Normal Saline Flush 10 ML SYR IVP (08:10)
--- NOTE | 2024-12-15 08:41 | TELEFU_ITS ---
Date of service: 12/15/24 Time of Service: 08:41 Nutrition Note NOTE: 59yo male being treated for R foot ulcer, acute hypokalemia (K+4.4 today - ordered for 20meq BID po), Hypomagnesemia (mag 1.5 yesterday - ordered for 400mg po BID), etoh intoxication, bilat cellulitis of lower legs, sacral ulcer. Has hx of etoh hepatitis, tobacco dependence. BMI of 19.4 consistent with underweight. Unstable housing, reportedly living in van. Inconsistent eating pattern and ability/resources to prepare healthy foods. Estimated energy needs 2357kcals ([id number]), 142g protein (2.2g/kg for wound healing), and 2357mL fluid (1 mL per required kcal) Pt cannot hear - we communicated via writing paper to conduct short interview. Nutrition dx: inadequate intake related to poor living situation, etoh abuse as evidenced by current BMI of 19.4 and ~6kg weight loss over the last year per record. Intervention: Would suggest B-complex supplementation. Would recommend for woulnd healinmg vitamin C BID, 4,000IU vitamin D3 (cholecalciferol), and 220mg Zinc Sulfate. Will support patient with high protein ONS at meals and Ck drink mix for wound healing. Monitoring: will monitor weight, po intake, ONS toleration/acceptance, nutrition-related labs. Time Spent in Nutritional Counseling and Treatment: 10 min
--- NOTE | 2024-12-15 08:50 | PDOC.CMDIS ---
Date of service: 12/15/24 Time of Service: 08:50 LACE Index Scoring Tool Questions: Length of Stay (in days): 4 - 6 Was the patient admitted via the E.D.?: Yes E.D. Visits: 2 Answers: Total Score: 9 Risk of Readmission: Low Risk Care Management Discharge Plan Reason for Hospitalization: Right heal ulcer Discharge Plan: Hector became eager to leave and was discharged to the community. CM provided him with fresh clothing and encouraged him to follow up with community resources, -[facility] hospital follow-up as previously discussed. CHW from [facility] and a ice skating coach met with Hector before discharge. Pt did not accept a walker or additional assistance with discharge planning. Patient/Family Education Needs: Review discharge instructions, medications, and plan to follow up after discharge. Discuss ask me three and plan to follow up with community resources. SDOH Health Related Social Needs: Health related social needs inadequate housing risk of homeless transpo insecurity material hardship house/econ circumstance finding work daily activities lonely/isolated education Health related social needs details pt needs housing Health related social needs details: pt needs housing Care Management Referrals: [facility]
[2024-12-15 10:10] LABS: Xylazine, Confirmation Urine Negative ng/mL (<50)
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
--- NOTE | 2024-12-15 12:28 | IN_ITS ---
PT Notes Visit Reasons: Right heel ulcer, Bilateral lower extremitiey cell Physical Therapy Inpatient Initial Evaluation Date: 12/15/2024 Referring Doctor: Dr Mccarthy PT Orders: PT CONSULT: PT Evaluation and treatment Precautions: WB as tolerated per Dr Mccarthy Patient Profile/Admitting Diagnosis: Patient is a 59-year-old male presented to the ED on 12/11/2024 with swelling bilateral lower extremities and wound noted to plantar aspect of right heel near midfoot. Alcohol level noted to be greater than 300. Patient treated with antibiotics and admitted to MedSurg unit for further medical management. PT consult placed in anticipation of discharge PMHX: Substance use disorder (Chronic) Sepsis (Acute) Acute hypokalemia (Acute) Normocytic anemia (Acute) Decubitus ulcer of sacral area (Chronic) Bilateral cellulitis of lower leg (Chronic) Ulcer of right heel (Acute) Discharge planning issues (Acute) Weakness (Acute) Alcohol intoxication (Acute) Substance abuse (Acute) Alcohol abuse (Chronic) Alcoholic peripheral neuropathy (Acute) Seizure disorder (Acute) Multiple rib fractures (Acute) Rib fracture (Acute) Alcohol withdrawal (Acute) Alcoholic hepatitis (Chronic) Alcoholic gastritis (Acute) Alcohol dependence (Acute) Tobacco dependence (Chronic) Ankle fracture, left (Acute) Discharge planning issues (Acute) Hypokalemia (Acute) Medical History Alcohol use disorder Social History/Home Situation: Homeless. Equipment Owned/DME: None/patient fitted for single-point cane despite recommendation for FWW which he declined Subjective: Patient reports he walked with a broom stick and noted frequent falls forward. Objective: [] General Observation: Disheveled male supine in bed with heel float boot to right lower extremity Mental Status: Alert [employer] requires all communication through writing, able to follow instructions agreeable to participate in evaluation Pain: 12/10 right foot with standing/ WB on RLE. Nurse notified and pain meds provided PT reapproached after pain meds patient continues to report pain 10 out of 10 ROM: [] BUE: WFL Right Lower Extremity: WFL with dorsiflexion to neutral Left Lower Extremity: WFL Strength: [] BUE: 5/5 BLE: Grossly hips 3/5, knee 3/5 and left ankle 3/5 right ankle greater than equal to 2/5 no resistance due to ulcer; impaired motor coordination ataxic pattern during functional tasks Sensation: Impaired B feet Bed Mobility/Transfers: [] Supine to sit independent Sit to stand independent Stand to sit independent Bed to chair SBA with FWW with cues for safe hand placement Gait: amb with FWW SBA 50 feet including turns with postop shoe on right slight ataxic pattern advancing right lower extremity. Balance: [] Static Sitting: Normal Dynamic Sitting: Normal Static Standing: Fair without upper extremity support Dynamic Standing: Fair minus Special Tests: [] Mobility Limitations Standardized Measure [] [facility] AM-PAC 6 clicks Basic Mobility Inpatient Short Form: [] Raw Score: 20 CMS Score: 35.83% Informed Consent/Education: Patient instructed in purpose of PT consult. Treatment: [id number] Education provided on safety use of walker versus cane comparison of functional ability with each device. Functional transfers with single-point cane with mod assist 2/5 trials. Able to progress to min assist of 1 3/5 trials Ambulated 20 feet x 2 with single-point cane with mod assist for stability significant ataxic pattern bilateral lower extremities with increased pain noted in right heel as he was unable to unweight right lower extremity with use of single-point cane. Ambulated with FWW 50 feet x 2 with standby assist with reduced pain noted in right heel and ability to unweight with step to pattern. Assessment: Hector presents with poor insight into functional deficits including ataxic gait pattern with use of single-point cane. Patient adamantly refusing use of FWW reviewed this with MD who agreed to discharge him home with single-point cane which was fitted and provided to patient. Patient at high risk for falls with use of single-point cane. Patient presents with clinical signs and symptoms consistent with current/admitting diagnoses that have resulted to mobility limitations, gait instability, generalized weakness, and impairment of motor control as demonstrated by the following impairment level findings: 1. Decreased strength/motor control to BLE major muscle groups 2. Impaired standing balance 3. Limitation of joint range of motion in right ankle 4. Impaired skin integrity right foot 5. Pain right foot 6. Impaired functional activity tolerance 7. Impaired safety awareness/judgment Impairments are contributing to the following functional limitations: 1. Inability to safely ambulate without assistive device 2. Increase completion time for mobility ADL performance 3. Increased fall risk 4. Decline in transfer skills with single-point cane Patient is assessed as a low complexity based on the following: History: 59-year-old male with impairment level findings, functional li mitations, and past medical history as indicated above Examination: Demonstrable impairment in strength, balance, and mobility level with underlying impairments and functional limitations as documented above Presentation:stable /evolving Decision Making:low Goals: N/A. PT evaluation and 1-2 treatment sessions only for functional mobility training using recommended AD and for HEP instruction. Plan of Care/Treatment Plan: N/A. PT evaluation and 1-2 treatment session only for functional mobility training using recommended AD and for HEP instruction. DISCHARGE RECOMMENDATIONS:Pt would benefit from limiting WB to Right heel to promote wound healing with use of FWW however patient adamantly refusing FWW. Per discussion with single-point cane was provided in anticipation of discharge to the community. TREATMENT CODE/TIME: 47194,07696 x 33 minutes for 2 units/1145?1215, 1300?1333 Thank you for the opportunity to participate in the care of this patient. Ronel Jamil PT [facility]
[2024-12-15] MEDS: oxyCODONE 5 MG TAB PO (12:43)
--- NOTE | 2024-12-15 14:05 | DSE_ITS ---
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 This is a chronic problem while he was here he was seen by podiatry as well as wound care. His MRI did not indicate any osteomyelitis and just had cellulitis. At the time of discharge I will send him home with Bactrim 1 pill p.o. twice daily for 5 days. Also while he was here he was noted to have significant anemia with an iron level of 19 and he will be sent home with iron supplementation as well. He was noted to have hypokalemia on admission but this resolved prior to discharge. Patient has refused further intervention by physical therapy as well as Occupational Therapy. The recommendation to use a front wheeled walker was rejected by the patient prior to discharge. History of Present Illness Chief Complaint: Swollen feet with ulcer on right heel Narrative: This is a 59-year-old male patient who is homeless living on the street for the last several weeks having lost his housing with chronic alcohol use when he can afford it history of substance use disorder with no reported recent use and negative drug screen in the ED and presently has an alcohol level of 315 presenting with swelling of his feet and ulcer of his his right heel. He states that he had a walk more recently trying to go to the [employer] [facility] in [facility] and has been wearing malfitting boots but now is barefoot. He does have a history of frostbite years ago and his feet have never healed correctly and he has chronic swelling and venous stasis changes over his legs. He often has dark scabbed sores and ulcers. He also has ulcers over his sacrum reported by the ED nurses and is poorly kempt. He has no fever or increased white count and CRP is negative though sed rate was elevated. He was cultured with blood cultures and urine culture and initiated on Zosyn with vancomycin for infection. The patient is very hard of hearing and states that he was working prior to his frostbite incident and this occurred when he was sleeping in his car during the winter. He appears to have had homelessness for a long time. He is food deprived at this time and appears very thin. He will be admitted for treatment of this infection until pathogen is apparent and for wound care as well as potassium repletion which should probably nutritional deficit with patient on no medications. As stated, he is chronically homeless and care management needs to possibly assist him in obtaining housing and better diet. He is a full code. Assessment and plan (1) Ulcer of right heel: Start date: 12/11/24 Status: Acute Assessment and plan: This is a 59-year-old gentleman who is an alcoholic who lives on the street recently having absolutely no housing. He does have chronic housing instability and food instability with increasing pain in his lower extremities having to use a cane for ambulation. This all occurred after an episode of frostbite more than 4 years ago while sleeping in his car during the winter. At that time he was employed but has lost employment since that incident. He was told that his frostbite is incurable. He does have a chronic ulcer over his heel but this is worsened recently and his pain is worsened prompting ED evaluation. He has to walk everywhere, depending on the bus system which he does not navigate well with his slow walking with a cane and he is food challenged with a recent place that he received food having minimal offerings. He also had to walk extensively to reach his food assistance just prior to admission. He is shoeless at this t melvin but did have rubber boots which were rubbing causing a chronic ulcer on his right heel which has worsened along with his leg pain which as stated, prompted the ED evaluation. MRI did not reveal any osteomyelitis or abscess and wound culture and blood cultures were obtained. Patient was initiated on Zosyn with vancomycin which will be continued until culture pathology is available. Patient will need wound care and care management assistance with his housing and food challenges. He is a full code. (2) Acute hypokalemia: Start date: 12/11/24 Status: Acute Assessment and plan: IV repletion and follow-up lab. This most likely is nutritional. (3) Alcohol intoxication: Start date: 12/11/24 Status: Acute Assessment and plan: Patient does have alcohol level over 300 upon admission and is on CIWA protocol but no withdrawal protocol initiated at this time. He does not appear inebriated upon admission. (4) Bilateral cellulitis of lower leg: Status: Chronic Assessment and plan: This is a chronic problem with poor circulation after his frostbite which was bilateral. He has chronic edema and skin breakdown. 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 He does have chronic inflammation but cellulitis appears more evident over the right foot with ulcer. Long-term he may do well with venous compression stockings and proper fitting shoes. Once he is stable and more strong OT and PT may be helpful. He has minimal resources for self-care as an outpatient. (5) Decubitus ulcer of sacral area: Status: Chronic Assessment and plan: This was reported by the nurses and should be inspected by nursing on MedSurg with wound care as needed. He is weak and has less ambulation recently using a cane for walking which is becoming difficult. (6) Substance use disorder: Status: Chronic Assessment and plan: Urine drug screen was negative with patient having no recent illicit drug use by history. VPMS was negative for any prescribed controlled substances. Expanded urine drug screen was sent out as a precaution to aid in outpatient therapy. The patient is at risk for misuse with homelessness, chronic pain and chronic alcohol use. (7) Alcoholic hepatitis: Status: Chronic Assessment and plan: This is chronic and appears stable with normal bilirubin. PT/INR will be alex cked.. (8) Tobacco dependence: Status: Chronic Assessment and plan: NicoDerm topically as needed. Exam(s) MR LOWER JOINT RT WO/W EXAM: MR LOWER JOINT RT WO/W CLINICAL HISTORY: right heel ulcer. TECHNIQUE: Multiplanar multisequence MRI Examination was performed. CONTRAST MATERIAL: IV Contrast: 19 mL of Dotarem contrast administered. COMPARISON: None. Exam is interpreted without benefit of comparison plain films. FINDINGS: The exam is somewhat limited by motion. BONES/JOINTS: No evidence of fracture. No evidence of bone erosions. No joint effusion identified. MUSCULOTENDINOUS STRUCTURES: No tendon abnormalities are identified. Visualized portion of the planar fascia is unremarkable. SOFT TISSUES: There is a small defect at the skin of the plantar aspect of the heel. There is no focal drainable collection or abscess. There is diffuse edema in the subcutaneous fat, consistent with cellulitis. IMPRESSION: No evidence of osteomyelitis. No drainable abscess or fluid collection. Cellulitis is present Home Meds and New Rx's Prescriptions: New oxycodone 5 mg Tablet 5 mg PO Q4H PRN PRNQty: 7 0RF sulfamethoxazole-trimethoprim 800-160 mg Tablet 1 tab PO BID 7 Days Qty: 14 0RF magnesium oxide 400 mg (241.3 mg magnesium) Tablet 400 mg PO BID 30 Days Qty: 60 0RF Discharge Instructions Referrals: Unknown,Unknown [Primary Care Provider, Unknown] Referral Note: please provide pt with a list of PCP prior to dc and make him an appt for follow up ifeanyi Activity:: Activity as Tolerated Equipment/Supplies:: Walker Diet:: As Tolerated Discharge Orders Discharge Orders: Discharge Order (Routine); Ordered 12/15/24 Ordered By: Nick Mccarthy DS: Summary Time Spent with Patient providing and/or coordinating discharge services: Less than 30 minutes Status at Discharge Functional status at discharge: uses cane/walker Overall status at discharge: patient is progressing back to baseline Mental Status: mental status grossly normal Speech and Movement: speech and movement normal Mood: congruent mood Affect: normal affect Quality:SDOH Health Related Social Needs: Health related social needs inadequate housing risk of homeless transpo insecurity material hardship house/econ circumstance finding work daily activities lonely/isolated education Health related social needs details pt needs housing Health related social needs details: pt needs housing Exam Narrative Exam Narrative: General: This is a cachectic man, unkempt, chronically ill-appearing HEENT: Normocephalic, atraumatic, poor dentition CV: Declined exam, extremities are well perfused Resp: , speaking in full sentences MSK: voluntary motion x4, muscle wasting Skin: Stigmata of venous stasis on BLE, hyperpigmented, with right heel ulcer. Eschar on distal toes from prior frostbite. Declined exam of sacrum. Psych Mental Status: mental status grossly normal Speech and Movement: speech and movement normal Mood: congruent mood Affect: normal affect DS: Data Vitals/I&O Vitals and I&O: Vital Signs Temperature 36.2 C L 12/14/24 23:22 Temperature Source Tympanic 12/14/24 23:22 Pulse 82 12/14/24 23:22 Pulse Rhythm Regular 12/11/24 22:25 Pulse 83 12/11/24 20:50 Respiratory Rate 20 12/14/24 23:22 Respiratory Effort Normal 12/11/24 22:25 Respiratory Depth Normal 12/11/24 22:25 Respiratory Pattern Normal 12/11/24 19:16 Blood Pressure 111/77 12/14/24 23:22 Blood Pressure Mean 88 12/14/24 23:22 Pulse Oximetry 96 12/14/24 23:22 Oxygen Delivery Method Room Air 12/14/24 23:22 Oxygen Flow Rate 0 12/14/24 23:22 Pain Level 7 12/14/24 15:25 Comment entered incorrectly 12/14/24 17:58 Intake & Output 12/14/24 12/15/24 12/15/24 23:59 11:59 23:59 Intake Total 750 / 2100 Output Total 1000 / 1900 2200 / 2500 300 / 2500 Balance -250 / 200 -2200 / -2500 -300 / -2500 Weight 64.8 kg Intake: Oral 750 / 750 Output: Urine 1000 / 1900 2200 / 2500 300 / 2500 Other: Urine Color Light Isela Pale Yellow Urine Appearance Clear Clear Urine Odor Normal Data Completed and Pending Labs on day of discharge: Labs from last 24 hours 12/15/24 06:16 WBC 6.02 RBC 3.42 L Hgb 10.4 L Hct 30.3 L MCV 89 MCH 30.4 MCHC 34.3 RDW 19.8 H Plt Count 189 MPV 9.7 Immature Gran % 0.5 Neutrophils % 60.3 Lymphocytes % 22.8 Monocytes % 12.6 Eosinophils % 3.0 Basophils % 0.8 Nucleated RBC % 0.0 Absolute Neutrophils 3.63 Absolute Lymphocytes 1.37 Absolute Monocytes 0.76 Absolute Eosinophils 0.18 Absolute Basophils 0.05 Sodium 135 L Potassium 4.4 Chloride 102 Carbon Dioxide 25.6 Anion Gap 7.4 BUN 8 Creatinine 0.5 L Est GFR (CKD-EPI 2020) 118.97 Glucose 93 Calcium 9.0 Iron 19 L TIBC 329 Transferrin % Sat 6 L Total Bilirubin 0.5 AST 47 H ALT 28 Alkaline Phosphatase 129 H Total Protein 7.8 Albumin 2.4 L Preliminary micro results at discharge 12/11/24 13:50 Blood Blood Culture - Preliminary NO GROWTH 72 HOURS 12/11/24 13:54 Blood Blood Culture - Preliminary NO GROWTH 72 HOURS PFSH All Active Problems (Updated 12/14/24 @ 16:28 by Nick Mccarthy MD) Bronze diabetes (Acute) Hypomagnesemia (Acute) Substance use disorder (Chronic) Sepsis (Acute) Acute hypokalemia (Acute) Normocytic anemia (Acute) Decubitus ulcer of sacral area (Chronic) Bilateral cellulitis of lower leg (Chronic) Ulcer of right heel (Acute) Discharge planning issues (Acute) Weakness (Acute) Alcohol intoxication (Acute) Substance abuse (Acute) Alcohol abuse (Chronic) Alcoholic peripheral neuropathy (Acute) Seizure disorder (Acute) Multiple rib fractures (Acute) Rib fracture (Acute) Alcohol withdrawal (Acute) Alcoholic hepatitis (Chronic) Alcoholic gastritis (Acute) Alcohol dependence (Acute) Tobacco dependence (Chronic) Ankle fracture, left (Acute) Discharge planning issues (Acute) Hypokalemia (Acute) Medical History Alcohol use disorder Family History Mother Cancer Social History Smoking/Tobacco Use Status: Current every day Tobacco Type: cigarettes Years smoked: 38 Tobacco: How many years used: 38 Quit status: not considering quitting Smoking risk assessment performed?: Yes Alcohol Intake: current Alcohol Intake frequency: a few times a week Alcohol type: beer, wine and hard liquor Drug use: Occasionally Substance use type: does not use Details: States he drinks almost a case of beer a day. Today pt reports he consumed both beer and wine. Adopted: No Caregiver/Support person: No Foster care: No Household members: friend(s) and other Details: Whoever wants to stay there Housing: homeless Number of Children: 0 number of grandchildren: 0 Communication Needs: Hard of Hearing Education Level: high school Do you need help understanding health information?: Always Pets and animals: No Sexually active: No Do you think of yourself as: straight/heterosexual Current gender identity: male What is your relationship status?: never How often do you talk on the phone with friends or family?: never How often do you get together with friends or relatives?: three or more times per week Do you belong to any clubs or organized social groups?: no Panel score (0-1 are the most socially isolated patients): 1 What type of physical activity do you participate in: none Laura/Samaritan: None Special laura needs: No Seatbelt use: always Drive intox or ride w/intox minibus driver: No Do you feel safe at home: Yes Do you feel safe in your relationship?: Yes Additional Social history: Pt reports he has been sleeping in a van for the last month. Time Spent with Patient Time Spent with Patient: <45 minutes Time was spent: preparing to see the patient(eg.review tests), obtaining and/or reviewing separately otained hiistory, ordering medications,tests, procedures, referring, communicating with other health vocational childcare teacher, indepentently interpreting results, counseling the patient and care coordination
--- NOTE | 2024-12-15 14:38 | CHAPLAIN ---
Hector was resting bed, watching tv with the sound off when I visited. He pointed to the message on the white board that said something like, Im very hard of hearing, please write down what you want to say to me. I wrote a message explaining my role and why I was visiting. He waved me off. I wrote a second note asking if he needed anything right then, and he said new legs, and waved me off again.
[2024-12-16 10:51] LABS: Fentanyl Scr w/Rfx Confirm Negative ng/mL (<1)
== END 2024-12-15 15:16 | disposition home or self-care (01) | DRG 603 ==
LOC: ER 21:08 → MS 21:27
PROVIDERS: Emergency Medicine; Nurse Practitioner Family; Admitting Provider Family Medicine; Emergency Provider Student in an Organized Health Care Education/Training Program; Responsible Provider Hospitalist; Visit Provider Family Medicine
DX: L03.115 Cellulitis of right lower limb (principal); L97.419 Non-pressure chronic ulcer of right heel and midfoot with unspecified severity; Z59.02 Unsheltered homelessness; Z59.12 Inadequate housing utilities; L03.116 Cellulitis of left lower limb; K70.10 Alcoholic hepatitis without ascites; F10.229 Alcohol dependence with intoxication, unspecified; D64.9 Anemia, unspecified; E87.6 Hypokalemia; L89.159 Pressure ulcer of sacral region, unspecified stage; F19.90 Other psychoactive substance use, unspecified, uncomplicated; F17.210 Nicotine dependence, cigarettes, uncomplicated; E83.42 Hypomagnesemia; E83.110 Hereditary hemochromatosis; Z59.41 Food insecurity; Z59.82 Transportation insecurity; Z60.8 Other problems related to social environment; Z55.6 Problems related to health literacy; Y90.8 Blood alcohol level of 240 mg/100 ml or more; G89.29 Other chronic pain; G62.1 Alcoholic polyneuropathy; K29.20 Alcoholic gastritis without bleeding; G40.909 Epilepsy, unspecified, not intractable, without status epilepticus; T14.8XXA Other injury of unspecified body region, initial encounter; W57.XXXA Bitten or stung by nonvenomous insect and other nonvenomous arthropods, initial encounter; R26.2 Difficulty in walking, not elsewhere classified; Z56.9 Unspecified problems related to employment; Z73.9 Problem related to life management difficulty, unspecified; I87.2 Venous insufficiency (chronic) (peripheral); I99.8 Other disorder of circulatory system; T33 Superficial frostbite; T33.822S Superficial frostbite of left foot, sequela; X31.XXXS Exposure to excessive natural cold, sequela; T33.821S Superficial frostbite of right foot, sequela
CPT/HCPCS: 00123; 36415; 80053; 80307; 80348; 80375; 85027; 85652; 87040; 87637; 96365; 96366; 96368; 97162; 97530; 99285; J1650; 73723; 80202; 80320; 81003; 83540; 83550; 83605; 83735; 84439; 84443; 85025; 85610; 86140; 87070; 87205; 99223; 99231; 99232; 99238; J2543; J3373; J3475; J3480

== ENCOUNTER 2025-01-07 11:44 | Observation (INO) | payer MEDICAID, SELFPAY ==
[2025-01-07] VITALS (13 sets, daily range): BP systolic 102–156; BP diastolic 60–98; PULSE 76–103; RESP 13–23; TEMP 36–37.4; O2SAT 78–98
--- NOTE | 2025-01-07 12:30 | DI.RAD_ITS ---
Exam(s) XR PORTABLE CHEST AP EXAM: XR PORTABLE CHEST AP CLINICAL HISTORY: SOB. TECHNIQUE: 2D digital imaging was performed. COMPARISON: CR,XR XR CHEST 2V PA LATERAL from 07/18/2022 FINDINGS: Single AP portable view. There healed left-sided rib fractures again noted. 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 Heart size is upper normal. The mediastinum is not widened. Lungs are clear. No infiltrates nor obvious pleural effusions. IMPRESSION: No acute pulmonary findings on this single AP portable view of the chest. 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 DATA REPOSITORY: RADIATION DOSE DELIVERED:
--- NOTE | 2025-01-07 12:37 | W.ED.GENAD ---
Discharge Plan Disposition Patient Disposition: Admit to [facility] Condition: Fair Discharge Details Primary Care Provider: Unknown,Unknown ED Provider: Ander Rich Home Meds and New Rx's Prescriptions: No Action oxycodone 5 mg Tablet 5 mg PO Q4H PRN PRNQty: 7 0RF magnesium oxide 400 mg (241.3 mg magnesium) Tablet 400 mg PO BID 30 Days Qty: 60 0RF HPI General Date/Time Provider Initiated Documentation: 01/07/25 12:02. HPI Narrative: 59-year-old male with past medical history of frostbite, substance use disorder, alcoholism, homelessness, alcohol withdrawal seizure, presents for multiple complaints. Patient states that he was brought to the emergency department by his friend, who is concerned about his legs. He notes that approximately 4 weeks ago he was admitted to the hospital for leg swelling which was thought to be cellulitis, and somewhat improved at time of discharge. He also noted a large ulcer on the right heel which exploded for which she was followed up with podiatry recommended enzymatic debridement and nonweightbearing status in a cam boot. Patient notes that due to his homelessness, he is then walking, however his leg swelling has worsened, and his legs also feel weak and limiting his ability to ambulate. He also notes that recently he has developed significant dyspnea on exertion noting that he is only able to walk 20 to 30 feet prior to becoming breathless and needing to take a break. He denies any associated fever, chills, chest pain, cough, hemoptysis, or any other new or concerning symptoms. Related Data Home Medications ?Medication ?Instructions ?Recorded ?Confirmed magnesium oxide 400 mg (241.3 mg 400 mg PO BID 30 days #60 tabs 12/15/24 01/07/25 magnesium) tablet oxycodone 5 mg tablet 5 mg PO Q4H PRN PRN #7 tabs 12/15/24 01/07/25 Previous Rx's ?Medication ?Instructions ?Recorded magnesium oxide 400 mg (241.3 mg 400 mg PO BID 30 days #60 tabs 12/15/24 magnesium) tablet oxycodone 5 mg tablet 5 mg PO Q4H PRN PRN #7 tabs 12/15/24 Allergies Allergy/AdvReac Type Severity Reaction Status Date / Time No Known Allergies Allergy Verified 01/07/25 12:40 General Stated Complaint: Cellulitis JINNY: 3 Review of Systems All systems reviewed & are unremarkable except as noted in HPI and below Exam Narrative Exam Narrative: Gen: A&O NAD. Disheveled and unkempt, thin. HEENT: NCAT, EOMI, not icteric. External ears normal. No rhinorrhea. Moist mucous membranes. Neck: Supple, full range of motion, no observable masses, No meningeal sign. Lungs: Breathing with pursed lips, audible expiratory wheezing. CV: RRR, bipedal edema 2+, extending to the distal thigh.. Abdomen: Soft, nondistended, No rebound tenderness. MSK: No joint swelling, no redness. Skin: Chronic induration and erythema of the bilateral lower extremities distal to the knee. Neuro: Alert and oriented, moving all extremities. Psych: Appropriate for situation. Course After initial assessment, the patient remained hemodynamically stable during his evaluation. However when asked to ambulate with a pulse ox, the patient was only able to make it several steps before he became dyspneic, short of breath, his O2 saturation dropped to the mid 70s. As such patient will be admitted for further management and started on IV Lasix due to concern for possible fluid overload status based off of B-lines noted on bedside echocardiogram. Case was discussed with Dr. Vera (hospitalist) who agrees that the patient admitted to his service. Vital Signs Vital signs: Vital Signs Temperature 36.8 C 01/07/25 12:00 Pulse 89 01/07/25 12:00 Respiratory Rate 20 01/07/25 12:00 Blood Pressure 156/98 H 01/07/25 12:00 Pulse Oximetry 86 L 01/07/25 12:00 Temperature 36.8 C 01/07/25 12:00 Temperature Source Oral 01/07/25 12:00 Pulse 89 01/07/25 12:00 Respiratory Rate 20 01/07/25 12:00 Blood Pressure 156/98 H 01/07/25 12:00 Blood Pressure Mean 117 01/07/25 12:00 Pulse Oximetry 86 L 01/07/25 12:00 Oxygen Delivery Method Room Air 01/07/25 12:00 Oxygen Flow Rate 0 01/07/25 12:00 Pain Level 8 01/07/25 12:00 Lab/Test Results Lab/Test Results: Laboratory Tests Range/Units 08/07/25 08/07/25 13:04 14:20 WBC (4.4-10.8) 10^3/uL 4.26 L RBC (4.36-5.78) 10^6/uL 3.53 L Hgb (13.5-17.5) g/dL 10.3 L Hct (40.0-50.0) % 31.2 L MCV (80-95) fL 88 MCH (27.0-33.0) pg 29.2 MCHC (32.0-36.0) % 33.0 RDW (11.8-14.1) % 16.5 H Plt Count (130-400) 10^3/uL 160 MPV (8.0-11.0) fL 8.3 Immature Gran % % 0.2 Neutrophils % % 48.0 Lymphocytes % % 27.0 Monocytes % % 15.7 Eosinophils % % 6.8 Basophils % % 2.3 Nucleated RBC % (0.0-0.3) % 0.0 Absolute Neutrophils (1.2-6.7) 10^3/uL 2.04 Absolute Lymphocytes (1.2-3.4) 10^3/uL 1.15 L Absolute Monocytes (0.1-0.8) 10^3/uL 0.67 Absolute Eosinophils (0.0-0.7) 10^3/uL 0.29 Absolute Basophils (0.0-0.2) 10^3/uL 0.10 ESR (0-20) mm/hr 52 H PT (9.1-11.1) sec 11.2 H INR (0.9-1.1) 1.1 APTT (20.6-30.2) sec 28.2 D-Dimer (<500) ng/mlFEU 786 H VBG Lactate (<or=2.0) mmol/L 1.8 Sodium (136-145) mmol/L 138 Potassium (3.5-5.1) mmol/L 4.0 Chloride (98-107) mmol/L 102 Carbon Dioxide (21.0-32.0) mmol/L 27.9 Anion Gap (3-11) mmol/L 8.1 BUN (7-18) mg/dL 3 L Creatinine (0.70-1.30) mg/dL 0.4 L Est GFR (CKD-EPI 2020) (mL/min/1.73m2) 127.26 Glucose (74-106) mg/dL 84 Calcium (8.5-10.1) mg/dL 8.8 Magnesium (1.8-2.4) mg/dL 1.9 Total Bilirubin (0.2-1.0) mg/dL 0.4 AST (15-37) U/L 51 H ALT (16-63) U/L 23 Alkaline Phosphatase (46-116) U/L 126 H Troponin I (<or=76) ng/L 6 6 C-Reactive Protein (<or=0.5) mg/dL < 0.50 NT-Pro-B Natriuret Pep (<300) pg/mL 107 Total Protein (6.4-8.2) g/dL 8.5 H Albumin (3.4-5.0) g/dL 2.9 L Ethyl Alcohol (<10) mg/dL 208.9 H Medical Decision Making 59-year-old male presents as above. Vital signs for respiratory rate of 20, and a heart rate of 89, nearing positive SIRS criteria. Patient's presentation is concerning for multiple life-threatening pathologies, in regards to his leg swelling and pain, there is concern for possible bilateral cellulitis although I think this is less likely given the chronicity of the patient's symptoms. Secondly with his leg swelling and new onset of dyspnea on exertion there is concern for possible cardiovascular pathology such as CHF, pulmonary hypertension, ACS, and PE. Will obtain broad screening modalities to include chest x-ray, EKG, blood work including CBC, CMP, troponin, BNP, inflammatory markers, magnesium and D-dimer. Suspect patient will require admission given his medical frailty and complicating social history. Imaging Data Radiologic Study: Radiologist's impression: Exam(s) CT CHEST PE CTA EXAM: CT CHEST PE CTA CLINICAL HISTORY: dyspnea elevated d-dimer. TECHNIQUE: Imaging Protocol: CT angiography of the chest was performed using pulmonary embolus protocol. Multi planar reconstructions were performed. CONTRAST MATERIAL: Intravenous: Omnipaque 350 Contrast volume: 80 cc COMPARISON: No exams were available for comparison FINDINGS: CHEST: PULMONARY ARTERIES: There are no intraluminal filling defects to suggest acute pulmonary emboli. LUNGS: There are no infiltrates nor evidence of pulmonary infarction.. There are no pleural effusions. MEDIASTINUM: There is no hilar nor mediastinal adenopathy. Partially visualized thyroid unremarkable. CARDIAC: Heart size is upper normal. There is no pericardial effusion.The diameter of the ascending thoracic aorta is enlarged, measuring 4.2 cm. There is no obvious dissection. Diameter of the aortic arch is upper normal and diameter of the ascending thoracic aorta is also upper normal. Ventricular ratio is approximately 1: 1. There is no reflux of IV contrast into the intrahepatic IVC. PARTIALLY VISUALIZED UPPERMOST ABDOMEN: Cirrhotic appearing liver. No adrenal masses. Spleen size normal. OSSEOUS: No significant osseous lesions.No fractures.. IMPRESSION: 1. No evidence of acute pulmonary emboli. No evidence of pulmonary infarction.No pleural effusions. 2. The ascending thoracic aorta is enlarged, measuring 4.2 cm. There is no evidence of dissection and there is no pericardial effusion. 3. Cirrhotic appearing liver. Normal spleen size. Gallstone noted Report called by myself to ER physician on 01/07/2025 at 3:30 p.m. Radiologic Study #2: Radiologist's impression: Exam(s) XR PORTABLE CHEST AP EXAM: XR PORTABLE CHEST AP CLINICAL HISTORY: SOB. TECHNIQUE: 2D digital imaging was performed. COMPARISON: CR,XR XR CHEST 2V PA LATERAL from 07/18/2022 FINDINGS: Single AP portable view. There healed left-sided rib fractures again noted. 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 Heart size is upper normal. The mediastinum is not widened. Lungs are clear. No infiltrates nor obvious pleural effusions. IMPRESSION: No acute pulmonary findings on this single AP portable view of the chest. 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 Quality:SDOH Health Related Social Needs: Health related social needs inadequate housing risk of homeless transpo insecurity material hardship house/econ circumstance finding work daily activities lonely/isolated education Health related social needs details pt needs housing PFSH All Active Problems (Updated 01/07/25 @ 16:18 by Nuria Monroy APRN) On deep vein thrombosis (DVT) prophylaxis (Acute) Alcohol abuse with withdrawal (Acute) Acute hypoxic respiratory failure (Acute) Hypoxic respiratory failure (Acute) Hypomagnesemia (Acute) Substance use disorder (Chronic) Sepsis (Acute) Normocytic anemia (Acute) Decubitus ulcer of sacral area (Chronic) Bilateral cellulitis of lower leg (Chronic) Ulcer of right heel (Acute) Discharge planning issues (Acute) Weakness (Acute) Substance abuse (Acute) Alcohol abuse (Chronic) Alcoholic peripheral neuropathy (Acute) Seizure disorder (Acute) Multiple rib fractures (Acute) Rib fracture (Acute) Alcohol withdrawal (Acute) Alcoholic hepatitis (Chronic) Alcoholic gastritis (Acute) Alcohol dependence (Acute) Ankle fracture, left (Acute) Discharge planning issues (Acute) Hypokalemia (Acute) Medical History Alcohol use disorder Family History Mother Cancer Social History Smoking/Tobacco Use Status: Current every day Tobacco Type: cigarettes Years smoked: 38 Tobacco: How many years used: 38 Quit status: not considering quitting Smoking risk assessment performed?: Yes Alcohol Intake: current Alcohol Intake frequency: a few times a week Alcohol type: beer, wine and hard liquor Drug use: Occasionally Substance use type: does not use Details: States he drinks almost a case of beer a day. Today pt reports he consumed both beer and wine. Adopted: No Caregiver/Support person: No Foster care: No Household members: friend(s) and other Details: Whoever wants to stay there Housing: homeless Number of Children: 0 number of grandchildren: 0 Communication Needs: Hard of Hearing Education Level: high school Do you need help understanding health information?: Always Pets and animals: No Sexually active: No Do you think of yourself as: straight/heterosexual Current gender identity: male What is your relationship status?: never How often do you talk on the phone with friends or family?: never How often do you get together with friends or relatives?: three or more times per week Do you belong to any clubs or organized social groups?: no Panel score (0-1 are the most socially isolated patients): 1 What type of physical activity do you participate in: none Laura/Hindu: None Special laura needs: No Seatbelt use: always Drive 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 POCUS Exam (ED) Limited Cardiac Exam DATE OF EXAM: 01/07/25 TIME OF EXAM: 13:36 PROVIDER THAT PERFORMED THE STUDY: Ander Rich IS THIS A REPEAT EXAM DURING THIS ENCOUNTER: no REASON FOR EXAM: Dyspnea VISUALIZED STRUCTURES: Four Chambers, Left atrium, Left ventricle, Right atrium, Right ventricle, Aortic valve, Mitral valve and Interventricular septum VIEW OBTAINED: Apical 4-Chamber, Parasternal long-axis, Parasternal short-axis and Subxiphoid PERTINENT FINDINGS/IMPRESSION: LV dysfunction; No pericardial effusion and No RV dilation DIFFERENTIAL DIAGNOSES: CHF, ACS INCIDENTAL FINDINGS: B-lines noted in left lung field. Exam complete
--- NOTE | 2025-01-07 12:45 | RT.EKG_ITS ---
APPROVED REPORT Exam: Resting ECG Reason for Exam: dyspnea Patient Location: E HR:76 bpm ECG Measurements Heart Rate 76 AXIS WY 62 P 0 QRSd 90 QRS -37 QT 421 T 62 QTc 473 Conclusion Sinus rhythm...normal P axis, V-rate 60- 99 Left axis deviation...QRS axis (-30,-90) No STEMI. Ander Rich MD
[2025-01-07 13:17] LABS: Abs Immature Grans 0.01 10^3/uL (0.0-0.06); HCT 31.2 % (40.0-50.0); HGB 10.3 g/dL (13.5-17.5); Immature Grans % 0.2 %; MCH 29.2 pg (27.0-33.0); MCHC 33.0 % (32.0-36.0); MCV 88 fL (80-95); MPV 8.3 fL (8.0-11.0); Platelet Count 160 10^3/uL (130-400); RBC 3.53 10^6/uL (4.36-5.78); RDW 16.5 % (11.8-14.1); RDW-SD 53.7 fL; WBC 4.26 10^3/uL (4.4-10.8)
[2025-01-07 13:20] LABS: ESR 52 mm/hr (0-20)
[2025-01-07 13:41] LABS: C-Reactive Protein < 0.50 mg/dL (<or=0.5)
[2025-01-07 13:42] LABS: ALT 23 U/L (16-63); AST 51 U/L (15-37); Albumin 2.9 g/dL (3.4-5.0); Alkaline Phosphatase 126 U/L (46-116); Anion Gap 8.1 mmol/L (3-11); BUN 3 mg/dL (7-18); Bilirubin, Total 0.4 mg/dL (0.2-1.0); CO2 27.9 mmol/L (21.0-32.0); Calcium 8.8 mg/dL (8.5-10.1); Chloride 102 mmol/L (98-107); Estimated GFR 127.26 (mL/min/1.73m2); Glucose 84 mg/dL (74-106); Magnesium 1.9 mg/dL (1.8-2.4); Potassium 4.0 mmol/L (3.5-5.1); Sodium 138 mmol/L (136-145); Total Protein 8.5 g/dL (6.4-8.2)
[2025-01-07 13:47] LABS: D-Dimer 786 ng/mlFEU (<500)
[2025-01-07 13:48] LABS: NT-proBNP 107 pg/mL (<300); Troponin I 6 ng/L (<or=76)
--- NOTE | 2025-01-07 14:00 | DI.CT_ITS ---
Exam(s) CT CHEST PE CTA EXAM: CT CHEST PE CTA CLINICAL HISTORY: dyspnea elevated d-dimer. TECHNIQUE: Imaging Protocol: CT angiography of the chest was performed using pulmonary embolus protocol. Multi planar reconstructions were performed. CONTRAST MATERIAL: Intravenous: Omnipaque 350 Contrast volume: 80 cc COMPARISON: No exams were available for comparison FINDINGS: CHEST: PULMONARY ARTERIES: There are no intraluminal filling defects to suggest acute pulmonary emboli. LUNGS: There are no infiltrates nor evidence of pulmonary infarction.. There are no pleural effusions. MEDIASTINUM: There is no hilar nor mediastinal adenopathy. Partially visualized thyroid unremarkable. CARDIAC: Heart size is upper normal. There is no pericardial effusion.The diameter of the ascending thoracic aorta is enlarged, measuring 4.2 cm. There is no obvious dissection. Diameter of the aortic arch is upper normal and diameter of the ascending thoracic aorta is also upper normal. Ventricular ratio is approximately 1: 1. There is no reflux of IV contrast into the intrahepatic IVC. PARTIALLY VISUALIZED UPPERMOST ABDOMEN: Cirrhotic appearing liver. No adrenal masses. Spleen size normal. OSSEOUS: No significant osseous lesions.No fractures.. IMPRESSION: 1. No evidence of acute pulmonary emboli. No evidence of pulmonary infarction.No pleural effusions. 2. The ascending thoracic aorta is enlarged, measuring 4.2 cm. There is no evidence of dissection and there is no pericardial effusion. 3. Cirrhotic appearing liver. Normal spleen size. Gallstone noted Report called by myself to ER physician on 01/07/2025 at 3:30 p.m. RADIATION DOSE DELIVERED: 141.4mGy.cm Total DLP DATA REPOSITORY: All CT scans at this facility are submitted to the National Radiology Data Registry (NRDR) Dose Index Registry (DIR) with the [employer] (ACR). RADIATION OPTIMIZATION: All CT scans at this facility use at least one of these dose optimization techniques: automated exposure control; mA and/or kV adjustment per patient size (includes targeted exams where dose is matched to clinical indication); or iterative reconstruction.
[2025-01-07 14:05] LABS: INR 1.1 (0.9-1.1); PTT Activated 28.2 sec (20.6-30.2); Prothrombin Time 11.2 sec (9.1-11.1)
[2025-01-07 15:00] LABS: Troponin I 6 ng/L (<or=76)
[2025-01-07] MEDS: Normal Saline - Diluent 50 ML VIAL IJ (15:12)
[2025-01-07] MEDS: Omnipaque 350 MG/ML 100 ML BTL 80 ML IJ (15:13)
--- NOTE | 2025-01-07 16:00 | HPE_ITS ---
Date of service: 01/07/25 Time of Service: 16:00 Assessment and Plan Assessment and plan (1) Acute hypoxic respiratory failure: Status: Acute Assessment and plan: Not on oxygen at baseline , sat in the 86-70% on ambulation resolving to 90% with oxygen at 2l/min via NC DDx CHF exacerbation VS ACS- unlikely at this time d/t negative troponins and EKG- might need a stress test outpatient to totally r/o cardiac changes on exertion -PE and PNA r/o as per imaging- not septic, negative lactate - will add a procal - COPD exacerbation considered but VBG negative (2) Substance use disorder: Status: Chronic Assessment and plan: Hx of - on IR oxycodone - (3) Alcohol withdrawal: Status: Acute Assessment and plan: Ethyl > 200, history of w/d seizures CIWA protocol with phenobarbital (4) Alcohol abuse with withdrawal: Status: Acute Assessment and plan: As above Will inquire about quitting VS aversion therapy (5) Alcoholic hepatitis: Status: Chronic Assessment and plan: Mildy elevated LFT's CMP in AM (6) Weakness: Status: Acute Assessment and plan: On ambulation PT consult (7) Anemia: Status: Chronic Assessment and plan: Stable CBC in AM (8) Seizure disorder: Status: Acute Assessment and plan: With alcohol withdrawal - not on home anti-seizure meds (9) On deep vein thrombosis (DVT) prophylaxis: Status: Acute Assessment and plan: ON LMWH (10) Discharge planning issues: Status: Acute Assessment and plan: Homeless CM to follow Discussed with Dr. Vera History of Present Illness History of Present Illness Chief Complaint: SOB Narrative: This is 59-year-old male patient w a PMHx of ongoing homelessness living on [address], chronic alcohol use with w/d seizures, substance use disorder with no reported recent use and negative drug screen in the ED and presently has an alcohol level of 268 presented to the ED today for evaluation of leg swelling , dyspnea on ambulation and ongoing right heel ulcer. Work-up in the ED was neagtive for ACS as per EKG and troponin, no c/o chest pain, hemodynamically stable but developing dyspnea on ambulation with ED provider notes stating saturations in oxygen dropping to the 70's. B-lines on POCUS reported by ED provider, CT and chest XR negative for acute findings. The patient was admitted for working diagnosis of CHF exacerbation to the medical surgical floor. ED provider intiated iV lasix in the ED. Upper respiratory viral panel and VBG pending. Full code status confirmed. The patient denied fever , dizziness, change in vision, chest pain , GI or symptoms. Bilateral legs swelling and chills reported. Review of Systems All systems reviewed & are unremarkable except as noted in HPI and below PFSH All Active Problems (Updated 01/07/25 @ 16:20 by Nuria Monroy APRN) Anemia (Chronic) On deep vein thrombosis (DVT) prophylaxis (Acute) Alcohol abuse with withdrawal (Acute) Acute hypoxic respiratory failure (Acute) Hypoxic respiratory failure (Acute) Hypomagnesemia (Acute) Substance use disorder (Chronic) Sepsis (Acute) Normocytic anemia (Acute) Decubitus ulcer of sacral area (Chronic) Bilateral cellulitis of lower leg (Chronic) Ulcer of right heel (Acute) Discharge planning issues (Acute) Weakness (Acute) Substance abuse (Acute) Alcohol abuse (Chronic) Alcoholic peripheral neuropathy (Acute) Seizure disorder (Acute) Multiple rib fractures (Acute) Rib fracture (Acute) Alcohol withdrawal (Acute) Alcoholic hepatitis (Chronic) Alcoholic gastritis (Acute) Alcohol dependence (Acute) Ankle fracture, left (Acute) Discharge planning issues (Acute) Hypokalemia (Acute) Medical History Alcohol use disorder Family History Mother Cancer Social History Smoking/Tobacco Use Status: Current every day Tobacco Type: cigarettes Years smoked: 38 Tobacco: How many years used: 38 Quit status: not considering quitting Smoking risk assessment performed?: Yes Alcohol Intake: current Alcohol Intake frequency: a few times a week Alcohol type: beer, wine and hard liquor Drug use: Occasionally Substance use type: does not use Details: States he drinks almost a case of beer a day. Today pt reports he consumed both beer and wine. Adopted: No Caregiver/Support person: No Foster care: No Household members: friend(s) and other Details: Whoever wants to stay there Housing: homeless Number of Children: 0 number of grandchildren: 0 Communication Needs: Hard of Hearing Education Level: high school Do you need help understanding health information?: Always Pets and animals: No Sexually active: No Do you think of yourself as: straight/heterosexual Current gender identity: male What is your relationship status?: never How often do you talk on the phone with friends or family?: never How often do you get together with friends or relatives?: three or more times per week Do you belong to any clubs or organized social groups?: no Panel score (0-1 are the most socially isolated patients): 1 What type of physical activity do you participate in: none Laura/Spiritism: None Special laura needs: No Seatbelt use: always 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 Meds Allergies and Home Medications Allergies Allergy/AdvReac Type Severity Reaction Status Date / Time No Known Allergies Allergy Verified 01/07/25 12:40 Home Medications ?Medication ?Instructions ?Recorded ?Confirmed ?Type magnesium oxide 400 mg (241.3 mg 400 mg PO BID 30 days #60 tabs 12/15/24 01/07/25 Rx magnesium) tablet oxycodone 5 mg tablet 5 mg PO Q4H PRN PRN #7 tabs 12/15/24 01/07/25 Rx Exam Narrative Exam Narrative: Alert and oriented [place], neurologically intact ongoing tremors , clear lungs with decreased baseswith faint crackles , accessory muscle use with exertion, S1, S2 regular, abdomen is non-distended, soft, non-tender, no CVA tendreness, R heel ulcer w/o purulent drainage dry and healed, left second toe nail appears back but cap refill < 3 sec Results Labs 01/07/25 13:04 01/07/25 13:04 Labs: Laboratory Results - last 24 hr 01/07/25 01/07/25 13:04 14:20 WBC 4.26 L RBC 3.53 L Hgb 10.3 L Hct 31.2 L MCV 88 MCH 29.2 MCHC 33.0 RDW 16.5 H Plt Count 160 MPV 8.3 Immature Gran % 0.2 Neutrophils % 48.0 Lymphocytes % 27.0 Monocytes % 15.7 Eosinophils % 6.8 Basophils % 2.3 Nucleated RBC % 0.0 Absolute Neutrophils 2.04 Absolute Lymphocytes 1.15 L Absolute Monocytes 0.67 Absolute Eosinophils 0.29 Absolute Basophils 0.10 ESR 52 H PT 11.2 H INR 1.1 APTT 28.2 D-Dimer 786 H VBG Lactate 1.8 Sodium 138 Potassium 4.0 Chloride 102 Carbon Dioxide 27.9 Anion Gap 8.1 BUN 3 L Creatinine 0.4 L Est GFR (CKD-EPI 2020) 127.26 Glucose 84 Calcium 8.8 Magnesium 1.9 Total Bilirubin 0.4 AST 51 H ALT 23 Alkaline Phosphatase 126 H Troponin I 6 6 C-Reactive Protein < 0.50 NT-Pro-B Natriuret Pep 107 Total Protein 8.5 H Albumin 2.9 L Ethyl Alcohol 208.9 H Last Vital Signs Temp 36.8 C 01/07/25 12:00 Pulse 79 01/07/25 15:46 Resp 13 01/07/25 15:46 BP 116/71 01/07/25 15:46 Pulse Ox 90 L 01/07/25 15:01 PAWSS Have you Been Recently Intoxicated or Drunk Within the Last 30 days?: Yes Have you Ever Experienced Previous Episodes of Alcohol Withdrawal?: Yes Have you ever Experienced Withdrawal Seizures?: No Have you ever Experienced Delirium Tremens(DT)s?: No Have you ever undergone Alcohol Rehabilitation Treatment (i.e, inpt ot outpatient treatment programs)?: Yes Have you ever Experienced Blackouts?: No Have you ever Combined Alcohol with other Downers within the last 90 days?: No Have you ever Combined Alcohol with any other Substance of Abuse during the last 90 days?: No Positive Blood Alcohol level on Presentation? [PCS.BAL]: Yes Result: 4 Time Spent Time spent with Patient: >75 minutes Time was spent: preparing to see the patient(eg.review tests), obtaining and/or reviewing separately otained hiistory, ordering medications,tests, procedures, referring, communicating with other health md do resident urgent care, indepentently interpreting results, counseling the patient and care coordination
[2025-01-07 16:23] LABS: BE (Venous) 4 mmol/L (-2-3); HCO3 (Venous) 29 mmol/L (23-28); O2 Sat (Venous) 40 %; TCO2 (Venous) 27 mmol/L (24-29); pCO2 (Venous) 44 mmHg (41-51); pO2 (Venous) 27 mmHg
[2025-01-07] MEDS: Furosemide 100 MG/10 ML VIAL 80 MG IVP (16:29)
[2025-01-07 16:44] LABS: Troponin I 6 ng/L (<or=76)
[2025-01-07 17:05] LABS: COVID-19 PCR Negative (Negative); RSV PCR Negative (Negative)
--- NOTE | 2025-01-07 17:23 | W.PC.ACHO ---
Registration Status: ADM SCOTT Primary Language: Preferred Language: Occitan ED Information & Data Chief Complaint Cellulitis 01/07/25 13:21 Chief Complaint Cellulitis 01/07/25 12:43 Triage Note Pt reports bilateral leg 01/07/25 11:56 pain more specifically in L leg. Pt states pain and swelling has progressed up his L leg into thigh starting 2 weeks ago. Medical / Surgical History (Last Reviewed 12/15/24 @ 14:35 by Elizabeth Collazo DPM) Alcohol use disorder Most Recent Vital Signs Temperature 36.8 C 01/07/25 12:00 Temperature Source Oral 01/07/25 12:00 Pulse 79 01/07/25 15:46 Pulse 86 01/07/25 15:46 Respiratory Rate 13 01/07/25 15:46 Blood Pressure 116/71 01/07/25 15:46 Blood Pressure Mean 85 01/07/25 15:46 Pulse Oximetry 90 L 01/07/25 15:01 Oxygen Delivery Method Room Air 01/07/25 12:00 Oxygen Flow Rate 0 01/07/25 12:00 Pain Level 8 01/07/25 12:00 Allergies No Known Allergies Allergy (Verified 01/07/25 12:40) Active Medications Generic Name Dose Route Start Last Admin Trade Name Freq PRN Reason Stop Dose Admin Iohexol 80 ml 01/07/25 15:15 01/07/25 15:13 Omnipaque 350 Mg/Ml 100 Ml Btl IJ 02/06/25 23:59 80 ml DIRECTED AKHIL Administration Sodium Chloride 50 ml 01/07/25 15:15 01/07/25 15:12 Normal Saline - Diluent 50 Ml Vial IJ 50 ml .FOR DI USE AKHIL Administration IV IV Catheter Type [Right Peripheral IV Antecubital] IV Catheter Gauge [Right 18 Antecubital] Diet Orders Category Date Time Status Heart Healthy Eating [DIET] Nutrition 01/07/25 Dinner Active Diagnostics 01/07/25 01/07/25 01/07/25 Range/Units 14:20 14:17 13:04 WBC 4.26 L (4.4-10.8) 10^3/uL RBC 3.53 L (4.36-5.78) 10^6/uL Hgb 10.3 L (13.5-17.5) g/dL Hct 31.2 L (40.0-50.0) % MCV 88 (80-95) fL MCH 29.2 (27.0-33.0) pg MCHC 33.0 (32.0-36.0) % RDW 16.5 H (11.8-14.1) % Plt Count 160 (130-400) 10^3/uL MPV 8.3 (8.0-11.0) fL Immature Gran % 0.2 % Neutrophils % 48.0 % Lymphocytes % 27.0 % Monocytes % 15.7 % Eosinophils % 6.8 % Basophils % 2.3 % Nucleated RBC % 0.0 (0.0-0.3) % Absolute Neutrophils 2.04 (1.2-6.7) 10^3/uL Absolute Lymphocytes 1.15 L (1.2-3.4) 10^3/uL Absolute Monocytes 0.67 (0.1-0.8) 10^3/uL Absolute Eosinophils 0.29 (0.0-0.7) 10^3/uL Absolute Basophils 0.10 (0.0-0.2) 10^3/uL ESR 52 H (0-20) mm/hr PT 11.2 H (9.1-11.1) sec INR 1.1 (0.9-1.1) APTT 28.2 (20.6-30.2) sec D-Dimer 786 H (<500) ng/mlFEU VBG pH 7.42 H (7.31-7.41) VBG pCO2 44 (41-51) mmHg VBG pO2 27 mmHg VBG HCO3 29 H (23-28) mmol/L VBG Total CO2 27 (24-29) mmol/L VBG O2 Saturation 40 % VBG Base Excess 4 H (-2-3) mmol/L VBG Lactate 1.8 (<or=2.0) mmol/L Sodium 138 (136-145) mmol/L Potassium 4.0 (3.5-5.1) mmol/L Chloride 102 (98-107) mmol/L Carbon Dioxide 27.9 (21.0-32.0) mmol/L Anion Gap 8.1 (3-11) mmol/L BUN 3 L (7-18) mg/dL Creatinine 0.4 L (0.70-1.30) mg/dL Est GFR (CKD-EPI 2020) 127.26 (mL/min/1.73m2) Glucose 84 (74-106) mg/dL Calcium 8.8 (8.5-10.1) mg/dL Magnesium 1.9 (1.8-2.4) mg/dL Total Bilirubin 0.4 (0.2-1.0) mg/dL AST 51 H (15-37) U/L ALT 23 (16-63) U/L Alkaline Phosphatase 126 H (46-116) U/L Troponin I 6 6 6 (<or=76) ng/L C-Reactive Protein < 0.50 (<or=0.5) mg/dL NT-Pro-B Natriuret Pep 107 (<300) pg/mL Total Protein 8.5 H (6.4-8.2) g/dL Albumin 2.9 L (3.4-5.0) g/dL Ethyl Alcohol 208.9 H (<10) mg/dL COVID-19 Source Nasopharynx SARS-CoV-2 (PCR) Negative (Negative) Influenza Type A (PCR) Negative (Negative) Influenza Type B (PCR) Negative (Negative) RSV (PCR) Negative (Negative) Intake and Output - 24 Hour Total 01/07/25 11:44 thru 01/07/25 16:56 Output Total 1500 Balance -1500 Weight 74.843 kg Output: Urine 1500 Falls Risk Assessment History of Falls No History 01/07/25 13:14 Contributing Factors Impairments 01/07/25 13:14 Ambulatory Aids Uses ambulatory device 01/07/25 13:14 Gait Evaluation No gait disturbance 01/07/25 13:14 Cognition No cognitive impairment 01/07/25 13:14 Fall Total Score 18 01/07/25 13:14 Level of Risk Standard/Low Risk 01/07/25 13:14 Problems (Last Reviewed 12/15/24 @ 14:35 by Elizabeth Collazo DPM) Anemia (Chronic) On deep vein thrombosis (DVT) prophylaxis (Acute) Alcohol abuse with withdrawal (Acute) Acute hypoxic respiratory failure (Acute) Substance use disorder (Chronic) Discharge planning issues (Acute) Weakness (Acute) Seizure disorder (Acute) Alcohol withdrawal (Acute) Alcoholic hepatitis (Chronic) v v v v v v v v v Sending and/or Receiving Nurses: Please use comment section below to note any information pertinent to the patient hand-off not included above. Information / Comments: this nurse received report from ER nurse, patient oriented hard to hear, IV access contact precautions is transferred for further treatment. Report received from: Blayne MARTIN RN
[2025-01-07] MEDS: Acetaminophen 325 MG TAB 650 MG PO ×2 (20:07→23:45)
[2025-01-07] MEDS: Magnesium Oxide 400 MG TAB PO (20:07)
[2025-01-07] MEDS: PHENobarbital 130 MG/ML VIAL IVP (20:09)
[2025-01-07] MEDS: Normal Saline Flush 10 ML SYR IVP ×2 (20:12→21:20)
[2025-01-07] MEDS: PHENobarbital 140 MG in Normal Saline 50 ML 100 MG IVPB (23:46)
[2025-01-08] MEDS: PHENobarbital 140 MG in Normal Saline 50 ML 100 MG IVPB (02:41)
[2025-01-08 03:19] VITALS: BP 105/69; PULSE 85; RESP 22; TEMP 36.9; O2SAT 92
[2025-01-08 07:39] LABS: Abs Immature Grans 0.03 10^3/uL (0.0-0.06); HCT 30.0 % (40.0-50.0); HGB 10.2 g/dL (13.5-17.5); Immature Grans % 0.6 %; MCH 29.7 pg (27.0-33.0); MCHC 34.0 % (32.0-36.0); MCV 88 fL (80-95); MPV 9.2 fL (8.0-11.0); Platelet Count 147 10^3/uL (130-400); RBC 3.43 10^6/uL (4.36-5.78); RDW 16.0 % (11.8-14.1); RDW-SD 51.7 fL; WBC 4.91 10^3/uL (4.4-10.8)
--- NOTE | 2025-01-08 08:00 | DI.US_ITS ---
APPROVED REPORT EXAM: Comprehensive 2D, Doppler, and color-flow Echocardiogram Patient Location: In-Patient Room/Bed: 227 Staff Physician: Nicole Rodriguez RT (R) (CT) RDCS Rhythm: NSR Indications: CHF exacerbation Other Information Study Quality: Adequate Conclusion Normal left ventricular wall thickness and chamber size. Ejection fraction is 65 to 70%. Wall motion is normal Normal right ventricular size and function Both atria are normal in size Incidental finding of small patent foramen ovale with bidirectional flow There is no structural or hemodynamically significant valvular disease Mildly dilated ascending aorta Wall motion Left Ventricle The left ventricle is normal size. The left ventricular systolic function is normal. The left ventricular ejection fraction is within the normal range. There is normal left ventricular wall thickness. There is normal LV segmental wall motion. The left ventricular diastolic function is normal. There is no ventricular septal defect visualized. LVEF is 65-70%. Right Ventricle The right ventricle is normal size. The right ventricular systolic function is normal. There is normal right ventricular wall thickness. Atria The left atrium size is normal. The right atrium size is normal. Small PFO is noted. Aortic Valve Aortic valve is trileaflet. Aortic valve leaflets are mildly thickened. There is no aortic valvular stenosis. No aortic regurgitation is present. Mitral Valve Mitral valve leaflets are mildly thickened. No evidence of mitral valve stenosis. Trace mitral regurgitation. Tricuspid Valve The tricuspid valve is normal in structure. There is no tricuspid valve stenosis. Trace tricuspid regurgitation. Pulmonic Valve The pulmonary valve is normal in structure. Trace pulmonic regurgitation. Great Vessels The aortic root is normal in size. The pulmonary artery is normal. Ascending aorta is dilated. IVC is normal in size and collapses >50% with inspiration. Pericardium There is no pericardial effusion.
[2025-01-08 08:03] VITALS: BP 123/70; PULSE 78; RESP 16; TEMP 36.9; O2SAT 97
[2025-01-08 08:07] LABS: ALT 18 U/L (16-63); AST 30 U/L (15-37); Albumin 2.5 g/dL (3.4-5.0); Alkaline Phosphatase 114 U/L (46-116); Anion Gap 6.3 mmol/L (3-11); BUN 5 mg/dL (7-18); Bilirubin, Total 1.1 mg/dL (0.2-1.0); CO2 29.7 mmol/L (21.0-32.0); Calcium 8.4 mg/dL (8.5-10.1); Chloride 99 mmol/L (98-107); Estimated GFR 118.97 (mL/min/1.73m2); Glucose 93 mg/dL (74-106); Potassium 3.1 mmol/L (3.5-5.1); Sodium 135 mmol/L (136-145); Total Protein 7.3 g/dL (6.4-8.2)
[2025-01-08] MEDS: Acetaminophen 325 MG TAB 650 MG PO ×2 (08:27→16:02)
[2025-01-08] MEDS: Nicotine 21 MG/24 HR PATCH TD (08:27)
[2025-01-08] MEDS: Enoxaparin 40 MG/0.4 ML SYR SC (08:28)
[2025-01-08] MEDS: Multivitamin TAB 1 TAB PO (08:28)
[2025-01-08] MEDS: Thiamine 100 MG TAB PO (08:28)
[2025-01-08] MEDS: Folic Acid 1 MG TAB PO (08:28)
[2025-01-08] MEDS: Magnesium Oxide 400 MG TAB PO (08:28)
[2025-01-08] MEDS: Normal Saline Flush 10 ML SYR IVP ×3 (08:29→15:01)
[2025-01-08] MEDS: Furosemide 40 MG/4 ML VIAL IVP ×2 (08:29→15:00)
--- NOTE | 2025-01-08 08:36 | PDOC.CMIN ---
Date of service: 01/08/25 Time of Service: 08:36 Care Management Initial Assmt Initial Assessment Reason for Hospitalization: Hypoxic Respiratory Failure Functional Status/Living Situation Patient Presentation: Hector is currently homeless and reports that he often squats wherever space is available. Recommend follow up with [facility]ARY for support with community resources and explore initiating long-term Medicaid application process. Patient reports ongoing alcohol use and is not interested in cessation at this time, which interferes with eligibility for placement in a homeless residential. CM spoke with his Friend JULIA whom expresses concerns with Ethan overall health and living situation which he acknowledges is impacted severely by his alcohol use. He reports that he's tried everything and he cant get him to quit. Hector has agreed to establish care at [facility] and has an appoiontment on 01/28/25; JULIA is planning to transport him to this appointment but acknowledges that he works so his ability to provide his transportation is limited. Town of Residence: [facility] Resides with: Alone Significant Other/Family: Local (Good friend, JULIA) Natural Supports: Friend JULIA, No family: per pt has 1 sister, 1 brother, 9 half sisters: does not communicate with any of them Employment Status: Unemployed Instrumental Activities of Daily Living (ADLs): Independent Medications Medication Management: No Issues/Barriers identified Physical Functioning/Mobility Assistive Device: Cane Advance Directives Advance Directives: Do you have an Advance Directive: N 09/09/16, 19:[address] File [address] [facility]: N 09/09/16, 19:11 Date Asked 01/07/25 01/07/25, 11:51 AD Date Reviewed COLST On File at [facility] No 05/09/21, 20:02 COLST Date Scanned Code Status Resuscitation Status Full Code Portal Pt does not currently have a portal and education provided: Yes Insurance Coverage/Financial Issues Insurance: Medicaid Care Team Visit Care Team Role Provider Type Nuria Monroy APRN MD [facility] STAFF PHYSICIAN Unknown Unknown Primary Care Provider STAFF PHYSICIAN Dotty Kraus Other Providers OTHER Ander Rich MD Emergency Provider [facility] STAFF PHYSICIAN Rian Vera Admit Provider [facility] STAFF PHYSICIAN Attending Provider Discharge Potential Discharge Needs: Consult Consult Services Needed: Palliative and PCP F/U Appt Anticipated Barriers to Discharge: None Identified Patient/Family Education Needs: Review discharge instructions, discuss Ask Me Three Transportation: Private vehicle Plan: Anticipate, Hector will be discharged to the community with recommendation for follow up with a primary care provider and community supports post-discharge. No PCP currently established, T-Doc follow up on discharge will be needed. Transportation will be via [facility] vs. private vehicle with friend JULIA. CM will follow. Social Determinants of Health Screening Social Determinants of health last assessed in clinic: 01/08/25 Will the Patient Participate in the Screening?: Yes Do you worry about having a steady place to live?: yes What is your living situation today?: I do not have steady housing Problems where you live: pests such as bugs, ants or mice In the past 12 months, have you had to go without electric, gas, oil or water in your home?: yes 1. Within the past 12 months, we worried whether our food would run out before we got money to buy more.: Never true 2. Within the past 12 months, the food we bought just didn't last and we didn't have money to get more.: Never true Has lack of transportation kept you from medical appointments or from doing things needed for daily living?: yes Has anyone in your life made you feel unsafe or unsupported?: yes How often does anyone, including family and friends, physically hurt you?: Never How often does anyone, including family and friends, insult or talk down to you?: Never How often does anyone, including family and friends, threaten you with harm?: Never How often does anyone, including family and friends, scream or curse at you?: Never HRSN Safety total score: 4 How hard is it for you to pay for the very basics like food, housing, medical care, and heating? Would you say it is:: Very hard Do you want help finding or keeping work or a job?: I do not need or want help If for any reason you need help with day-to-day activities such as bathing, preparing meals, shopping, managing finances, etc., do you get the help you need?: I need a lot more help How often do you feel lonely or isolated from those around you?: Sometimes Do you speak a language other than German at home?: No Does the patient want assistance with any of the above?: No Health Related Social Needs Health related social needs: inadequate housing (Z59.1), housing instability, housed, with risk of homelessness (Z59.811), transportation insecurity (Z59.82), material hardship(utilities) (Z59.12), problems related to housing/economic circumstances (Z59.89), problems with daily activities (Z73.9) and feeling lonely/isolated (Z60.8) Health related social needs details: homeless [facility] All Active Problems (Updated 01/08/25 @ 16:40 by Rama Valdez NP) Advanced care planning/counseling discussion (Acute) Palliative care encounter (Acute) Homelessness (Acute) Cirrhosis of liver (Acute) Anemia (Chronic) On deep vein thrombosis (DVT) prophylaxis (Acute) Alcohol abuse with withdrawal (Acute) Acute hypoxic respiratory failure (Acute) Hypoxic respiratory failure (Acute) Hypomagnesemia (Acute) Substance use disorder (Chronic) Sepsis (Acute) Normocytic anemia (Acute) Decubitus ulcer of sacral area (Chronic) Bilateral cellulitis of lower leg (Chronic) Ulcer of right heel (Acute) Discharge planning issues (Acute) Weakness (Acute) Substance abuse (Acute) Alcohol abuse (Chronic) Alcoholic peripheral neuropathy (Acute) Seizure disorder (Acute) Multiple rib fractures (Acute) Rib fracture (Acute) Alcohol withdrawal (Acute) Alcoholic hepatitis (Chronic) Alcoholic gastritis (Acute) Alcohol dependence (Acute) Ankle fracture, left (Acute) Discharge planning issues (Acute) Hypokalemia (Acute) Medical History Alcohol use disorder Family History Mother Cancer Social History Smoking/Tobacco Use Status: Current every day Tobacco Type: cigarettes Years smoked: 38 Tobacco: How many years used: 38 Quit status: not considering quitting Smoking risk assessment performed?: Yes Alcohol Intake: current Alcohol Intake frequency: a few times a week Alcohol type: beer, wine and hard liquor Drug use: Occasionally Substance use type: does not use Details: States he drinks almost a case of beer a day. Today pt reports he consumed both beer and wine. Adopted: No Caregiver/Support person: No Foster care: No Household members: friend(s) and other Details: Whoever wants to stay there Housing: homeless Number of Children: 0 number of grandchildren: 0 Communication Needs: Hard of Hearing Education Level: high school Do you need help understanding health information?: Always Pets and animals: No Sexually active: No Do you think of yourself as: straight/heterosexual Current gender identity: male What is your relationship status?: never How often do you talk on the phone with friends or family?: never How often do you get together with friends or relatives?: three or more times per week Do you belong to any clubs or organized social groups?: no Panel score (0-1 are the most socially isolated patients): 1 What type of physical activity do you participate in: none Laura/Yazidism: None Special laura needs: No Seatbelt use: always Drive intox or ride w/intox 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
[2025-01-08 10:00] LABS: Cannabinoids THC Negative (Negative); METHADONE URINE SCREEN Negative (Negative)
[2025-01-08 10:57] VITALS: BP 103/73; PULSE 92; RESP 16; TEMP 36.7; O2SAT 95
--- NOTE | 2025-01-08 11:27 | PT.INIE ---
PT Notes Visit Reasons: CHF exacerbation, hypoxic respiratory failure Physical Therapy Inpatient Initial Evaluation Date: 01/08/2025 Referring Doctor: Nuria Monroy NP PT Orders: PT CONSULT: Eval for Assistive Device. Safety Consult for D/C Precautions: Fall. Conttact precautions. Activity as tolerated. Impaired hearing. On seizure precautions. Patient Profile/Admitting Diagnosis: Hector is a 59-year-old male admitted for management of acute hypoxic respiratory failure, substance use disorder, EtOH withdrawal, alcoholic hepatitis, generalized weakness, anemia, and seizure disorder. PMHX: All Active Problems (Updated 01/07/25 @ 16:20 by Nuria Monroy, DIRECTOR OF PATIENT SAFETY) Anemia (Chronic) On deep vein thrombosis (DVT) prophylaxis (Acute) Alcohol abuse with withdrawal (Acute) Acute hypoxic respiratory failure (Acute) Hypoxic respiratory failure (Acute) Hypomagnesemia (Acute) Substance use disorder (Chronic) Sepsis (Acute) Normocytic anemia (Acute) Decubitus ulcer of sacral area (Chronic) Bilateral cellulitis of lower leg (Chronic) Ulcer of right heel (Acute) Discharge planning issues (Acute) Weakness (Acute) Substance abuse (Acute) Alcohol abuse (Chronic) Alcoholic peripheral neuropathy (Acute) Seizure disorder (Acute) Multiple rib fractures (Acute) Rib fracture (Acute) Alcohol withdrawal (Acute) Alcoholic hepatitis (Chronic) Alcoholic gastritis (Acute) Alcohol dependence (Acute) Ankle fracture, left (Acute) Discharge planning issues (Acute) Hypokalemia (Acute) Medical History Alcohol use disorder Social History/Home Situation: [place] alone [place] [facility]. Has friends who are kind enough to give him food. Equipment Owned/DME: Single-point cane, post op shoe on R, Knee brace on R Subjective: Patient reported that he has had chronic generalized pain. He added that he lives in an abandoned building and sleeps on a chair as he could not get up from sleeping on the floor or in a tent. Objective: General Observation: Resting in bed. Thickend skin in B soles of feet. Mental Status: Alert and oriented as to person, place, time, and purpose. Able to pay attention, focus, and respond appropriately. Pain: Chronic generalized pain of up to 3-4/10 with walking Vital Signs: Closely monitored via tele ROM: Right Upper Extremity: Shoulder Flexion allowed up to 90 degrees. Shoulder abduction allowed up to 90 degrees. Elbow flexion WFL. Wrist flexion WFL. Functional opening and closing of hand WFL. Left Upper Extremity: Shoulder Flexion allowed up to 90 degrees. Shoulder abduction allowed up to 90 degrees. Elbow flexion WFL. Wrist flexion WFL. Functional opening and closing of hand WFL. Right Lower Extremity: Hip flexion allowed up to 100 degrees. Hip abduction allowed up to 45 degrees. Knee flexion 30 degrees to 90 degrees. Ankle dorsiflexion to neutral only. Ankle plantarflexion WFL. Left Lower Extremity: Hip flexion allowed up to 100 degrees. Hip abduction allowed up to 45 degrees. Knee flexion 30 degrees to 90 degrees. Ankle dorsiflexion to neutral only. Ankle plantarflexion WFL. Strength: Right Upper Extremity: Shoulder flexors 3-/5. Shoulder abductors 3-/5. Elbow flexors 4-/5. Elbow extensors 4-/5. Scaler strong. Left Upper Extremity: Shoulder flexors 3-/5. Shoulder abductors 3-/5. Elbow flexors 4-/5. Elbow extensors 4-/5. Scaler strong. Right Lower Extremity: Hip flexors 3-/5. Hip abductors 3-/5. Knee flexors 3-/5. Knee extensors 3-/5. Ankle dorsiflexors 3-/5. Ankle plantarflexors 4-/5. Left Lower Extremity: Hip flexors 3-/5. Hip abductors 3-/5. Knee flexors 3-/5. Knee extensors 3-/5. Ankle dorsiflexors 3-/5. Ankle plantarflexors 4-/5. Bed Mobility/Transfers: Supervision Gait: Facilitated safe and correct performance of level surface ambulation covering a distance of 75 feet + 150 feet using single-point cane with occasional holding onto wall/rail along [facility]. Step height and length asymmetrical. Gait speed decreased. Standby assist provided. Balance: Static Sitting: Normal Dynamic Sitting: Normal Static Standing: Good Dynamic Standing: Fair Special Tests: Mobility Limitations Standardized Measure [facility] AM-PAC 6 clicks Basic Mobility Inpatient Short Form: Raw Score: 20 CMS Score: 36% deficit Informed Consent/Education: Patient was instructed in purpose of PT consult and plan of care. Agreeable to proceed with established PT POC to achieve personal goals. Assessment: Able to complete mobility task using SPC when paced as his breathing limits him. Patient had minimal difficulty moving in bed but did not need physical assistance. Getting up from edge of bed only required stand by assist with definite use of hands for support. Use of the single-point cane added stability to his walking. Activity tolerance impaired as he needed to sit down due to fatigue. gait speed decreased. Step height and length asymmetrical. Patient was able to negotiate level surface in [place] hallway without LOB. Will require HH PT to ensure safety at discharge destination/home setting. Patient presents with clinical signs and symptoms consistent with current/admitting diagnoses that have resulted to mobility limitations, gait instability, generalized weakness, and overall ADL decline as demonstrated by the following impairment level findings: 1. Decreased strength to B UE/LE major muscle groups 2. Impaired sitting/standing balance 3. Impaired activity tolerance 4. Limitation of joint range of motion in B shoulders and B knees and ankles 5. Shortness of breath 6. Fatigue 7. Impaired skin integrity Impairments are contributing to the following functional limitations: 1. Decline in bed mobility skills 2. Decline in transfer skills 3. Difficulty with ambulation without assistive device and physical assistance 4. Increased completion time for mobility ADL performance 5. Increased risk for falls 6. Difficulty with managing steps alone safely Patient is assessed as a [id number] moderate complexity based on the following: History: 59-year-old male with past medical history as indicated above Examination: Demonstrable impairment in strength, balance, and mobility level with underlying impairments and functional limitations as exhibited above as well as deficit score of 36% utilizing the [facility] Mobility Inpatient Short Form Presentation: Decision Makin moderate complexity Goals: Goals X1 week 1. Supine-Sit independent 2. Sit-Supine independent 3. Sit-Stand independent 4. Stand-Sit independent with SPC 5. Bed-Chair independent with SPC 6. Chair-Bed independent with SPC 7. Independent gait on level surface with use of SPC for at least 300 feet without report of pain nor dyspnea 8. Independent stair negotiation while holding onto B rails for at least 5 steps without report of pain nor dyspnea 9. Independent with home exercise program 10. Good static and dynamic standing balance/tolerance Plan of Care/Treatment Plan: 1-2x/day, 7 days/week x 1 week. Plan of care has been reviewed with the CERTIFIED PEDIATRIC NURSE PRACTITIONER providing the service under Physical Therapy direction. Initiate Physical Therapy intervention for pain management as needed, strengthening, bed mobility, transfers, gait, stairs, balance training, and use of assistive device. DISCHARGE RECOMMENDATIONS: PT TREATMENT CODE/TIME: 91210 x 20 minutes for 1 unit, 08564 x 23 minutes for 2 units (11: 27?12: 11). Thank you for the opportunity to participate in the care of this patient. Hina Hagan PT, DPT, CLT [facility] [place], [place]
--- NOTE | 2025-01-08 11:38 | W.PALLCONSUL ---
Date of service: 01/08/25 Time of Service: 11:38 History of Present Illness Narrative: Haroon is a 59 year old man who is homeless and currently admitted to the hospital for acute hypoxic respiratory failure, CHF exacerbation in the setting of SHIRLEY (states he does not use), alcohol use disorder (w/Hx of w/d seizures), alcoholic hepatitis and cirrhosis. Palliative was consulted to discuss GOC. He was seen in his hospital room, he was alone at the time of the visit. He is very [place] and communication occurred via writing on paper for him to read per his preference. He reports that he is SOB, when he walks 20feet and he has to stop and take a rest. His legs are weak. He has a wound on his R heel that he reports is r/t getting garcia bite when he was sleeping in a car in the winter. He continues to report R foot pain. He is enjoying the food and watching TV at the hospital. He has PCP visit in [facility] later this month. He has not met his new PCP yet. Discussed that his imaging shows cirrhotic liver. He states he was unaware of this. He did not seem to fully grasp what this means. Reviewed briefly. He will need to go over this again. Reviewed that stopping ETOH would be recommended. He does not appear to have plans to quit ETOH. He reports he was kicked out of his apartment and has been sleeping outside. He lives in a little entry [address] in [facility]. He names friends, JULIA tomlinson and Lesly Haynes as his support people. Attempted to discuss code status. When reviewing if he would want to be on a breathing machine, he states, what am I going to do, walk around with a breathing machine on? He was having difficulty understanding the CODE discussion, in the setting of very poor hearing. He will benefit from ongoing discussion. Reviewed the importance of naming a HCA. He wishes to name his friend, JULIA tomlinson. HCA paperwork completed. Assessment and Plan Assessment and plan (1) Acute hypoxic respiratory failure: Status: Acute Assessment and plan: In setting of CHF exacerbation. (2) Substance use disorder: Status: Chronic Assessment and plan: Hx of SHIRLEY, denies active use. (3) Alcohol withdrawal: Status: Acute Assessment and plan: Ethyl > 200, history of w/d seizures Reviewed that the recommendation would be ETOH cessation in the setting of cirrhosis. (4) Alcohol abuse with withdrawal: Status: Acute Assessment and plan: As above (5) Alcoholic hepatitis: Status: Chronic (6) Weakness: Status: Acute Assessment and plan: PT consult consulted. (7) Anemia: Status: Chronic Assessment and plan: Stable (8) Seizure disorder: Status: Acute Assessment and plan: With alcohol withdrawal - not on home anti-seizure meds (9) Homelessness: Status: Acute Assessment and plan: States he sleeps under an entryway at the [facility] in [facility]. (10) Cirrhosis of liver: Status: Acute Assessment and plan: He was unaware of this Dx. Reviewed. (11) Palliative care encounter: Status: Acute Assessment and plan: Offer f/u. He does not have a phone but he has support people that help him get where he needs to go. (12) Advanced care planning/counseling discussion: Status: Acute Assessment and plan: Reviewed CODE status. He did not seem to understand. He will benefit from ongoing conversation. For now, he remains full code. He named JULIA Tomlinson as his HCA, HCA document completed and scanned into computer. He is establishing care with PCP at [facility] on 01/28/25. Offer f/u as above. He does not have a phone but his HCA helps him and may help corrdinate an appointment. JULIA was not present for the visit. Review of Systems Narrative: Per HPI PFSH All Active Problems (Updated 01/08/25 @ 16:40 by Rama Valdez NP) Advanced care planning/counseling discussion (Acute) Palliative care encounter (Acute) Homelessness (Acute) Cirrhosis of liver (Acute) Anemia (Chronic) On deep vein thrombosis (DVT) prophylaxis (Acute) Alcohol abuse with withdrawal (Acute) Acute hypoxic respiratory failure (Acute) Hypoxic respiratory failure (Acute) Hypomagnesemia (Acute) Substance use disorder (Chronic) Sepsis (Acute) Normocytic anemia (Acute) Decubitus ulcer of sacral area (Chronic) Bilateral cellulitis of lower leg (Chronic) Ulcer of right heel (Acute) Discharge planning issues (Acute) Weakness (Acute) Substance abuse (Acute) Alcohol abuse (Chronic) Alcoholic peripheral neuropathy (Acute) Seizure disorder (Acute) Multiple rib fractures (Acute) Rib fracture (Acute) Alcohol withdrawal (Acute) Alcoholic hepatitis (Chronic) Alcoholic gastritis (Acute) Alcohol dependence (Acute) Ankle fracture, left (Acute) Discharge planning issues (Acute) Hypokalemia (Acute) Medical History Alcohol use disorder Family History Mother Cancer Social History Smoking/Tobacco Use Status: Current every day Tobacco Type: cigarettes Years smoked: 38 Tobacco: How many years used: 38 Quit status: not considering quitting Smoking risk assessment performed?: Yes Alcohol Intake: current Alcohol Intake frequency: a few times a week Alcohol type: beer, wine and hard liquor Drug use: Occasionally Substance use type: does not use Details: States he drinks almost a case of beer a day. Today pt reports he consumed both beer and wine. Adopted: No Caregiver/Support person: No Foster care: No Household members: friend(s) and other Details: Whoever wants to stay there Housing: homeless Number of Children: 0 number of grandchildren: 0 Communication Needs: Hard of Hearing Education Level: high school Do you need help understanding health information?: Always Pets and animals: No Sexually active: No Do you think of yourself as: straight/heterosexual Current gender identity: male What is your relationship status?: never How often do you talk on the phone with friends or family?: never How often do you get together with friends or relatives?: three or more times per week Do you belong to any clubs or organized social groups?: no Panel score (0-1 are the most socially isolated patients): 1 What type of physical activity do you participate in: none Laura/Yazidi: None Special laura needs: No Seatbelt use: always Drive intox or ride w/intox jitney driver: No Do you feel safe at home: Yes Do you feel safe in your relationship?: Yes Additional Social history: Pt reports he has been sleeping in a van for the last month. Exam Narrative Exam Narrative: General: very pleasant, middle aged, chronically-ill appearing man, sitting up in bed. He is awake and alert. Very [place], communicaiton via writing on a piece of paper, per his preference. He is able to speak to respond. He does not appear to be in distress. HEENT: normocephalic, atraumatic, EOMI, mmm, poor dentition. Neck: supple Respiratory: respirations appear even and unlabored at rest and with talking. GI: abd soft, nontender on palpation. Ext: trace pitting edema to BLEs, surgical shoe on R foot. Results Last Vital Signs Temp 36.7 C 01/08/25 10:57 Pulse 92 H 01/08/25 10:57 Resp 16 01/08/25 10:57 BP 103/73 01/08/25 10:57 Pulse Ox 95 01/08/25 10:57 Labs 01/08/25 06:50 01/08/25 06:50 Labs: Laboratory Results - last 24 hr 01/07/25 01/07/25 01/07/25 13:04 14:17 14:20 WBC 4.26 L RBC 3.53 L Hgb 10.3 L Hct 31.2 L MCV 88 MCH 29.2 MCHC 33.0 RDW 16.5 H Plt Count 160 MPV 8.3 Immature Gran % 0.2 Neutrophils % 48.0 Lymphocytes % 27.0 Monocytes % 15.7 Eosinophils % 6.8 Basophils % 2.3 Nucleated RBC % 0.0 Absolute Neutrophils 2.04 Absolute Lymphocytes 1.15 L Absolute Monocytes 0.67 Absolute Eosinophils 0.29 Absolute Basophils 0.10 ESR 52 H PT 11.2 H INR 1.1 APTT 28.2 D-Dimer 786 H VBG pH 7.42 H VBG pCO2 44 VBG pO2 27 VBG HCO3 29 H VBG Total CO2 27 VBG O2 Saturation 40 VBG Base Excess 4 H VBG Lactate 1.8 Sodium 138 Potassium 4.0 Chloride 102 Carbon Dioxide 27.9 Anion Gap 8.1 BUN 3 L Creatinine 0.4 L Est GFR (CKD-EPI 2020) 127.26 Glucose 84 Calcium 8.8 Magnesium 1.9 Total Bilirubin 0.4 AST 51 H ALT 23 Alkaline Phosphatase 126 H Troponin I 6 6 6 C-Reactive Protein < 0.50 NT-Pro-B Natriuret Pep 107 Total Protein 8.5 H Albumin 2.9 L Urine Opiates Screen Urine Methadone Screen Ur Barbiturates Screen Ur Tricyclics Screen Ur Amphetamines Screen U Benzodiazepines Scrn Urine Cocaine Screen Ur THC Screen Ethyl Alcohol 208.9 H COVID-19 Source Nasopharynx SARS-CoV-2 (PCR) Negative Influenza Type A (PCR) Negative Influenza Type B (PCR) Negative RSV (PCR) Negative 01/08/25 01/08/25 06:50 09:10 WBC 4.91 RBC 3.43 L Hgb 10.2 L Hct 30.0 L MCV 88 MCH 29.7 MCHC 34.0 RDW 16.0 H Plt Count 147 MPV 9.2 Immature Gran % 0.6 Neutrophils % 65.8 Lymphocytes % 14.3 Monocytes % 13.6 Eosinophils % 4.3 Basophils % 1.4 Nucleated RBC % 0.0 Absolute Neutrophils 3.23 Absolute Lymphocytes 0.70 L Absolute Monocytes 0.67 Absolute Eosinophils 0.21 Absolute Basophils 0.07 ESR PT INR APTT D-Dimer VBG pH VBG pCO2 VBG pO2 VBG HCO3 VBG Total CO2 VBG O2 Saturation VBG Base Excess VBG Lactate Sodium 135 L Potassium 3.1 L Chloride 99 Carbon Dioxide 29.7 Anion Gap 6.3 BUN 5 L Creatinine 0.5 L Est GFR (CKD-EPI 2020) 118.97 Glucose 93 Calcium 8.4 L Magnesium Total Bilirubin 1.1 H AST 30 ALT 18 Alkaline Phosphatase 114 Troponin I C-Reactive Protein NT-Pro-B Natriuret Pep Total Protein 7.3 Albumin 2.5 L Urine Opiates Screen Negative Urine Methadone Screen Negative Ur Barbiturates Screen Positive A Ur Tricyclics Screen Negative Ur Amphetamines Screen Negative U Benzodiazepines Scrn Negative Urine Cocaine Screen Negative Ur THC Screen Negative Ethyl Alcohol COVID-19 Source SARS-CoV-2 (PCR) Influenza Type A (PCR) Influenza Type B (PCR) RSV (PCR) Time Spent Time Spent with Patient Time Spent(min): 88
--- NOTE | 2025-01-08 15:27 | PGE_ITS ---
Date of Service Date of service: 01/08/25 Time of Service: 15:27 Assessment and Plan Assessment and plan (1) Acute hypoxic respiratory failure: Status: Acute Assessment and plan: Not on oxygen at baseline , sat in the 86-70% on ambulation resolving to 90% with oxygen at 2l/min via NC DDx CHF exacerbation VS ACS- unlikely at this time d/t negative troponins and EKG- might need a stress test outpatient to totally r/o cardiac changes on exertion -PE and PNA r/o as per imaging- not septic, negative lactate - will add a procal - COPD exacerbation considered but VBG negative (2) Substance use disorder: Status: Chronic Assessment and plan: Hx of - on IR oxycodone - (3) Alcohol withdrawal: Status: Acute Assessment and plan: Ethyl > 200, history of w/d seizures CIWA protocol with phenobarbital (4) Alcohol abuse with withdrawal: Status: Acute Assessment and plan: As above Will inquire about quitting VS aversion therapy (5) Alcoholic hepatitis: Status: Chronic Assessment and plan: Mildy elevated LFT's CMP in AM (6) Weakness: Status: Acute Assessment and plan: On ambulation PT consult (7) Anemia: Status: Chronic Assessment and plan: Stable CBC in AM (8) Seizure disorder: Status: Acute Assessment and plan: With alcohol withdrawal - not on home anti-seizure meds (9) On deep vein thrombosis (DVT) prophylaxis: Status: Acute Assessment and plan: ON LMWH (10) Discharge planning issues: Status: Acute Assessment and plan: Homeless CM to follow Discussed with Dr. Vera Subjective Subjective Patient reports: no new complaints, pain is less, tolerating liquids well, tolerating a regular diet, voiding w/o difficulty, flatus, bowel movement and afebrile; denies diarrhea, nausea, vomiting or shortness of breath Exam Narrative Exam Narrative: Alert and oriented X3,NUNAM IQUA, neurologically intact ongoing tremors , clear lungs with decreased baseswith faint crackles , accessory muscle use with exertion, S1, S2 regular, abdomen is non-distended, soft, non-tender, no CVA tendreness, R heel ulcer w/o purulent drainage dry and healed, left second toe nail appears back but cap refill < 3 sec Objective Last Vital Signs Temp 36.7 C 01/08/25 10:57 Pulse 92 H 01/08/25 10:57 Resp 16 01/08/25 10:57 BP 103/73 01/08/25 10:57 Pulse Ox 95 01/08/25 10:57 Laboratory Results - last 24 hr 01/07/25 01/08/25 01/08/25 14:17 06:50 09:10 WBC 4.91 RBC 3.43 L Hgb 10.2 L Hct 30.0 L MCV 88 MCH 29.7 MCHC 34.0 RDW 16.0 H Plt Count 147 MPV 9.2 Immature Gran % 0.6 Neutrophils % 65.8 Lymphocytes % 14.3 Monocytes % 13.6 Eosinophils % 4.3 Basophils % 1.4 Nucleated RBC % 0.0 Absolute Neutrophils 3.23 Absolute Lymphocytes 0.70 L Absolute Monocytes 0.67 Absolute Eosinophils 0.21 Absolute Basophils 0.07 VBG pH 7.42 H VBG pCO2 44 VBG pO2 27 VBG HCO3 29 H VBG Total CO2 27 VBG O2 Saturation 40 VBG Base Excess 4 H Sodium 135 L Potassium 3.1 L Chloride 99 Carbon Dioxide 29.7 Anion Gap 6.3 BUN 5 L Creatinine 0.5 L Est GFR (CKD-EPI 2020) 118.97 Glucose 93 Calcium 8.4 L Total Bilirubin 1.1 H AST 30 ALT 18 Alkaline Phosphatase 114 Troponin I 6 Total Protein 7.3 Albumin 2.5 L Urine Opiates Screen Negative Urine Methadone Screen Negative Ur Barbiturates Screen Positive A Ur Tricyclics Screen Negative Ur Amphetamines Screen Negative U Benzodiazepines Scrn Negative Urine Cocaine Screen Negative Ur THC Screen Negative COVID-19 Source Nasopharynx SARS-CoV-2 (PCR) Negative Influenza Type A (PCR) Negative Influenza Type B (PCR) Negative RSV (PCR) Negative PAWSS Have you Been Recently Intoxicated or Drunk Within the Last 30 days?: Unable to Obtain Have you Ever Experienced Previous Episodes of Alcohol Withdrawal?: Unable to Obtain Have you ever Experienced Withdrawal Seizures?: Unable to Obtain Have you ever Experienced Delirium Tremens(DT)s?: Unable to Obtain Have you ever undergone Alcohol Rehabilitation Treatment (i.e, inpt ot outpatient treatment programs)?: Unable to Obtain Have you ever Experienced Blackouts?: Unable to Obtain Have you ever Combined Alcohol with other Downers within the last 90 days?: Unable to Obtain Have you ever Combined Alcohol with any other Substance of Abuse during the last 90 days?: Unable to Obtain Positive Blood Alcohol level on Presentation? [PCS.BAL]: Unable to Obtain Evidence of Increased Autonomic Activity (i.e. HR>120, tremor, sweating, agitation, nausea)?: Unable to Obtain Result: 4
--- NOTE | 2025-01-08 15:28 | PT.INTREAT ---
PT Notes Visit Reasons: CHF exacerbation, hypoxic respiratory failure Date: 01/08/25 PRECAUTIONS: Standard, Fall, Activity as tolerated. SUBJECTIVE: Pt in bed when approached for therapy this afternoon, pt [place] needs to write instructions order to understand ? VITALS: Monitored by nursing ? Therapeutic Exercises [id number]: Direct one-on-one instruction in therapeutic exercises to develop strength, endurance, range of motion and flexibility. Exercises Access Code: [email or web address] URL: [email or web address] Date: 01/08/2025 Prepared by: Mak Hagan Exercises - Sit to Stand - 1 x daily - 7 x weekly - 1 sets - 10 reps - Mini Squat with Counter Support - 1 x daily - 7 x weekly - 1 sets - 10 reps - Standing Hip Abduction with Counter Support - 1 x daily - 7 x weekly - 1 sets - 10 reps - Standing March with Counter Support - 1 x daily - 7 x weekly - 1 sets - 10 reps - Standing Hip Extension with Counter Support - 1 x daily - 7 x weekly - 1 sets - 10 reps - Heel Raises with Counter Support - 1 x daily - 7 x weekly - 1 sets - 10 reps Provided skilled instruction in proper exercise performance Provided skilled manual cues to facilitate proper muscle recruitment and/or form: ASSESSMENT:?Pt did not want to stand up, politely declined further engagement after performing HEP. PLAN: Continue with balance training, global strengthening and general conditioning for improved safety, mobility and activity tolerance until pt is ready for DC. TREATMENT CODE/TIME: [id number] 25mins (3:50-4:15pm)
[2025-01-08 15:44] VITALS: BP 106/56; PULSE 80; RESP 16; TEMP 36.9; O2SAT 97
[2025-01-08 15:46] LABS: Magnesium 1.5 mg/dL (1.8-2.4)
[2025-01-08] MEDS: Potassium Chloride 20 MEQ TABCR 40 MEQ PO (15:54)
--- NOTE | 2025-01-08 16:03 | DSE_ITS ---
Date of service: 01/08/25 Time of Service: 16:03 DS: Diagnosis Discharge Diagnosis (1) Acute hypoxic respiratory failure: Status: Acute (2) Substance use disorder: Status: Chronic (3) Alcohol withdrawal: Status: Acute (4) Alcohol abuse with withdrawal: Status: Acute (5) Alcoholic hepatitis: Status: Chronic (6) Weakness: Status: Acute (7) Anemia: Status: Chronic (8) Seizure disorder: Status: Acute (9) On deep vein thrombosis (DVT) prophylaxis: Status: Acute (10) Discharge planning issues: Status: Acute Discharge Plan Disposition Patient Disposition: Home W/Home Health Services Condition: Improving Discharge Details Reason For Visit: CHF exacerbation, hypoxic respiratory failure Admit Date/Time: 01/07/25 16:15 Admit Provider: Rian Vera Attending Provider: Rian Vera Primary Care Provider: Unknown,Unknown Hospital Course Hospital Course: This is 59-year-old male patient w a PMHx of ongoing homelessness living on [address], chronic alcohol use with w/d seizures, substance use disorder with no reported recent use and negative drug screen in the ED and presently has an alcohol level of 268 presented to the ED today for evaluation of leg swelling , dyspnea on ambulation and ongoing right heel ulcer. Work-up in the ED was negative for ACS as per EKG and troponin, no c/o chest pain, hemodynamically stable but developing dyspnea on ambulation with ED provider notes stating saturations in oxygen dropping to the 70's. B-lines on POCUS reported by ED provider, CT and chest XR negative for acute findings and neagtive BNP.. The patient was admitted for working diagnosis of CHF exacerbation to the medical surgical floor. ED provider initiated IV lasix in the ED with resolution of hypoxic respiratory failure. Upper respiratory viral panel was negative and VBG was w/o hypercapnia, Ethyl level at 281, positive tremors, refused drinking and smoking cessation options/ consideration. The patient continued to receive IV lasix. Physiscal therapy recommendation for home health PT ,but will have outpatient PT and a friend with drive him there. Echocardiogram conclusions Conclusion Normal left ventricular wall thickness and chamber size. Ejection fraction is 65 to 70%. Wall motion is normal Normal right ventricular size and function Both atria are normal in size Incidental finding of small patent foramen ovale with bidirectional flow There is no structural or hemodynamically significant valvular disease Mildly dilated ascending aorta (measuring 4.2 cm; no evidence of dissection on CT) IVC is normal in size and collapses >50% with inspiration. The patient is hemodynamically stable and afebrile , ambulating without exacerbation with FWW with PT and will be discharged home. The patient received phenobarbital as per ETOH withdrawal protocol during stay and is not actively withdrawing-last CIWA at 1. The patient will be discharged on low dose furosemide, PRN acetaminophen and vitamins. Outpatient provider follow-up within 7 days of discharge, please. Recommendations for outpatient follow-up: Incidental PFO findings w/o S&S of stroke Discussed with Dr. Vera Home Meds and New Rx's Prescriptions: New acetaminophen 325 mg Tablet 650 mg PO Q4H PRN PRNQty: 30 0RF folic acid 1 mg Tablet 1 mg PO QAM Qty: 30 0RF multivitamin [Multiple Vitamins] Tablet 1 tab PO QAM Qty: 30 0RF thiamine mononitrate (vit B1) [Vitamin B-1 (mononitrate)] 100 mg Tablet 100 mg PO QAM Qty: 30 0RF furosemide [Lasix] 20 mg tablet 20 mg PO DAILY Qty: 30 0RF Continued oxycodone 5 mg Tablet 5 mg PO Q4H PRN PRNQty: 7 0RF magnesium oxide 400 mg (241.3 mg magnesium) Tablet 400 mg PO BID 30 Days Qty: 60 0RF Discharge Instructions Referrals: Unknown,Unknown [Primary Care Provider, Unknown] Referral Note: Follow-up within 7 days of discharge please Hadley Kraus, Physical Therapy [Outside] Referral Note: Outpatient referral for PT Activity:: Activity as Tolerated Equipment/Supplies:: Walker Diet:: heart healthy Discharge Orders Discharge Orders: Discharge Order (Routine); Ordered 01/08/25 Ordered By: Nuria Monroy DS: Summary Time Spent with Patient providing and/or coordinating discharge services: Greater than 30 minutes Status at Discharge Functional status at discharge: uses cane/walker Overall status at discharge: patient is back to baseline Mental Status: mental status grossly normal Speech and Movement: speech and movement normal Mood: congruent mood Affect: normal affect Quality:SDOH Health Related Social Needs: Health related social needs inadequate housing risk of homeless transpo insecurity material hardship house/econ circumstance daily activities lonely/isolated Health related social needs details homeless Health related social needs details: homeless Exam Narrative Exam Narrative: Alert and oriented X3, neurologically intact reduced tremors , clear lungs with decreased bases, S1, S2 regular, abdomen is non-distended, soft, non-tender, no CVA tendreness, R heel ulcer w/o purulent drainage dry and healed, left second toe nail appears back but cap refill < 3 sec Psych Mental Status: mental status grossly normal Speech and Movement: speech and movement normal Mood: congruent mood Affect: normal affect DS: Data Vitals/I&O Vitals and I&O: Vital Signs Temperature 36.9 C 01/08/25 15:44 Temperature Source Temporal Artery Scan 01/08/25 15:44 Pulse 80 01/08/25 15:44 Pulse 84 01/07/25 16:31 Respiratory Rate 16 01/08/25 15:44 Respiratory Effort Normal 01/07/25 17:24 Respiratory Depth Normal 01/07/25 17:24 Respiratory Pattern Normal 01/07/25 17:24 Blood Pressure 106/56 L 01/08/25 15:44 Blood Pressure Mean 72 01/08/25 15:44 Pulse Oximetry 97 01/08/25 15:44 Oxygen Delivery Method Room Air 01/08/25 15:44 Oxygen Flow Rate 0 01/08/25 15:44 Pain Level 5 01/08/25 03:19 Comment PT stated he is in a lot of pain, Nurse notified. 01/07/25 19:44 Intake & Output 01/07/25 01/08/25 01/08/25 23:59 11:59 23:59 Intake Total 51.4615 / 51.4615 102.1538 / 102.1538 Output Total 3300 / 3300 400 / 800 400 / 800 Balance -3248.5385 / -3248.5385 -297.8462 / -697.8462 -400 / -697.8462 Intake: IV 51.4615 / 51.4615 102.1538 / 102.1538 Output: Urine 3300 / 3300 400 / 800 400 / 800 Other: Urine Color Straw Yellow Urine Appearance Clear Clear Clear Urine Odor Normal Data Completed and Pending Labs on day of discharge: Labs from last 24 hours 01/08/25 01/08/25 01/07/25 09:10 06:50 14:17 WBC 4.91 RBC 3.43 L Hgb 10.2 L Hct 30.0 L MCV 88 MCH 29.7 MCHC 34.0 RDW 16.0 H Plt Count 147 MPV 9.2 Immature Gran % 0.6 Neutrophils % 65.8 Lymphocytes % 14.3 Monocytes % 13.6 Eosinophils % 4.3 Basophils % 1.4 Nucleated RBC % 0.0 Absolute Neutrophils 3.23 Absolute Lymphocytes 0.70 L Absolute Monocytes 0.67 Absolute Eosinophils 0.21 Absolute Basophils 0.07 VBG pH 7.42 H VBG pCO2 44 VBG pO2 27 VBG HCO3 29 H VBG Total CO2 27 VBG O2 Saturation 40 VBG Base Excess 4 H Sodium 135 L Potassium 3.1 L Chloride 99 Carbon Dioxide 29.7 Anion Gap 6.3 BUN 5 L Creatinine 0.5 L Est GFR (CKD-EPI 2020) 118.97 Glucose 93 Calcium 8.4 L Magnesium 1.5 L Total Bilirubin 1.1 H AST 30 ALT 18 Alkaline Phosphatase 114 Troponin I 6 Total Protein 7.3 Albumin 2.5 L Urine Opiates Screen Negative Urine Methadone Screen Negative Ur Barbiturates Screen Positive A Ur Tricyclics Screen Negative Ur Amphetamines Screen Negative U Benzodiazepines Scrn Negative Urine Cocaine Screen Negative Ur THC Screen Negative COVID-19 Source Nasopharynx SARS-CoV-2 (PCR) Negative Influenza Type A (PCR) Negative Influenza Type B (PCR) Negative RSV (PCR) Negative PFSH All Active Problems Cirrhosis of liver (Acute) Anemia (Chronic) On deep vein thrombosis (DVT) prophylaxis (Acute) Alcohol abuse with withdrawal (Acute) Acute hypoxic respiratory failure (Acute) Hypoxic respiratory failure (Acute) Hypomagnesemia (Acute) Substance use disorder (Chronic) Sepsis (Acute) Normocytic anemia (Acute) Decubitus ulcer of sacral area (Chronic) Bilateral cellulitis of lower leg (Chronic) Ulcer of right heel (Acute) Discharge planning issues (Acute) Weakness (Acute) Substance abuse (Acute) Alcohol abuse (Chronic) Alcoholic peripheral neuropathy (Acute) Seizure disorder (Acute) Multiple rib fractures (Acute) Rib fracture (Acute) Alcohol withdrawal (Acute) Alcoholic hepatitis (Chronic) Alcoholic gastritis (Acute) Alcohol dependence (Acute) Ankle fracture, left (Acute) Discharge planning issues (Acute) Hypokalemia (Acute) Medical History Alcohol use disorder Family History Mother Cancer Social History Smoking/Tobacco Use Status: Current every day Tobacco Type: cigarettes Years smoked: 38 Tobacco: How many years used: 38 Quit status: not considering quitting Smoking risk assessment performed?: Yes Alcohol Intake: current Alcohol Intake frequency: a few times a week Alcohol type: beer, wine and hard liquor Drug use: Occasionally Substance use type: does not use Details: States he drinks almost a case of beer a day. Today pt reports he consumed both beer and wine. Adopted: No Caregiver/Support person: No Foster care: No Household members: friend(s) and other Details: Whoever wants to stay there Housing: homeless Number of Children: 0 number of grandchildren: 0 Communication Needs: Hard of Hearing Education Level: high school Do you need help understanding health information?: Always Pets and animals: No Sexually active: No Do you think of yourself as: straight/heterosexual Current gender identity: male What is your relationship status?: never How often do you talk on the phone with friends or family?: never How often do you get together with friends or relatives?: three or more times per week Do you belong to any clubs or organized social groups?: no Panel score (0-1 are the most socially isolated patients): 1 What type of physical activity do you participate in: none Laura/Sikhism: None Special laura needs: No Seatbelt use: always Drive intox or ride w/intox driver license technician: No Do you feel safe at home: Yes Do you feel safe in your relationship?: Yes Additional Social history: Pt reports he has been sleeping in a van for the last month. Time Spent with Patient Time Spent with Patient: >85 minutes Time was spent: preparing to see the patient(eg.review tests), obtaining and/or reviewing separately otained hiistory, ordering medications,tests, procedures, referring, communicating with other health human services care specialist, indepentently interpreting results, counseling the patient and care coordination
--- NOTE | 2025-01-08 17:32 | PDOC.CMDIS ---
Date of service: 01/08/25 Time of Service: 17:32 LACE Index Scoring Tool Questions: Length of Stay (in days): 1 Was the patient admitted via the E.D.?: Yes E.D. Visits: 3 Answers: Total Score: 7 Risk of Readmission: Low Risk Care Management Discharge Plan Reason for Hospitalization: Hypoxic Respiratory Failure Discharge Plan: Hector is discharged to the community with a plan to follow up with Primary Care on 01/28/25 as previously scheduled and recommend starting outpatient PT. No new services are ordered prior to discharge. Patient/Family Education Needs: Review discharge instructions and recommendations to follow up after discharge. Discuss ask me three. SDOH Health Related Social Needs: Health related social needs inadequate housing risk of homeless transpo insecurity material hardship house/econ circumstance daily activities lonely/isolated Health related social needs details homeless Health related social needs details: homeless
== END 2025-01-08 17:38 | disposition home health service (06) ==
LOC: ER 16:18 → MS 17:16
PROVIDERS: Admitting Provider Family Medicine; Emergency Provider General Practice; Responsible Provider Nurse Practitioner Acute Care; Visit Provider Family Medicine
DX: J96.01 Acute respiratory failure with hypoxia (principal); I50.9 Heart failure, unspecified; F10.139 Alcohol abuse with withdrawal, unspecified; K70.10 Alcoholic hepatitis without ascites; R53.1 Weakness; G40.909 Epilepsy, unspecified, not intractable, without status epilepticus; D64.9 Anemia, unspecified; Z79.899 Other long term (current) drug therapy; K74.60 Unspecified cirrhosis of liver; F17.210 Nicotine dependence, cigarettes, uncomplicated; F19.90 Other psychoactive substance use, unspecified, uncomplicated; Y90.7 Blood alcohol level of 200-239 mg/100 ml; Z59.02 Unsheltered homelessness; Z59.82 Transportation insecurity; E83.42 Hypomagnesemia; L97.419 Non-pressure chronic ulcer of right heel and midfoot with unspecified severity; G62.1 Alcoholic polyneuropathy; K29.20 Alcoholic gastritis without bleeding; Q21.12 Patent foramen ovale; Z59.87 Material hardship due to limited financial resources, not elsewhere classified; Z73.89 Other problems related to life management difficulty
CPT/HCPCS: 00123; 36415; 71275; 80053; 80307; 82805; 85652; 87637; 93005; 93308; 96365; 96366; 96375; 96376; 97110; 97162; 97530; 99285; J1650; 71045; 80320; 83605; 83735; 83880; 84484; 85025; 85379; 85610; 85730; 86140; 93010; 93306; 99223; 99239; G0378; J1938; J2560; J3490

== ENCOUNTER 2025-03-19 19:22 | Outpatient (REF) | payer MEDICAID, SELFPAY ==
[2025-03-19 19:48] LABS: HCT 33.4 % (40.0-50.0); HGB 10.6 g/dL (13.5-17.5); MCH 27.5 pg (27.0-33.0); MCHC 31.7 % (32.0-36.0); MCV 87 fL (80-95); MPV 10.9 fL (8.0-11.0); Platelet Count 355 10^3/uL (130-400); RBC 3.86 10^6/uL (4.36-5.78); RDW 18.8 % (11.8-14.1); RDW-SD 59.1 fL; WBC 6.05 10^3/uL (4.4-10.8)
[2025-03-19 19:56] LABS: Hemoglobin A1C 5.2 % (<5.7)
[2025-03-19 20:06] LABS: Iron 26 ug/dL (65-175); Total Iron Binding Capacity 423 ug/dL (250-450); Transferrin Sat 6 % (20-55)
[2025-03-19 20:34] LABS: ALT 20 U/L (16-63); AST 37 U/L (15-37); Albumin 3.3 g/dL (3.4-5.0); Alkaline Phosphatase 140 U/L (46-116); Anion Gap 12.8 mmol/L (3-11); BUN 7 mg/dL (7-18); Bilirubin, Total 0.7 mg/dL (0.2-1.0); CO2 23.2 mmol/L (21.0-32.0); Calcium 9.1 mg/dL (8.5-10.1); Calculated LDL 79 mg/dL (<100); Chloride 95 mmol/L (98-107); Cholesterol 122 mg/dL (<200); Estimated GFR 107.47 (mL/min/1.73m2); Ferritin 39 ng/mL (26-388); Folate 19.5 ng/mL (8.6-20.0); Glucose 94 mg/dL (74-106); HDL Cholesterol 32 mg/dL (>or=40); Magnesium 1.7 mg/dL (1.8-2.4); Potassium 4.1 mmol/L (3.5-5.1); Sodium 131 mmol/L (136-145); Total Protein 9.3 g/dL (6.4-8.2); Triglyceride 59 mg/dL (<150); Vitamin B12 283 pg/mL (193-986)
[2025-03-22 10:43] LABS: Hepatitis C Ab w Rflx HCV PCR Negative (Negative)
[2025-03-22 10:44] LABS: HIV-1/2 Ag & Ab Screen Negative (Negative)
[2025-03-22 12:19] LABS: Lyme Ab w Rflx to Lyme Confirm Negative (Negative)
== END 2025-03-19 19:23 | disposition home or self-care (01) ==
LOC: NCHCN 19:22
PROVIDERS: Visit Provider Nurse Practitioner Family
DX: D64.9 Anemia, unspecified (principal); Z00.00 Encounter for general adult medical examination without abnormal findings; F10.90 Alcohol use, unspecified, uncomplicated
CPT/HCPCS: 80053; 80061; 85027; 86803; 87389; 82607; 82728; 82746; 83036; 83540; 83550; 83735; 85045; 86618

== ENCOUNTER → 2025-05-04 00:21 | Outpatient (CLI) | payer SELFPAY ==
--- NOTE | 2025-05-04 08:45 | DI.RAD_ITS ---
Exam(s) XR HEEL RT OS CALCIS EXAM: XR HEEL RT OS CALCIS CLINICAL HISTORY: ? Osteomyelitis,Baseline images,ulcer rt heel,[id number]. TECHNIQUE: 2D digital imaging was performed. Two images were obtained. COMPARISON: CR,XR XR ANKLE LT COMPLETE from 10/27/2022 FINDINGS: BONES: No acute fracture is present. No bony destructive lesion is seen. JOINTS: No dislocation present. SOFT TISSUE: Normal. No soft tissue gas is seen at this time. IMPRESSION: No radiographic evidence to suggest osteomyelitis. DATA REPOSITORY: RADIATION DOSE DELIVERED:
== END ==
LOC: DI 00:22
PROVIDERS: PCP Nurse Practitioner Family; Visit Provider Podiatrist
DX: L97.419 Non-pressure chronic ulcer of right heel and midfoot with unspecified severity (principal)
CPT/HCPCS: 73650